=== PATIENT | male | born 1955 | race African-American/Black ===

== ENCOUNTER 2017-02-21 07:28 | Emergency (ER) | payer BC ==
[~2017-02-21] VITALS: Ht 175.3 cm; Wt 100.0 kg
[~2017-02-21 07:28] MED LIST: ASPI325T PO; TAB-TAB PO
[2017-02-21 07:30] VITALS: BP 175/83; PULSE 91; RESP 18; TEMP 98.4; O2SAT 97
[2017-02-21] MEDS ORDERED: ASPI-183 PO (07:49)
--- NOTE | 2017-02-21 07:52 | PD ---
HPI Chief Complaint: Nosebleed Time Seen by Provider: 07:40 Travel History International Travel<30 days: No Contact w/Intl Traveler<30days: No Traveled to known affect area: No History of Present Illness HPI 51-year-old Afro-[place] male presents the emergency department with recent increase in episodes of epistaxis. Patient denies any acute problems otherwise. Patient has history of long-standing lymphedema in the right lower extremity. Takes no regular medications. Vital signs are stable. He is currently not having epistaxis acutely at this time. He has no known drug allergies. PFSH Past Medical History Hx Anticoagulant Therapy: No Asthma: No Autoimmune Disease: No Blood Disorders: No Anxiety: Yes Depression: Yes Heart Rhythm Problems: No Cancer: No Cardiovascular Problems: No High Cholesterol: No Chemotherapy: No Chest Pain: No COPD: No Cerebrovascular Accident: No Diabetes: Yes Patient Takes Glucophage: No Diminished Hearing: No Endocrine: Yes Gastrointestinal Disorders: Yes GERD: Yes Glaucoma: No Genitourinary: No Hepatitis: No Hiatal Hernia: No Hypertension: Yes Immune Disorder: No Musculoskeletal: No Reproductive: No Respiratory: No Integumentary: Yes (LYMPHEDEMA) Immunizations Current: Yes Migraines: No Myocardial Infarction: No Pneumonia: Yes Radiation Therapy: No Seizures: No Sleep Apnea: No Thyroid Disease: No Past Surgical History Abdominal Surgery: No AICD: No Arteriovenous Shunt: No Cardiac Surgery: No Ear Surgery: No Endocrine Surgery: No Eye Surgery: No Genitourinary Surgery: No Gynecologic Surgery: No Hysterectomy: No Insulin Pump: No Joint Replacement: No Oral Surgery: Yes (WISDOM TEETH EXTRACTED-1973) Pacemaker: No Tonsillectomy: Yes (1960) Social History Alcohol Use: Yes (DAILY "7 PINTS OF BEER PER DAY") Tobacco Use: No Substance Use: No Allergies-Medications (Allergen,Severity, Reaction): Coded Allergies: No Known Allergies (Verified Adverse Reaction, Unknown, 02/21/17) Reported Meds & Prescriptions Reported Meds & Active Scripts Active Review of Systems Except as stated in HPI: all other systems reviewed are Neg General / Constitutional: No: Fever Eyes: No: Visual changes HENT: Positive: Nosebleed (history of recent epistaxis.), No: Headaches Cardiovascular: Positive: Varicosities (in both lower extremities.), Edema ( chronic right lymphedema.), No: Chest Pain or Discomfort, Palpitations, Irregular Rhythm, Tachycardia, Diaphoresis, Syncope, Dyspnea on exertion, Phlebitis, Claudication Respiratory: No: Shortness of Breath Gastrointestinal: No: Abdominal Pain Genitourinary: No: Dysuria Musculoskeletal: No: Pain Skin: No Rash Neurologic: No: Weakness Psychiatric: No: Depression Endocrine: No: Polydipsia Hematologic/Lymphatic: No: Easy Bruising Physical Exam Narrative GENERAL: Patient appears in no acute distress. SKIN: Warm and dry. Normal color. Normal turgor. HEAD: Atraumatic. Normocephalic. EYES: Pupils equal and round. No scleral icterus. No injection or drainage. ENT: No nasal bleeding or discharge. No obvious signs of epistaxis are noted. Mucous membranes pink and moist. TMs are clear bilaterally. Pharynx is clear. Airway is patent. No sinus tenderness to palpation or percussion. NECK: Trachea midline. Supple and nontender. CARDIOVASCULAR: Regular rate and rhythm. 2 over 4 systolic murmur noted. RESPIRATORY: No accessory muscle use. Clear to auscultation. Breath sounds equal bilaterally. GASTROINTESTINAL: Abdomen soft, non-tender, nondistended. Hepatic and splenic margins not palpable. MUSCULOSKELETAL: Extremities without clubbing or cyanosis. Patient has significant right sided lymphedema which is nontender without signs of skin breakdown or cellulitis. No obvious deformities. NEUROLOGICAL: Awake and alert. No obvious cranial nerve deficits. Motor grossly within normal limits. Five out of 5 muscle strength in the arms and legs. Normal speech. PSYCHIATRIC: Appropriate mood and affect; insight and judgment normal. Data Data Last Documented VS Vital Signs Date Time Temp Pulse Resp B/P (MAP) Pulse Ox O2 Delivery O2 Flow Rate FiO2 02/21/17 07:30 98.4 91 18 175/83 (113) 97 MDM Medical Decision Making Medical Screen Exam Complete: Yes Emergency Medical Condition: No Differential Diagnosis Chronic lower extremity lymphedema. History of varicose veins. Recent epistaxis. Narrative Course A medical screening exam was performed: At the time of evaluation the presenting medical condition was determined not to be of an emergent nature. The patient was given the option of receiving additional care, but declined. Patient was given options for additional community resources from which to obtain care. The Patient Has Been advised to seek medical attention for their presenting complaint. The patient has been advised to return to the ER at any time if an emergent condition develops. Patient is referred to the [facility] for further evaluation and treatment for his chronic issues. Condition: Stable Chase Machado Feb 21, 2017 07:52
== END 2017-02-21 08:01 | disposition left against medical advice (07) ==
LOC: NEPD 07:28
DX: R04.0 Epistaxis (principal); F41.9 Anxiety disorder, unspecified; F32.9 Major depressive disorder, single episode, unspecified; E11.9 Type 2 diabetes mellitus without complications; K21.9 Gastro-esophageal reflux disease without esophagitis; I10 Essential (primary) hypertension
CPT/HCPCS: 99281

== ENCOUNTER 2017-04-12 01:16 | Emergency (ER) | payer BC ==
[~2017-04-12] VITALS: Ht 177.8 cm; Wt 85.0 kg
[~2017-04-12 01:16] MED LIST changes: +ASPI-183 PO; -ASPI325T PO; -TAB-TAB PO
[2017-04-12 01:19] VITALS: BP 149/80; PULSE 87; RESP 20; O2SAT 97
[2017-04-12 02:46] VITALS: BP 137/88; PULSE 120; RESP 20; O2SAT 98
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
[2017-04-12] MEDS ORDERED: THIAMINE HCL 100 MG TAB PO ONE (03:00)
[2017-04-12] MEDS ORDERED: ONDANSETRON ODT 4 MG TAB PO ONE (03:00)
--- NOTE | 2017-04-12 03:48 | RADRPT ---
EXAM DATE/TIME: 04/12/2017 03:17 [facility] COMPARISON: No previous studies available for comparison. INDICATIONS : Short of breath. MEDICAL HISTORY : None. SURGICAL HISTORY : None. ENCOUNTER: Initial ACUITY: 1 day PAIN SCORE: 0/10 LOCATION: Bilateral chest FINDINGS: The cardiac silhouette is normal in transverse diameter. The lungs are free of acute parenchymal opac ity. No effusions are identified. There is elevation of the right hemidiaphragm. CONCLUSION: 1. Cardiomegaly. No acute pulmonary disease. Isaiah Reyes MD on April 12, 2017 at 3:46 Board Certified Radiologist. This report was verified electronically.
[2017-04-12 04:11] VITALS: BP 140/72; PULSE 90; RESP 16; O2SAT 97
[2017-04-12 07:16] VITALS: BP 137/78
== END 2017-04-12 07:17 | disposition home or self-care (01) ==
LOC: NEPE 01:16
DX: F10.129 Alcohol abuse with intoxication, unspecified (principal); F32.9 Major depressive disorder, single episode, unspecified; E11.9 Type 2 diabetes mellitus without complications; I10 Essential (primary) hypertension; K21.9 Gastro-esophageal reflux disease without esophagitis; Z79.82 Long term (current) use of aspirin
CPT/HCPCS: 71045; 99283

== ENCOUNTER 2017-04-23 08:27 | Emergency (ER) | payer BC ==
[2017-04-23 08:36] VITALS: BP 179/86; PULSE 110; RESP 18; TEMP 98.2; O2SAT 100
--- NOTE | 2017-04-23 08:57 | PD ---
HPI Chief Complaint: Medical Clearance Time Seen by Provider: 08:45 Travel History International Travel<30 days: No Contact w/Intl Traveler<30days: No Traveled to known affect area: No History of Present Illness HPI 61-year-old Afro-Citizen Of [place] male presents to emergency department requesting a work release note so that he can work. Patient hasn't appointment on May 03. He has no other acute problems. He has no known drug allergies. PFSH Past Medical History Hx Anticoagulant Therapy: No Asthma: No Autoimmune Disease: No Blood Disorders: No Anxiety: Yes Depression: Yes Heart Rhythm Problems: No Cancer: No Cardiovascular Problems: No High Cholesterol: No Chemotherapy: No Chest Pain: No COPD: No Cerebrovascular Accident: No Diabetes: Yes Diminished Hearing: No Endocrine: Yes Gastrointestinal Disorders: Yes GERD: Yes Glaucoma: No Genitourinary: No Hepatitis: No Hiatal Hernia: No Hypertension: Yes Immune Disorder: No Musculoskeletal: No Reproductive: No Respiratory: No Integumentary: Yes (LYMPHEDEMA) Immunizations Current: Yes Migraines: No Myocardial Infarction: No Pneumonia: Yes Radiation Therapy: No Seizures: No Sleep Apnea: No Thyroid Disease: No Past Surgical History Abdominal Surgery: No AICD: No Arteriovenous Shunt: No Cardiac Surgery: No Ear Surgery: No Endocrine Surgery: No Eye Surgery: No Genitourinary Surgery: No Gynecologic Surgery: No Hysterectomy: No Insulin Pump: No Joint Replacement: No Oral Surgery: Yes (WISDOM TEETH EXTRACTED-1973) Pacemaker: No Tonsillectomy: Yes (1960) Social History Alcohol Use: Yes (DAILY "7 PINTS OF BEER PER DAY") Tobacco Use: No Substance Use: No Allergies-Medications (Allergen,Severity, Reaction): Coded Allergies: No Known Allergies (Verified Adverse Reaction, Unknown, 04/12/17) Reported Meds & Prescriptions Reported Meds & Active Scripts Active Reported Aspirin 325 Mg Tab 325 Mg PO DAILY Review of Systems Except as stated in HPI: all other systems reviewed are Neg General / Constitutional: No: Fever Eyes: No: Visual changes HENT: No: Headaches Cardiovascular: No: Chest Pain or Discomfort Respiratory: No: Shortness of Breath Gastrointestinal: No: Abdominal Pain Genitourinary: No: Dysuria Musculoskeletal: No: Pain Skin: No Rash Neurologic: No: Weakness Psychiatric: No: Depression Endocrine: No: Polydipsia Hematologic/Lymphatic: No: Easy Bruising Physical Exam Narrative GENERAL: Patient appears in no acute distress. SKIN: Warm and dry. Normal color. Normal turgor. HEAD: Atraumatic. Normocephalic. EYES: Pupils equal and round. No scleral icterus. No injection or drainage. ENT: No nasal bleeding or discharge. Mucous membranes pink and moist. NECK: Trachea midline. No JVD. CARDIOVASCULAR: Regular rate and rhythm. RESPIRATORY: No accessory muscle use. Clear to auscultation. Breath sounds equal bilaterally. GASTROINTESTINAL: Abdomen soft, non-tender, nondistended. Hepatic and splenic margins not palpable. MUSCULOSKELETAL: Extremities without clubbing, cyanosis, or and 2+ chronic bilateral lower extremity edema. No obvious deformities. NEUROLOGICAL: Awake and alert. No obvious cranial nerve deficits. Motor grossly within normal limits. Five out of 5 muscle strength in the arms and legs. Normal speech. PSYCHIATRIC: Appropriate mood and affect; insight and judgment normal. Data Data Last Documented VS Vital Signs Date Time Temp Pulse Resp B/P (MAP) Pulse Ox O2 Delivery O2 Flow Rate FiO2 04/23/17 08:36 98.2 110 18 179/86 (117) 100 MDM Medical Decision Making Medical Screen Exam Complete: Yes Emergency Medical Condition: No Differential Diagnosis Chronic edema. Request for work clearance. No emergency issue. Narrative Course A medical screening exam was performed: At the time of evaluation the presenting medical condition was determined not to be of an emergent nature. The patient was given the option of receiving additional care, but declined. Patient was given options for additional community resources from which to obtain care. The Patient Has Been advised to seek medical attention for their presenting complaint. The patient has been advised to return to the ER at any time if an emergent condition develops. Condition: Stable Chase Machado Apr 23, 2017 08:57
== END 2017-04-23 09:05 | disposition left against medical advice (07) ==
LOC: NEPD 08:27
DX: Z02.89 Encounter for other administrative examinations (principal)
CPT/HCPCS: 99281

== ENCOUNTER 2017-06-09 14:19 | Emergency (ER) | payer BC ==
[2017-06-09 14:31] VITALS: BP 163/81; PULSE 105; RESP 20; TEMP 99; O2SAT 97
--- NOTE | 2017-06-09 15:54 | PD ---
HPI Chief Complaint: Medical Clearance Time Seen by Provider: 15:53 Travel History International Travel<30 days: No Contact w/Intl Traveler<30days: No Traveled to known affect area: No History of Present Illness HPI 61-year-old -[place] male well known to me in the emergency department presents emergency department with withdrawal from alcohol symptoms. Patient states he normally drinks 7-9 beers a day but has been able to drink for the past 2 days due to the lack of funds. Patient now presents with "the shakes". Patient has history of chronic lymphedema in both lower extremities which is well known. Patient denies fever, chills, or significant pain. Patient has no history of seizures in the past. Patient is concerned as he has become more shaky in the last 12 hours. He has no known drug allergies. PFSH Past Medical History Hx Anticoagulant Therapy: No Asthma: No Autoimmune Disease: No Blood Disorders: No Anxiety: Yes Depression: Yes Heart Rhythm Problems: No Cancer: No Cardiovascular Problems: No High Cholesterol: No Chemotherapy: No Chest Pain: No COPD: No Cerebrovascular Accident: No Diabetes: Yes Diminished Hearing: No Endocrine: Yes Gastrointestinal Disorders: Yes GERD: Yes Glaucoma: No Genitourinary: No Hepatitis: No Hiatal Hernia: No Hypertension: Yes Immune Disorder: No Musculoskeletal: No Reproductive: No Respiratory: No Integumentary: Yes (LYMPHEDEMA) Immunizations Current: Yes Migraines: No Myocardial Infarction: No Pneumonia: Yes Radiation Therapy: No Seizures: No Sleep Apnea: No Thyroid Disease: No Past Surgical History Abdominal Surgery: No AICD: No Arteriovenous Shunt: No Cardiac Surgery: No Ear Surgery: No Endocrine Surgery: No Eye Surgery: No Genitourinary Surgery: No Gynecologic Surgery: No Hysterectomy: No Insulin Pump: No Joint Replacement: No Oral Surgery: Yes (WISDOM TEETH EXTRACTED-1973) Pacemaker: No Tonsillectomy: Yes (1960) Social History Alcohol Use: Yes (DAILY "7 PINTS OF BEER PER DAY") Tobacco Use: No Substance Use: No Allergies-Medications (Allergen,Severity, Reaction): Coded Allergies: No Known Allergies (Verified Adverse Reaction, Unknown, 04/12/17) Reported Meds & Prescriptions Reported Meds & Active Scripts Active Chlordiazepoxide HCl 25 Mg Capsule 1 Cap PO TID Reported Isosorbide Mononitrate ER (Isosorbide Mononitrate) 30 Mg Soto 30 Mg PO DAILY Furosemide 20 Mg Tab 20 Mg PO DAILY Review of Systems Except as stated in HPI: all other systems reviewed are Neg General / Constitutional: No: Fever, Chills Eyes: No: Visual changes HENT: No: Headaches Cardiovascular: No: Chest Pain or Discomfort Respiratory: No: Shortness of Breath Gastrointestinal: No: Abdominal Pain Genitourinary: No: Dysuria Musculoskeletal: Positive: Edema (Chronic right greater than left and lower extremities), No: Pain Skin: No Rash Neurologic: Positive: Tremor, No: Weakness, Dizziness, Syncope, Focal Abnormalities, Coordination Problem, Ataxia, Headache, Change in Mentation, Slurred Speech, Paresthesia, Incontinence, Seizures, Sensory Disturbance Psychiatric: Positive: Substance Abuse, No: Anxiety, Depression, Suicidal Ideations, Homicidal Ideation Endocrine: No: Polydipsia Hematologic/Lymphatic: No: Easy Bruising Physical Exam Narrative GENERAL: Patient appears tremulous, and somewhat anxious. SKIN: Warm and dry. Normal color. Decreased turgor. Patient has pronounced bilateral lower extremity lymphedema with skin changes present without signs of acute cellulitis. There is some mild serous drainage from both lower extremities. HEAD: Atraumatic. Normocephalic. EYES: Pupils equal and round. No scleral icterus. No injection or drainage. ENT: No nasal bleeding or discharge. Mucous membranes pink and moist. Pharynx is clear. Airways patent NECK: Trachea midline. Supple and nontender. CARDIOVASCULAR: Tachycardia rate and normal rhythm. No murmurs gallops or rubs appreciated. RESPIRATORY: No accessory muscle use. Clear to auscultation. Breath sounds equal bilaterally. GASTROINTESTINAL: Abdomen soft, non-tender, nondistended. Hepatic and splenic margins not palpable. MUSCULOSKELETAL: Extremities without clubbing, cyanosis, or 3+ bilateral lower extremity nonpitting edema. No obvious deformities. NEUROLOGICAL: Awake and alert. No obvious cranial nerve deficits. Motor grossly within normal limits. Five out of 5 muscle strength in the arms and legs. Normal speech. PSYCHIATRIC: Appropriate mood and affect; insight and judgment normal. Data Data Last Documented VS Vital Signs Date Time Temp Pulse Resp B/P (MAP) Pulse Ox O2 Delivery O2 Flow Rate FiO2 06/09/17 14:31 99.0 105 20 163/81 (108) 97 Orders Orders Electrocardiogram (06/09/17 15:57) Complete Blood Count With Diff (06/09/17 15:57) Comprehensive Metabolic Panel (06/09/17 15:57) Prothrombin Time / Inr (Pt) (06/09/17 15:57) Act Partial Throm Time (Ptt) (06/09/17 15:57) Urinalysis - C+S If Indicated (06/09/17 15:57) Chest, Single Ap (06/09/17 15:57) Iv Access Insert/Monitor (06/09/17 15:57) Ecg Monitoring (06/09/17 15:57) Oximetry (06/09/17 15:57) Lorazepam Inj (Ativan Inj) (06/09/17 16:00) Ondansetron Inj (Zofran Inj) (06/09/17 16:00) Sodium Chloride 0.9% Flush (Ns Flush) (06/09/17 16:00) Sodium Chlor 0.9% 1000 Ml Inj (Ns 1000 M (06/09/17 15:57) Drug Screen, Random Urine (06/09/17 15:57) Alcohol (Ethanol) (06/09/17 15:57) Thiamine Inj (Thiamine Inj) (06/09/17 16:00) Chlordiazepoxide (Librium) (06/09/17 19:00) Labs Laboratory Tests Test 06/09/17 16:21 06/09/17 18:22 White Blood Count 4.2 TH/MM3 Red Blood Count 2.96 MIL/MM3 Hemoglobin 10.8 GM/DL Hematocrit 31.0 % Mean Corpuscular Volume 104.8 FL Mean Corpuscular Hemoglobin 36.4 PG Mean Corpuscular Hemoglobin Concent 34.7 % Red Cell Distribution Width 14.6 % Platelet Count 52 TH/MM3 Mean Platelet Volume 8.7 FL Neutrophils (%) (Auto) 72.6 % Lymphocytes (%) (Auto) 17.6 % Monocytes (%) (Auto) 8.6 % Eosinophils (%) (Auto) 0.2 % Basophils (%) (Auto) 1.0 % Neutrophils # (Auto) 3.1 TH/MM3 Lymphocytes # (Auto) 0.7 TH/MM3 Monocytes # (Auto) 0.4 TH/MM3 Eosinophils # (Auto) 0.0 TH/MM3 Basophils # (Auto) 0.0 TH/MM3 CBC Comment AUTO DIFF Differential Comment AUTO DIFF CONFIRMED Platelet Estimate LOW Platelet Morphology Comment NORMAL Prothrombin Time 14.5 SEC Prothromb Time International Ratio 1.4 RATIO Activated Partial Thromboplast Time 32.8 SEC Blood Urea Nitrogen 2 MG/DL Creatinine 0.50 MG/DL Random Glucose 114 MG/DL Total Protein 8.9 GM/DL Albumin 2.5 GM/DL Calcium Level 8.4 MG/DL Alkaline Phosphatase 152 U/L Aspartate Amino Transf (AST/SGOT) 172 U/L Alanine Aminotransferase (ALT/SGPT) 33 U/L Total Bilirubin 2.7 MG/DL Sodium Level 134 MEQ/L Potassium Level 3.8 MEQ/L Chloride Level 97 MEQ/L Carbon Dioxide Level 27.4 MEQ/L Anion Gap 10 MEQ/L Estimat Glomerular Filtration Rate 205 ML/MIN Ethyl Alcohol Level 96 MG/DL MDM Medical Decision Making Medical Screen Exam Complete: Yes Emergency Medical Condition: Yes Medical Record Reviewed: Yes Differential Diagnosis Chronic alcohol abuse. Chronic lower extremity edema. Alcohol withdrawal. Electrolyte imbalance. Dehydration. Risk for seizure. Narrative Course Patient is tremulous but appears medically stable and alert at time of exam. Labs ordered including CBC, CMP, coagulation studies, serum alcohol level, and urinalysis with urine drug screen. Chest x-ray is ordered as well as EKG. IV access is obtained the patient is given 1 mg lorazepam IV, 4 mg Zofran IV, and 1000 mL normal saline bolus with 100 mg thiamine IV. EKG shows sinus rhythm with occasional ventricular premature complexes. This is unchanged from previous of 2012. Chest x-ray showed: Mild diffuse interstitial prominence without new focal pleural or parenchymal opacities. Cardiac silhouette is mildly enlarged. Remainder of exam is unchanged. Labs show CBC without significant leukocytosis, but hemoglobin is 10.8 which is lower than previous. Platelet count is low at 52. Coagulation studies shows a PT of 14.5, INR is 1.4, APTT is 32.8 Chemistry shows sodium of 134, chloride of 97. BUN is 2 with creatinine of 0.50. Glucose 114, calcium is 8.4, total bilirubin is 2.7, AST is 172, ALT normal at 33, alk phos is elevated 152. Total protein is 8.9, albumin is 2.5 Serum EtOH is 96. Urinalysis shows Urine drug screen showed Patient symptoms of tremors are much improved after the lorazepam IV. Patient is given Librium 25 mg p.o. now. Patient is discussed with Dr. Gordon, and he is felt to be stable for discharge with prescription for Librium 25 mg up to 3 times daily. #6 Patient will be discharged with referral to [facility] for his alcohol issues. Patient can return with worsening symptoms as needed. Diagnosis Primary Impression: Alcohol withdrawal Qualified Codes: F10.230 - Alcohol dependence with withdrawal, uncomplicated [facility] Patient Instructions: Abuse of Alcohol (ED), General Instructions Additional Instructions: Patient is discussed with Dr. Gordon, and he is felt to be stable for discharge with prescription for Librium 25 mg up to 3 times daily. #6 Patient will be discharged with referral to [facility] for his alcohol issues. Patient can return with worsening symptoms as needed. Scripts Chlordiazepoxide HCl (Chlordiazepoxide HCl) 25 Mg Capsule 1 CAP PO TID, #6 CAP Prov: Farhad Mims MD 06/09/17 Disposition: 01 DISCHARGE HOME Condition: Stable Chase Machado Jun 09, 2017 15:54
[2017-06-09] MEDS ORDERED: SODIUM CHLOR 0.9% 1000 ML INJ 1,000 ML IV ONE (15:57)
[2017-06-09] MEDS ORDERED: ONDANSETRON HCL 4 MG/2 ML VIAL IV PUSH ONE (16:00)
[2017-06-09] MEDS ORDERED: THIAMINE INJ 100 MG in SODIUM CHLORIDE 0.9% INJ 100 ML IV ONE (16:00)
[2017-06-09] MEDS ORDERED: LORazepam 2 MG/ML VIAL IV PUSH ONE (16:00)
[2017-06-09] MEDS ORDERED: SODIUM CHLORIDE 0.9% FLUSH 10 ML FLUSH IVF PRN (16:00)
--- NOTE | 2017-06-09 16:25 | RADRPT ---
EXAM DATE/TIME: 06/09/2017 16:13 [place] COMPARISON: CHEST SINGLE AP, April 12, 2017, 3:17. INDICATIONS : Cough and swelling. MEDICAL HISTORY : Diabetes mellitus type II. Hypertension SURGICAL HISTORY : ENCOUNTER: Initial ACUITY: 1 day PAIN SCORE: 0/10 LOCATION: Bilateral chest FINDINGS: Mild diffuse interstitial prominence without new focal pleural or parenchymal opacities. Cardiac silh ouette is mildly enlarged. Remainder of exam is unchanged. CONCLUSION: 1. Cardiomegaly with minimal positive fluid balance. Spenser Liao MD on June 09, 2017 at 16:22 Board Certified Radiologist. This report was verified electronically.
[2017-06-09] MEDS ORDERED: FURO20TA PO (16:59)
[2017-06-09] MEDS ORDERED: ISOS30TA3 PO (16:59)
[2017-06-09 17:19] LABS: AUTOMATED NEUTROPHIL # 3.1 TH/MM3 (1.8-7.7); EOSINOPHIL % 0.2 % (0.0-4.0); HEMOGLOBIN 10.8 GM/DL (13.0-17.0); LYMPH % 17.6 % (9.0-44.0); LYMPHOCYTE # 0.7 TH/MM3 (1.0-4.8); MEAN CELL VOLUME 104.8 FL (80.0-100.0); MEAN CORPUSCULAR HEMOGLOBIN 36.4 PG (27.0-34.0); MEAN CORPUSCULAR HGB CONC 34.7 % (32.0-36.0); MEAN PLATELET VOLUME 8.7 FL (7.0-11.0); MONO % 8.6 % (0.0-8.0); MONOCYTE # 0.4 TH/MM3 (0-0.9); NEUT % 72.6 % (16.0-70.0); PLATELET COUNT 52 TH/MM3 (150-450); RED BLOOD COUNT 2.96 MIL/MM3 (4.50-5.90); RED CELL DISTRIBUTION WIDTH 14.6 % (11.6-17.2); WHITE BLOOD COUNT 4.2 TH/MM3 (4.0-11.0)
[2017-06-09 17:31] LABS: INTERNATIONAL NORMALIZED RATIO 1.4 RATIO; PROTHROMBIN TIME - PATIENT 14.5 SEC (9.8-11.6)
[2017-06-09 17:38] LABS: ALBUMIN 2.5 GM/DL (3.4-5.0); AST (GOT) 172 U/L (15-37); BICARBONATE 27.4 MEQ/L (21.0-32.0); CALCIUM 8.4 MG/DL (8.5-10.1); CHLORIDE 97 MEQ/L (98-107); GLOMERULAR FILTRATION RATE 205 ML/MIN (>89); GLUCOSE,RANDOM 114 MG/DL (74-106); SODIUM (NA) 134 MEQ/L (136-145)
[2017-06-09 17:44] LABS: ALKALINE PHOSPHATASE 152 U/L (45-117); ALT (GPT) 33 U/L (12-78); BLOOD UREA NITROGEN 2 MG/DL (7-18); TOTAL BILIRUBIN ADULT 2.7 MG/DL (0.2-1.0); TOTAL PROTEIN 8.9 GM/DL (6.4-8.2)
[2017-06-09] MEDS ORDERED: CHLO25CA9 PO (18:59)
[2017-06-09] MEDS ORDERED: chlordiazePOXIDE 25 MG CAP PO ONE (19:00)
[2017-06-09 19:18] LABS: BILIRUBIN, URINE NEG (NEG); BLOOD, URINE NEG (NEG); GLUCOSE,URINE NEG (NEG); KETONE, URINE NEG (NEG); MUCUS URINE FEW /lpf (OCC); NITRITE,URINE NEG (NEG); PH, URINE 5.5 (5.0-8.5); URINE COLOR YELLOW (YELLW/STRAW); URINE LEUKOCYTE ESTERASE NEG (NEG)
--- NOTE | 2017-06-09 23:52 | EKG ---
Date Performed: 06/09/2017 Time Performed: 16:13:39 PTAGE: 61 years EKG: Sinus rhythm WITH OCCASIONAL VENTRICULAR PREMATURE COMPLEXES BORDERLINE LEFT AXIS DEVIATION POSSIBLE LEFT VENTRIC ULAR HYPERTROPHY ABNORMAL ECG PREVIOUS TRACING : 11/18/2011 01.05 Compared to prior tracing, PVCs now noted DOCTOR: Tae Mckinney Interpretating Date/Time 06/09/2017 23:51:18
== END 2017-06-09 20:10 | disposition home or self-care (01) ==
LOC: NEPD 14:19
DX: F10.239 Alcohol dependence with withdrawal, unspecified (principal); Y90.4 Blood alcohol level of 80-99 mg/100 ml; R94.31 Abnormal electrocardiogram [ECG] [EKG]; I10 Essential (primary) hypertension; E11.9 Type 2 diabetes mellitus without complications; I89.0 Lymphedema, not elsewhere classified; K21.9 Gastro-esophageal reflux disease without esophagitis; F41.9 Anxiety disorder, unspecified; F32.9 Major depressive disorder, single episode, unspecified
CPT/HCPCS: 71045; 80053; 80307; 81001; 85025; 85610; 85730; 93005; 96365; 96375; 99285; J2060; J2405; J3411; J7030

== ENCOUNTER 2017-06-19 09:41 | Emergency (ER) | payer BC ==
[~2017-06-19] VITALS: Ht 175.3 cm; Wt 105.0 kg
[~2017-06-19 09:41] MED LIST changes: -ASPI-183 PO; +CHLO25CA9 PO; +FURO20TA PO; +ISOS30TA3 PO
[2017-06-19 09:45] VITALS: BP 146/80; PULSE 105; RESP 19; TEMP 98.7; O2SAT 98
[2017-06-19] MEDS ORDERED: MULT1TAB46 PO (10:03)
[2017-06-19] MEDS ORDERED: ASPI-183 PO (10:03)
[2017-06-19] MEDS ORDERED: CHLO25CA9 PO (10:23)
--- NOTE | 2017-06-19 10:24 | PD ---
HPI Chief Complaint: Alcohol/Drug Intoxication Time Seen by Provider: 10:18 Travel History International Travel<30 days: No Contact w/Intl Traveler<30days: No Traveled to known affect area: No History of Present Illness HPI Patient states that he is an alcoholic and drinks about 9 pints of beer a day. He is here seeking guidance about detox. Patient denies any suicidal or homicidal ideation. Does not have a plan either. PFSH Past Medical History Hx Anticoagulant Therapy: No Asthma: No Autoimmune Disease: No Blood Disorders: No Anxiety: Yes Depression: Yes Heart Rhythm Problems: No Cancer: No Cardiovascular Problems: No High Cholesterol: No Chemotherapy: No Chest Pain: No COPD: No Cerebrovascular Accident: No Diabetes: Yes Patient Takes Glucophage: No Diminished Hearing: No Endocrine: Yes Gastrointestinal Disorders: Yes GERD: Yes Glaucoma: No Genitourinary: No Hepatitis: No Hiatal Hernia: No Hypertension: Yes Immune Disorder: No Musculoskeletal: No Reproductive: No Respiratory: No Integumentary: Yes (LYMPHEDEMA) Immunizations Current: Yes Migraines: No Myocardial Infarction: No Pneumonia: Yes Radiation Therapy: No Seizures: No Sleep Apnea: No Thyroid Disease: No Tetanus Vaccination: Unknown Influenza Vaccination: No Past Surgical History Abdominal Surgery: No AICD: No Arteriovenous Shunt: No Cardiac Surgery: No Ear Surgery: No Endocrine Surgery: No Eye Surgery: No Genitourinary Surgery: No Gynecologic Surgery: No Hysterectomy: No Insulin Pump: No Joint Replacement: No Oral Surgery: Yes (WISDOM TEETH EXTRACTED-1973) Pacemaker: No Tonsillectomy: Yes (1960) Social History Alcohol Use: Yes (DAILY "9 PINTS OF BEER PER DAY") Tobacco Use: No Substance Use: No Allergies-Medications (Allergen,Severity, Reaction): Coded Allergies: No Known Allergies (Verified Adverse Reaction, Unknown, 06/19/17) Reported Meds & Prescriptions Reported Meds & Active Scripts Active Reported Multi Vitamin Daily (Multiple Vitamin) 1 Tab Tab 1 Tab PO DAILY Aspirin 325 Mg Tab 325 Mg PO DAILY Isosorbide Mononitrate ER (Isosorbide Mononitrate) 30 Mg Soto 30 Mg PO DAILY Furosemide 20 Mg Tab 20 Mg PO DAILY Review of Systems Except as stated in HPI: all other systems reviewed are Neg Physical Exam Narrative GENERAL: SKIN: Warm and dry. HEAD: Atraumatic. Normocephalic. EYES: Pupils equal and round. No scleral icterus. No injection or drainage. ENT: No nasal bleeding or discharge. Mucous membranes pink and moist. NECK: Trachea midline. No JVD. CARDIOVASCULAR: Regular rate and rhythm. RESPIRATORY: No accessory muscle use. Clear to auscultation. Breath sounds equal bilaterally. GASTROINTESTINAL: Abdomen soft, non-tender, nondistended. MUSCULOSKELETAL: Extremities without clubbing, cyanosis, or edema. No obvious deformities. NEUROLOGICAL: Awake and alert. No obvious cranial nerve deficits. Motor grossly within normal limits. Five out of 5 muscle strength in the arms and legs. Normal speech. PSYCHIATRIC: Appropriate mood and affect; insight and judgment normal. Data Data Last Documented VS Vital Signs Date Time Temp Pulse Resp B/P (MAP) Pulse Ox O2 Delivery O2 Flow Rate FiO2 06/19/17 09:45 98.7 105 19 146/80 (102) 98 MDM Medical Decision Making Medical Screen Exam Complete: Yes Emergency Medical Condition: Yes Medical Record Reviewed: Yes Differential Diagnosis Not applicable Narrative Course Patient is a chronic alcoholic, who will be given librium to aid with detox and referred to [facility] Diagnosis Primary Impression: Alcohol abuse Referrals: [facility] (Out patient) for further help with detox process Scripts Chlordiazepoxide HCl (Chlordiazepoxide HCl) 25 Mg Capsule 25 MG PO TID for Withdrawals for 5 Days, #15 Prov: Coleman Garrison MD 06/19/17 Disposition: 01 DISCHARGE HOME Condition: Stable Coleman Garrison MD Jun 19, 2017 10:24
[2017-06-19] MEDS ORDERED: chlordiazePOXIDE 25 MG CAP PO ONE (11:00)
== END 2017-06-19 11:20 | disposition home or self-care (01) ==
LOC: NEPD 09:41
DX: F10.20 Alcohol dependence, uncomplicated (principal)
CPT/HCPCS: 99283

== ENCOUNTER 2017-06-20 07:33 | Emergency (ER) | payer BC ==
[~2017-06-20] VITALS: Ht 175.3 cm; Wt 107.0 kg
[~2017-06-20 07:33] MED LIST changes: +ASPI-183 PO; +MULT1TAB46 PO
[2017-06-20 07:36] VITALS: BP 149/74; PULSE 97; RESP 16; TEMP 98.2; O2SAT 98
--- NOTE | 2017-06-20 08:11 | PD ---
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 Patient states he does light work, and is requesting clarification on previous visits work release. Patient was seen yesterday by Dr. Garrison, and referred to [facility] and given a prescription for Librium for his EtOH and detox. He has no acute complaints otherwise today. PFSH Past Medical History Hx Anticoagulant Therapy: No Asthma: No Autoimmune Disease: No Blood Disorders: No Anxiety: Yes Depression: Yes Heart Rhythm Problems: No Cancer: No Cardiovascular Problems: No High Cholesterol: No Chemotherapy: No Chest Pain: No COPD: No Cerebrovascular Accident: No Diabetes: Yes Diminished Hearing: No Endocrine: Yes Gastrointestinal Disorders: Yes GERD: Yes Glaucoma: No Genitourinary: No Hepatitis: No Hiatal Hernia: No Hypertension: Yes Immune Disorder: No Musculoskeletal: No Reproductive: No Respiratory: No Integumentary: Yes (LYMPHEDEMA) Immunizations Current: Yes Migraines: No Myocardial Infarction: No Pneumonia: Yes Radiation Therapy: No Seizures: No Sleep Apnea: No Thyroid Disease: No Past Surgical History Abdominal Surgery: No AICD: No Arteriovenous Shunt: No Cardiac Surgery: No Ear Surgery: No Endocrine Surgery: No Eye Surgery: No Genitourinary Surgery: No Gynecologic Surgery: No Hysterectomy: No Insulin Pump: No Joint Replacement: No Oral Surgery: Yes (WISDOM TEETH EXTRACTED-1973) Pacemaker: No Tonsillectomy: Yes (1960) Social History Alcohol Use: Yes (DAILY "9 PINTS OF BEER PER DAY") Tobacco Use: No Substance Use: No Allergies-Medications (Allergen,Severity, Reaction): Coded Allergies: No Known Allergies (Verified Adverse Reaction, Unknown, 06/19/17) Reported Meds & Prescriptions Reported Meds & Active Scripts Active Chlordiazepoxide HCl 25 Mg Capsule 25 Mg PO TID 5 Days Reported Multi Vitamin Daily (Multiple Vitamin) 1 Tab Tab 1 Tab PO DAILY Aspirin 325 Mg Tab 325 Mg PO DAILY Isosorbide Mononitrate ER (Isosorbide Mononitrate) 30 Mg Soto 30 Mg PO DAILY Furosemide 20 Mg Tab 20 Mg PO DAILY Review of Systems Except as stated in HPI: all other systems reviewed are Neg General / Constitutional: No: Fever Eyes: No: Visual changes HENT: No: Headaches Cardiovascular: No: Chest Pain or Discomfort Respiratory: No: Shortness of Breath Gastrointestinal: No: Abdominal Pain Genitourinary: No: Dysuria Musculoskeletal: No: Pain Skin: No Rash Neurologic: No: Weakness Psychiatric: No: Depression Endocrine: No: Polydipsia Hematologic/Lymphatic: No: Easy Bruising Physical Exam Narrative GENERAL: Patient is in no acute distress. He does not appear intoxicated. SKIN: Warm and dry. HEAD: Atraumatic. Normocephalic. EYES: Pupils equal and round. No scleral icterus. No injection or drainage. ENT: No nasal bleeding or discharge. Mucous membranes pink and moist. NECK: Trachea midline. No JVD. CARDIOVASCULAR: Regular rate and rhythm. RESPIRATORY: No accessory muscle use. Clear to auscultation. Breath sounds equal bilaterally. MUSCULOSKELETAL: Extremities without clubbing, cyanosis with chronic lower extremity lymphangitis. No obvious deformities. NEUROLOGICAL: Awake and alert. No obvious cranial nerve deficits. Motor grossly within normal limits. Five out of 5 muscle strength in the arms and legs. Normal speech. PSYCHIATRIC: Appropriate mood and affect; insight and judgment normal. Data Data Last Documented VS Vital Signs Date Time Temp Pulse Resp B/P (MAP) Pulse Ox O2 Delivery O2 Flow Rate FiO2 06/20/17 07:36 98.2 97 16 149/74 (99) 98 MDM Medical Decision Making Medical Screen Exam Complete: Yes Emergency Medical Condition: Yes Medical Record Reviewed: Yes Differential Diagnosis History of EtOH abuse. Need for detox. Work release. Narrative Course Visit from yesterday is reviewed. Work note is given. Diagnosis Primary Impression: Return to work evaluation Patient Instructions: General Instructions Departure Forms: Work Release Enter return to work date: Jun 20, 2017 Special Instructions: Patient is felt to be able to return to work without restriction. Med/Other Pt SpecificInfo: No Meds Exist/No RX given Disposition: 01 DISCHARGE HOME Condition: Stable Chase Machado Jun 20, 2017 08:11
== END 2017-06-20 08:35 | disposition home or self-care (01) ==
LOC: NEPD 07:33
DX: F10.10 Alcohol abuse, uncomplicated (principal); F41.9 Anxiety disorder, unspecified; F32.9 Major depressive disorder, single episode, unspecified; E11.9 Type 2 diabetes mellitus without complications; K21.9 Gastro-esophageal reflux disease without esophagitis; I10 Essential (primary) hypertension; Z79.82 Long term (current) use of aspirin; Z79.899 Other long term (current) drug therapy
CPT/HCPCS: 99281

== ENCOUNTER 2017-07-03 19:00 | Emergency (ER) | payer BC ==
[~2017-07-03] VITALS: Ht 175.3 cm; Wt 102.0 kg
[2017-07-03 19:10] VITALS: BP 134/64; PULSE 104; RESP 18; TEMP 98.5; O2SAT 98
[2017-07-03] MEDS ORDERED: DIAZEPAM 10 MG TAB PO ONE (19:30)
--- NOTE | 2017-07-03 20:19 | PD ---
HPI Chief Complaint: Alcohol/Drug Intoxication Time Seen by Provider: 19:19 Travel History International Travel<30 days: No Contact w/Intl Traveler<30days: No Traveled to known affect area: No History of Present Illness HPI 61 yo M c/o tremors which he states are c/w alcohol withdrawal. Pt drinks nine bottles of beer daily. Last etoh was today. No LOC. Duration of tremors has been a few hours. Timing constant. PFSH Past Medical History Hx Anticoagulant Therapy: No Asthma: No Autoimmune Disease: No Blood Disorders: No Anxiety: Yes Depression: Yes Heart Rhythm Problems: No Cancer: No Cardiovascular Problems: No High Cholesterol: No Chemotherapy: No Chest Pain: No COPD: No Cerebrovascular Accident: No Diabetes: Yes Patient Takes Glucophage: No Diminished Hearing: No Endocrine: Yes Gastrointestinal Disorders: Yes GERD: Yes Glaucoma: No Genitourinary: No Hepatitis: No Hiatal Hernia: No Hypertension: Yes Immune Disorder: No Musculoskeletal: No Reproductive: No Respiratory: No Integumentary: Yes (LYMPHEDEMA) Immunizations Current: Yes Migraines: No Myocardial Infarction: No Pneumonia: Yes Radiation Therapy: No Seizures: No Sleep Apnea: No Thyroid Disease: No Tetanus Vaccination: Unknown Influenza Vaccination: No Past Surgical History Abdominal Surgery: No AICD: No Arteriovenous Shunt: No Cardiac Surgery: No Ear Surgery: No Endocrine Surgery: No Eye Surgery: No Genitourinary Surgery: No Gynecologic Surgery: No Hysterectomy: No Insulin Pump: No Joint Replacement: No Oral Surgery: Yes (WISDOM TEETH EXTRACTED-1973) Pacemaker: No Tonsillectomy: Yes (1960) Social History Alcohol Use: Yes (DAILY "9 PINTS OF BEER PER DAY") Tobacco Use: No Substance Use: No Allergies-Medications (Allergen,Severity, Reaction): Coded Allergies: No Known Allergies (Verified Adverse Reaction, Unknown, 07/03/17) Reported Meds & Prescriptions Reported Meds & Active Scripts Active Chlordiazepoxide HCl 25 Mg Capsule 25 Mg PO TID 5 Days Reported Multi Vitamin Daily (Multiple Vitamin) 1 Tab Tab 1 Tab PO DAILY Aspirin 325 Mg Tab 325 Mg PO DAILY Isosorbide Mononitrate ER (Isosorbide Mononitrate) 30 Mg Soto 30 Mg PO DAILY Furosemide 20 Mg Tab 20 Mg PO DAILY Review of Systems Except as stated in HPI: all other systems reviewed are Neg General / Constitutional: No: Chills Eyes: No: Blurred Vision Physical Exam Narrative GENERAL: 61 yo M, WNWD, NAD Vital Signs Date Time Temp Pulse Resp B/P (MAP) Pulse Ox O2 Delivery O2 Flow Rate FiO2 07/03/17 19:10 98.5 104 18 134/64 (87) 98 SKIN: Warm and dry. HEAD: Atraumatic. Normocephalic. EYES: Pupils equal and round. No scleral icterus. No injection or drainage. ENT: No nasal bleeding or discharge. Mucous membranes pink and moist. NECK: Trachea midline. No JVD. CARDIOVASCULAR: Regular rate and rhythm. RESPIRATORY: No accessory muscle use. Clear to auscultation. Breath sounds equal bilaterally. GASTROINTESTINAL: Abdomen soft, non-tender, nondistended. Hepatic and splenic margins not palpable. MUSCULOSKELETAL: Extremities without clubbing, cyanosis, or edema. No obvious deformities. NEUROLOGICAL: No focal CN deficit. Pt ambulatory. Speech memory mentation normal. No cerebellar dysfunction. PSYCHIATRIC: Appropriate mood and affect; insight and judgment normal. Data Data Last Documented VS Vital Signs Date Time Temp Pulse Resp B/P (MAP) Pulse Ox O2 Delivery O2 Flow Rate FiO2 07/03/17 19:10 98.5 104 18 134/64 (87) 98 Orders Orders Diazepam (Valium) (07/03/17 19:30) Ed Discharge Order (07/03/17 20:19) [facility] Medical Decision Making Medical Screen Exam Complete: Yes Emergency Medical Condition: Yes Medical Record Reviewed: Yes Differential Diagnosis etoh withdrawal, alcoholism, tremor Narrative Course pt has tremor, potentially c/w early etoh withdrawal valium po dc home [facility] follow up instructions provided Diagnosis Primary Impression: Alcoholism Referrals: [facility] days Med/Other Pt SpecificInfo: No Change to Meds Disposition: 01 DISCHARGE HOME Condition: Stable Morteza Mckinney MD Jul 03, 2017 20:19
== END 2017-07-03 20:25 | disposition home or self-care (01) ==
LOC: NEPD 19:00
DX: F10.20 Alcohol dependence, uncomplicated (principal); R25.1 Tremor, unspecified; F41.9 Anxiety disorder, unspecified; F32.9 Major depressive disorder, single episode, unspecified; E11.9 Type 2 diabetes mellitus without complications; K21.9 Gastro-esophageal reflux disease without esophagitis; I10 Essential (primary) hypertension; Z79.82 Long term (current) use of aspirin; Z79.899 Other long term (current) drug therapy
CPT/HCPCS: 99283

== ENCOUNTER 2017-07-21 11:47 | Inpatient (IN) | payer BC ==
[~2017-07-21] VITALS: Ht 175.3 cm; Wt 103.3 kg
[2017-07-21 12:00] VITALS: BP 162/59; PULSE 97; RESP 18; TEMP 98.2; O2SAT 100
[2017-07-21 14:38] LABS: AUTOMATED NEUTROPHIL # 2.3 TH/MM3 (1.8-7.7); BASOPHIL # 0.1 TH/MM3 (0-0.2); BASOPHIL % 1.2 % (0.0-2.0); EOSINOPHIL # 0.1 TH/MM3 (0-0.4); EOSINOPHIL % 2.1 % (0.0-4.0); HEMATOCRIT 29.4 % (39.0-51.0); HEMOGLOBIN 10.3 GM/DL (13.0-17.0); LYMPH % 37.1 % (9.0-44.0); LYMPHOCYTE # 1.7 TH/MM3 (1.0-4.8); MEAN CELL VOLUME 103.7 FL (80.0-100.0); MEAN CORPUSCULAR HEMOGLOBIN 36.3 PG (27.0-34.0); MEAN PLATELET VOLUME 8.4 FL (7.0-11.0); MONO % 9.4 % (0.0-8.0); MONOCYTE # 0.4 TH/MM3 (0-0.9); NEUT % 50.2 % (16.0-70.0); PLATELET COUNT 70 TH/MM3 (150-450); RED BLOOD COUNT 2.83 MIL/MM3 (4.50-5.90); RED CELL DISTRIBUTION WIDTH 16.2 % (11.6-17.2); WHITE BLOOD COUNT 4.6 TH/MM3 (4.0-11.0)
[2017-07-21 14:39] LABS: BILIRUBIN, URINE NEG (NEG); BLOOD, URINE TRACE (NEG); GLUCOSE,URINE NEG (NEG); KETONE, URINE NEG (NEG); MUCUS URINE FEW /lpf (OCC); NITRITE,URINE NEG (NEG); PH, URINE 5.5 (5.0-8.5); URINE COLOR YELLOW (YELLW/STRAW); URINE LEUKOCYTE ESTERASE NEG (NEG)
[2017-07-21 15:10] LABS: ACETAMINOPHEN LESS THAN 2.0 MCG/ML (10.0-30.0); ALBUMIN 2.3 GM/DL (3.4-5.0); ALKALINE PHOSPHATASE 126 U/L (45-117); ALT (GPT) 19 U/L (12-78); AST (GOT) 98 U/L (15-37); BICARBONATE 28.3 MEQ/L (21.0-32.0); BLOOD UREA NITROGEN 1 MG/DL (7-18); CALCIUM 8.1 MG/DL (8.5-10.1); CHLORIDE 102 MEQ/L (98-107); CREATININE 0.48 MG/DL (0.60-1.30); GLOMERULAR FILTRATION RATE 215 ML/MIN (>89); GLUCOSE,RANDOM 97 MG/DL (74-106); SODIUM (NA) 137 MEQ/L (136-145); TOTAL BILIRUBIN ADULT 2.3 MG/DL (0.2-1.0)
--- NOTE | 2017-07-21 15:41 | PD ---
HPI Chief Complaint: Psychiatric Symptoms Time Seen by Provider: 13:32 Travel History International Travel<30 days: No Contact w/Intl Traveler<30days: No Traveled to known affect area: No History of Present Illness HPI 61-year-old male presents to the emergency department voluntarily for psychological evaluation. He reports having thoughts of suicide and his plan is to "walk in the [place] and not come back out." He reports losing his job recently and has no source of income, and his landlord is threatening to evict him. This is causing him to have thoughts of suicide. Although, he states it is against his yarsani to kill himself and it is just a thought and not an action. Denies homicidal ideations. Denies illicit drug use. Reports being an alcoholic and had his last drink at 3 AM this morning. Denies auditory or visual hallucinations. Denies psychiatric history. He saw his primary care provider, Dr. Lowe, today and expressed his feelings of wanting to kill himself and his PCP sent him here for evaluation. Recent onset. Unknown duration. Symptoms are moderate to severe in severity. Aggravated by recently losing his job, decreased income, and possibility of eviction. No known relieving factors. Patient has chronic bilateral lower extremity edema and gets his leg dressing changed once a week by Dr. Lowe. He was there to get his dressings changed today, but was sent here for evaluation prior to his dressings being changed. The patient states the dressings are for compression and he takes "water pills" for his edema. He has no emergent medical complaints at this time. Denies chest pain, shortness of breath, abdominal pain, nausea, vomiting, fevers, change in urine or stool. History of bilateral lower extremity edema, abdominal hernia, heart murmur. PCP is Dr. Lowe. No known allergies. No other modifying factors or associated signs and symptoms. PFSH Past Medical History Hx Anticoagulant Therapy: No Asthma: No Autoimmune Disease: No Blood Disorders: No Anxiety: Yes Depression: Yes Heart Rhythm Problems: No Cancer: No Cardiovascular Problems: Yes High Cholesterol: No Chemotherapy: No Chest Pain: No COPD: No Cerebrovascular Accident: No Diabetes: Yes Patient Takes Glucophage: No Diminished Hearing: No Endocrine: Yes Gastrointestinal Disorders: Yes GERD: Yes Glaucoma: No Genitourinary: No Hepatitis: No Hiatal Hernia: No Hypertension: Yes Immune Disorder: No Musculoskeletal: No Reproductive: No Respiratory: No Integumentary: Yes (LYMPHEDEMA) Immunizations Current: Yes Migraines: No Myocardial Infarction: No Pneumonia: Yes Radiation Therapy: No Seizures: No Sleep Apnea: No Thyroid Disease: No Past Surgical History Abdominal Surgery: No AICD: No Arteriovenous Shunt: No Cardiac Surgery: No Ear Surgery: No Endocrine Surgery: No Eye Surgery: No Genitourinary Surgery: No Gynecologic Surgery: No Hysterectomy: No Insulin Pump: No Joint Replacement: No Oral Surgery: Yes (WISDOM TEETH EXTRACTED-1973) Pacemaker: No Tonsillectomy: Yes (1960) Social History Alcohol Use: Yes (DAILY "9 PINTS OF BEER PER DAY") Tobacco Use: No (DENIES) Substance Use: No Allergies-Medications (Allergen,Severity, Reaction): Coded Allergies: No Known Allergies (Verified Adverse Reaction, Unknown, 07/03/17) Reported Meds & Prescriptions Reported Meds & Active Scripts Active Synthroid (Levothyroxine Sodium) 50 Mcg Tab 50 Mcg PO DAILY Chlordiazepoxide HCl 25 Mg Capsule 25 Mg PO TID 5 Days Reported Multi Vitamin Daily (Multiple Vitamin) 1 Tab Tab 1 Tab PO DAILY Aspirin 325 Mg Tab 325 Mg PO DAILY Isosorbide Mononitrate ER (Isosorbide Mononitrate) 30 Mg Soto 30 Mg PO DAILY Furosemide 20 Mg Tab 20 Mg PO DAILY Review of Systems Except as stated in HPI: all other systems reviewed are Neg Physical Exam Narrative GENERAL: Well-nourished, well-developed elderly, black male patient, in no acute distress SKIN: Warm and dry. HEAD: Atraumatic. Normocephalic. EYES: Pupils equal and round. ENT: Mucosa pink and moist. NECK: Supple. Trachea midline. CARDIOVASCULAR: Regular rate and rhythm. Heart murmur appreciated. RESPIRATORY: No accessory muscle use. Clear to auscultation. Breath sounds equal bilaterally. GASTROINTESTINAL: Abdomen soft, non-tender, nondistended. Hepatic and splenic margins not palpable. Bowel sounds are active 4 quadrants. MUSCULOSKELETAL: Extensive bilateral lower extremity edema and bilateral lower legs and feet are wrapped. No obvious deformities. No clubbing. No cyanosis. No edema. NEUROLOGICAL: Awake and alert. Oriented 3. No obvious cranial nerve deficits. Motor grossly within normal limits. Normal speech. Moves all extremities. 5/5 strength to all extremities. PSYCHIATRIC: No delusional thought processes. No hallucinations. Data Data Last Documented VS Vital Signs Date Time Temp Pulse Resp B/P (MAP) Pulse Ox O2 Delivery O2 Flow Rate FiO2 07/21/17 13:34 18 07/21/17 12:00 98.2 97 162/59 (93) 100 Orders Orders Complete Blood Count With Diff (07/21/17 13:51) Comprehensive Metabolic Panel (07/21/17 13:51) Thyroid Stimulating Hormone (07/21/17 13:51) Psych Screen (07/21/17 13:51) Drug Screen, Random Urine (07/21/17 13:51) Alcohol (Ethanol) (07/21/17 13:51) Salicylates (Aspirin) (07/21/17 13:51) Tylenol (Acetaminophen) (07/21/17 13:51) Urinalysis - C+S If Indicated (07/21/17 13:52) Labs Laboratory Tests Test 07/21/17 14:08 White Blood Count 4.6 TH/MM3 Red Blood Count 2.83 MIL/MM3 Hemoglobin 10.3 GM/DL Hematocrit 29.4 % Mean Corpuscular Volume 103.7 FL Mean Corpuscular Hemoglobin 36.3 PG Mean Corpuscular Hemoglobin Concent 35.0 % Red Cell Distribution Width 16.2 % Platelet Count 70 TH/MM3 Mean Platelet Volume 8.4 FL Neutrophils (%) (Auto) 50.2 % Lymphocytes (%) (Auto) 37.1 % Monocytes (%) (Auto) 9.4 % Eosinophils (%) (Auto) 2.1 % Basophils (%) (Auto) 1.2 % Neutrophils # (Auto) 2.3 TH/MM3 Lymphocytes # (Auto) 1.7 TH/MM3 Monocytes # (Auto) 0.4 TH/MM3 Eosinophils # (Auto) 0.1 TH/MM3 Basophils # (Auto) 0.1 TH/MM3 CBC Comment AUTO DIFF Differential Comment AUTO DIFF CONFIRMED Platelet Estimate LOW Platelet Morphology Comment NORMAL Urine Color YELLOW Urine Turbidity CLEAR Urine pH 5.5 Urine Specific [place] 1.009 Urine Protein NEG mg/dL Urine Glucose (UA) NEG mg/dL Urine Ketones NEG mg/dL Urine Occult Blood TRACE Urine Nitrite NEG Urine Bilirubin NEG Urine Urobilinogen 2.0 MG/DL Urine Leukocyte Esterase NEG Urine RBC 2 /hpf Urine WBC LESS THAN 1 /hpf Urine Mucus FEW /lpf Microscopic Urinalysis Comment CULT NOT INDICATED Blood Urea Nitrogen 1 MG/DL Creatinine 0.48 MG/DL Random Glucose 97 MG/DL Total Protein 9.0 GM/DL Albumin 2.3 GM/DL Calcium Level 8.1 MG/DL Alkaline Phosphatase 126 U/L Aspartate Amino Transf (AST/SGOT) 98 U/L Alanine Aminotransferase (ALT/SGPT) 19 U/L Total Bilirubin 2.3 MG/DL Sodium Level 137 MEQ/L Potassium Level 3.5 MEQ/L Chloride Level 102 MEQ/L Carbon Dioxide Level 28.3 MEQ/L Anion Gap 7 MEQ/L Estimat Glomerular Filtration Rate 215 ML/MIN Thyroid Stimulating Hormone 3rd Gen 12.600 uIU/ML Salicylates Level LESS THAN 1.7 MG/DL Urine Opiates Screen NEG Acetaminophen Level LESS THAN 2.0 MCG/ML Urine Barbiturates Screen NEG Urine Amphetamines Screen NEG Urine Benzodiazepines Screen NEG Urine Cocaine Screen NEG Urine Cannabinoids Screen NEG Ethyl Alcohol Level 157 MG/DL MDM Medical Decision Making Medical Screen Exam Complete: Yes Emergency Medical Condition: Yes Medical Record Reviewed: Yes Differential Diagnosis Depression, suicidal ideation, medical clearance for psychological evaluation Narrative Course Patient presents voluntarily. Physical examination and vital signs are essentially unremarkable. Patient has no medical complaints to report. Psych screen has been ordered. If the laboratory results are unremarkable, the patient will be medically cleared for psychiatric evaluation and disposition. 1536: CBC with anemia; hemoglobin 10.3. TSH 12.6. EtOH 157. Drug screen negative. Discussed lab findings with Dr. Garrison and he recommended medical admission. Call placed for patient admission to medical for new onset hypothyroid with TSH 12.6. 1607: I spoke with Dr. Christianson and patient does not meet admission criteria. Synthroid 50 micrograms ordered. Patient prescribed Synthroid for home. Instructed patient to follow-up with primary care provider in regards to hypothyroid and thyroid management. Patient medically cleared for psych evaluation. Diagnosis Primary Impression: Encounter for psychological evaluation Additional Impression: Hypothyroid Qualified Codes: E03.9 - Hypothyroidism, unspecified Patient Instructions: General Instructions, Hypothyroidism (ED) Departure Forms: Tests/Procedures Med/Other Pt SpecificInfo: Prescription(s) given Scripts Levothyroxine (Synthroid) 50 Mcg Tab 50 MCG PO DAILY for Thyroid, #30 TAB 0 Refills Prov: Arlene Singh 07/21/17 Condition: Arlene Hernandez [facility] Jul 21, 2017 15:41
[2017-07-21] MEDS ORDERED: LEVO.05 PO (16:10)
[2017-07-21] MEDS ORDERED: LEVOTHYROXINE SODIUM 50 MCG TAB PO ONE (16:15)
[2017-07-21] MEDS ORDERED: LORazepam 2 MG/ML VIAL IM PRN ×4 (17:15)
[2017-07-21] MEDS ORDERED: LORazepam 1 MG TAB PO PRN (17:15)
[2017-07-21] MEDS ORDERED: FLUMAZENIL 0.5 MG/5 ML VIAL IV PUSH PRN (17:15)
[2017-07-21] MEDS ORDERED: LORazepam 2 MG TAB PO PRN (17:15)
[2017-07-21 17:34] VITALS: BP 132/73; PULSE 98; RESP 18; O2SAT 97
--- NOTE | 2017-07-21 17:50 | PD ---
History of Present Illness Chief Complaint: Psychiatric Symptoms Time Seen by Provider: 17:05 Travel History International Travel<30 Days: No Contact w/Intl Traveler<30days: No Known affected area: No Legal Status Legal Status: Voluntary History of Present Illness: History of Present Illness HPI 61-year-old, single, never , recently unemployed, who lives by himself but is facing eviction, -[place] male with history of alcohol abuse, who presents to the emergency department voluntarily for psychological evaluation. The patient was sent to the emergency department by Dr. Lowe, his PCP for evaluation after the patient reported to Dr. Lowe that he was having suicidal thoughts with a plan to walk into the [place] and not come back out. The patient is seen by Dr. Lowe on a weekly basis for dressing change to his lower extremities to treat his lymphedema. The patient did not make any attempt at harming himself. Electronic medical record is reviewed. No previous contact with [facility] psychiatry. The patient has had multiple visits to the emergency department for treatment of alcohol intoxication as well as alcohol withdrawal. His last ED visit was July 03, 2017. His current blood alcohol level was 157 on arrival to the ED. negative toxicology. Lab work is reviewed. Patient with hemoglobin of 10.3, low platelets, TSH of 12. Patient has no previous thyroid issues. Dr. Christianson was consulted for possible medical admission but declined and recommended patient to begin Synthroid 50 mcg and to be followed up by outpatient PCP. The patient is seen in Main ED. He is awake, alert, oriented, engaging and cooperative male with disheveled, appearance , unshaven . Fair amount of eye contact. His speech is clear, logical, of normal rate and tone, utilizes euphemisms. His affect is blunted. There is no evidence of any hallucinations, no delusions, no lupe paranoid thoughts, although he is suspicious of his bosses . " You know they are very well connected in this town and some have worked for the [employer], so they can do what they want to people , including firing them". Mood is depressed with marked helplessness,hopelessness , worry over his financial situation as well as possible eviction as well as feeling frustrated ' with people dragging their feet " and not processing his unemployment as well as his food stamp application. States " I don't know what I am going to do. I need fuel". Describes his thinking as " not in a good mental state". 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 Reports impaired sleep pattern, low appetite, low level of energy. Patient also reporting lack of any established social support system. PFSH Past Medical History Hx Anticoagulant Therapy: No Asthma: No Autoimmune Disease: No Blood Disorders: No Anxiety: Yes Depression: Yes Heart Rhythm Problems: No Cancer: No Cardiovascular Problems: Yes High Cholesterol: No Chemotherapy: No Chest Pain: No COPD: No Cerebrovascular Accident: No Diabetes: Yes Patient Takes Glucophage: No Diminished Hearing: No Endocrine: Yes Gastrointestinal Disorders: Yes GERD: Yes Glaucoma: No Genitourinary: No Hepatitis: No Hiatal Hernia: No Hypertension: Yes Immune Disorder: No Musculoskeletal: No Reproductive: No Respiratory: No Integumentary: Yes (LYMPHEDEMA) Immunizations Current: Yes Migraines: No Myocardial Infarction: No Pneumonia: Yes Radiation Therapy: No Seizures: No Sleep Apnea: No Thyroid Disease: No Past Surgical History Abdominal Surgery: No AICD: No Arteriovenous Shunt: No Cardiac Surgery: No Ear Surgery: No Endocrine Surgery: No Eye Surgery: No Genitourinary Surgery: No Gynecologic Surgery: No Hysterectomy: No Insulin Pump: No Joint Replacement: No Oral Surgery: Yes (WISDOM TEETH EXTRACTED-1973) Pacemaker: No Tonsillectomy: Yes (1960) Psychiatric History Psychiatric History Hx Psychiatric Treatment: Denies any previous psychiatric tx. No hx of previous suicide attempts. History of Inpatient Treatment: No Guns or firearms in home: No Social History Single , never . No children. No family in area. Mother is alive and lives in [place]. 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 Hx Alcohol Use: Yes (DAILY "9 PINTS OF BEER PER DAY") Hx Tobacco Use: No (DENIES) Hx Substance Use: No Substance Use Type: Alcohol (Drinks 7 to 9 pints of beer q day for the past 19 yeras. ) Family Psychiatric History Mother with reported " mental breakdown" years ago. Allergies-Medications (Allergen,Severity, Reaction): Coded Allergies: No Known Allergies (Verified Adverse Reaction, Unknown, 07/03/17) Reported Meds & Prescriptions Reported Meds & Active Scripts Active Synthroid (Levothyroxine Sodium) 50 Mcg Tab 50 Mcg PO DAILY Chlordiazepoxide HCl 25 Mg Capsule 25 Mg PO TID 5 Days Reported Multi Vitamin Daily (Multiple Vitamin) 1 Tab Tab 1 Tab PO DAILY Aspirin 325 Mg Tab 325 Mg PO DAILY Isosorbide Mononitrate ER (Isosorbide Mononitrate) 30 Mg Soto 30 Mg PO DAILY Furosemide 20 Mg Tab 20 Mg PO DAILY Review of Systems Constitutional: COMPLAINS OF: Fatigue, Change in appetite Hematologic/lymphatic: COMPLAINS OF: Lymphadenopathy Psychiatric: COMPLAINS OF: Depression Mental Status Examination Appearance: Disheveled Consciousness: Alert Orientation: x4 Motor Activity: Normal gait Speech: Unremarkable Language: Adequate Fund of Knowledge: Adequate Attention and Concentration: Adequate Memory: Unremarkable Mood: Sad, Anxious Affect: Blunt Thought Process & Associations: Intact, Logical, Goal directed Thought Content: Appropriate Hallucination Type: None Delusion Type: None Suicidal Ideation: Yes Suicidal Plan: Yes (Walk [place] the ocean) Suicidal Intention: No Homicidal Ideation: No Homicidal Plan: No Homicidal Intention: No Insight: Poor Judgment: Adequate MDM Medical Decision Making Medical Record Reviewed: Yes Assessment/Plan 61-year-old, single, never , recently fired from his job, who lives by himself but is facing eviction, -[place] male with history of alcohol abuse, who presents to the emergency department voluntarily for psychological evaluation. The patient was sent to the emergency department by Dr. Lowe, his PCP for evaluation after the patient reported to Dr. Lowe that he was having suicidal thoughts with a plan to walk into the [place] and not come back out. The patient is seen by Dr. Lowe on a weekly basis for dressing change to his lower extremities to treat his lymphedema. The patient did not make any attempt at harming himself. Case is consulted with on-call psychiatrist Dr. Thomas Amor. Patient presents to the ED with suicidal ideation with plan of [place] the [place] in context of increased stressors including possible eviction, having lost his job and his source of income, multiple medical conditions including lymphedema, newly diagnosed hypothyroidism, alcohol dependence as well as depressed mood, lack of social support system. The patient will be admitted to med psych unit for further evaluation, stabilization, safety. A medical consult will be obtained to address his medical issues including his hypothyroidism. He will be placed on CIWA protocol. The patient contracts for safety while here in the hospital and agrees to voluntary psychiatric admission Orders Orders Complete Blood Count With Diff (07/21/17 13:51) Comprehensive Metabolic Panel (07/21/17 13:51) Thyroid Stimulating Hormone (07/21/17 13:51) Psych Screen (07/21/17 13:51) Drug Screen, Random Urine (07/21/17 13:51) Alcohol (Ethanol) (07/21/17 13:51) Salicylates (Aspirin) (07/21/17 13:51) Tylenol (Acetaminophen) (07/21/17 13:51) Urinalysis - C+S If Indicated (07/21/17 13:52) Levothyroxine (Synthroid) (07/21/17 16:15) Alcohol Withdrawal Asmt-Ciwa ONCE (07/21/17 17:04) Flumazenil Inj (Romazicon Inj) (07/21/17 17:15) Lorazepam (Ativan) (07/21/17 17:15) Lorazepam Inj (Ativan Inj) (07/21/17 17:15) Lorazepam (Ativan) (07/21/17 17:15) Lorazepam Inj (Ativan Inj) (07/21/17 17:15) Lorazepam Inj (Ativan Inj) (07/21/17 17:15) Lorazepam Inj (Ativan Inj) (07/21/17 17:15) Results Vital Signs Date Time Temp Pulse Resp B/P (MAP) Pulse Ox O2 Delivery O2 Flow Rate FiO2 07/21/17 17:34 98 18 132/73 (92) 97 Room Air 07/21/17 13:34 18 07/21/17 12:00 98.2 97 18 162/59 (93) 100 Laboratory Tests Test 07/21/17 14:08 White Blood Count 4.6 Red Blood Count 2.83 Hemoglobin 10.3 Hematocrit 29.4 Mean Corpuscular Volume 103.7 Mean Corpuscular Hemoglobin 36.3 Mean Corpuscular Hemoglobin Concent 35.0 Red Cell Distribution Width 16.2 Platelet Count 70 Mean Platelet Volume 8.4 Neutrophils (%) (Auto) 50.2 Lymphocytes (%) (Auto) 37.1 Monocytes (%) (Auto) 9.4 Eosinophils (%) (Auto) 2.1 Basophils (%) (Auto) 1.2 Neutrophils # (Auto) 2.3 Lymphocytes # (Auto) 1.7 Monocytes # (Auto) 0.4 Eosinophils # (Auto) 0.1 Basophils # (Auto) 0.1 CBC Comment AUTO DIFF Differential Comment AUTO DIFF CONFIRMED Platelet Estimate LOW Platelet Morphology Comment NORMAL Urine Color YELLOW Urine Turbidity CLEAR Urine pH 5.5 Urine Specific [place] 1.009 Urine Protein NEG Urine Glucose (UA) NEG Urine Ketones NEG Urine Occult Blood TRACE Urine Nitrite NEG Urine Bilirubin NEG Urine Urobilinogen 2.0 Urine Leukocyte Esterase NEG Urine RBC 2 Urine WBC LESS THAN 1 Urine Mucus FEW Microscopic Urinalysis Comment CULT NOT INDICATED Blood Urea Nitrogen 1 Creatinine 0.48 Random Glucose 97 Total Protein 9.0 Albumin 2.3 Calcium Level 8.1 Alkaline Phosphatase 126 Aspartate Amino Transf (AST/SGOT) 98 Alanine Aminotransferase (ALT/SGPT) 19 Total Bilirubin 2.3 Sodium Level 137 Potassium Level 3.5 Chloride Level 102 Carbon Dioxide Level 28.3 Anion Gap 7 Estimat Glomerular Filtration Rate 215 Thyroid Stimulating Hormone 3rd Gen 12.600 Salicylates Level LESS THAN 1.7 Urine Opiates Screen NEG Acetaminophen Level LESS THAN 2.0 Urine Barbiturates Screen NEG Urine Amphetamines Screen NEG Urine Benzodiazepines Screen NEG Urine Cocaine Screen NEG Urine Cannabinoids Screen NEG Ethyl Alcohol Level 157 Diagnosis Primary Impression: Alcohol-induced mood disorder Additional Impressions: Alcohol use disorder Hypothyroid Admitting Information Admitting Physician Requests: Admit Departure Forms: Tests/Procedures Patient Instructions: General Instructions, Hypothyroidism (ED) Prescriptions Levothyroxine (Synthroid) 50 Mcg Tab 50 MCG PO DAILY for Thyroid, #30 TAB 0 Refills Prov: SamanthaArlene PANP 07/21/17 Condition: Stable Problem Qualifiers Additional Impressions: Hypothyroid Qualified Codes: E03.9 - Hypothyroidism, unspecified Aye Claros [facility] Jul 21, 2017 17:50
[2017-07-21] MEDS ORDERED: ACETAMINOPHEN 325 MG TAB PO PRN (18:45)
[2017-07-21] MEDS ORDERED: ALUMINUM/MAGNESIUM/SIMETH 30 ML CUP PO PRN (18:45)
[2017-07-21] MEDS ORDERED: MAGNESIUM HYDROXIDE SUSP 30 ML CUP PO PRN (18:45)
[2017-07-21 20:00] VITALS: BP 128/70; PULSE 88; RESP 20; TEMP 98.2; O2SAT 98
[2017-07-21 21:30] VITALS: BP 140/78; PULSE 99; RESP 18; TEMP 98.7; O2SAT 94
[2017-07-22 07:00] VITALS: BP 144/78; PULSE 97; RESP 18; TEMP 98.7; O2SAT 93
[2017-07-22] MEDS: LEVOTHYROXINE SODIUM 50 MCG TAB PO SCH (07:45)
--- NOTE | 2017-07-22 10:10 | PD.CONS ---
[facility] By Dr. Claros Reason for Consult Newly diagnosed hypothyroidism, chronic lymphedema Primary Care Physician Larry Lowe III, MD Diagnoses: History of Present Illness Patient is a 61-year-old -[place] male with past medical history of chronic lymphedema in lower extremities, history of pneumonias, heart murmur, hypertension, diabetes diet-controlled and now newly diagnosed hypothyroidism is admitted under the psychiatric service because he told his primary care doctor yesterday that he was going to walk into the [place] and not come back. Apparently patient tells me that he does have some financial difficulties and he is being close to being evicted from his apartment. Currently he denies any suicidal thoughts are thoughts of hurting himself. He states he has no family here. He would like to talk to correctional counselor/case manager regarding assistance with his financial problems. He states that he has chronic lower extremity swelling that Dr. Lowe treats every Tuesday. The last dressing change was last Tuesday. Otherwise, patient states he feels okay. Denies any chest pain, shortness of breath, nausea or vomiting. Review of Systems Except as stated in HPI: all other systems reviewed are Neg Past Family Social History Allergies: Coded Allergies: No Known Allergies (Verified Adverse Reaction, Unknown, 07/03/17) Past Medical History chronic lymphedema in lower extremities, history of pneumonias, heart murmur, hypertension, diabetes diet-controlled and now newly diagnosed hypothyroidis. Umbilical hernia Past Surgical History Tonsillectomy Reported Medications Reported Meds & Active Scripts Active Synthroid (Levothyroxine Sodium) 50 Mcg Tab 50 Mcg PO DAILY Chlordiazepoxide HCl 25 Mg Capsule 25 Mg PO TID 5 Days Reported Multi Vitamin Daily (Multiple Vitamin) 1 Tab Tab 1 Tab PO DAILY Aspirin 325 Mg Tab 325 Mg PO DAILY Isosorbide Mononitrate ER (Isosorbide Mononitrate) 30 Mg Soto 30 Mg PO DAILY Furosemide 20 Mg Tab 20 Mg PO DAILY Family History Mother had arthritis, father had lung cancer Social History Does not smoke, drinks of beer daily about 9 ounces, denies illegal drug Physical Exam Vital Signs Vital Signs Date Time Temp Pulse Resp B/P (MAP) Pulse Ox O2 Delivery O2 Flow Rate FiO2 07/22/17 07:00 98.7 97 18 144/78 (100) 93 07/21/17 21:30 98.7 99 18 140/78 (98) 94 07/21/17 20:00 98.2 88 20 128/70 (89) 98 Room Air 07/21/17 17:34 98 18 132/73 (92) 97 Room Air 07/21/17 13:34 18 07/21/17 12:00 98.2 97 18 162/59 (93) 100 Physical Exam GENERAL: AA male, laying in bed, appears comfortable. SKIN: Lower extremities with very dry skin and chronic skin changes. HEAD: Atraumatic. Normocephalic. No temporal or scalp tenderness. EYES: Pupils equal round and reactive. Extraocular motions intact. No scleral icterus. No injection or drainage. ENT: Nose without drainage. Airway patent. Poor dentition NECK: Trachea midline. CARDIOVASCULAR: Regular rate and rhythm with 2/6 ALMA DELIA RESPIRATORY: Clear to auscultation. Breath sounds equal bilaterally. No wheezes GASTROINTESTINAL: Abdomen soft, non-tender, nondistended. No guarding. MUSCULOSKELETAL: Chronic lymphedema noted in lower extremities right greater than left. Able to move his extremities. NEUROLOGICAL: Awake and alert. Normal speech. Laboratory Laboratory Tests Test 07/21/17 14:08 White Blood Count 4.6 Red Blood Count 2.83 Hemoglobin 10.3 Hematocrit 29.4 Mean Corpuscular Volume 103.7 Mean Corpuscular Hemoglobin 36.3 Mean Corpuscular Hemoglobin Concent 35.0 Red Cell Distribution Width 16.2 Platelet Count 70 Mean Platelet Volume 8.4 Neutrophils (%) (Auto) 50.2 Lymphocytes (%) (Auto) 37.1 Monocytes (%) (Auto) 9.4 Eosinophils (%) (Auto) 2.1 Basophils (%) (Auto) 1.2 Neutrophils # (Auto) 2.3 Lymphocytes # (Auto) 1.7 Monocytes # (Auto) 0.4 Eosinophils # (Auto) 0.1 Basophils # (Auto) 0.1 CBC Comment AUTO DIFF Differential Comment AUTO DIFF CONFIRMED Platelet Estimate LOW Platelet Morphology Comment NORMAL Urine Color YELLOW Urine Turbidity CLEAR Urine pH 5.5 Urine Specific [place] 1.009 Urine Protein NEG Urine Glucose (UA) NEG Urine Ketones NEG Urine Occult Blood TRACE Urine Nitrite NEG Urine Bilirubin NEG Urine Urobilinogen 2.0 Urine Leukocyte Esterase NEG Urine RBC 2 Urine WBC LESS THAN 1 Urine Mucus FEW Microscopic Urinalysis Comment CULT NOT INDICATED Blood Urea Nitrogen 1 Creatinine 0.48 Random Glucose 97 Total Protein 9.0 Albumin 2.3 Calcium Level 8.1 Alkaline Phosphatase 126 Aspartate Amino Transf (AST/SGOT) 98 Alanine Aminotransferase (ALT/SGPT) 19 Total Bilirubin 2.3 Sodium Level 137 Potassium Level 3.5 Chloride Level 102 Carbon Dioxide Level 28.3 Anion Gap 7 Estimat Glomerular Filtration Rate 215 Thyroid Stimulating Hormone 3rd Gen 12.600 Salicylates Level LESS THAN 1.7 Urine Opiates Screen NEG Acetaminophen Level LESS THAN 2.0 Urine Barbiturates Screen NEG Urine Amphetamines Screen NEG Urine Benzodiazepines Screen NEG Urine Cocaine Screen NEG Urine Cannabinoids Screen NEG Ethyl Alcohol Level 157 Result Diagram: 07/21/17 1408 07/21/17 1408 Assessment and Plan Assessment and Plan Suicidal thoughts: Currently denies any. Management per psychiatry. Hypertension: Patient currently on isosorbide and Lasix, these have been resumed. Monitor blood pressure closely. Added hydralazine and clonidine as needed for blood pressures greater than 160/90. Diabetes: Per patient he is diet controlled. Cover with low-dose insulin sliding scale. Monitor blood sugar Chronic lymphedema in lower extremities: patient does have extreme dry skin, will order eucerin cream to be applied as needed, Wound care has been consulted for further recs Newly diagnosed hypothyroidism: pt has been started on synthroid 50mcg daily. Pt will need repeat labs in 6 weeks as an oupatient CM consult for d/c planning. Pt would like to speak w them regarding financial assistance. Pt admits to drinking 9oz of beer daily. CIWA protocol in place DVT proph: lovenox Code Status full Discussed Condition With pt and RN Annamaria Cook MD Jul 22, 2017 10:10
[2017-07-22] MEDS ORDERED: GLUCAGON 1 MG/ML VIAL OTHER PRN ×2 (10:15)
[2017-07-22] MEDS ORDERED: hydrALAZINE HCL 10 MG TAB PO PRN (10:15)
[2017-07-22] MEDS ORDERED: cloNIDine HCL 0.1 MG TAB PO PRN (10:15)
[2017-07-22] MEDS ORDERED: DEXTROSE 50% IN WATER 50 ML VIAL(D50) IV PUSH PRN (10:15)
[2017-07-22] MEDS ORDERED: ENOXAPARIN SODIUM 40 MG/0.4 ML SYRINGE SQ SCH (10:15)
[2017-07-22 11:09] LABS: BICARBONATE 28.6 MEQ/L (21.0-32.0); BLOOD UREA NITROGEN 3 MG/DL (7-18); CALCIUM 7.6 MG/DL (8.5-10.1); CHLORIDE 103 MEQ/L (98-107); CREATININE 0.59 MG/DL (0.60-1.30); GLOMERULAR FILTRATION RATE 169 ML/MIN (>89); GLUCOSE,RANDOM 128 MG/DL (74-106); SODIUM (NA) 138 MEQ/L (136-145)
[2017-07-22 11:11] LABS: CHOLESTEROL 129 MG/DL (120-200)
[2017-07-22 11:36] LABS: CHOLESTEROL/ HDL RATIO 3.88 RATIO; FREE T4 1.36 NG/DL (0.76-1.46); HDL CHOLESTEROL 33.2 MG/DL (40.0-60.0); LDL CHOLESTEROL 63 MG/DL (0-99); TRIGLYCERIDES 163 MG/DL (42-150)
[2017-07-22] MEDS: INSULIN ASPART SUPPLEMENTAL SCALE SQ SCH ×3 (11:52→20:04)
[2017-07-22] MEDS: ISOSORBIDE MONONITRATE 30 MG CR TAB (IMDUR) PO SCH (11:52)
[2017-07-22] MEDS ORDERED: INSULIN ASPART SUPPLEMENTAL SCALE SQ SCH (12:00)
[2017-07-22] MEDS ORDERED: SERTRALINE HCL 50 MG TAB PO ONE (12:00)
[2017-07-22] MEDS: EUCERIN CREAM 120 GM JAR TOPICAL PRN (12:40)
[2017-07-22 14:22] LABS: HEMOGLOBIN A1C 4.9 % (4.3-6.0)
[2017-07-22 15:39] LABS: HEMATOCRIT 27.3 % (39.0-51.0); HEMOGLOBIN 9.4 GM/DL (13.0-17.0); MEAN CELL VOLUME 103.8 FL (80.0-100.0); MEAN CORPUSCULAR HEMOGLOBIN 35.9 PG (27.0-34.0); MEAN CORPUSCULAR HGB CONC 34.6 % (32.0-36.0); MEAN PLATELET VOLUME 8.7 FL (7.0-11.0); PLATELET COUNT 55 TH/MM3 (150-450); RED BLOOD COUNT 2.63 MIL/MM3 (4.50-5.90); RED CELL DISTRIBUTION WIDTH 15.8 % (11.6-17.2); WHITE BLOOD COUNT 4.2 TH/MM3 (4.0-11.0)
--- NOTE | 2017-07-22 16:07 | HHI.HP ---
Provisional Diagnosis Admission Date Jul 21, 2017 at 18:37 [place]. Adjustment disorder with depressed mood Certification of Person's Competence To Provide Express and Informed Consent I have personally examined Kristopher RamirezJr , a person being served at [facility] on, Jul 22, 2017 15:57. Express and informed consent means consent voluntarily given in writing, by a competent person, after sufficient explanation and disclosure of the subject matter involved to enable the person to make a knowing and willful decision without any element of force, fraud, deceit, duress, or other form of constraint or coercion. This person is 18 years of age or older, is not now known to be incompetent to consent to treatment with a guardian advocate, and does not have a health care surrogate or proxy currently making medical treatment decisions. I have found this person to be one of the following: [xxx] Competent to provide express and informed consent, as defined above, for voluntary admission to this facility and is competent to provide express and informed consent for treatment. He/she has the consistent capacity to make well reasoned, willful, and knowing decisions concerning his or her medical or mental health treatment. The person fully and consistently understands the purpose of the admission for examination/placement and is fully capable of personally exercising all rights assured under [place] Incompetent to provide express and informed consent to voluntary admission, and this is incompetent to provide express and informed consent to treatment. The person must be transferred to involuntary status and a petition for a guardian advocate filed with the Circuit Court. [] Refusing to provide express and informed consent to voluntary admission but is competent to provide express and informed consent for treatment. The person must be discharged or transferred to involuntary status. Form shall be completed within 24 hours of a person's arrival at the receiving facility and filed in the clinical record of each person: 1. Admitted on a voluntary basis 2. Permitted to provide express and informed consent to his/her own treatment 3. Allowed to transfer from involuntary to voluntary status 4. Prior to permitting a person to consent to his or her own treatment after having been previously found incompetent to consent to treatment. History of Present Illness Capacity: Has Capacity HPI Patient is a 61-year-old -[place] man, single, no children, recently unemployed, domiciled an apartment with a roommate but soon to be evicted, with no formal past psychiatric history, no previous psychiatric admissions, no prior suicide attempt or self interest behavior, with the substance use history significant for alcohol use disorder, with a past medical history significant for recently diagnosed hypothyroidism, GERD, lymphedema, hypertension diabetes who was referred to the ED by his primary care doctor after having expressed suicidal ideations in the context of alcohol intoxication and psychosocial stressors. Patient this time was found lying hospital bed noted B, cooperative. Patient states that he recently was let go of his job last month and feels that he is dealing with his health was a reason he was fired. 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 Patient states that his jainism has kept him from acting on these thoughts. He states he had already filed for unemployment as well as perfused times but continues to be in the process. At this time patient continues report feeling depressed, continue with suicide ideations, but denies any manic or psychotic symptoms or delusions. Family psychiatric history: Mother with "mental breakdown" denies history of suicide in the family Past psychiatric history: No previous psychiatric diagnoses, no psychiatric hospitalizations, no previous suicide attempt or self-injurious behavior, no history of abuse. Substance use history: Alcohol use disorder, daily about 9 pints of beer daily, for the past 19 years. Denies use of any other substances, denies any previous detox or rehabilitation programs. 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 He reports history of brief service, no access to firearms. Patient was born and raised in [place], highest education is a college degree. Collateral contact: Sister Sabrina Farrell. Review of Systems Except as stated in HPI: all other systems reviewed are Neg Past Psych History Psychological trauma history Denies Violence risk - others (6 mos) Low Violence risk - self (6 mos) Elevated due to recent suicide ideations Substance Abuse History Drugs/Alcohol past 12 months Alcohol use disorder, daily about 9 pints of beer daily, for the past 19 years. Denies use of any other substances, denies any previous detox or rehabilitation programs. Past Family Social History Coded Allergies: No Known Allergies (Verified Adverse Reaction, Unknown, 07/03/17) Active Scripts Levothyroxine (Synthroid) 50 Mcg Tab, 50 MCG PO DAILY for Thyroid, #30 TAB 0 Refills Prov:Arlene Singh 07/21/17 Chlordiazepoxide HCl (Chlordiazepoxide HCl) 25 Mg Capsule, 25 MG PO TID for Withdrawals for 5 Days, #15 Prov:Coleman Garrison MD 06/19/17 Reported Medications Multiple Vitamin (Multi Vitamin Daily) 1 Tab Tab, 1 TAB PO DAILY 06/19/17 Aspirin (Aspirin) 325 Mg Tab, 325 MG PO DAILY, #30 TAB 0 Refills 06/19/17 Isosorbide Mononitrate ER (Isosorbide Mononitrate ER) 30 Mg Soto, 30 MG PO DAILY for Prevent Chest Pain, #30 TAB 0 Refills 06/09/17 Furosemide (Furosemide) 20 Mg Tab, 20 MG PO DAILY, #30 TAB 0 Refills 06/09/17 Current Medications Medications (Trade) Dose Ordered Sig/Dinh Route Start Time Stop Time Status Last Admin (Romazicon Inj) 0.2 mg Q1M PRN IV PUSH 07/21/17 17:15 (Ativan) 1 mg Q4H PRN PO 07/21/17 17:15 07/21/17 17:38 (Ativan Inj) 1 mg Q4H PRN IM 07/21/17 17:15 (Ativan) 2 mg Q2H PRN PO 07/21/17 17:15 (Ativan Inj) 2 mg Q2H PRN IM 07/21/17 17:15 (Ativan Inj) 2 mg Q1H PRN IM 07/21/17 17:15 (Ativan Inj) 2 mg Q15M PRN IM 07/21/17 17:15 (Tylenol) 650 mg Q4H PRN PO 07/21/17 18:45 (Milk Of Magnesia Liq) 30 ml DAILY PRN PO 07/21/17 18:45 (Mag-Al Plus Susp Liq) 30 ml Q6H PRN PO 07/21/17 18:45 (Pneumovax-23 Inj) 25 mcg ONCE ONCE IM 07/23/17 10:00 07/23/17 10:01 (Flu (Quadrivalent) Vaccine Inj) 0.5 ml ONCE ONCE IM 07/23/17 10:00 07/23/17 10:01 (Synthroid) 50 mcg DAILY@0600 PO 07/22/17 07:30 07/22/17 07:45 (Zoloft) 50 mg DAILY PO 07/23/17 09:00 (Aspirin) 325 mg DAILY PO 07/23/17 09:00 (Lasix) 20 mg DAILY PO 07/23/17 09:00 (Imdur) 30 mg DAILY PO 07/22/17 11:00 07/22/17 11:52 (Theragran) 1 tab DAILY PO 07/23/17 09:00 (Apresoline) 10 mg Q6HR PRN PO 07/22/17 10:15 (Catapres) 0.1 mg Q6H PRN PO 07/22/17 10:15 (D50w (Vial) Inj) 50 ml UNSCH PRN IV PUSH 07/22/17 10:15 (Glucagon Inj) 1 mg UNSCH PRN OTHER 07/22/17 10:15 (NovoLOG SUPPLEMENTAL SCALE) 1 ACHS SLIDING SCALE SQ 07/22/17 12:00 (Eucerin Cream) 1 applic Q6H PRN TOPICAL 07/22/17 10:15 07/22/17 12:40 Family Psych History Mother with "mental breakdown" no suicides in the family. 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 He reports history of brief service, no access to firearms. Patient was born and raised in [place], highest education is a college degree. Collateral contact: Sister Sabrina Farrell. Patient's Strengths (min. 2) Verbal and communicative Physical Exam Patient not noted to be in acute distress, no gross motor abnormalities, noted with bilateral lymphedema of lower extremities, no tremors or EPS, no noted psychomotor retardation or agitation. Vital Signs Vital Signs Date Time Temp Pulse Resp B/P (MAP) Pulse Ox O2 Delivery O2 Flow Rate FiO2 07/22/17 07:00 98.7 97 18 144/78 (100) 93 07/21/17 20:00 Room Air I/O 07/22/17 07/22/17 07/23/17 08:00 16:00 00:00 Intake Total 1380 ml Balance 1380 ml Lab Results Labs reviewed Test 07/22/17 10:18 07/22/17 14:56 Blood Urea Nitrogen 3 MG/DL Creatinine 0.59 MG/DL Random Glucose 128 MG/DL Calcium Level 7.6 MG/DL Sodium Level 138 MEQ/L Potassium Level 3.2 MEQ/L Chloride Level 103 MEQ/L Carbon Dioxide Level 28.6 MEQ/L Anion Gap 6 MEQ/L Estimat Glomerular Filtration Rate 169 ML/MIN Hemoglobin A1c 4.9 % Triglycerides Level 163 MG/DL Cholesterol Level 129 MG/DL LDL Cholesterol 63 MG/DL HDL Cholesterol 33.2 MG/DL Cholesterol/HDL Ratio 3.88 RATIO Vitamin B12 Level 677 PG/ML 25-Hydroxy Vitamin D Total 5.9 ng/ML Free Thyroxine 1.36 NG/DL White Blood Count 4.2 TH/MM3 Red Blood Count 2.63 MIL/MM3 Hemoglobin 9.4 GM/DL Hematocrit 27.3 % Mean Corpuscular Volume 103.8 FL Mean Corpuscular Hemoglobin 35.9 PG Mean Corpuscular Hemoglobin Concent 34.6 % Red Cell Distribution Width 15.8 % Platelet Count 55 TH/MM3 Mean Platelet Volume 8.7 FL Mental Status Examination Appearance: Disheveled Consciousness: Alert Orientation: x4 Motor Activity: Normal gait Speech: Unremarkable Language: Adequate Fund of Knowledge: Adequate Attention and Concentration: Adequate Memory: Unremarkable Mood: Sad, Anxious Affect: Blunt Thought Process & Associations: Intact, Logical, Goal directed Thought Content: Appropriate Hallucination Type: None Delusion Type: None Suicidal Ideation: Yes Suicidal Plan: Yes (Walk into the ocean) Suicidal Intention: No Homicidal Ideation: No Homicidal Plan: No Homicidal Intention: No Insight: Poor Judgment: Adequate Assessment & Plan Problem List: (1) Adjustment disorder with depressed mood ICD Codes: F43.21 - Adjustment disorder with depressed mood (2) Alcohol use disorder ICD Codes: F10.99 - Alcohol use, unspecified with unspecified alcohol-induced disorder Status: Acute Assessment & Plan Estimated LOS: 3-5 days. Patient is a 61-year-old -[place] man who carries a diagnosis of alcohol use disorder, no formal past psychiatric history currently endorsing depressive symptoms along with suicide ideation with plan to walk into the ocean in the context of psychosocial stressors and daily alcohol use. We will start patient on sertraline 25 mg p.o. 1, 50 mg p.o. daily thereafter for depression. Hospitalist consult for management of chronic medical issues. Social work intervention for psychosocial assessment. Continue monitor mood and behavior. We will continue rest of medications. Collateral information pending. Discharge planning in progress. Discharge Planning To be determined Thomas Amor MD Jul 22, 2017 16:06
--- NOTE | 2017-07-22 16:56 | PD.WCN.NOT ---
Wound Consult Description: wound consult ordered by for wound management Communicated with: James WILKERSON, Recommendation: 1. Encourage patient to elevate lower extremities and to avoid sodium rich foods. 2. Apply shaving cream to bilateral lower extremity wrap in warm moist towel let sit for 10 min wipe clean 3. Follow up with out patient wound center. Additional Information: Patient was seen today on 4 est by procedure writer for wound management .Patient alert and oriented x3. no complaints of distress at this time.Bilateral lower extremities visualized +2 non pitting edema noted with areas of mixed crusting, lichenification and scaling noted.No open areas visualized and patient denies and weeping.Patient is currently being seen out patient by for compression therapy.Patient verbalized shaving cream therapy.States he has performed it himself in past. Madelyn Duron [facility] Jul 22, 2017 16:56
[2017-07-22 18:59] VITALS: BP 131/73; PULSE 97; RESP 16; TEMP 98.2; O2SAT 95
[2017-07-23 05:44] VITALS: BP 154/92; PULSE 104; RESP 18; TEMP 98.2; O2SAT 96
[2017-07-23] MEDS: LEVOTHYROXINE SODIUM 50 MCG TAB PO SCH (06:22)
[2017-07-23] MEDS: INSULIN ASPART SUPPLEMENTAL SCALE SQ SCH ×4 (08:00→23:04)
[2017-07-23] MEDS ORDERED: POTASSIUM CHLORIDE 10 MEQ CONTROLLED RELEASE TAB PO ONE (08:00)
[2017-07-23] MEDS: FUROSEMIDE 20 MG TAB PO SCH (08:55)
[2017-07-23] MEDS: MULTIVITAMIN TAB PO SCH (08:56)
[2017-07-23] MEDS: ASPIRIN 325 MG TAB PO SCH (08:56)
[2017-07-23] MEDS: SERTRALINE HCL 50 MG TAB PO SCH (08:56)
[2017-07-23] MEDS: ISOSORBIDE MONONITRATE 30 MG CR TAB (IMDUR) PO SCH (08:57)
[2017-07-23] MEDS: EUCERIN CREAM 120 GM JAR TOPICAL PRN (09:01)
--- NOTE | 2017-07-23 09:12 | EKG ---
Date Performed: 07/21/2017 Time Performed: 18:53:40 PTAGE: 61 years EKG: Sinus rhythm BORDERLINE RIGHT AXIS DEVIATION ABNORMAL QRS-T ANGLE ABNORMAL ECG PREVIOUS TRACING : 06/09/2017 16.13 DOCTOR: Donita Morrell Interpretating Date/Time 07/23/2017 09:09:36
--- NOTE | 2017-07-23 09:16 | HHI.PR ---
Subjective Remarks Follow-up visit for hypertension, diabetes, chronic lymphedema of lower extremities, hypothyroidism, and alcohol abuse. Patient seen and examined in bed this morning in no acute distress. He denies any fevers, chills, nausea, vomiting, diarrhea, abdominal pain, cough, shortness of breath or chest pain. He reports that at home he drinks "9 pints of beer a day" he is aware that he must stop and has plans to follow-up with alcohol cessation program. Patient has complaints today of acid reflux, requesting something to help with this. Objective Vitals Vital Signs Date Time Temp Pulse Resp B/P (MAP) Pulse Ox O2 Delivery O2 Flow Rate FiO2 07/23/17 05:44 98.2 104 18 154/92 (112) 96 07/22/17 18:59 98.2 97 16 131/73 (92) 95 I/O 07/22/17 07/22/17 07/22/17 07/23/17 07/23/17 07/23/17 07:00 15:00 23:00 07:00 15:00 23:00 Intake Total 1380 ml 120 ml 240 ml Balance 1380 ml 120 ml 240 ml Intake Oral 1380 ml 120 ml 240 ml # Voids 1 Result Diagram: 07/22/17 1456 07/22/17 1018 Objective Remarks GENERAL: AA male, laying in bed, appears comfortable. SKIN: Lower extremities with very dry skin and chronic skin changes. HEAD: Atraumatic. Normocephalic. EYES: Pupils equal round and reactive. No scleral icterus. No injection or drainage. ENT: Nose without drainage. Airway patent. Poor dentition NECK: Trachea midline. CARDIOVASCULAR: Regular rate and rhythm with 2/6 murmur appreciated RESPIRATORY: Clear to auscultation. Breath sounds equal bilaterally. No wheezes GASTROINTESTINAL: Abdomen soft, non-tender, nondistended, obese. No guarding. MUSCULOSKELETAL: Chronic lymphedema noted in lower extremities right greater than left. Able to move his extremities. NEUROLOGICAL: Awake and alert. Normal speech. A/P Assessment and Plan Suicidal thoughts - Management per psychiatry. Hypertension, uncontrolled -Currently on isosorbide and Lasix. BP this morning 154/92 - Add Norvasc 5 mg daily, hydralazine and clonidine as needed for blood pressures greater than 160/90. -Continue monitoring and adjusting accordingly. Diabetes -Hemoglobin A1c 4.9 -Continue Accu-Cheks with insulin sliding scale, if these continue to be stable most likely will decrease to twice daily Chronic lymphedema in lower extremities -Wound care consulted, recommendations to elevate extremities, shaving cream to bilateral lower extremities, wrap 10 minutes - Eucerin cream to be applied as needed Newly diagnosed hypothyroidism - Started on Synthroid 50mcg daily. Pt will need repeat labs in 6 weeks as an outpatient Macrocytic anemia Thrombocytopenia -Both likely secondary to EtOH abuse, discussed with patient. -B12 within normal range, check folate -Continue multivitamin - PLT's 70-->55, continue to monitor counting Hypokalemia, acute -Potassium level on 07/22 was 3.2, provided with 30 meq's of potassium PO -Recheck BMP tomorrow Vitamin D deficiency - Replace with Ergocalciferol 50,000 Q7days CM consult for d/c planning - Pt would like to speak w them regarding financial assistance. Alcohol abuse - CIWA protocol in place -Monitor for seizure activities or DTs DVT prophylaxis-chemical prophylaxis contraindicated secondary to thrombocytopenia. Discussed with patient and nurse. Karla Cortes Jul 23, 2017 09:16
[2017-07-23] MEDS ORDERED: PNEUMOCOCCAL POLYVALENT INJ 25 MCG/0.5 ML SYR IM ONE (10:00)
[2017-07-23] MEDS ORDERED: INFLUENZA VIRUS VACCINE (QUADRIVALENT) 0.5 ML SYR IM ONE (10:00)
[2017-07-23] MEDS ORDERED: ERGOCALCIFEROL (VIT D2) 50,000 UNIT CAP PO SCH (10:00)
[2017-07-23] MEDS: FAMOTIDINE 20 MG TAB PO SCH ×2 (10:21→22:03)
--- NOTE | 2017-07-23 16:47 | HHI.PYPN ---
Subjective Remarks Patient was seen and case discussed with nursing. Patient is pleasant and cooperative with exam. CIWA 0. Patient got some good news today. He had a visit from his landlord who says he will be able to continue living at his residence. He is also looking forward to getting Social Security. So he is "feeling better." He denies suicidal ideation intent or plan. Mental Status Examination Appearance: Disheveled Consciousness: Alert Orientation: x4 Motor Activity: Normal gait Speech: Unremarkable Language: Adequate Fund of Knowledge: Adequate Attention and Concentration: Adequate Memory: Unremarkable Mood: Sad, Anxious Affect: Blunt Thought Process & Associations: Intact, Logical, Goal directed Thought Content: Appropriate Hallucination Type: None Delusion Type: None Suicidal Ideation: No Suicidal Plan: No Suicidal Intention: No Homicidal Ideation: No Homicidal Plan: No Homicidal Intention: No Insight: Poor Judgment: Adequate Results Vitals/IOs Vital Signs Date Time Temp Pulse Resp B/P (MAP) Pulse Ox O2 Delivery O2 Flow Rate FiO2 07/23/17 05:44 98.2 104 18 154/92 (112) 96 07/21/17 20:00 Room Air Intake and Output 07/23/17 07/23/17 07/24/17 08:00 16:00 00:00 Intake Total 120 ml 720 ml Balance 120 ml 720 ml Assessment & Plan Problem List: (1) Adjustment disorder with depressed mood ICD Codes: F43.21 - Adjustment disorder with depressed mood (2) Alcohol use disorder ICD Codes: F10.99 - Alcohol use, unspecified with unspecified alcohol-induced disorder Status: Acute Assessment & Plan Continue current treatment plan Justification for Cont. Inpt. Patient would decompensate in a less restrictive setting Jt Thompson DO Jul 23, 2017 16:47
[2017-07-23 18:00] VITALS: BP 133/74; PULSE 92; RESP 18; TEMP 97.8; O2SAT 96
[2017-07-24 06:00] VITALS: BP 143/85; PULSE 78; RESP 16; TEMP 98.1; O2SAT 93
[2017-07-24] MEDS: LEVOTHYROXINE SODIUM 50 MCG TAB PO SCH (06:21)
[2017-07-24] MEDS: INSULIN ASPART SUPPLEMENTAL SCALE SQ SCH ×4 (07:02→21:22)
--- NOTE | 2017-07-24 08:18 | HHI.PR ---
Subjective Remarks Follow-up visit for HTN, DM, chronic lymphedema, hypothyroidism and alcohol abuse. Patient seen and examined this morning in bed in no acute distress. He denies any fevers, chills, nausea, vomiting, diarrhea, shortness of breath or cough. He does report some lower back discomfort from being in bed. No other acute concerns. Objective Vitals Vital Signs Date Time Temp Pulse Resp B/P (MAP) Pulse Ox O2 Delivery O2 Flow Rate FiO2 07/24/17 06:00 98.1 78 16 143/85 (104) 93 07/23/17 18:00 97.8 92 18 133/74 (93) 96 07/23/17 18:00 97.8 92 18 133/74 (93) 96 I/O 07/23/17 07/23/17 07/23/17 07/24/17 07/24/17 07/24/17 07:00 15:00 23:00 07:00 15:00 23:00 Intake Total 120 ml 720 ml 480 ml 240 ml Balance 120 ml 720 ml 480 ml 240 ml Intake Oral 120 ml 720 ml 480 ml 240 ml # Voids 1 3 0 3 Result Diagram: 07/22/17 1456 07/22/17 1018 Objective Remarks GENERAL: AA male, laying in bed, appears comfortable. SKIN: Lower extremities with very dry skin and chronic skin changes. HEAD: Atraumatic. Normocephalic. EYES: Pupils equal round and reactive. No scleral icterus. No injection or drainage. ENT: Nose without drainage. Airway patent. Poor dentition NECK: Trachea midline. CARDIOVASCULAR: Regular rate and rhythm with 2/6 murmur appreciated RESPIRATORY: Clear to auscultation. Breath sounds equal bilaterally. No wheezes GASTROINTESTINAL: Abdomen soft, non-tender, nondistended, obese. No guarding. MUSCULOSKELETAL: Chronic lymphedema noted in lower extremities right greater than left. Able to move his extremities. NEUROLOGICAL: Awake and alert. Normal speech. A/P Assessment and Plan Suicidal thoughts - Management per psychiatry. Hypertension, uncontrolled -Currently on isosorbide and Lasix. BP this morning -First source of Norvasc 5 mg daily today, continue hydralazine and clonidine as needed -Continue monitoring and adjusting accordingly. Diabetes -Hemoglobin A1c 4.9 -Continue Accu-Cheks with insulin sliding scale Chronic lymphedema in lower extremities -Wound care consulted, recommendations to elevate extremities, shaving cream to bilateral lower extremities, wrap 10 minutes - Eucerin cream to be applied as needed Newly diagnosed hypothyroidism - Started on Synthroid 50mcg daily. Pt will need repeat labs in 6 weeks as an outpatient Macrocytic anemia Thrombocytopenia -Both likely secondary to EtOH abuse, discussed with patient. -B12 within normal range, folate level pending -Continue multivitamin -H&H 9.4/27.3--> 10.1/29.2, stable - PLT's 70-->55-->59, stable with no reports of bleeding Hypokalemia, acute -Potassium level 3.5, will schedule 20 meq's of KCl p.o. daily since he is also on scheduled Lasix Vitamin D deficiency - Replace with Ergocalciferol 50,000 Q7days CM consult for d/c planning - Pt would like to speak w them regarding financial assistance. Alcohol abuse - CIWA protocol in place -Monitor for seizure activities or DTs DVT prophylaxis-chemical prophylaxis contraindicated secondary to thrombocytopenia. Discussed with patient and nurse. Karla Cortes Jul 24, 2017 08:18
[2017-07-24] MEDS: ASPIRIN 325 MG TAB PO SCH (09:14)
[2017-07-24] MEDS: FAMOTIDINE 20 MG TAB PO SCH ×2 (09:14→21:22)
[2017-07-24] MEDS: ISOSORBIDE MONONITRATE 30 MG CR TAB (IMDUR) PO SCH (09:14)
[2017-07-24] MEDS: SERTRALINE HCL 50 MG TAB PO SCH (09:14)
[2017-07-24] MEDS: FUROSEMIDE 20 MG TAB PO SCH (09:14)
[2017-07-24] MEDS: amLODIPine BESYLATE 5 MG TAB PO SCH (09:14)
[2017-07-24] MEDS: MULTIVITAMIN TAB PO SCH (09:15)
[2017-07-24 09:56] LABS: HEMATOCRIT 29.2 % (39.0-51.0); HEMOGLOBIN 10.1 GM/DL (13.0-17.0); MEAN CELL VOLUME 103.6 FL (80.0-100.0); MEAN CORPUSCULAR HGB CONC 34.7 % (32.0-36.0); MEAN PLATELET VOLUME 9.6 FL (7.0-11.0); PLATELET COUNT 59 TH/MM3 (150-450); RED BLOOD COUNT 2.82 MIL/MM3 (4.50-5.90); RED CELL DISTRIBUTION WIDTH 16.1 % (11.6-17.2); WHITE BLOOD COUNT 5.1 TH/MM3 (4.0-11.0)
[2017-07-24 10:26] LABS: BICARBONATE 25.7 MEQ/L (21.0-32.0); CALCIUM 7.6 MG/DL (8.5-10.1); CREATININE 0.5 MG/DL (0.60-1.30)
[2017-07-24 10:40] LABS: FOLATE 5.9 NG/ML (3.1-17.5)
[2017-07-24] MEDS: POTASSIUM CHLORIDE 20 MEQ CONTROLLED RELEASE TAB PO SCH (12:08)
--- NOTE | 2017-07-24 14:21 | HHI.PYPN ---
Subjective Remarks Patient was seen and case discussed with nursing. CIWA is 0. Patient continues to improve. He is pleasant during the interview. He feels a great sense of hope given that he is not being evicted. Describes his mood today as a 7 out of 10. He denies suicidal or homicidal ideation intent or plan. Eating and sleeping well. Tolerating medications well Mental Status Examination Appearance: Disheveled Consciousness: Alert Orientation: x4 Motor Activity: Normal gait Speech: Unremarkable Language: Adequate Fund of Knowledge: Adequate Attention and Concentration: Adequate Memory: Unremarkable Mood: Sad, Anxious Affect: Blunt Thought Process & Associations: Intact, Logical, Goal directed Thought Content: Appropriate Hallucination Type: None Delusion Type: None Suicidal Ideation: No Suicidal Plan: No Suicidal Intention: No Homicidal Ideation: No Homicidal Plan: No Homicidal Intention: No Insight: Poor Judgment: Adequate Results Labs Test 07/24/17 08:59 White Blood Count 5.1 TH/MM3 Red Blood Count 2.82 MIL/MM3 Hemoglobin 10.1 GM/DL Hematocrit 29.2 % Mean Corpuscular Volume 103.6 FL Mean Corpuscular Hemoglobin 36.0 PG Mean Corpuscular Hemoglobin Concent 34.7 % Red Cell Distribution Width 16.1 % Platelet Count 59 TH/MM3 Mean Platelet Volume 9.6 FL Blood Urea Nitrogen 5 MG/DL Creatinine 0.50 MG/DL Random Glucose 126 MG/DL Calcium Level 7.6 MG/DL Sodium Level 134 MEQ/L Potassium Level 3.4 MEQ/L Chloride Level 99 MEQ/L Carbon Dioxide Level 25.7 MEQ/L Anion Gap 9 MEQ/L Estimat Glomerular Filtration Rate 205 ML/MIN Folate 5.9 NG/ML Vitals/IOs Vital Signs Date Time Temp Pulse Resp B/P (MAP) Pulse Ox O2 Delivery O2 Flow Rate FiO2 07/24/17 06:00 98.1 78 16 143/85 (104) 93 07/21/17 20:00 Room Air Intake and Output 07/24/17 07/24/17 07/25/17 08:00 16:00 00:00 Intake Total 480 ml 240 ml Balance 480 ml 240 ml Assessment & Plan Problem List: (1) Adjustment disorder with depressed mood ICD Codes: F43.21 - Adjustment disorder with depressed mood (2) Alcohol use disorder ICD Codes: F10.99 - Alcohol use, unspecified with unspecified alcohol-induced disorder Status: Acute Assessment & Plan Continue current treatment plan Justification for Cont. Inpt. Patient would decompensate in a less restrictive setting Jt Thompson DO Jul 24, 2017 14:21
[2017-07-24 17:27] VITALS: BP 113/64; PULSE 92; RESP 16; TEMP 98.1; O2SAT 96
[2017-07-24 17:30] VITALS: BP 129/74; PULSE 93; RESP 16; TEMP 98.1; O2SAT 93
[2017-07-25] MEDS: LEVOTHYROXINE SODIUM 50 MCG TAB PO SCH (05:39)
[2017-07-25 06:28] VITALS: BP 144/87; PULSE 95; RESP 17; TEMP 97; O2SAT 93
[2017-07-25] MEDS: INSULIN ASPART SUPPLEMENTAL SCALE SQ SCH (07:51)
--- NOTE | 2017-07-25 08:26 | HHI.PR ---
Subjective Remarks Follow-up visit for HTN, DM, chronic lymphedema, hypothyroidism and alcohol abuse. Patient seen and examined in bed in no acute distress. He denies any fevers, chills, nausea, vomiting, diarrhea, headaches, dizziness, cough or shortness of breath. He feels as if he is doing much better, denies any shakiness or jittering. Has questions this morning over food stamps as well as Social Security, discussed with nursing at bedside will need to discuss with binder caser. Objective Vitals Vital Signs Date Time Temp Pulse Resp B/P (MAP) Pulse Ox O2 Delivery O2 Flow Rate FiO2 07/25/17 06:28 97.0 95 17 144/87 (106) 93 07/24/17 17:30 98.1 93 16 129/74 (92) 93 I/O 07/24/17 07/24/17 07/24/17 07/25/17 07/25/17 07/25/17 07:00 15:00 23:00 07:00 15:00 23:00 Intake Total 240 ml 480 ml 480 ml Balance 240 ml 480 ml 480 ml Intake Oral 240 ml 480 ml 480 ml # Voids 3 1 1 Result Diagram: 07/24/17 0859 07/24/17 0859 Objective Remarks GENERAL: AA male, laying in bed, appears comfortable. SKIN: Lower extremities with very dry skin and chronic skin changes. HEAD: Atraumatic. Normocephalic. EYES: Pupils equal round and reactive. No scleral icterus. No injection or drainage. ENT: Nose without drainage. Airway patent. Poor dentition NECK: Trachea midline. CARDIOVASCULAR: Regular rate and rhythm with 2/6 murmur appreciated RESPIRATORY: Clear to auscultation. Breath sounds equal bilaterally. No wheezes GASTROINTESTINAL: Abdomen soft, non-tender, nondistended, obese. No guarding. MUSCULOSKELETAL: Chronic lymphedema noted in lower extremities right greater than left. Able to move his extremities. NEUROLOGICAL: Awake and alert. Normal speech. A/P Assessment and Plan Suicidal thoughts - Management per psychiatry. Hypertension, uncontrolled -Currently on isosorbide and Lasix and amlodipine 5 mg daily -BP this morning 144/87, will increase amlodipine to 10 mg daily, continue hydralazine and clonidine as needed -Continue monitoring and adjusting accordingly. Diabetes -Hemoglobin A1c 4.9 -Continue Accu-Cheks with insulin sliding scale -Blood sugar stable, however noon and bedtime blood sugars requiring coverage -Decrease Accu-Cheks to twice daily with lunch and dinner. Chronic lymphedema in lower extremities -Wound care consulted, recommendations to elevate extremities, shaving cream to bilateral lower extremities, wrap 10 minutes - Eucerin cream to be applied as needed Newly diagnosed hypothyroidism - Started on Synthroid 50mcg daily. Pt will need repeat labs in 6 weeks as an outpatient Macrocytic anemia Thrombocytopenia -Both likely secondary to EtOH abuse, discussed with patient. -B12 within normal range, folate level pending -Continue multivitamin -H&H 9.4/27.3--> 10.1/29.2, stable - PLT's 70-->55-->59, stable with no reports of bleeding Hypokalemia, acute -Potassium level 3.5, will schedule 20 meq's of KCl p.o. daily since he is also on scheduled Lasix -Check BMP tomorrow Vitamin D deficiency - Replace with Ergocalciferol 50,000 Q7days CM consult for d/c planning - Pt would like to speak w them regarding financial assistance. Alcohol abuse - CIWA protocol in place -Monitor for seizure activities or DTs DVT prophylaxis-chemical prophylaxis contraindicated secondary to thrombocytopenia. Discussed with patient, and nurse. manager medical to assist patient with questions about assistance programs. Karla Cortes Jul 25, 2017 08:26
[2017-07-25] MEDS: ISOSORBIDE MONONITRATE 30 MG CR TAB (IMDUR) PO SCH (09:05)
[2017-07-25] MEDS: MULTIVITAMIN TAB PO SCH (09:05)
[2017-07-25] MEDS: POTASSIUM CHLORIDE 20 MEQ CONTROLLED RELEASE TAB PO SCH (09:05)
[2017-07-25] MEDS: amLODIPine BESYLATE 5 MG TAB PO SCH (09:05)
[2017-07-25] MEDS: FAMOTIDINE 20 MG TAB PO SCH (09:05)
[2017-07-25] MEDS: ASPIRIN 325 MG TAB PO SCH (09:06)
[2017-07-25] MEDS: SERTRALINE HCL 50 MG TAB PO SCH (09:06)
[2017-07-25] MEDS: FUROSEMIDE 20 MG TAB PO SCH (09:06)
[2017-07-25] MEDS ORDERED: VITA500012 PO (10:48)
[2017-07-25] MEDS ORDERED: FURO20TA PO (10:48)
[2017-07-25] MEDS ORDERED: MULT1TAB46 PO (10:48)
[2017-07-25] MEDS ORDERED: ISOS30TA3 PO (10:48)
[2017-07-25] MEDS ORDERED: ASPI-183 PO (10:48)
[2017-07-25] MEDS ORDERED: LEVO.05 PO (10:48)
[2017-07-25] MEDS ORDERED: ZOLO50TA PO (10:48)
[2017-07-25] MEDS ORDERED: AMLO10TA2 PO (10:48)
[2017-07-25] MEDS ORDERED: FAMO20TA2 PO (10:48)
[2017-07-25] MEDS ORDERED: POTA20TA5 PO (12:13)
[2017-07-25] MEDS ORDERED: INSULIN ASPART SUPPLEMENTAL SCALE SQ SCH (21:00)
[2017-07-26] MEDS ORDERED: amLODIPine BESYLATE 5 MG TAB PO SCH (09:00)
--- NOTE | 2017-07-26 22:29 | HHI.DS ---
Psychiatry Discharge Summary Inpatient Psychiatric care?: Yes Advance Directive: No Reason Not Provided: Due to Patient Condition Mental Health AdvanceDirective: No Health Care Proxy: No Admission Admission Date Jul 21, 2017 at 18:37 Admission Diagnosis: (1) Adjustment disorder with depressed mood ICD Code: F43.21 - Adjustment disorder with depressed mood Brief History Patient is a 61-year-old -Qatari man, single, no children, recently unemployed, domiciled an apartment with a roommate but soon to be evicted, with no formal past psychiatric history, no previous psychiatric admissions, no prior suicide attempt or self interest behavior, with the substance use history significant for alcohol use disorder, with a past medical history significant for recently diagnosed hypothyroidism, GERD, lymphedema, hypertension diabetes who was referred to the ED by his primary care doctor after having expressed suicidal ideations in the context of alcohol intoxication and psychosocial stressors. Patient this time was found lying hospital bed noted B, cooperative. Patient states that he recently was let go of his job last month and feels that he is dealing with his health was a reason he was fired. 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 Patient states that his amish has kept him from acting on these thoughts. He states he had already filed for unemployment as well as perfused times but continues to be in the process. At this time patient continues report feeling depressed, continue with suicide ideations, but denies any manic or psychotic symptoms or delusions. Family psychiatric history: Mother with "mental breakdown" denies history of suicide in the family Past psychiatric history: No previous psychiatric diagnoses, no psychiatric hospitalizations, no previous suicide attempt or self-injurious behavior, no history of abuse. Substance use history: Alcohol use disorder, daily about 9 pints of beer daily, for the past 19 years. Denies use of any other substances, denies any previous detox or rehabilitation programs. 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 He reports history of brief service, no access to firearms. Patient was born and raised in [place], highest education is a college degree. Collateral contact: Sister Sabrina Farrell. Tobacco Use In Past 30 Days: No Tobacco Past 30 Days Alcohol Use: 4 or More Times Per Week Hospital Course Patient is a 61-year-old -Qatari man, single, no children, recently unemployed, domiciled an apartment with a roommate but soon to be evicted, with no formal past psychiatric history, no previous psychiatric admissions, no prior suicide attempt or self interest behavior, with the substance use history significant for alcohol use disorder, with a past medical history significant for recently diagnosed hypothyroidism, GERD, lymphedema, hypertension diabetes who was referred to the ED by his primary care doctor after having expressed suicidal ideations in the context of alcohol intoxication and psychosocial stressors which he was admitted to inpatient psychiatry unit for further evaluation and management. Patient started on sertraline 50mg daily along with medication regimen for chronic medical issues as per primary medical team. Patient was noted with improvement in mood, noted to have denied having any suicidal ideations and endorsing feeling more hopeful and wanting to remain sobriety from alcohol use. He was observed by staff to not have had any behavioral disturbances, not having made any suicidal or homicidal statements and maintained stable mood through admission and was noted to participate with staff adequately. Patient was noted to participate in self care, engaging with staff and maintaining adequate hygiene. Patient reported feeling more hopeful, future oriented and motivated to engage in his outpatient follow up. Treatment team was able to set up outpatient follow up appointments which the patient can continue his current medication regimen. Upon discharge patient stated that she was feeling good, reported well with the treatment, as well as motivation to continue recommendations and denied any SI, HI, perceptual disturbances or delusions. Patient was counseled on abstinence from alcohol use and was encouraged on engaging in rehabilitation program and/or sober living facilities which patient was reluctant towards but stated that he would continue considering these options in the future. Weighing the acute, chronic, and protective factors and based on the available evidence, I bobbin presser to a reasonable degree of medical certainty that the patient is at low imminent risk of harm to self or others from a mental illness as defined under the Rehman act and his level of function is adequate as observed on the unit for planned level of outpatient care. He was counseled regarding warning signs for need to return to the psychiatric emergency room as part of a general safety plan. Patient advised to call 911 or go nearest ED in case of emergency. Patient agreed with plan. Results Blood Pressure 144 / 87 Vital Signs Date Time Temp Pulse Resp B/P (MAP) Pulse Ox O2 Delivery O2 Flow Rate FiO2 07/25/17 06:28 97.0 95 17 144/87 (106) 93 Laboratory Tests Test 07/24/17 08:59 Red Blood Count 2.82 MIL/MM3 (4.50-5.90) Hemoglobin 10.1 GM/DL (13.0-17.0) Hematocrit 29.2 % (39.0-51.0) Mean Corpuscular Volume 103.6 FL (80.0-100.0) Mean Corpuscular Hemoglobin 36.0 PG (27.0-34.0) Platelet Count 59 TH/MM3 (150-450) Blood Urea Nitrogen 5 MG/DL (7-18) Creatinine 0.50 MG/DL (0.60-1.30) Random Glucose 126 MG/DL (74-106) Calcium Level 7.6 MG/DL (8.5-10.1) Sodium Level 134 MEQ/L (136-145) Potassium Level 3.4 MEQ/L (3.5-5.1) Laboratory Results Test 07/22/17 10:18 Cholesterol Level 129 MG/DL (120-200) HDL Cholesterol 33.2 MG/DL (40.0-60.0) Hemoglobin A1c 4.9 % (4.3-6.0) LDL Cholesterol 63 MG/DL (0-99) Triglycerides Level 163 MG/DL (42-150) Summary of Procedures none Pending results at discharge: No Medications # of Antipsychotic meds at D/C: 0 Approp Antipsych med options 1 - Minimum of three failed multiple trials of monotherapy. 2 - Documented plan to taper to monotherapy due to previous use of multiple meds OR cross-taper in progress at D/C. 3 - Documentation of augmentation of Clozapine. 4 - Justification other than those listed in allowable values 1-3, document here : Discharge Discharge Date: Jul 25, 2017 Discharge Diagnosis: (1) Adjustment disorder with depressed mood ICD Code: F43.21 - Adjustment disorder with depressed mood Pt Condition on Discharge: Stable Discharge Disposition: Discharge Home Discharge Instructions Diet Instructions: Heart Healthy Diet Activities you can perform: Weight Bearing as Emily Scheduled Appointment: Allan Hickey Appointment Date: Jul 25, 2017 Appointment Time: 01:30pm Discharge Time > 30 minutes Mental Status Examination Appearance: Appropriate Consciousness: Alert Orientation: x4 Motor Activity: Normal gait Speech: Unremarkable Language: Adequate Fund of Knowledge: Adequate Attention and Concentration: Adequate Memory: Unremarkable Mood: Appropriate Affect: Appropriate Thought Process & Associations: Intact, Logical, Goal directed Thought Content: Appropriate Hallucination Type: None Delusion Type: None Suicidal Ideation: No Suicidal Plan: No Suicidal Intention: No Homicidal Ideation: No Homicidal Plan: No Homicidal Intention: No Insight: Fair Judgment: Adequate Discharge/Advance Care Plan Health Problems: (1) Adjustment disorder with depressed mood (2) Alcohol use disorder Goals to promote your health * To prevent worsening of your condition and complications * To maintain your health at the optimal level Directions to meet your goals Take your medications as prescribed Follow your dietary instruction Follow activity as directed Keep your appointments as scheduled Take your immunizations and boosters as scheduled If your symptoms worsen call your PCP, if no PCP go to Urgent Care Center or Emergency Room For 25/10 questions related to your inpatient stay or results of tests pending at discharge, please contact Dr. Thomas Amor at Smoking is Dangerous to Your Health. Avoid second hand smoking Thomas Amor MD Jul 26, 2017 22:29
== END 2017-07-25 15:00 | disposition home or self-care (01) | DRG 881 ==
LOC: NEPD 11:47 → NEDA 18:37 → H4EA 21:10
PROVIDERS: ADMIT Student in an Organized Health Care Education/Training Program; ATTEND Student in an Organized Health Care Education/Training Program
DX: F43.21 Adjustment disorder with depressed mood (principal); D69.6 Thrombocytopenia, unspecified; R45.851 Suicidal ideations; E11.9 Type 2 diabetes mellitus without complications; I10 Essential (primary) hypertension; D53.9 Nutritional anemia, unspecified; E55.9 Vitamin D deficiency, unspecified; F10.14 Alcohol abuse with alcohol-induced mood disorder; E03.9 Hypothyroidism, unspecified; Z23 Encounter for immunization; K21.9 Gastro-esophageal reflux disease without esophagitis; I89.0 Lymphedema, not elsewhere classified; E87.6 Hypokalemia; L28.0 Lichen simplex chronicus; Y90.6 Blood alcohol level of 120-199 mg/100 ml; Z59.9 Problem related to housing and economic circumstances, unspecified; F41.9 Anxiety disorder, unspecified; K42.9 Umbilical hernia without obstruction or gangrene; R01.1 Cardiac murmur, unspecified; R60.0 Localized edema; M79.89 Other specified soft tissue disorders; Z79.82 Long term (current) use of aspirin; Z79.899 Other long term (current) drug therapy
CPT/HCPCS: 80048; 80053; 80061; 80307; 81001; 82306; 82607; 82746; 82948; 83036; 84439; 84443; 85025; 85027; 90686; 90732; 93005; J1815; Q2038

== ENCOUNTER 2017-09-25 12:23 | Inpatient (IN) ==
[2017-10-01] MEDS ORDERED: Magnesium Sulfate Inj 2 GM in Sodium Chlor 0.9% Inj 96 ML IV.SIG ONE (05:32)
[2017-10-01] MEDS ORDERED: Magnesium Oxide 400 MG Tablet PO ONE (05:32)
[2017-10-01] MEDS ORDERED: Magnesium Sulfate Inj 4 GM in Sodium Chlor 0.9% Inj 92 ML IV.SIG ONE (05:32)
[2017-10-01] MEDS ORDERED: Potassium Phosphate 500 MG Soluble Tablet PO PRN (05:32)
[2017-10-01] MEDS ORDERED: Potassium Chlor 20 mEq Premix 20 MEQ/100 ML PIGGYBACK IV.SIG SCH (05:45)
[2017-10-02] MEDS ORDERED: Potassium Bicarbonate 25 MEQ Effervescent Tablet PO PRN
[2017-10-02] MEDS ORDERED: Potassium Phosphate 500 MG Soluble Tablet PO PRN (00:01)
[2017-10-02] MEDS ORDERED: Magnesium Sulfate Inj 2 GM in Sodium Chlor 0.9% Inj 100 ML IV.SIG PRN (00:01)
[2017-10-02] MEDS ORDERED: ICU - CALL ORDERING PHYSICIAN OTHER PRN (00:01)
[2017-10-02] MEDS ORDERED: Sodium Phosphate Inj 30 MMOL in Sodium Chlor 0.9% Inj 250 ML IV.SIG PRN (00:01)
[2017-10-02] MEDS ORDERED: Potassium Chlor 40 mEq Premix 40 MEQ/100 ML PIGGYBACK IV.SIG PRN (00:01)
[2017-10-02] MEDS ORDERED: Magnesium Sulfate Inj 4 GM in Sodium Chlor 0.9% Inj 100 ML IV.SIG PRN (00:01)
[2017-10-02] MEDS ORDERED: Magnesium Oxide 400 MG Tablet PO PRN (00:01)
[2017-10-02] MEDS ORDERED: Potassium Phosphate Inj 30 MMOL in Sodium Chlor 0.9% Inj 250 ML IV.SIG PRN (00:01)
[2017-10-02] MEDS ORDERED: Vancomycin Consult Pharmacy 1 EACH OTHER SCH (01:00)
[2017-10-02] MEDS ORDERED: Dextrose 50% in Water 50 ML Vial IV.PUSH PRN (01:00)
[2017-10-02] MEDS ORDERED: Naloxone Inj 0.4 MG/ML Vial IV.PUSH PRN (01:00)
[2017-10-02] MEDS ORDERED: LORazepam 1 MG Tablet PO PRN (01:00)
[2017-10-02] MEDS ORDERED: Bisacodyl 10 MG Supp RECTAL PRN (01:00)
[2017-10-02] MEDS: Oral Hygiene Kit OROPHARYNG SCH ×3 (04:04→22:03)
[2017-10-02] MEDS: Piperacil/Tazo 3.375 GM Premix 50 ML IV.SIG SCH ×4 (04:04→22:08)
[2017-10-02] MEDS: Pantoprazole Inj 80 MG in Sodium Chlor 0.9% Inj 100 ML IV.SIG SCH ×3 (04:05→22:07)
[2017-10-02] MEDS: Octreotide Inj 500 MCG in Sodium Chlor 0.9% Inj 500 ML IV.SIG SCH ×2 (04:06→22:09)
[2017-10-02] MEDS: Insulin NovoLOG Aspart Correctional Sugar Inj SQ SCH ×6 (04:46→22:03)
[2017-10-02 04:54] LABS: Hematocrit 27.5 % (39.0-51.0); Hemoglobin 9.4 gm/dL (13.0-17.0); Mean Corpuscular HGB Conc 34.2 % (32.0-36.0); Mean Corpuscular Hemoglobin 33.3 pg (27.0-34.0); Mean Corpuscular Volume 97.3 fL (80.0-100.0); Mean Platelet Volume 8.9 fL (7.0-11.0); Platelet Count 47 th/mm3 (150-450); Red Blood Count 2.83 mil/mm3 (4.50-5.90); White Blood Count 3.2 th/mm3 (4.0-11.0)
--- NOTE | 2017-10-02 05:14 | XR ---
EXAM DATE: 10/02/2017 4:47 AM EDT AGE/SEX: 62 years / Male INDICATIONS: Respiratory failure. CLINICAL DATA: This is the patient's subsequent encounter. Patient reports that signs and symptoms h ave been present for 3 days and indicates a pain score of 5/10. MEDICAL/SURGICAL HISTORY: None. None. COMPARISON: [facility] [place], CHEST SINGLE AP, 09/29/2017. . FINDINGS: Endotracheal tube in good position. NG enters stomach. Left central line in superior vena cava. Bilat eral mostly basilar airspace disease and pleural effusions similar to September 2017. CONCLUSION: Support apparatus in good position. Stable basilar airspace disease and pleural effusion. Electronically signed by: Kapil Francois MD 10/02/2017 5:13 AM EDT
[2017-10-02 05:15] LABS: ABG Base Excess 2.5 mmol/L (-2-2); ABG PCO2 31 mmHg (38-42); ABG PO2 130 mmHG (61-120)
[2017-10-02] MEDS: Albumin Human 25% Inj 100 ML IV.SIG SCH ×2 (05:22→19:12)
[2017-10-02] MEDS: SODIUM CHLOR 0.9% IV.SIG PRN ×4 (05:23→22:09)
[2017-10-02] MEDS: DEXMEDETOMIDINE IV.SIG PRN ×4 (05:23→22:09)
[2017-10-02 05:26] LABS: Albumin 2.5 g/dL (3.4-5.0); Anion Gap 9 meq/L (5-15); Blood Urea Nitrogen 23 mg/dL (7-18); Calcium 7.5 mg/dL (8.5-10.1); Chloride 114 meq/L (98-107); Glomerular Filtration Rate 87 mL/min (>89); Glucose,Random 133 mg/dL (74-106); Magnesium 1.8 mg/dL (1.5-2.5); Potassium 3.5 meq/L (3.5-5.1); Sodium 150 meq/L (136-145)
[2017-10-02 05:28] LABS: Alanine Aminotransferase 24 U/L (12-78); Aspartate Aminotransferase 75 U/L (15-37); Phosphorus 2.7 mg/dL (2.5-4.9)
[2017-10-02 05:30] LABS: Alkaline Phosphatase 42 U/L (45-117); Total Protein 6.6 g/dL (6.4-8.2)
[2017-10-02 06:01] LABS: Eosinophils 4 % (0-4); Lymphocytes 22 % (9-44); Monocytes 13 % (0-8); Plasma Cells 1 % (0-0); Platelet Morphology Normal (Normal); Tallied Nucleated RBC 1 (0-0)
[2017-10-02 06:02] LABS: Target Cells 1+
[2017-10-02] MEDS: Folic Acid 1 MG Tablet PO SCH (08:21)
[2017-10-02] MEDS: Senna/Docusate Sodium 8.6/50 MG Tablet PO SCH ×2 (08:21→22:16)
[2017-10-02] MEDS: Potassium Chloride 25 MEQ Effervescent Tablet PO PRN (08:21)
[2017-10-02] MEDS: rifAXIMin 550 MG Tablet PO SCH ×2 (08:21→22:08)
[2017-10-02] MEDS: Multivitamin/Minerals Therapeutic Tablet PO SCH (08:22)
[2017-10-02] MEDS: Calcium Carbonate 500 MG Tablet PO SCH ×2 (08:22→22:06)
[2017-10-02] MEDS: Vancomycin Inj 2,000 MG in Sodium Chlor 0.9% Inj 500 ML IV.SIG SCH (11:04)
[2017-10-02] MEDS: Potassium Chloride 25 MEQ Effervescent Tablet PO SCH ×2 (14:46→22:06)
--- NOTE | 2017-10-02 15:30 | P.PNCC ---
Subjective Subjective Remarks/Hospital Course: Remarks/Hospital Course This is a 63-year-old male who was brought in by EMS to the emergency room because of hematemesis about an hour prior to arrival. Reported at least 4 episodes of vomiting bright red blood amounting to about a gallon. Reportedly he was nauseous but denied dizziness, syncope, chest pain, shortness of breath and abdominal pain. He takes aspirin on a daily basis but no NSAIDs. No history of GI bleed. He has noted increasing abdominal girth. Has chronic bilateral lower extremity lymphedema denies history of heart failure or chronic kidney disease. In the emergency department, patient was noted to be tachycardic and received half a liter of IV fluid bolus. He was also started on Sandostatin and Protonix drip. Patient was evaluated by GI Dr. Crocker who performed EGD in the OR. Patient was intubated for endoscopy. He was found to have variceal bleeding underwent banding of esophageal varices. Following procedure patient was transferred to PACU. Critical care consult was requested by Dr. Crocker as patient was left intubated on mechanical ventilation. He was getting his second unit of PRBCs when I evaluated patient in PACU. 09/26: Patient remained intubated and sedated over the night. Still with bloody NG tube output however per nighttime RN has slowed down. Hemoglobin remains stable. T-max of 98.1, urine output of 1540ml since admission. 09/27: NG tube clamped, small amount of heme emanating on suction. The patient remains sedated and intubated ammonia level 186. Planned initiation of lactulose twice daily. Calcium being repleted. Patient noted to have hemoglobin level of 7.21 unit packed red blood cells and 1 unit of platelets being transfused this a.m.. Urinary output significantly decreased, overnight. Albumin 5% IV twice daily initiated. 09/28: Albumin/ Lasix medication administration, improve urine output, 1200 cc in the last 6 hrs. Paracentesis by via invasive radiology is pending. The patient received 1 unit of platelets this a.m. INR 1.7, with platelet count 46. The patient continues on octreotide and Protonix infusion no active signs of bleeding. Plan for EGD in a.m. per GI. 09/29: Late entry note. Patient seen at 3:15p.m.. No acute changes during the night. Hemoglobin stable. The patient remains on Sandostatin and Protonix infusions. Patient currently undergoing repeat EGD. Patient had elevated temperature earlier this afternoon 101.0, cooling packs/cooling blanket applied. Lactic acid decreasing. 09/30: The patient underwent EGD last evening, revealed esophagitis. The patient continues on Sandostatin Protonix infusions per GI recommendations. CPAP trials were initiated this morning the patient tolerated approximately 1 hour. The patient was transitioned to Precedex infusion for ventilator weaning process. Patient underwent ultrasound testing for quantification of pleural effusions minimal volume, no thoracentesis performed. 10/01: Patient remains on low-dose Precedex for ventilator weaning process. Patient lethargic today, fentanyl infusion has been discontinued. Patient noted to have a map in the 60s, hemoglobin is less than 8 patient will be transfused 2 units of packed red blood cells this afternoon. Objective Vital Signs / I&O: Vital Signs 10/02/17 01:30 10/02/17 02:00 10/02/17 02:30 Temperature Pulse Rate 89 67 65 Respiratory Rate Blood Pressure 120/73 122/76 Pulse Oximetry 100 100 10/02/17 03:00 10/02/17 03:07 10/02/17 03:30 Temperature Pulse Rate 64 64 78 Respiratory Rate 16 Blood Pressure 124/79 124/71 Pulse Oximetry 100 96 10/02/17 04:00 10/02/17 04:05 10/02/17 04:30 Temperature Pulse Rate 66 66 Respiratory Rate 16 Blood Pressure 116/71 116/73 Pulse Oximetry 100 100 100 10/02/17 05:00 10/02/17 05:30 10/02/17 06:00 Temperature Pulse Rate 64 63 62 Respiratory Rate Blood Pressure 119/76 122/75 121/75 Pulse Oximetry 100 100 100 10/02/17 06:30 10/02/17 07:00 10/02/17 07:01 Temperature Pulse Rate 62 71 74 Respiratory Rate Blood Pressure 123/76 129/91 H Pulse Oximetry 100 63 L 54 L 10/02/17 07:30 10/02/17 07:53 10/02/17 08:00 Temperature 99.1 F Pulse Rate 66 65 Respiratory Rate 16 Blood Pressure 126/77 118/66 Pulse Oximetry 100 100 10/02/17 08:30 10/02/17 09:00 10/02/17 09:30 Temperature Pulse Rate 67 66 64 Respiratory Rate Blood Pressure 111/63 105/61 109/64 Pulse Oximetry 100 100 100 10/02/17 10:00 10/02/17 10:30 10/02/17 11:00 Temperature Pulse Rate 67 63 64 Respiratory Rate Blood Pressure 117/66 117/69 114/67 Pulse Oximetry 100 100 100 10/02/17 11:30 10/02/17 11:32 10/02/17 12:00 Temperature 99.3 F Pulse Rate 65 66 Respiratory Rate 16 Blood Pressure 117/69 117/72 Pulse Oximetry 100 100 100 10/02/17 12:30 10/02/17 13:00 10/02/17 13:30 Temperature Pulse Rate 70 66 66 Respiratory Rate Blood Pressure 110/66 117/68 109/65 Pulse Oximetry 100 100 100 Intake & Output 10/01/17 10/02/17 10/02/17 18:59 06:59 18:59 Intake Total 150 / 150 620 / 620 Output Total 700 / 700 Balance -550 / -550 620 / 620 Intake: IV 150 / 150 620 / 620 Flexbumin 25% Inj 100 ML @ 60 100 / 100 mls/hr IV.SIG Q12H JANE Rx#: [id number] Precedex Inj 1,000 MCG In NS 520 / 520 Inj 250 ML @ 0.2 MCG/KG/HR 5.93 mls/hr IV.SIG TITRATE PRN Rx#: [id number] Protonix Inj 80 MG In NS Inj 100 / 100 100 ML @ 10 mls/hr IV.SIG .Q10H JANE Rx#:[id number] Zosyn 3.375 GM Premix 50 ML @ 50 / 50 100 mls/hr IV.SIG Q6H JANE Rx#: [id number] Oral 0 / 0 Tube Feeding 0 / 0 Output: Urine 700 / 700 Stool 0 / 0 Result Diagrams: 10/02/17 04:19 10/02/17 04:19 Objective Remarks: General: This is a -Russian male currently intubated and sedated, chronically ill-appearing, ambivalent every but responsive HEENT: Pupils are equal and reactive, muddy sclera, orally intubated, NG tube with some bloody aspirate Neck: Supple, no rigidity, no JVD Chest: Coarse breath sounds bilateral, good air entry, no wheezes CVS: Regular S1 and S2, tachycardic, no murmurs appreciated Abd: Soft, appears nontender, protuberant bowel sounds are decreased Extremities: warm bilaterally, chronic lymphedema noted bilaterally lower extremity Neuro: RASS -2 Patient is intubated and sedated, refusing to follow commands but spontaneously moves extremities x 4 Assessment and Plan - Assessment and Plan Plan: A/P Assessment and Plan Plan by systems: Neurologic: EtOH use disorder Continue Daily sedation vacation Precedex infusion to maintain ventilator synchrony, currently at 1 trey/ Monitor ammonia level Continue thiamine and folate Seizure precautions Respiratory: Acute respiratory failure Ventilator bundle Obtain O2 saturation greater than 92% Bronchodilators every 6 hours scheduled every 2 hours as needed Continue CPAP trials as tolerated 09/29 CXR- Cardiomegaly with improved pulmonary edema pattern. Improved small right pleural effusion. Thoracentesis canceled secondary to insufficient volume on ultrasound quantification Persistent bilateral lower lung zone airspace consolidation. Continue CPAP trials Cardiovascular: History of essential hypertension Maintain MAP greater than 65 Monitor CVP 09/27 echo- EF 40% small left pleural effusion Renal: Oliguria-resolved Maintain [place] for adequate I &O Nephrology following-possible hepatorenal syndrome Optimal diuresis with Lasix and albumin infusions-greater than 2 L every 12 hours -- Strict I/Os FEN/GI: Upper GI bleed secondary to esophageal varices status post banding Decompensated liver cirrhosis Ascites Hyperammonemia GERD Anion gap metabolic acidosis-resolved Electrolyte derangement IV fluids normal saline with 20 KCl at 42 cc/hour Continue Protonix and octreotide infusions per GI recommendation Lactulose BID, continue rifaximin 09/28- paracentesis scheduled with invasive radiology 09/29-repeat EGD-revealed significant gastropathy, no active sites of bleeding Defer to GI when to initiate tube feeds Heme/ID: Acute blood loss anemia Thrombocytopenia Coagulopathy Monitor CBC 10/01 Transfuse 2 u PRBC's Noted decreased liver synthetic function secondary to cirrhosis Hematology oncology ID following Follow-up urine and blood cultures 09/28 sputum cultures- Staph Aureus Endocrine: Glucose monitoring per ICU protocol. Low-dose regimen MsK; Chronic lymphedema -- SSI Prophylaxis: GI Prophylaxis Protonix infusion DVT Prophylaxis -- SCDs Hold pharmacological DVT prophylaxis in the setting of thrombocytopenia, and active GI bleed Lines: Central line RIJ (09/26) peripheral IVs x 2 Dispo: my billing statement This patient remains critically ill with one or more organ systems which are or may become a threat to life. I have spent in excess of 30 minutes discontinuously in the care and management of this patient. This time is exclusive of procedures, and includes, but is not limited to, evaluation of the patient, review of the medical record, discussions with family, consultants, nursing staff, or respiratory therapy, and documentation in the medical record. Code Status: Full Discussed Condition With: LOT BOSS Leonila. Discussed extensively with family yesterday at bedside niece and on at bedside all questions answered
--- NOTE | 2017-10-02 17:56 | P.PNONC ---
Subjective Interval history: HEMATOLOGY/ONCOLOGY CONSULT NOTE HPI Patient is a 62-year-old gentleman with a history of active ethyl alcohol use liver cirrhosis complicated by ascites and esophageal varices chronic lymphedema of the bilateral lower extremities aortic regurgitation. He was admitted to the hospital on September 25, 2017 with hematemesis. He underwent endoscopy and found to be esophageal varices. He underwent banding of the varices. The majority of medical information is obtained from chart review as patient is intubated and sedated. He has been transfused blood cells as well as platelets during his hospital stay. Oncology service consulted for evaluation and management of pancytopenia. White blood cell count in the past has been within normal limits. Current white blood cell count 2.7. Hemoglobin in the past has been variable. He was admitted with GI bleed. Hemoglobin currently 7.5. Platelet count in the past has been variable. Platelet count from June 2017 was 52,000 platelet count from July 2017 was approximately 60,000. Platelet count on admission was 98, 000 most recent platelet count is 30,000. Imaging studies with no evidence of splenomegaly Past medical history Liver cirrhosis, chronic lymphedema, aortic regurgitation, hypothyroidism, hypertension, acid reflux, medication noncompliance, Family history unable to obtain as patient is intubated and sedated Social history. History of alcohol use. Review of systems. Unable to obtain as patient is intubated and sedated. Objective Vital Signs/Intake & Output: Vital Signs 10/02/17 01:30 10/02/17 02:00 10/02/17 02:30 Temperature Pulse Rate 89 67 65 Respiratory Rate Blood Pressure 120/73 122/76 Pulse Oximetry 100 100 10/02/17 03:00 10/02/17 03:07 10/02/17 03:30 Temperature Pulse Rate 64 64 78 Respiratory Rate 16 Blood Pressure 124/79 124/71 Pulse Oximetry 100 96 10/02/17 04:00 10/02/17 04:05 10/02/17 04:30 Temperature Pulse Rate 66 66 Respiratory Rate 16 Blood Pressure 116/71 116/73 Pulse Oximetry 100 100 100 10/02/17 05:00 10/02/17 05:30 10/02/17 06:00 Temperature Pulse Rate 64 63 62 Respiratory Rate Blood Pressure 119/76 122/75 121/75 Pulse Oximetry 100 100 100 10/02/17 06:30 10/02/17 07:00 10/02/17 07:01 Temperature Pulse Rate 62 71 74 Respiratory Rate Blood Pressure 123/76 129/91 H Pulse Oximetry 100 63 L 54 L 10/02/17 07:30 10/02/17 07:53 10/02/17 08:00 Temperature 99.1 F Pulse Rate 66 65 Respiratory Rate 16 Blood Pressure 126/77 118/66 Pulse Oximetry 100 100 10/02/17 08:30 10/02/17 09:00 10/02/17 09:30 Temperature Pulse Rate 67 66 64 Respiratory Rate Blood Pressure 111/63 105/61 109/64 Pulse Oximetry 100 100 100 10/02/17 10:00 10/02/17 10:30 10/02/17 11:00 Temperature Pulse Rate 67 63 64 Respiratory Rate Blood Pressure 117/66 117/69 114/67 Pulse Oximetry 100 100 100 10/02/17 11:30 10/02/17 11:32 10/02/17 12:00 Temperature 99.3 F Pulse Rate 65 66 Respiratory Rate 16 Blood Pressure 117/69 117/72 Pulse Oximetry 100 100 100 10/02/17 12:30 10/02/17 13:00 10/02/17 13:30 Temperature Pulse Rate 70 66 66 Respiratory Rate Blood Pressure 110/66 117/68 109/65 Pulse Oximetry 100 100 100 10/02/17 15:47 Temperature Pulse Rate 70 Respiratory Rate 16 Blood Pressure Pulse Oximetry 100 Intake & Output 10/01/17 10/02/17 10/02/17 18:59 06:59 18:59 Intake Total 150 / 150 670 / 670 Output Total 700 / 700 Balance -550 / -550 670 / 670 Intake: IV 150 / 150 670 / 670 Flexbumin 25% Inj 100 ML @ 60 100 / 100 mls/hr IV.SIG Q12H DINH Rx#: [id number] Precedex Inj 1,000 MCG In NS 520 / 520 Inj 250 ML @ 0.2 MCG/KG/HR 5.93 mls/hr IV.SIG TITRATE PRN Rx#: [id number] Protonix Inj 80 MG In NS Inj 100 / 100 100 ML @ 10 mls/hr IV.SIG .Q10H DINH Rx#:[id number] Zosyn 3.375 GM Premix 50 ML @ 50 / 50 50 / 50 100 mls/hr IV.SIG Q6H DINH Rx#: [id number] Oral 0 / 0 Tube Feeding 0 / 0 Output: Urine 700 / 700 Stool 0 / 0 Result Diagrams: 10/02/17 04:19 10/02/17 04:19 Laboratory Results: Laboratory Results - last 24 hr 09/27/17 09/27/17 09/28/17 17:15 17:15 15:46 WBC RBC Hgb Hct MCV MCH MCHC RDW Plt Count MPV Prelim Diff (Auto) Neut % (Auto) Lymph % (Auto) Bent % (Auto) Eos % (Auto) Baso % (Auto) Neut # (Auto) Lymph # (Auto) Bent # (Auto) Eos # (Auto) Baso # (Auto) CBC Comment WBC Differential Total Counted Neutrophils % (Manual) Seg Neuts % (Manual) Band Neutrophils % Band Neuts % (Manual) Lymphocytes % Lymphocytes % (Manual) Monocytes % Monocytes % (Manual) Eosinophils % Eosinophils % (Manual) Basophils % Basophils % (Manual) Plasma Cell % (Manual) Neutrophils # (Manual) Abs Neuts (Manual) Metamyelocytes Nucleated RBCs Nucleated RBCs/100 WBC Differential Comment Platelet Estimate Platelet Morphology Plt Morphology Comment Target Cells Stomatocytes RBC Morph Comment PT INR APTT Puncture Site Patient Temperature O2 Saturation ABG pH ABG pCO2 ABG pO2 ABG HCO3 ABG O2 Content ABG Base Excess ABG Methemoglobin Olaf Test Cap Carboxyhemoglobin Hemoglobin O2 Delivery Device Vent Setting Inspired O2 Critical Value Sodium Potassium Chloride Carbon Dioxide Anion Gap BUN Creatinine Estimated GFR POC Glucose Random Glucose Lactic Acid Calcium Prot Corrected Calcium Phosphorus Magnesium Total Bilirubin AST ALT Alkaline Phosphatase Ammonia Total Protein Albumin Ptbsh-[id number] 123 Ceruloplasmin 24 Body Fluid Amylase Source Fluid Amylase Peritoneal WBC 155 H Peritoneal RBC 5294 H Periton Neutrophils 64 Periton Lymphocytes 23 Periton Mesothelial 5 Periton Histiocytes 8 Peritoneal Tot Protein Peritoneal Albumin Peritoneal LDH Peritoneal Glucose Vancomycin Trough Anti-Smooth Muscle Ab Negative Tiss Transglutamin IgG Tiss Transglutamin IgA 09/28/17 09/28/17 09/29/17 15:46 15:46 04:10 WBC RBC Hgb Hct MCV MCH MCHC RDW Plt Count MPV Prelim Diff (Auto) Neut % (Auto) Lymph % (Auto) Bent % (Auto) Eos % (Auto) Baso % (Auto) Neut # (Auto) Lymph # (Auto) Bent # (Auto) Eos # (Auto) Baso # (Auto) CBC Comment WBC Differential Total Counted Neutrophils % (Manual) Seg Neuts % (Manual) Band Neutrophils % Band Neuts % (Manual) Lymphocytes % Lymphocytes % (Manual) Monocytes % Monocytes % (Manual) Eosinophils % Eosinophils % (Manual) Basophils % Basophils % (Manual) Plasma Cell % (Manual) Neutrophils # (Manual) Abs Neuts (Manual) Metamyelocytes Nucleated RBCs Nucleated RBCs/100 WBC Differential Comment Platelet Estimate Platelet Morphology Plt Morphology Comment Target Cells Stomatocytes RBC Morph Comment PT INR APTT Puncture Site Patient Temperature O2 Saturation ABG pH ABG pCO2 ABG pO2 ABG HCO3 ABG O2 Content ABG Base Excess ABG Methemoglobin Olaf Test Cap Carboxyhemoglobin Hemoglobin O2 Delivery Device Vent Setting Inspired O2 Critical Value Sodium Potassium Chloride Carbon Dioxide Anion Gap BUN Creatinine Estimated GFR POC Glucose Random Glucose Lactic Acid Calcium Prot Corrected Calcium Phosphorus Magnesium Total Bilirubin AST ALT Alkaline Phosphatase Ammonia Total Protein Albumin Jzsni-3-Smzqdkwzmlb Ceruloplasmin Body Fluid Amylase Source PERITONEAL Fluid Amylase 9 Peritoneal WBC Peritoneal RBC Periton Neutrophils Periton Lymphocytes Periton Mesothelial Periton Histiocytes Peritoneal Tot Protein 2.1 Peritoneal Albumin 0.5 Peritoneal LDH 90 Peritoneal Glucose 142 Vancomycin Trough Anti-Smooth Muscle Ab Tiss Transglutamin IgG 2.6 Tiss Transglutamin IgA 1.9 09/29/17 09/29/17 09/29/17 04:10 04:10 04:10 WBC RBC Hgb Hct MCV MCH MCHC RDW Plt Count MPV Prelim Diff (Auto) Neut % (Auto) Lymph % (Auto) Bent % (Auto) Eos % (Auto) Baso % (Auto) Neut # (Auto) Lymph # (Auto) Bent # (Auto) Eos # (Auto) Baso # (Auto) CBC Comment WBC Differential Total Counted Neutrophils % (Manual) Seg Neuts % (Manual) Band Neutrophils % Band Neuts % (Manual) Lymphocytes % Lymphocytes % (Manual) Monocytes % Monocytes % (Manual) Eosinophils % Eosinophils % (Manual) Basophils % Basophils % (Manual) Plasma Cell % (Manual) Neutrophils # (Manual) Abs Neuts (Manual) Metamyelocytes Nucleated RBCs Nucleated RBCs/100 WBC Differential Comment Platelet Estimate Platelet Morphology Plt Morphology Comment Target Cells Stomatocytes RBC Morph Comment PT 18.0 H INR 1.8 APTT Puncture Site Patient Temperature O2 Saturation ABG pH ABG pCO2 ABG pO2 ABG HCO3 ABG O2 Content ABG Base Excess ABG Methemoglobin Olaf Test Cap Carboxyhemoglobin Hemoglobin O2 Delivery Device Vent Setting Inspired O2 Critical Value Sodium 147 H Potassium 3.2 L Chloride 107 Carbon Dioxide 31.9 Anion Gap 8 BUN 25 H Creatinine 1.03 Estimated GFR 89 POC Glucose Random Glucose 142 H Lactic Acid Calcium 7.4 L* Prot Corrected Calcium 7.6 L D Phosphorus 2.0 L Magnesium 1.7 Total Bilirubin 4.8 H AST 178 H ALT 32 Alkaline Phosphatase 45 Ammonia 26 Total Protein 6.7 D Albumin 2.0 L Wfexk-4-Ksgnphktjnu Ceruloplasmin Body Fluid Amylase Source Fluid Amylase Peritoneal WBC Peritoneal RBC Periton Neutrophils Periton Lymphocytes Periton Mesothelial Periton Histiocytes Peritoneal Tot Protein Peritoneal Albumin Peritoneal LDH Peritoneal Glucose Vancomycin Trough Anti-Smooth Muscle Ab Tiss Transglutamin IgG Tiss Transglutamin IgA 09/29/17 09/29/17 09/30/17 04:10 10:18 04:15 WBC 3.0 L RBC 2.32 L Hgb 7.8 L Hct 22.9 L MCV 98.7 MCH 33.5 MCHC 34.0 RDW 23.7 H Plt Count 37 L MPV 8.3 Prelim Diff (Auto) Neut % (Auto) Lymph % (Auto) Bent % (Auto) Eos % (Auto) Baso % (Auto) Neut # (Auto) Lymph # (Auto) Bent # (Auto) Eos # (Auto) Baso # (Auto) CBC Comment AUTO DIFF WBC Differential Total Counted 100 Neutrophils % (Manual) 86 H Seg Neuts % (Manual) Band Neutrophils % 6 Band Neuts % (Manual) Lymphocytes % 3 L Lymphocytes % (Manual) Monocytes % 5 Monocytes % (Manual) Eosinophils % Eosinophils % (Manual) Basophils % Basophils % (Manual) Plasma Cell % (Manual) Neutrophils # (Manual) 2.8 Abs Neuts (Manual) Metamyelocytes Nucleated RBCs 1 H Nucleated RBCs/100 WBC Differential Comment FINAL DIFF MANUAL Platelet Estimate LOW L Platelet Morphology Plt Morphology Comment NORMAL Target Cells 1+ H Stomatocytes 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 Puncture Site Patient Temperature O2 Saturation ABG pH ABG pCO2 ABG pO2 ABG HCO3 ABG O2 Content ABG Base Excess ABG Methemoglobin Olaf Test Cap Carboxyhemoglobin Hemoglobin O2 Delivery Device Vent Setting Inspired O2 Critical Value Sodium 148 H Potassium 3.0 L Chloride 109 H Carbon Dioxide 32.1 H Anion Gap 7 BUN 20 H Creatinine 0.85 Estimated GFR 111 POC Glucose Random Glucose 141 H Lactic Acid 1.4 Calcium 7.6 L Prot Corrected Calcium Phosphorus Magnesium Total Bilirubin AST ALT Alkaline Phosphatase Ammonia Total Protein Albumin Iqsqj-5-Qquwlsgzhty Ceruloplasmin Body Fluid Amylase Source Fluid Amylase Peritoneal WBC Peritoneal RBC Periton Neutrophils Periton Lymphocytes Periton Mesothelial Periton Histiocytes Peritoneal Tot Protein Peritoneal Albumin Peritoneal LDH Peritoneal Glucose Vancomycin Trough Anti-Smooth Muscle Ab Tiss Transglutamin IgG Tiss Transglutamin IgA 09/30/17 09/30/17 09/30/17 04:15 15:13 21:40 WBC 2.6 L RBC 2.14 L Hgb 7.2 L Hct 21.5 L MCV 100.3 H MCH 33.5 MCHC 33.5 RDW 22.9 H Plt Count 40 L MPV 8.8 Prelim Diff (Auto) Neut % (Auto) 58.7 Lymph % (Auto) 19.7 Bent % (Auto) 16.9 H Eos % (Auto) 3.8 Baso % (Auto) 0.9 Neut # (Auto) 1.5 L Lymph # (Auto) 0.5 L Bent # (Auto) 0.4 Eos # (Auto) 0.1 Baso # (Auto) 0.0 CBC Comment AUTO DIFF WBC Differential Total Counted 100 Neutrophils % (Manual) 67 Seg Neuts % (Manual) Band Neutrophils % 2 Band Neuts % (Manual) Lymphocytes % 13 Lymphocytes % (Manual) Monocytes % 14 H Monocytes % (Manual) Eosinophils % 2 Eosinophils % (Manual) Basophils % 1 Basophils % (Manual) Plasma Cell % (Manual) Neutrophils # (Manual) 1.8 Abs Neuts (Manual) Metamyelocytes 1 Nucleated RBCs Nucleated RBCs/100 WBC Differential Comment FINAL DIFF MANUAL Platelet Estimate RARE L Platelet Morphology Plt Morphology Comment NORMAL Target Cells Stomatocytes 1+ H RBC Morph Comment PT INR APTT 35.6 H Puncture Site Patient Temperature O2 Saturation ABG pH ABG pCO2 ABG pO2 ABG HCO3 ABG O2 Content ABG Base Excess ABG Methemoglobin Oalf Test Cap Carboxyhemoglobin Hemoglobin O2 Delivery Device Vent Setting Inspired O2 Critical Value Sodium Potassium Chloride Carbon Dioxide Anion Gap BUN Creatinine Estimated GFR POC Glucose Random Glucose Lactic Acid Calcium Prot Corrected Calcium Phosphorus Magnesium Total Bilirubin AST ALT Alkaline Phosphatase Ammonia Total Protein Albumin Gsvkm-0-Rcqqrtwedco Ceruloplasmin Body Fluid Amylase Source Fluid Amylase Peritoneal WBC Peritoneal RBC Periton Neutrophils Periton Lymphocytes Periton Mesothelial Periton Histiocytes Peritoneal Tot Protein Peritoneal Albumin Peritoneal LDH Peritoneal Glucose Vancomycin Trough 21.8 H Anti-Smooth Muscle Ab Tiss Transglutamin IgG Tiss Transglutamin IgA 09/30/17 10/01/17 10/01/17 21:40 03:15 03:15 WBC 2.7 L RBC 2.21 L Hgb 7.5 L Hct 22.3 L MCV 100.8 H MCH 34.0 MCHC 33.7 RDW 23.0 H Plt Count 40 L MPV 8.4 Prelim Diff (Auto) Neut % (Auto) 54.0 Lymph % (Auto) 27.3 Bent % (Auto) 13.3 H Eos % (Auto) 4.4 H Baso % (Auto) 1.0 Neut # (Auto) 1.5 L Lymph # (Auto) 0.7 L Bent # (Auto) 0.4 Eos # (Auto) 0.1 Baso # (Auto) 0.0 CBC Comment AUTO DIFF WBC Differential Total Counted Neutrophils % (Manual) Seg Neuts % (Manual) Band Neutrophils % Band Neuts % (Manual) Lymphocytes % Lymphocytes % (Manual) Monocytes % Monocytes % (Manual) Eosinophils % Eosinophils % (Manual) Basophils % Basophils % (Manual) Plasma Cell % (Manual) Neutrophils # (Manual) Abs Neuts (Manual) Metamyelocytes Nucleated RBCs Nucleated RBCs/100 WBC Differential Comment AUTO DIFF CONFIRMED Platelet Estimate LOW L Platelet Morphology Plt Morphology Comment NORMAL Target Cells Stomatocytes 1+ H RBC Morph Comment PT INR APTT Puncture Site Patient Temperature O2 Saturation ABG pH ABG pCO2 ABG pO2 ABG HCO3 ABG O2 Content ABG Base Excess ABG Methemoglobin Olaf Test Cap Carboxyhemoglobin Hemoglobin O2 Delivery Device Vent Setting Inspired O2 Critical Value Sodium 149 H Potassium 3.2 L 3.4 L Chloride 112 H Carbon Dioxide 29.0 Anion Gap 8 BUN 19 H Creatinine 0.78 Estimated GFR 122 POC Glucose Random Glucose 143 H Lactic Acid Calcium 7.5 L Prot Corrected Calcium Phosphorus 2.2 L 2.8 Magnesium 1.8 Total Bilirubin 4.4 H AST 82 H ALT 24 Alkaline Phosphatase 42 L Ammonia Total Protein 6.5 Albumin 2.1 L Rvbnz-4-Gowpljjazva Ceruloplasmin Body Fluid Amylase Source Fluid Amylase Peritoneal WBC Peritoneal RBC Periton Neutrophils Periton Lymphocytes Periton Mesothelial Periton Histiocytes Peritoneal Tot Protein Peritoneal Albumin Peritoneal LDH Peritoneal Glucose Vancomycin Trough Anti-Smooth Muscle Ab Tiss Transglutamin IgG Tiss Transglutamin IgA 10/01/17 10/01/17 10/01/17 03:15 03:15 12:20 WBC RBC Hgb Hct MCV MCH MCHC RDW Plt Count MPV Prelim Diff (Auto) Neut % (Auto) Lymph % (Auto) Bent % (Auto) Eos % (Auto) Baso % (Auto) Neut # (Auto) Lymph # (Auto) Bent # (Auto) Eos # (Auto) Baso # (Auto) CBC Comment WBC Differential Total Counted Neutrophils % (Manual) Seg Neuts % (Manual) Band Neutrophils % Band Neuts % (Manual) Lymphocytes % Lymphocytes % (Manual) Monocytes % Monocytes % (Manual) Eosinophils % Eosinophils % (Manual) Basophils % Basophils % (Manual) Plasma Cell % (Manual) Neutrophils # (Manual) Abs Neuts (Manual) Metamyelocytes Nucleated RBCs Nucleated RBCs/100 WBC Differential Comment Platelet Estimate Platelet Morphology Plt Morphology Comment Target Cells Stomatocytes RBC Morph Comment PT 17.7 H INR 1.7 APTT Puncture Site Patient Temperature O2 Saturation ABG pH ABG pCO2 ABG pO2 ABG HCO3 ABG O2 Content ABG Base Excess ABG Methemoglobin Olaf Test Cap Carboxyhemoglobin Hemoglobin O2 Delivery Device Vent Setting Inspired O2 Critical Value Sodium Potassium 3.2 L Chloride Carbon Dioxide Anion Gap BUN Creatinine Estimated GFR POC Glucose Random Glucose Lactic Acid Calcium Prot Corrected Calcium Phosphorus 2.7 Magnesium Total Bilirubin AST ALT Alkaline Phosphatase Ammonia 26 Total Protein Albumin Oxozs-4-Njpkfhuldzf Ceruloplasmin Body Fluid Amylase Source Fluid Amylase Peritoneal WBC Peritoneal RBC Periton Neutrophils Periton Lymphocytes Periton Mesothelial Periton Histiocytes Peritoneal Tot Protein Peritoneal Albumin Peritoneal LDH Peritoneal Glucose Vancomycin Trough Anti-Smooth Muscle Ab Tiss Transglutamin IgG Tiss Transglutamin IgA 10/02/17 10/02/17 10/02/17 04:03 04:19 04:19 WBC 3.2 L RBC 2.83 L Hgb 9.4 L Hct 27.5 L MCV 97.3 MCH 33.3 MCHC 34.2 RDW 22.0 H Plt Count 47 L MPV 8.9 Prelim Diff (Auto) Manual diff required Neut % (Auto) Lymph % (Auto) Bent % (Auto) Eos % (Auto) Baso % (Auto) Neut # (Auto) Lymph # (Auto) Bent # (Auto) Eos # (Auto) Baso # (Auto) CBC Comment WBC Differential Manual diff final Total Counted Neutrophils % (Manual) Seg Neuts % (Manual) 51 Band Neutrophils % Band Neuts % (Manual) 8 H Lymphocytes % Lymphocytes % (Manual) 22 Monocytes % Monocytes % (Manual) 13 H Eosinophils % Eosinophils % (Manual) 4 Basophils % Basophils % (Manual) 1 Plasma Cell % (Manual) 1 H Neutrophils # (Manual) Abs Neuts (Manual) 1.9 Metamyelocytes Nucleated RBCs Nucleated RBCs/100 WBC 1 H Differential Comment . Platelet Estimate Low L Platelet Morphology Normal Plt Morphology Comment Target Cells 1+ H Stomatocytes RBC Morph Comment PT INR APTT Puncture Site Patient Temperature O2 Saturation ABG pH ABG pCO2 ABG pO2 ABG HCO3 ABG O2 Content ABG Base Excess ABG Methemoglobin Olaf Test Cap Carboxyhemoglobin Hemoglobin O2 Delivery Device Vent Setting Inspired O2 Critical Value Sodium 150 H Potassium 3.5 Chloride 114 H Carbon Dioxide 27.0 Anion Gap 9 BUN 23 H Creatinine 1.05 Estimated GFR 87 L POC Glucose 155 H Random Glucose 133 H Lactic Acid Calcium 7.5 L Prot Corrected Calcium Phosphorus 2.7 Magnesium 1.8 Total Bilirubin 6.0 H AST 75 H ALT 24 Alkaline Phosphatase 42 L Ammonia Total Protein 6.6 Albumin 2.5 L Kqsdh-6-Xvqvunuiqsw Ceruloplasmin Body Fluid Amylase Source Fluid Amylase Peritoneal WBC Peritoneal RBC Periton Neutrophils Periton Lymphocytes Periton Mesothelial Periton Histiocytes Peritoneal Tot Protein Peritoneal Albumin Peritoneal LDH Peritoneal Glucose Vancomycin Trough Anti-Smooth Muscle Ab Tiss Transglutamin IgG Tiss Transglutamin IgA 10/02/17 10/02/17 10/02/17 05:02 08:13 09:50 WBC RBC Hgb Hct MCV MCH MCHC RDW Plt Count MPV Prelim Diff (Auto) Neut % (Auto) Lymph % (Auto) Bent % (Auto) Eos % (Auto) Baso % (Auto) Neut # (Auto) Lymph # (Auto) Bent # (Auto) Eos # (Auto) Baso # (Auto) CBC Comment WBC Differential Total Counted Neutrophils % (Manual) Seg Neuts % (Manual) Band Neutrophils % Band Neuts % (Manual) Lymphocytes % Lymphocytes % (Manual) Monocytes % Monocytes % (Manual) Eosinophils % Eosinophils % (Manual) Basophils % Basophils % (Manual) Plasma Cell % (Manual) Neutrophils # (Manual) Abs Neuts (Manual) Metamyelocytes Nucleated RBCs Nucleated RBCs/100 WBC Differential Comment Platelet Estimate Platelet Morphology Plt Morphology Comment Target Cells Stomatocytes RBC Morph Comment PT INR APTT Puncture Site Left radial Patient Temperature 98.6 O2 Saturation 96 ABG pH 7.52 H* ABG pCO2 31 L ABG pO2 130 H ABG HCO3 25 ABG O2 Content 12.9 ABG Base Excess 2.5 H ABG Methemoglobin 1.3 Olaf Test Present Cap Carboxyhemoglobin 1.6 Hemoglobin 9.4 L O2 Delivery Device Vent Vent Setting Prvc/ac Inspired O2 35 Critical Value Yes Sodium Potassium Chloride Carbon Dioxide Anion Gap BUN Creatinine Estimated GFR POC Glucose 143 H Random Glucose Lactic Acid Calcium Prot Corrected Calcium Phosphorus Magnesium Total Bilirubin AST ALT Alkaline Phosphatase Ammonia 33 H Total Protein Albumin Aqtav-2-Ooxramucnre Ceruloplasmin Body Fluid Amylase Source Fluid Amylase Peritoneal WBC Peritoneal RBC Periton Neutrophils Periton Lymphocytes Periton Mesothelial Periton Histiocytes Peritoneal Tot Protein Peritoneal Albumin Peritoneal LDH Peritoneal Glucose Vancomycin Trough Anti-Smooth Muscle Ab Tiss Transglutamin IgG Tiss Transglutamin IgA 10/02/17 10/02/17 12:26 16:22 WBC RBC Hgb Hct MCV MCH MCHC RDW Plt Count MPV Prelim Diff (Auto) Neut % (Auto) Lymph % (Auto) Bent % (Auto) Eos % (Auto) Baso % (Auto) Neut # (Auto) Lymph # (Auto) Bent # (Auto) Eos # (Auto) Baso # (Auto) CBC Comment WBC Differential Total Counted Neutrophils % (Manual) Seg Neuts % (Manual) Band Neutrophils % Band Neuts % (Manual) Lymphocytes % Lymphocytes % (Manual) Monocytes % Monocytes % (Manual) Eosinophils % Eosinophils % (Manual) Basophils % Basophils % (Manual) Plasma Cell % (Manual) Neutrophils # (Manual) Abs Neuts (Manual) Metamyelocytes Nucleated RBCs Nucleated RBCs/100 WBC Differential Comment Platelet Estimate Platelet Morphology Plt Morphology Comment Target Cells Stomatocytes RBC Morph Comment PT INR APTT Puncture Site Patient Temperature O2 Saturation ABG pH ABG pCO2 ABG pO2 ABG HCO3 ABG O2 Content ABG Base Excess ABG Methemoglobin Olaf Test Cap Carboxyhemoglobin Hemoglobin O2 Delivery Device Vent Setting Inspired O2 Critical Value Sodium Potassium Chloride Carbon Dioxide Anion Gap BUN Creatinine Estimated GFR POC Glucose 160 H 146 H Random Glucose Lactic Acid Calcium Prot Corrected Calcium Phosphorus Magnesium Total Bilirubin AST ALT Alkaline Phosphatase Ammonia Total Protein Albumin Rzmpm-2-Yirhgxnpdwe Ceruloplasmin Body Fluid Amylase Source Fluid Amylase Peritoneal WBC Peritoneal RBC Periton Neutrophils Periton Lymphocytes Periton Mesothelial Periton Histiocytes Peritoneal Tot Protein Peritoneal Albumin Peritoneal LDH Peritoneal Glucose Vancomycin Trough Anti-Smooth Muscle Ab Tiss Transglutamin IgG Tiss Transglutamin IgA Imaging Studies: Impressions Chest X-Ray 10/02/17 06:00 CONCLUSION: Support apparatus in good position. Stable basilar airspace disease and pleural effusion. Medications: Active Medications Generic Name Dose Route Start Last Admin Trade Name Freq PRN Reason Stop Dose Admin Albuterol 1 ampul 10/02/17 04:00 10/02/17 15:46 Duoneb Neb (Dinh) NEB 1 ampul Q4HR NEB DINH Administration Folic Acid 1 mg 10/02/17 09:00 10/02/17 08:21 Folic Acid PO 1 mg DAILY DINH Administration Furosemide 40 mg 10/02/17 09:00 10/02/17 08:20 Lasix Inj IV.PUSH 40 mg BID@0900,1800 DINH Administration Octreotide Acetate 500 mcg/ 500.5 mls @ 25 mls/hr 10/02/17 01:00 10/02/17 04: 06 Sodium Chloride IV.SIG 25 mls/hr .Q20H2M DINH Administration Pantoprazole Sodium 80 mg/ 100 mls @ 10 mls/hr 10/02/17 01:00 10/02/17 15:09 Sodium Chloride IV.SIG 10 mls/hr .Q10H DINH Administration Albumin Human 100 mls @ 60 mls/hr 10/02/17 06:00 10/02/17 06:45 Flexbumin 25% Inj IV.SIG Infused Q12H DINH Infusion Piperacillin/Tazobactam/Dextrose 50 mls @ 100 mls/hr 10/02/17 03:00 10/02/17 16:31 Zosyn 3.375 Gm Premix IV.SIG 0 mls/hr Q6H DINH Infusion Vancomycin HCl 2,000 mg/ 520 mls @ 260 mls/hr 10/02/17 00:00 10/02/17 11:04 Sodium Chloride IV.SIG Not Given Q24H DINH Dexmedetomidine HCl 1,000 mcg/ 260 mls @ 5.93 mls/hr 10/02/17 01:00 10/02/17 15:26 Sodium Chloride IV.SIG 1 mcg/kg/hr TITRATE PRN 29.66 mls/hr SEDATION Administration Protocol 0.2 MCG/KG/HR Insulin Aspart 1 unit 10/02/17 00:00 10/02/17 13:11 Novolog Insulin Suppl Scale Inj SQ 1 unit Q4HR DINH Administration Protocol Lactulose 30 ml 10/02/17 09:00 10/02/17 08:19 Lactulose Liq PO 30 ml BID DINH Administration Multivitamins/Minerals 1 tab 10/02/17 09:00 10/02/17 08:22 Theragran-M PO 1 tab DAILY DINH Administration Potassium Bicarb/Potassium Chloride 50 meq 10/02/17 00:01 10/02/17 08:21 K-Lyte PO 50 meq UNSCH PRN Administration ELECTROLYTE REPLACEMENT Potassium Bicarb/Potassium Chloride 25 meq 10/02/17 09:00 10/02/17 14:46 K-Lyte PO 25 meq Q12HR DINH Administration Rifaximin 550 mg 10/02/17 09:00 10/02/17 08:21 Xifaxan PO 550 mg BID DINH Administration Senna/Docusate Sodium 1 tab 10/02/17 09:00 10/02/17 08:21 Bri-Colace PO 1 tab BID DINH Administration Thiamine HCl 100 mg 10/02/17 09:00 10/02/17 08:22 Vitamin B1 PO 100 mg DAILY DINH Administration Objective Remarks: GENERAL: overweight man intubated and sedated SKIN: Warm and dry. HEAD: Normocephalic. EYES: No scleral icterus. No injection or drainage. NECK: Supple, trachea midline. No JVD or lymphadenopathy. LYMPHATIC: No adenopathy. CARDIOVASCULAR: Regular rate and rhythm without murmurs. RESPIRATORY: Breath sounds equal bilaterally. No accessory muscle use. GASTROINTESTINAL: protuberant abdomen EXTREMITIES: bilateral lower extremity edema, skin thickening MUSCULOSKELETAL: Adequate muscle tone. NEUROLOGICAL: No obvious focal deficit. PSYCHIATRIC: intubated and sedated on vent Assessment/Plan - Plan Pancytopenia. INR 1.7 PT 17.7 fibrinogen on admission 145 PTT is 35.6. Iron studies with evidence of inflammation with iron level of 68% sat of 55.2 ferritin level of 776 total iron-binding capacity of 123. Folate level from July was 5.9 vitamin B12 level from July is 677. He is recently been transfused 4 units of packed red blood cells. Hemochromatosis panel is pending. Viral hepatitis panel is nonreactive. Will check peripheral blood smear for pathology review. Patient with no evidence at this time of an underlying bone marrow disorder. No evidence of underlying bone marrow the marrow failure. No evidence of an autoimmune disorder. He does not have any vitamin B12 or folate deficiency. He does drink and was an active drinker of up to the day of hospitalization. Alcohol can certainly be causing direct suppression of the bone marrow. No evidence of splenomegaly on exam. He does have prolonged coags however this can also be seen in patients with cirrhosis as clotting factors are made in the liver and he has decreased that infection his liver. Critical illness requiring intubation and massive blood loss requiring blood transfusion certainly contributing to counts. No evidence of ITP low for T score for hit no evidence of a TMA. We will continue to follow counts. Will check flow cytometry. Once patient recovers from acute illness may consider counts do not improve.
[2017-10-03] MEDS: Insulin NovoLOG Aspart Correctional Sugar Inj SQ SCH ×6 (00:31→21:54)
[2017-10-03] MEDS: Vancomycin Inj 2,000 MG in Sodium Chlor 0.9% Inj 500 ML IV.SIG SCH (00:34)
[2017-10-03] MEDS: Oral Hygiene Kit OROPHARYNG SCH ×4 (00:35→16:49)
[2017-10-03] MEDS: fentaNYL 10 mcg/mL Premix Drip 2,500 MCG/250 ML BAG IV.SIG PRN ×2 (01:32→17:39)
[2017-10-03] MEDS: Piperacil/Tazo 3.375 GM Premix 50 ML IV.SIG SCH ×4 (03:56→21:56)
[2017-10-03] MEDS: SODIUM CHLOR 0.9% IV.SIG PRN ×2 (04:16→21:57)
[2017-10-03] MEDS: DEXMEDETOMIDINE IV.SIG PRN ×2 (04:16→21:57)
[2017-10-03 04:18] LABS: Hematocrit 27.5 % (39.0-51.0); Hemoglobin 9.2 gm/dL (13.0-17.0); Mean Corpuscular HGB Conc 33.5 % (32.0-36.0); Mean Corpuscular Volume 98.3 fL (80.0-100.0); Mean Platelet Volume 8.9 fL (7.0-11.0); Platelet Count 57 th/mm3 (150-450); Red Cell Distribution Width 23.1 % (11.6-17.2); White Blood Count 3.9 th/mm3 (4.0-11.0)
[2017-10-03 04:43] LABS: Magnesium 1.9 mg/dL (1.5-2.5)
[2017-10-03] MEDS: Albumin Human 25% Inj 100 ML IV.SIG SCH ×2 (05:43→17:37)
[2017-10-03 05:44] LABS: Eosinophils 5 % (0-4); Lymphocytes 30 % (9-44); Monocytes 6 % (0-8); Plasma Cells 1 % (0-0)
[2017-10-03 06:06] LABS: Platelet Morphology Normal (Normal)
[2017-10-03 06:07] LABS: Stomatocytes 1+
[2017-10-03] MEDS: Pantoprazole Inj 80 MG in Sodium Chlor 0.9% Inj 100 ML IV.SIG SCH (06:10)
[2017-10-03] MEDS: Calcium Carbonate 500 MG Tablet PO SCH ×2 (08:36→21:55)
[2017-10-03] MEDS: Folic Acid 1 MG Tablet PO SCH (08:36)
[2017-10-03] MEDS: Potassium Chloride 25 MEQ Effervescent Tablet PO SCH ×2 (08:36→21:55)
[2017-10-03] MEDS: Multivitamin/Minerals Therapeutic Tablet PO SCH (08:36)
[2017-10-03] MEDS: rifAXIMin 550 MG Tablet PO SCH ×2 (08:36→21:56)
[2017-10-03] MEDS: Senna/Docusate Sodium 8.6/50 MG Tablet PO SCH ×2 (11:39→21:55)
--- NOTE | 2017-10-03 14:23 | P.PNID ---
Subjective Remarks: Mr. Ramirez is a 62-year-old -[place] male who was brought into the ED by EMS because of hematemesis approximately an hour prior to arrival. Reportedly had at least 4 episodes of vomiting bright red blood amounting to about a gallon. Reportedly he was nauseous but denied patient has noted increased abdominal girth. He also appears that the patient has chronic bilateral lower extremity lymphedema. No reported history of heart failure kidney disease. In the emergency department patient was noted to be tachycardic received half a liter fluid bolus. He was started on Sandostatin and Protonix drip. Patient was evaluated by GI and has undergone on 2 endoscopies at this point by Dr. Dallas as well as Dr. Medina. It appears that the patient's esophageal varices were banded. He also was noted to have a hiatal hernia. Due to large volume hematemesis patient was electively intubated. Patient has received several units of blood products at this time. At the time of my evaluation patient is in the ICU currently not on any vasopressors. Remains intubated. Does not respond to any verbal commands. Urine output okay. Infectious disease is consulted for evaluation and management of new fevers of 101.5. Upon discussion with the nurse it appears that he has some mendoza colored secretions. He does have a Mendieta catheter in place. Overnight events reviewed No fevers No rash Intubated. No response. Antibiotics: Zosyn IV Vanco IV Lines: Lines ok Past Medical History: Past Medical History Bilateral lower extremity lymphedema Anxiety History of pneumonia According to the record hypothyroidism Hypertension GERD according to the record Noncompliant with medical therapy Past Surgical History [place] teeth extracted in 1973 tonsillectomy 1960 Allergies/Adverse Reactions: Allergies No Known Allergies Adverse Reaction (Unknown, Uncoded 07/03/17 19:09) Objective Vital Signs 10/02/17 14:30 10/02/17 15:00 10/02/17 15:30 Pulse Rate 71 66 66 Respiratory Rate Blood Pressure 124/74 119/71 117/69 Pulse Oximetry 94 L 100 100 10/02/17 15:47 10/02/17 16:00 10/02/17 16:30 Pulse Rate 70 74 71 Respiratory Rate 16 Blood Pressure 100/58 L 104/59 L Pulse Oximetry 100 100 100 10/02/17 17:00 10/02/17 17:30 10/02/17 18:00 Pulse Rate 71 72 69 Respiratory Rate Blood Pressure 106/58 L 111/60 117/62 Pulse Oximetry 100 100 100 10/02/17 18:30 10/02/17 19:00 10/02/17 19:30 Pulse Rate 68 68 67 Respiratory Rate Blood Pressure 108/60 111/62 115/66 Pulse Oximetry 100 100 100 10/02/17 20:00 10/02/17 20:30 10/02/17 21:00 Pulse Rate 66 69 66 Respiratory Rate Blood Pressure 117/66 115/62 120/66 Pulse Oximetry 100 100 100 10/02/17 21:30 10/02/17 22:00 10/02/17 22:30 Pulse Rate 67 67 68 Respiratory Rate Blood Pressure 122/67 126/69 133/75 Pulse Oximetry 100 97 10/02/17 22:35 10/02/17 23:00 10/02/17 23:11 Pulse Rate 67 68 Respiratory Rate 16 17 Blood Pressure 112/60 Pulse Oximetry 100 100 10/02/17 23:12 10/02/17 23:30 10/03/17 00:00 Pulse Rate 68 67 63 Respiratory Rate 17 Blood Pressure 125/69 121/69 Pulse Oximetry 100 100 10/03/17 00:30 10/03/17 01:00 10/03/17 01:30 Pulse Rate 64 63 66 Respiratory Rate Blood Pressure 125/71 132/72 130/88 Pulse Oximetry 100 100 80 L 10/03/17 02:00 10/03/17 02:30 10/03/17 03:00 Pulse Rate 64 63 66 Respiratory Rate Blood Pressure 137/79 139/81 137/79 Pulse Oximetry 95 100 100 10/03/17 03:28 10/03/17 03:30 10/03/17 04:00 Pulse Rate 63 63 64 Respiratory Rate 16 Blood Pressure 143/80 H 114/71 Pulse Oximetry 100 100 10/03/17 04:30 10/03/17 04:32 10/03/17 05:00 Pulse Rate 63 62 Respiratory Rate 17 Blood Pressure 124/72 130/75 Pulse Oximetry 100 100 100 10/03/17 05:30 10/03/17 06:00 10/03/17 06:30 Pulse Rate 61 59 L 61 Respiratory Rate Blood Pressure 134/78 128/65 141/83 H Pulse Oximetry 100 98 100 10/03/17 07:00 10/03/17 07:48 10/03/17 11:57 Pulse Rate 60 60 Respiratory Rate 17 16 Blood Pressure 134/80 Pulse Oximetry 100 99 Intake & Output 10/02/17 10/03/17 10/03/17 18:59 06:59 18:59 Intake Total 670 / 670 1470 / 1470 50 / 50 Output Total 1150 / 1150 1650 / 1650 Balance -480 / -480 -180 / -180 50 / 50 Weight 120 kg Intake: IV 670 / 670 1470 / 1470 50 / 50 Flexbumin 25% Inj 100 ML @ 60 100 / 100 mls/hr IV.SIG Q12H JANE Rx#: [id number] Precedex Inj 1,000 MCG In NS 520 / 520 520 / 520 Inj 250 ML @ 0.2 MCG/KG/HR 5.93 mls/hr IV.SIG TITRATE PRN Rx#: [id number] SandoSTATIN Inj 500 MCG In NS 500 / 500 Inj 500 ML @ 25 mls/hr IV.SIG . Q20H2M JANE Rx#:[id number] Protonix Inj 80 MG In NS Inj 100 / 100 100 / 100 100 ML @ 10 mls/hr IV.SIG .Q10H JANE Rx#:[id number] Zosyn 3.375 GM Premix 50 ML @ 50 / 50 250 / 250 50 / 50 100 mls/hr IV.SIG Q6H JANE Rx#: [id number] Oral 0 / 0 Tube Feeding 0 / 0 Output: Urine 1150 / 1150 0 / 0 Stool 0 / 0 Urine Amount (Catheter) 1650 / 1650 Indwelling Urethral Catheter 1650 / 1650 Other: Date of Last Bowel Movement 10/03/17 10/03/17 # Bowel Movements 3 Lab - Hematology Results 09/29/17 09/30/17 10/01/17 04:10 15:13 03:15 WBC 3.0 L 2.6 L 2.7 L RBC 2.32 L 2.14 L 2.21 L Hgb 7.8 L 7.2 L 7.5 L Hct 22.9 L 21.5 L 22.3 L MCV 98.7 100.3 H 100.8 H MCH 33.5 33.5 34.0 MCHC 34.0 33.5 33.7 RDW 23.7 H 22.9 H 23.0 H Plt Count 37 L 40 L 40 L MPV 8.3 8.8 8.4 Prelim Diff (Auto) Neut % (Auto) 58.7 54.0 Lymph % (Auto) 19.7 27.3 [place] % (Auto) 16.9 H 13.3 H Eos % (Auto) 3.8 4.4 H Baso % (Auto) 0.9 1.0 Neut # (Auto) 1.5 L 1.5 L Lymph # (Auto) 0.5 L 0.7 L [place] # (Auto) 0.4 0.4 Eos # (Auto) 0.1 0.1 Baso # (Auto) 0.0 0.0 CBC Comment AUTO DIFF AUTO DIFF AUTO DIFF WBC Differential Total Counted 100 100 Neutrophils % (Manual) 86 H 67 Seg Neuts % (Manual) Band Neutrophils % 6 2 Band Neuts % (Manual) Lymphocytes % 3 L 13 Lymphocytes % (Manual) Monocytes % 5 14 H Monocytes % (Manual) Eosinophils % 2 Eosinophils % (Manual) Basophils % 1 Basophils % (Manual) Plasma Cell % (Manual) Neutrophils # (Manual) 2.8 1.8 Abs Neuts (Manual) Metamyelocytes 1 Nucleated RBCs 1 H Nucleated RBCs/100 WBC Differential Comment FINAL DIFF MANUAL FINAL DIFF MANUAL AUTO DIFF CONFIRMED Platelet Estimate LOW L RARE L LOW L Platelet Morphology Plt Morphology Comment NORMAL NORMAL NORMAL Target Cells 1+ H Stomatocytes 1+ H 1+ H RBC Morph Comment DE ICER 10/02/17 10/03/17 04:19 04:05 WBC 3.2 L 3.9 L RBC 2.83 L 2.80 L Hgb 9.4 L 9.2 L Hct 27.5 L 27.5 L MCV 97.3 98.3 MCH 33.3 33.0 MCHC 34.2 33.5 RDW 22.0 H 23.1 H Plt Count 47 L 57 L MPV 8.9 8.9 Prelim Diff (Auto) Manual diff required Manual diff required Neut % (Auto) Lymph % (Auto) [place] % (Auto) Eos % (Auto) Baso % (Auto) Neut # (Auto) Lymph # (Auto) [place] # (Auto) Eos # (Auto) Baso # (Auto) CBC Comment WBC Differential Manual diff final Manual diff final Total Counted Neutrophils % (Manual) Seg Neuts % (Manual) 51 56 Band Neutrophils % Band Neuts % (Manual) 8 H 2 Lymphocytes % Lymphocytes % (Manual) 22 30 Monocytes % Monocytes % (Manual) 13 H 6 Eosinophils % Eosinophils % (Manual) 4 5 H Basophils % Basophils % (Manual) 1 Plasma Cell % (Manual) 1 H 1 H Neutrophils # (Manual) Abs Neuts (Manual) 1.9 2.3 Metamyelocytes Nucleated RBCs Nucleated RBCs/100 WBC 1 H Differential Comment . . Platelet Estimate Low L Low L Platelet Morphology Normal Normal Plt Morphology Comment Target Cells 1+ H Stomatocytes 1+ H RBC Morph Comment Lab - Chemistry Results 09/27/17 09/29/17 09/29/17 17:15 04:10 04:10 Sodium 147 H Potassium 3.2 L Chloride 107 Carbon Dioxide 31.9 Anion Gap 8 BUN 25 H Creatinine 1.03 Estimated GFR 89 POC Glucose Random Glucose 142 H Lactic Acid Calcium 7.4 L* Prot Corrected Calcium 7.6 L D Phosphorus 2.0 L Magnesium 1.7 Total Bilirubin 4.8 H AST 178 H ALT 32 Alkaline Phosphatase 45 Ammonia 26 Total Protein 6.7 D Albumin 2.0 L Apkrt-4-Fmftxabgten 123 Ceruloplasmin 09/29/17 09/30/17 09/30/17 10:18 04:15 21:40 Sodium 148 H Potassium 3.0 L 3.2 L Chloride 109 H Carbon Dioxide 32.1 H Anion Gap 7 BUN 20 H Creatinine 0.85 Estimated GFR 111 POC Glucose Random Glucose 141 H Lactic Acid 1.4 Calcium 7.6 L Prot Corrected Calcium Phosphorus 2.2 L Magnesium Total Bilirubin AST ALT Alkaline Phosphatase Ammonia Total Protein Albumin Osocs-4-Fxwjosawyku Ceruloplasmin 10/01/17 10/01/17 10/01/17 03:15 03:15 12:20 Sodium 149 H Potassium 3.4 L 3.2 L Chloride 112 H Carbon Dioxide 29.0 Anion Gap 8 BUN 19 H Creatinine 0.78 Estimated GFR 122 POC Glucose Random Glucose 143 H Lactic Acid Calcium 7.5 L Prot Corrected Calcium Phosphorus 2.8 2.7 Magnesium 1.8 Total Bilirubin 4.4 H AST 82 H ALT 24 Alkaline Phosphatase 42 L Ammonia 26 Total Protein 6.5 Albumin 2.1 L Tipjc-5-Wqboyyemalg Ceruloplasmin 10/02/17 10/02/17 10/02/17 04:03 04:19 08:13 Sodium 150 H Potassium 3.5 Chloride 114 H Carbon Dioxide 27.0 Anion Gap 9 BUN 23 H Creatinine 1.05 Estimated GFR 87 L POC Glucose 155 H 143 H Random Glucose 133 H Lactic Acid Calcium 7.5 L Prot Corrected Calcium Phosphorus 2.7 Magnesium 1.8 Total Bilirubin 6.0 H AST 75 H ALT 24 Alkaline Phosphatase 42 L Ammonia Total Protein 6.6 Albumin 2.5 L Siqyc-4-Ymejudzrgoz Ceruloplasmin 10/02/17 10/02/17 10/02/17 09:50 12:26 16:22 Sodium Potassium Chloride Carbon Dioxide Anion Gap BUN Creatinine Estimated GFR POC Glucose 160 H 146 H Random Glucose Lactic Acid Calcium Prot Corrected Calcium Phosphorus Magnesium Total Bilirubin AST ALT Alkaline Phosphatase Ammonia 33 H Total Protein Albumin Ehxhg-7-Bwbijznbegc Ceruloplasmin 10/02/17 10/03/17 10/03/17 21:57 00:29 03:29 Sodium Potassium Chloride Carbon Dioxide Anion Gap BUN Creatinine Estimated GFR POC Glucose 151 H 152 H 145 H Random Glucose Lactic Acid Calcium Prot Corrected Calcium Phosphorus Magnesium Total Bilirubin AST ALT Alkaline Phosphatase Ammonia Total Protein Albumin Fnrcb-6-Cyzfrvegipr Ceruloplasmin 10/03/17 10/03/17 10/03/17 04:05 04:05 09:32 Sodium Potassium Chloride Carbon Dioxide Anion Gap BUN Creatinine Estimated GFR POC Glucose 151 H Random Glucose Lactic Acid Calcium Prot Corrected Calcium Phosphorus 3.0 Magnesium 1.9 Total Bilirubin AST ALT Alkaline Phosphatase Ammonia 20 Total Protein Albumin Xclfs-0-Rkwctobxqiq Ceruloplasmin 10/03/17 11:48 Sodium Potassium Chloride Carbon Dioxide Anion Gap BUN Creatinine Estimated GFR POC Glucose 133 H Random Glucose Lactic Acid Calcium Prot Corrected Calcium Phosphorus Magnesium Total Bilirubin AST ALT Alkaline Phosphatase Ammonia Total Protein Albumin Jclqh-8-Ubtrcaxiteg Ceruloplasmin Imaging: ITS Impressions Chest X-Ray 10/02/17 06:00 CONCLUSION: Support apparatus in good position. Stable basilar airspace disease and pleural effusion. Physical Exam: GENERAL: Chronically ill appearing AAM patient, in no apparent distress. SKIN: No rashes. HEAD: Atraumatic. Normocephalic. No temporal or scalp tenderness. EYES: Pupils equal round and reactive. No injection or drainage. ENT: Intubated. NECK: Trachea midline. Supple, nontender, no meningeal signs. CARDIOVASCULAR: Murmur audible. RESPIRATORY: AE decreased in bases. GASTROINTESTINAL: Abdomen soft, distended. Diffuse tenderness. No guarding or rigidity. MUSCULOSKELETAL: Bilateral LE lymphedema with tree bark appearance. No warmth. No tenderness. NEUROLOGICAL: No spontaneous eye opening. Psych could not be assessed IV line sites ok. Assessment and Plan - Plan Assessment & Plan Remarks Sepsis Pneumonia (aspiration on admission given GI bleed now ? HCAP) Right side effusion rule out empyema. Acute resp failure: on vent Staph in sputum (MSSA pneumonia earlier) Bilateral LE lymphedema Pancytopenia: sepsis. Anemia: GI bleed on admission s.p transfusions. Recs Continue Zosyn IV Continue Vanco IV (target 15-20) Check Sputum cultures. Thoracentesis could not be performed as insufficient volume. prachi Thapa IR. Follow cultures follow clinically.
--- NOTE | 2017-10-03 17:55 | P.PNCC ---
Subjective Subjective Remarks/Hospital Course: Remarks/Hospital Course This is a 63-year-old male who was brought in by EMS to the emergency room because of hematemesis about an hour prior to arrival. Reported at least 4 episodes of vomiting bright red blood amounting to about a gallon. Reportedly he was nauseous but denied dizziness, syncope, chest pain, shortness of breath and abdominal pain. He takes aspirin on a daily basis but no NSAIDs. No history of GI bleed. He has noted increasing abdominal girth. Has chronic bilateral lower extremity lymphedema denies history of heart failure or chronic kidney disease. In the emergency department, patient was noted to be tachycardic and received half a liter of IV fluid bolus. He was also started on Sandostatin and Protonix drip. Patient was evaluated by GI Dr. Crocker who performed EGD in the OR. Patient was intubated for endoscopy. He was found to have variceal bleeding underwent banding of esophageal varices. Following procedure patient was transferred to PACU. Critical care consult was requested by Dr. Crocker as patient was left intubated on mechanical ventilation. He was getting his second unit of PRBCs when I evaluated patient in PACU. 09/26: Patient remained intubated and sedated over the night. Still with bloody NG tube output however per nighttime RN has slowed down. Hemoglobin remains stable. T-max of 98.1, urine output of 1540ml since admission. 09/27: NG tube clamped, small amount of heme emanating on suction. The patient remains sedated and intubated ammonia level 186. Planned initiation of lactulose twice daily. Calcium being repleted. Patient noted to have hemoglobin level of 7.21 unit packed red blood cells and 1 unit of platelets being transfused this a.m.. Urinary output significantly decreased, overnight. Albumin 5% IV twice daily initiated. 09/28: Albumin/ Lasix medication administration, improve urine output, 1200 cc in the last 6 hrs. Paracentesis by via invasive radiology is pending. The patient received 1 unit of platelets this a.m. INR 1.7, with platelet count 46. The patient continues on octreotide and Protonix infusion no active signs of bleeding. Plan for EGD in a.m. per GI. 09/29: Late entry note. Patient seen at 3:15p.m.. No acute changes during the night. Hemoglobin stable. The patient remains on Sandostatin and Protonix infusions. Patient currently undergoing repeat EGD. Patient had elevated temperature earlier this afternoon 101.0, cooling packs/cooling blanket applied. Lactic acid decreasing. 09/30: The patient underwent EGD last evening, revealed esophagitis. The patient continues on Sandostatin Protonix infusions per GI recommendations. CPAP trials were initiated this morning the patient tolerated approximately 1 hour. The patient was transitioned to Precedex infusion for ventilator weaning process. Patient underwent ultrasound testing for quantification of pleural effusions minimal volume, no thoracentesis performed. 10/01: Patient remains on low-dose Precedex for ventilator weaning process. Patient lethargic today, fentanyl infusion has been discontinued. Patient noted to have a map in the 60s, hemoglobin is less than 8 patient will be transfused 2 units of packed red blood cells this afternoon. SUBJECTIVE: 10/03: Arousable and follows commands on dexmedetomidine and fentanyl drips. Continues to be on pantoprazole and octreotide drips. These will be discontinued today. We will start trickle feeds. Possible need paracentesis in a.m. Objective Vital Signs / I&O: Vital Signs 10/02/17 18:00 10/02/17 18:30 10/02/17 19:00 Pulse Rate 69 68 68 Respiratory Rate Blood Pressure 117/62 108/60 111/62 Pulse Oximetry 100 100 100 10/02/17 19:30 10/02/17 20:00 10/02/17 20:30 Pulse Rate 67 66 69 Respiratory Rate Blood Pressure 115/66 117/66 115/62 Pulse Oximetry 100 100 100 10/02/17 21:00 10/02/17 21:30 10/02/17 22:00 Pulse Rate 66 67 67 Respiratory Rate Blood Pressure 120/66 122/67 126/69 Pulse Oximetry 100 100 10/02/17 22:30 10/02/17 22:35 10/02/17 23:00 Pulse Rate 68 67 Respiratory Rate 16 Blood Pressure 133/75 112/60 Pulse Oximetry 97 100 100 10/02/17 23:11 10/02/17 23:12 10/02/17 23:30 Pulse Rate 68 68 67 Respiratory Rate 17 17 Blood Pressure 125/69 Pulse Oximetry 100 10/03/17 00:00 10/03/17 00:30 10/03/17 01:00 Pulse Rate 63 64 63 Respiratory Rate Blood Pressure 121/69 125/71 132/72 Pulse Oximetry 100 100 100 10/03/17 01:30 10/03/17 02:00 10/03/17 02:30 Pulse Rate 66 64 63 Respiratory Rate Blood Pressure 130/88 137/79 139/81 Pulse Oximetry 80 L 95 100 10/03/17 03:00 10/03/17 03:28 10/03/17 03:30 Pulse Rate 66 63 63 Respiratory Rate 16 Blood Pressure 137/79 143/80 H Pulse Oximetry 100 100 10/03/17 04:00 10/03/17 04:30 10/03/17 04:32 Pulse Rate 64 63 Respiratory Rate 17 Blood Pressure 114/71 124/72 Pulse Oximetry 100 100 100 10/03/17 05:00 10/03/17 05:30 10/03/17 06:00 Pulse Rate 62 61 59 L Respiratory Rate Blood Pressure 130/75 134/78 128/65 Pulse Oximetry 100 100 98 10/03/17 06:30 10/03/17 07:00 10/03/17 07:48 Pulse Rate 61 60 60 Respiratory Rate 17 Blood Pressure 141/83 H 134/80 Pulse Oximetry 100 100 10/03/17 11:57 10/03/17 16:02 Pulse Rate Respiratory Rate 16 17 Blood Pressure Pulse Oximetry 99 100 Intake & Output 10/02/17 10/03/17 10/03/17 18:59 06:59 18:59 Intake Total 670 / 670 1470 / 1470 400 / 400 Output Total 1150 / 1150 1650 / 1650 Balance -480 / -480 -180 / -180 400 / 400 Weight 120 kg Intake: IV 670 / 670 1470 / 1470 400 / 400 Flexbumin 25% Inj 100 ML @ 60 100 / 100 100 / 100 mls/hr IV.SIG Q12H JANE Rx#: [id number] Precedex Inj 1,000 MCG In NS 520 / 520 520 / 520 Inj 250 ML @ 0.2 MCG/KG/HR 5.93 mls/hr IV.SIG TITRATE PRN Rx#: [id number] SandoSTATIN Inj 500 MCG In NS 500 / 500 Inj 500 ML @ 25 mls/hr IV.SIG . Q20H2M JANE Rx#:[id number] Protonix Inj 80 MG In NS Inj 100 / 100 100 / 100 100 ML @ 10 mls/hr IV.SIG .Q10H JANE Rx#:[id number] Zosyn 3.375 GM Premix 50 ML @ 50 / 50 250 / 250 50 / 50 100 mls/hr IV.SIG Q6H [facility] Rx#: [id number] fentaNYL 10 mcg/mL Premix Drip 250 / 250 2,500 mcg In 250 ml @ 50 MCG/HR 5 mls/hr IV.SIG TITRATE PRN Rx #:[id number] Oral 0 / 0 Tube Feeding 0 / 0 Output: Urine 1150 / 1150 0 / 0 Stool 0 / 0 Urine Amount (Catheter) 1650 / 1650 Indwelling Urethral Catheter 1650 / 1650 Other: Date of Last Bowel Movement 10/03/17 10/03/17 # Bowel Movements 3 Result Diagrams: 10/03/17 04:05 10/02/17 04:19 Objective Remarks: General: This is a 62-year-old -[place] male currently intubated HEENT: Pupils are equal and reactive, muddy sclera, orally intubated, NG tube with some clear brown aspirate Neck: Supple, no rigidity, no JVD Chest: Coarse breath sounds bilateral, good air entry, no wheezes CVS: Regular S1 and S2, tachycardic, no murmurs appreciated Abd: Soft, appears nontender, protuberant bowel sounds are decreased Extremities: warm bilaterally, chronic lymphedema noted bilaterally lower extremity Neuro: Cranial nerves II through XII grossly intact. Positive gag and cough. Positive corneal reflex. Nods head appropriately. Spontaneously moves extremities x 4 Assessment and Plan - Assessment and Plan Plan: Neurologic: EtOH use disorder Currently on dexmedetomidine drip at 0.4 mcg/min and fentanyl drip at 75 mcg an hour for sedation/analgesia while intubated Goal of RASS -2 Daily sedation vacation Monitor ammonia level Continue thiamine and folate Seizure precautions Respiratory: Acute respiratory failure PRVC ventilation Ventilator bundle Obtain O2 saturation greater than 92% Albuterol/ipratropium aerosols every 4 hours with albuterol aerosols every 2 hours as needed for dyspnea Continue CPAP trials as tolerated Cardiovascular: History of essential hypertension Maintain MAP greater than 65 Monitor CVP 09/27 echo- EF 40% small left pleural effusion Renal: Oliguria-resolved Maintain Mendieta for adequate I &O Nephrology following-possible hepatorenal syndrome Optimal diuresis with furosemide 40 mg twice daily and albumin 25 g every 12 hours infusions-greater than 2 L every 12 hours -- Strict I/Os FEN/GI: Upper GI bleed secondary to esophageal varices status post banding Decompensated liver cirrhosis Ascites Hyperammonemia GERD Anion gap metabolic acidosis-resolved Electrolyte derangement IV fluids normal saline with 20 KCl at 42 cc/hour Continue pantoprazole 40 mg IV twice daily. Octreotide infusion discontinued today Lactulose BID, continue rifaximin 550 twice daily 09/28- paracentesis scheduled with invasive radiology 09/29-repeat EGD-revealed significant gastropathy, no active sites of bleeding Start trickle feeds today with Neutra hep Heme/ID: Acute blood loss anemia Thrombocytopenia Coagulopathy Monitor CBC 10/01 Transfuse 2 u PRBC's Noted decreased liver synthetic function secondary to cirrhosis Hematology oncology ID following. Continue vancomycin and piperacillin/tazobactam per the recommendations Follow-up urine and blood cultures 09/28 sputum cultures- Staph Aureus Endocrine: Glucose monitoring per ICU protocol. Low-dose regimen MsK; Chronic lymphedema -- SSI Prophylaxis: GI Prophylaxis Pantoprazole DVT Prophylaxis -- SCDs Hold pharmacological DVT prophylaxis in the setting of thrombocytopenia, and active GI bleed Lines: Central line RIJ (09/26) peripheral IVs x 2 Level 2 follow-up
[2017-10-03] MEDS: Pantoprazole Inj 40 MG Vial IV.PUSH SCH (21:56)
[2017-10-04] MEDS: Vancomycin Inj 2,000 MG in Sodium Chlor 0.9% Inj 500 ML IV.SIG SCH (01:20)
[2017-10-04] MEDS: Insulin NovoLOG Aspart Correctional Sugar Inj SQ SCH ×5 (01:21→18:38)
[2017-10-04] MEDS: Oral Hygiene Kit OROPHARYNG SCH ×4 (01:21→17:52)
[2017-10-04] MEDS: Piperacil/Tazo 3.375 GM Premix 50 ML IV.SIG SCH ×4 (04:47→20:39)
[2017-10-04] MEDS: DEXMEDETOMIDINE IV.SIG PRN ×4 (04:48→20:34)
[2017-10-04] MEDS: SODIUM CHLOR 0.9% IV.SIG PRN ×4 (04:48→20:34)
[2017-10-04] MEDS: fentaNYL 10 mcg/mL Premix Drip 2,500 MCG/250 ML BAG IV.SIG PRN ×3 (04:49→23:00)
[2017-10-04] MEDS: Albumin Human 25% Inj 100 ML IV.SIG SCH ×2 (05:04→18:39)
[2017-10-04 05:39] LABS: Eos # (Auto) 0.2 th/mm3 (0.0-0.4); Eos % (Auto) 5.1 % (0.0-4.0); Hematocrit 27.3 % (39.0-51.0); Hemoglobin 9.2 gm/dL (13.0-17.0); Lymph # (Auto) 0.8 th/mm3 (1.0-4.8); Lymph % (Auto) 27.2 % (9.0-44.0); Mean Corpuscular HGB Conc 33.7 % (32.0-36.0); Mean Corpuscular Hemoglobin 33.6 pg (27.0-34.0); Mean Corpuscular Volume 99.6 fL (80.0-100.0); Mean Platelet Volume 8.8 fL (7.0-11.0); Mono # (Auto) 0.3 th/mm3 (0.0-0.9); Mono % (Auto) 9.9 % (0.0-8.0); Neut # (Auto) 1.7 th/mm3 (1.8-7.7); Neut % (Auto) 56.8 % (16.0-70.0); Platelet Count 57 th/mm3 (150-450); Red Blood Count 2.74 mil/mm3 (4.50-5.90); Red Cell Distribution Width 23.2 % (11.6-17.2)
[2017-10-04 05:46] LABS: Activated Partial Thrombo Time 36.9 sec (24.3-30.1); INR 1.9 Ratio
[2017-10-04 06:03] LABS: Alanine Aminotransferase 19 U/L (12-78); Albumin 2.6 g/dL (3.4-5.0); Alkaline Phosphatase 39 U/L (45-117); Anion Gap 12 meq/L (5-15); Aspartate Aminotransferase 49 U/L (15-37); Blood Urea Nitrogen 16 mg/dL (7-18); Calcium 8.4 mg/dL (8.5-10.1); Carbon Dioxide 26.6 meq/L (21.0-32.0); Chloride 116 meq/L (98-107); Glomerular Filtration Rate 81 mL/min (>89); Glucose,Random 177 mg/dL (74-106); Phosphorus 2.7 mg/dL (2.5-4.9); Sodium 155 meq/L (136-145); Total Protein 6.7 g/dL (6.4-8.2)
[2017-10-04 06:13] LABS: Potassium 2.6 meq/L (3.5-5.1)
[2017-10-04] MEDS: Calcium Carbonate 500 MG Tablet PO SCH ×2 (08:34→20:40)
[2017-10-04] MEDS: Potassium Chloride 25 MEQ Effervescent Tablet PO SCH (08:34)
[2017-10-04] MEDS: Multivitamin/Minerals Therapeutic Tablet PO SCH (08:34)
[2017-10-04] MEDS: rifAXIMin 550 MG Tablet PO SCH ×2 (08:34→20:40)
[2017-10-04] MEDS: Folic Acid 1 MG Tablet PO SCH (08:36)
[2017-10-04] MEDS: Senna/Docusate Sodium 8.6/50 MG Tablet PO SCH ×2 (08:36→20:40)
[2017-10-04 09:35] LABS: Eosinophils 4 % (0-4); Lymphocytes 21 % (9-44); Monocytes 4 % (0-8)
[2017-10-04 09:36] LABS: Platelet Morphology Normal (Normal); Stomatocytes 1+
--- NOTE | 2017-10-04 11:34 | P.DIET ---
Nutritional Evaluation Screening comments: [facility] [place] TF Objective - Diagnosis GI Bleed - Indications of Malnutrition Classification: Chronic disease or injury-related Malnutrition Characteristics: Fluid accumulation, Diminshed functional status - Objective Body Weight Used for Calculations: IBW Energy Needs - Lower Range (kCal/kg): 28 Energy Needs - Upper Range (kCal/kg): 33 Lower Limit kCal/kg (kCals): 2,114 Upper Limit kCal/kg (kCals): 2,491 Lower Limit Protein Factor (Grams per Kg): 0.8 Upper Limit Protein Factor (Grams per Kg): 1 Lower Protein Needs (Protein): 60 Upper Protein Needs (Protein): 76 Dietitian Reviewed in Medical Record: Curent medications, Intake & Output, Labs , Medical history, Tube feeding Objective Comments: Pt's nutritional needs based on 75.5kg PMH: GERC, PNA, Hypothyroidism, Bilateral LE lymphedema, Anxiety, noncompliance to medical therapy Meds inculde: Fentanyl, Folic Acid, Thiamine, Theragran, Lasix, Lactulose, Xifaxan Labs include: WBC 3.0, Hgb 9.2, Hct 27.3, Na 155, K+ 2.6, Cr 1.11, Glu 177, POC Glu 164, 187, 195, T Bili 5.9, Ammonia 17 +6 BM's in 48 hrs Assessment Assessment: Pt at nutritional risk r/t current clinical status. Pt admitted with upper GI bleed secondary to esophageal varices and is now s/p banding. Pt with decompensated liver cirrhosis, Ascites, probably will need paracentesis. Pt is currently intubated, off fentanyl and arousable and follow commands per MD. TF Nutrihep to start at trickle feeds with goal of 20 ml/hr. To meet pt's nutritional needs, a goal rate of 65 ml/hr is necessary providing 2340 kcals, 62 gms protein and 1186 mls free water. Will monitor TF tolerance, clinical course. Recommendations: TF Nutrihep with goal rate 65 ml/hr Dietitian following Dietitian to Monitor: Lab values, Liver enzymes, Glucose level, Intake & Output , Tube feeding tolerance, Weight change, Medical course
--- NOTE | 2017-10-04 11:47 | P.PNCC ---
Subjective Subjective Remarks/Hospital Course: Remarks/Hospital Course This is a 63-year-old male who was brought in by EMS to the emergency room because of hematemesis about an hour prior to arrival. Reported at least 4 episodes of vomiting bright red blood amounting to about a gallon. Reportedly he was nauseous but denied dizziness, syncope, chest pain, shortness of breath and abdominal pain. He takes aspirin on a daily basis but no NSAIDs. No history of GI bleed. He has noted increasing abdominal girth. Has chronic bilateral lower extremity lymphedema denies history of heart failure or chronic kidney disease. In the emergency department, patient was noted to be tachycardic and received half a liter of IV fluid bolus. He was also started on Sandostatin and Protonix drip. Patient was evaluated by GI Dr. Crocker who performed EGD in the OR. Patient was intubated for endoscopy. He was found to have variceal bleeding underwent banding of esophageal varices. Following procedure patient was transferred to PACU. Critical care consult was requested by Dr. Crocker as patient was left intubated on mechanical ventilation. He was getting his second unit of PRBCs when I evaluated patient in PACU. 09/26: Patient remained intubated and sedated over the night. Still with bloody NG tube output however per nighttime RN has slowed down. Hemoglobin remains stable. T-max of 98.1, urine output of 1540ml since admission. 09/27: NG tube clamped, small amount of heme emanating on suction. The patient remains sedated and intubated ammonia level 186. Planned initiation of lactulose twice daily. Calcium being repleted. Patient noted to have hemoglobin level of 7.21 unit packed red blood cells and 1 unit of platelets being transfused this a.m.. Urinary output significantly decreased, overnight. Albumin 5% IV twice daily initiated. 09/28: Albumin/ Lasix medication administration, improve urine output, 1200 cc in the last 6 hrs. Paracentesis by via invasive radiology is pending. The patient received 1 unit of platelets this a.m. INR 1.7, with platelet count 46. The patient continues on octreotide and Protonix infusion no active signs of bleeding. Plan for EGD in a.m. per GI. 09/29: Late entry note. Patient seen at 3:15p.m.. No acute changes during the night. Hemoglobin stable. The patient remains on Sandostatin and Protonix infusions. Patient currently undergoing repeat EGD. Patient had elevated temperature earlier this afternoon 101.0, cooling packs/cooling blanket applied. Lactic acid decreasing. 09/30: The patient underwent EGD last evening, revealed esophagitis. The patient continues on Sandostatin Protonix infusions per GI recommendations. CPAP trials were initiated this morning the patient tolerated approximately 1 hour. The patient was transitioned to Precedex infusion for ventilator weaning process. Patient underwent ultrasound testing for quantification of pleural effusions minimal volume, no thoracentesis performed. 10/01: Patient remains on low-dose Precedex for ventilator weaning process. Patient lethargic today, fentanyl infusion has been discontinued. Patient noted to have a map in the 60s, hemoglobin is less than 8 patient will be transfused 2 units of packed red blood cells this afternoon. SUBJECTIVE: 10/03: Arousable and follows commands on dexmedetomidine and fentanyl drips. Continues to be on pantoprazole and octreotide drips. These will be discontinued today. We will start trickle feeds. Possible need paracentesis in a.m. 10/04: Remains sedated, orally intubated on mechanical ventilation. Objective Vital Signs / I&O: Vital Signs 10/03/17 11:57 10/03/17 16:02 10/03/17 19:27 Temperature Pulse Rate Respiratory Rate 16 17 16 Blood Pressure Pulse Oximetry 99 100 100 10/03/17 19:33 10/03/17 20:00 10/04/17 00:01 Temperature Pulse Rate 62 61 Respiratory Rate 18 16 Blood Pressure Pulse Oximetry 100 98 10/04/17 04:01 10/04/17 04:03 10/04/17 08:00 Temperature 97.3 F L Pulse Rate 62 61 Respiratory Rate 16 16 16 Blood Pressure 129/76 Pulse Oximetry 98 99 10/04/17 08:01 10/04/17 11:35 Temperature Pulse Rate 60 79 Respiratory Rate 16 16 Blood Pressure Pulse Oximetry 99 96 Intake & Output 10/03/17 10/04/17 10/04/17 18:59 06:59 18:59 Intake Total 710 / 710 660 / 660 50 / 50 Output Total 1800 / 1800 3450 / 3450 Balance -1090 / -1090 -2790 / -2790 50 / 50 Weight 120 kg Intake: IV 710 / 710 660 / 660 50 / 50 Flexbumin 25% Inj 100 ML @ 60 100 / 100 100 / 100 mls/hr IV.SIG Q12H JANE Rx#: [id number] Precedex Inj 1,000 MCG In NS 260 / 260 260 / 260 Inj 250 ML @ 0.2 MCG/KG/HR 5.93 mls/hr IV.SIG TITRATE PRN Rx#: [id number] Zosyn 3.375 GM Premix 50 ML @ 100 / 100 50 / 50 50 / 50 100 mls/hr IV.SIG Q6H JANE Rx#: [id number] fentaNYL 10 mcg/mL Premix Drip 250 / 250 250 / 250 2,500 mcg In 250 ml @ 50 MCG/HR 5 mls/hr IV.SIG TITRATE PRN Rx #:[id number] Oral 0 / 0 Tube Feeding 0 / 0 Output: Urine 1800 / 1800 1800 / 1800 Stool 0 / 0 Urine Amount (Catheter) 1650 / 1650 Indwelling Urethral Catheter 1650 / 1650 Other: Date of Last Bowel Movement 10/03/17 10/03/17 # Bowel Movements 3 Result Diagrams: 10/04/17 04:55 10/04/17 04:55 Imaging: ITS Impressions Chest X-Ray 10/02/17 06:00 CONCLUSION: Support apparatus in good position. Stable basilar airspace disease and pleural effusion. Objective Remarks: General: This is a 62-year-old -[place] male currently intubated HEENT: Pupils are equal and reactive, muddy sclera, orally intubated, NG tube with some clear brown aspirate Neck: Supple, no rigidity, no JVD Chest: Orally intubated on mechanical ventilation, coarse breath sounds bilateral, good air entry, no wheezes CVS: Regular S1 and S2, tachycardic, no murmurs appreciated Abd: Soft, appears nontender, protuberant bowel sounds are decreased Extremities: warm bilaterally, chronic lymphedema noted bilaterally lower extremity Neuro: Sedated, orally intubated on mechanical ventilation positive gag and cough. Positive corneal reflex. Nods head appropriately. Spontaneously moves extremities x 4 Assessment and Plan - Assessment and Plan Plan: Neurologic: EtOH use disorder Currently on dexmedetomidine drip at 0.4 mcg/min and fentanyl drip at 75 mcg an hour for sedation/analgesia while intubated Goal of RASS -2 Daily sedation vacation Monitor ammonia level Continue thiamine and folate Seizure precautions Respiratory: Acute respiratory failure PRVC ventilation Ventilator bundle Obtain O2 saturation greater than 92% Albuterol/ipratropium aerosols every 4 hours with albuterol aerosols every 2 hours as needed for dyspnea Continue CPAP trials as tolerated Cardiovascular: History of essential hypertension Maintain MAP greater than 65 Monitor CVP 09/27 echo- EF 40% small left pleural effusion Renal: Oliguria-resolved Maintain [place] for adequate I &O Nephrology following-possible hepatorenal syndrome Optimal diuresis with furosemide 40 mg twice daily and albumin 25 g every 12 hours infusions-greater than 2 L every 12 hours -- Strict I/Os FEN/GI: Upper GI bleed secondary to esophageal varices status post banding Decompensated liver cirrhosis Ascites Hyperammonemia GERD Anion gap metabolic acidosis-resolved Electrolyte derangement IV fluids normal saline with 20 KCl at 42 cc/hour Continue pantoprazole 40 mg IV twice daily. Octreotide infusion discontinued today Lactulose BID, continue rifaximin 550 twice daily 09/28- paracentesis by invasive radiology - 5L removed. 09/29-repeat EGD-revealed significant gastropathy, no active sites of bleeding Start trickle feeds today with Neutra hep Heme/ID: Acute blood loss anemia Thrombocytopenia Coagulopathy Monitor CBC 10/01 Transfuse 2 u PRBC's Noted decreased liver synthetic function secondary to cirrhosis Hematology oncology ID following. Continue vancomycin and piperacillin/tazobactam per the recommendations Follow-up urine and blood cultures 09/28 sputum cultures- Staph Aureus Endocrine: Glucose monitoring per ICU protocol. Low-dose regimen MsK; Chronic lymphedema -- SSI Prophylaxis: GI Prophylaxis Pantoprazole DVT Prophylaxis -- SCDs Hold pharmacological DVT prophylaxis in the setting of thrombocytopenia, and active GI bleed Lines: Central line RIJ (09/26) peripheral IVs x 2
--- NOTE | 2017-10-04 17:09 | P.PCN ---
Date of procedure: 10/04/17 Pre-op diagnosis: Ascites, liver cirrhosis Post-op diagnosis: same Procedure: Procedure: Ultrasound-guided abdominal paracentesis Informed consent obtained from [] and documented on chart. Anesthesia used: 1% lidocaine for local infiltration anesthesia Procedure: Ultrasound was used to locate ascites in right lower quadrant After sterile prepping and draping using 1% lidocaine for local infiltration anesthesia, peritoneal cavity was entered using thoracentesis needle and thoracentesis catheter was advanced into the peritoneal cavity as evidenced by return of blood tinged ascites fluid and needle was removed. After connecting tubing, peritoneal fluid was drained using Vacutainer bottles. 1.6 Liters of ascitic fluid was drained. Specimen was collected for lab studies and cultures. Subsequently drainage catheter was removed and dressing was applied to the site. Patient tolerated procedure well with no immediate complications noted.
[2017-10-04] MEDS: Pantoprazole Inj 40 MG Vial IV.PUSH SCH ×2 (17:50→20:41)
[2017-10-04] MEDS: Potassium Chlor 20 mEq Premix 20 MEQ/100 ML PIGGYBACK IV.SIG PRN ×2 (17:54→20:38)
[2017-10-04] MEDS ORDERED: Pharmacy Ordered Lab Info OTHER ONE (23:45)
--- NOTE | 2017-10-04 23:57 | P.PNONC ---
Subjective Interval history: Intubated and sedated. Objective Vital Signs/Intake & Output: Vital Signs 10/04/17 00:01 10/04/17 04:01 10/04/17 04:03 Temperature Pulse Rate 61 62 Respiratory Rate 16 16 16 Blood Pressure Pulse Oximetry 98 98 10/04/17 08:00 10/04/17 08:01 10/04/17 09:00 Temperature 97.3 F L Pulse Rate 61 60 61 Respiratory Rate 16 16 Blood Pressure 129/76 Pulse Oximetry 99 99 10/04/17 11:35 10/04/17 15:57 10/04/17 20:24 Temperature Pulse Rate 79 73 Respiratory Rate 16 16 16 Blood Pressure Pulse Oximetry 96 97 100 Intake & Output 10/04/17 10/04/17 10/05/17 06:59 18:59 06:59 Intake Total 760 / 760 1909 / 1909 610 / 610 Output Total 3450 / 3450 Balance -2690 / -2690 1909 / 1909 610 / 610 Weight 120 kg Intake: IV 760 / 760 1909 610 / 610 NS + KCl 20 mEq Inj 1,000 ML @ 1000 / 1000 42 mls/hr IV.CONT .[id number] DINH Rx#:[id number] Flexbumin 25% Inj 100 ML @ 60 200 / 200 mls/hr IV.SIG Q12H DINH Rx#: [id number] Precedex Inj 1,000 MCG In NS 260 / 260 510 / 510 260 / 260 Inj 250 ML @ 0.2 MCG/KG/HR 5.93 mls/hr IV.SIG TITRATE PRN Rx#: [id number] Zosyn 3.375 GM Premix 50 ML @ 50 / 50 150 / 150 100 mls/hr IV.SIG Q6H DINH Rx#: [id number] KCl 20 mEq Premix Inj 20 meq In 100 / 100 100 ml @ 50 mls/hr IV.SIG UNSCH PRN Rx#:[id number] fentaNYL 10 mcg/mL Premix Drip 250 / 250 250 / 250 250 / 250 2,500 mcg In 250 ml @ 50 MCG/HR 5 mls/hr IV.SIG TITRATE PRN Rx #:[id number] Oral 0 / 0 Tube Feeding 0 / 0 Output: Urine 1800 / 1800 Stool 0 / 0 Urine Amount (Catheter) 1650 / 1650 Indwelling Urethral Catheter 1649 / 1650 Other: Date of Last Bowel Movement 10/03/17 10/04/17 10/04/17 # Bowel Movements 3 Result Diagrams: 10/05/17 04:50 10/05/17 04:50 Laboratory Results: Laboratory Results - last 24 hr 10/04/17 10/04/17 10/04/17 00:30 04:27 04:55 WBC RBC Hgb Hct MCV MCH MCHC RDW Plt Count MPV Prelim Diff (Auto) Neut % (Auto) Lymph % (Auto) Caroline % (Auto) Eos % (Auto) Baso % (Auto) Neut # (Auto) Lymph # (Auto) Caroline # (Auto) Eos # (Auto) Baso # (Auto) WBC Differential Seg Neuts % (Manual) Band Neuts % (Manual) Lymphocytes % (Manual) Monocytes % (Manual) Eosinophils % (Manual) Abs Neuts (Manual) Differential Comment Platelet Estimate Platelet Morphology Stomatocytes PT INR APTT Fibrinogen Sodium 155 H Potassium 2.6 L* Chloride 116 H Carbon Dioxide 26.6 Anion Gap 12 BUN 16 Creatinine 1.11 Estimated GFR 81 L POC Glucose 187 H 195 H Random Glucose 177 H Lactic Acid Calcium 8.4 L Phosphorus 2.7 Magnesium 2.0 Total Bilirubin 5.9 H AST 49 H ALT 19 Alkaline Phosphatase 39 L Ammonia Total Protein 6.7 Albumin 2.6 L 10/04/17 10/04/17 10/04/17 04:55 04:55 04:55 WBC RBC Hgb Hct MCV MCH MCHC RDW Plt Count MPV Prelim Diff (Auto) Neut % (Auto) Lymph % (Auto) Caroline % (Auto) Eos % (Auto) Baso % (Auto) Neut # (Auto) Lymph # (Auto) Caroline # (Auto) Eos # (Auto) Baso # (Auto) WBC Differential Seg Neuts % (Manual) Band Neuts % (Manual) Lymphocytes % (Manual) Monocytes % (Manual) Eosinophils % (Manual) Abs Neuts (Manual) Differential Comment Platelet Estimate Platelet Morphology Stomatocytes PT 19.0 H INR 1.9 APTT 36.9 H Fibrinogen 114 L Sodium Potassium Chloride Carbon Dioxide Anion Gap BUN Creatinine Estimated GFR POC Glucose Random Glucose Lactic Acid 2.0 Calcium Phosphorus Magnesium Total Bilirubin AST ALT Alkaline Phosphatase Ammonia 17 Total Protein Albumin 10/04/17 10/04/17 10/04/17 04:55 12:36 17:59 WBC 3.0 L RBC 2.74 L Hgb 9.2 L Hct 27.3 L MCV 99.6 MCH 33.6 MCHC 33.7 RDW 23.2 H Plt Count 57 L MPV 8.8 Prelim Diff (Auto) Slide review pending Neut % (Auto) 56.8 Lymph % (Auto) 27.2 Caroline % (Auto) 9.9 H Eos % (Auto) 5.1 H Baso % (Auto) 1.0 Neut # (Auto) 1.7 L Lymph # (Auto) 0.8 L Caroline # (Auto) 0.3 Eos # (Auto) 0.2 Baso # (Auto) 0.0 WBC Differential Manual diff final Seg Neuts % (Manual) 61 Band Neuts % (Manual) 10 H Lymphocytes % (Manual) 21 Monocytes % (Manual) 4 Eosinophils % (Manual) 4 Abs Neuts (Manual) 2.1 Differential Comment . Platelet Estimate Low L Platelet Morphology Normal Stomatocytes 1+ H PT INR APTT Fibrinogen Sodium Potassium Chloride Carbon Dioxide Anion Gap BUN Creatinine Estimated GFR POC Glucose 199 H 194 H Random Glucose Lactic Acid Calcium Phosphorus Magnesium Total Bilirubin AST ALT Alkaline Phosphatase Ammonia Total Protein Albumin 10/04/17 21:55 WBC RBC Hgb Hct MCV MCH MCHC RDW Plt Count MPV Prelim Diff (Auto) Neut % (Auto) Lymph % (Auto) Caroline % (Auto) Eos % (Auto) Baso % (Auto) Neut # (Auto) Lymph # (Auto) Caroline # (Auto) Eos # (Auto) Baso # (Auto) WBC Differential Seg Neuts % (Manual) Band Neuts % (Manual) Lymphocytes % (Manual) Monocytes % (Manual) Eosinophils % (Manual) Abs Neuts (Manual) Differential Comment Platelet Estimate Platelet Morphology Stomatocytes PT INR APTT Fibrinogen Sodium Potassium Chloride Carbon Dioxide Anion Gap BUN Creatinine Estimated GFR POC Glucose 206 H Random Glucose Lactic Acid Calcium Phosphorus Magnesium Total Bilirubin AST ALT Alkaline Phosphatase Ammonia Total Protein Albumin Culture Results: Microbiology 10/04/17 04:10 Gram Stain - Final Sputum - Endotracheal Medications: Active Medications Generic Name Dose Route Start Last Admin Trade Name Freq PRN Reason Stop Dose Admin Albuterol 1 ampul 10/02/17 04:00 10/04/17 20:22 Duoneb Neb (Dinh) NEB 1 ampul Q4HR NEB DINH Administration Folic Acid 1 mg 10/02/17 09:00 10/04/17 08:36 Folic Acid PO 1 mg DAILY DINH Administration Furosemide 40 mg 10/02/17 09:00 10/04/17 17:53 Lasix Inj IV.PUSH 40 mg BID@0900,1800 DINH Administration Potassium Chloride 20 meq in 100 mls @ 50 mls/hr 10/02/17 00:01 10/04/17 20: 38 Kcl 20 Meq Premix Inj IV.SIG 50 mls/hr UNSCH PRN Administration ELECTROLYTE PROTOCOL Potassium Chloride/Sodium Chloride 1,000 mls @ 42 mls/hr 10/02/17 01:00 10/04 20:43 Ns + Kcl 20 Meq Inj IV.CONT 42 mls/hr .[id number] DINH Administration Albumin Human 100 mls @ 60 mls/hr 10/02/17 06:00 10/04/17 18:39 Flexbumin 25% Inj IV.SIG 60 mls/hr Q12H IDNH Administration Piperacillin/Tazobactam/Dextrose 50 mls @ 100 mls/hr 10/02/17 03:00 10/04/17 20:39 Zosyn 3.375 Gm Premix IV.SIG 100 mls/hr Q6H DINH Administration Vancomycin HCl 2,000 mg/ 520 mls @ 260 mls/hr 10/02/17 00:00 10/04/17 01:20 Sodium Chloride IV.SIG 250 mls/hr Q24H DINH Administration Dexmedetomidine HCl 1,000 mcg/ 260 mls @ 5.93 mls/hr 10/02/17 01:00 10/04/17 20:34 Sodium Chloride IV.SIG 1.5 mcg/kg/hr TITRATE PRN 44.49 mls/hr SEDATION Administration Protocol 0.2 MCG/KG/HR Fentanyl 2,500 mcg in 250 mls @ 5 mls/hr 10/02/17 01:00 10/04/17 23:00 Fentanyl 10 Mcg/Ml Premix Drip IV.SIG 50 mcg/hr TITRATE PRN 5 mls/hr Per Protocol Administration Protocol 50 MCG/HR Insulin Aspart 1 unit 10/02/17 00:00 10/04/17 18:38 Novolog Insulin Suppl Scale Inj SQ Not Given Q4HR DINH Protocol Lactulose 30 ml 10/02/17 01:00 10/04/17 20:39 Lactulose Liq PO 30 ml DAILY PRN Administration SEVERE CONSITIPATION Lactulose 30 ml 10/02/17 09:00 10/04/17 17:49 Lactulose Liq PO Not Given BID DINH Lorazepam 2 mg 10/02/17 01:00 10/03/17 21:58 Ativan Inj IV.PUSH 2 mg Q1H PRN Administration for CIWA 15-20 Multivitamins/Minerals 1 tab 10/02/17 09:00 10/04/17 08:34 Theragran-M PO 1 tab DAILY DINH Administration Pantoprazole Sodium 40 mg 10/03/17 21:00 10/04/17 20:41 Protonix Inj IV.PUSH 40 mg Q12H DINH Administration Potassium Bicarb/Potassium Chloride 50 meq 10/02/17 00:01 10/02/17 08:21 K-Lyte PO 50 meq UNSCH PRN Administration ELECTROLYTE REPLACEMENT Potassium Bicarb/Potassium Chloride 25 meq 10/02/17 09:00 10/04/17 08:34 K-Lyte PO 25 meq Q12HR DINH Administration Rifaximin 550 mg 10/02/17 09:00 10/04/17 20:40 Xifaxan PO 550 mg BID DINH Administration Senna/Docusate Sodium 1 tab 10/02/17 09:00 10/04/17 20:40 Bri-Colace PO 1 tab BID DINH Administration Thiamine HCl 100 mg 10/02/17 09:00 10/04/17 08:36 Vitamin B1 PO 100 mg DAILY DINH Administration Objective Remarks: GENERAL: overweight man, intubated and sedated SKIN: Warm and dry. HEAD: Normocephalic. EYES: No scleral icterus. No injection or drainage. CV: RRR with no murmurs RESPIRATORY: No accessory muscle use. GASTROINTESTINAL: protuberent abdomen EXTREMITIES: No cyanosis, or edema. NEUROLOGICAL: No obvious focal deficit. Awake, alert, and oriented x3. PSYCHIATRIC: Appropriate mood and affect; insight and judgment normal. Assessment/Plan - Plan Pancytopenia. Normal labs include folate, B12, viral hepatitis. Contributing factors include ETOH abuse causing direct bone marrow suppressions, medications , critical illness. Continue to follow counts. If does not improve will consider bone marrow biopsy. Coagulopathy: due to known liver cirrhosis. Elevated ferritin: hemochromatosis panel pending. Also contributing is liver disease and acute illness.
[2017-10-05] MEDS: Vancomycin Inj 2,000 MG in Sodium Chlor 0.9% Inj 500 ML IV.SIG SCH ×2 (00:51→23:30)
[2017-10-05] MEDS: Insulin NovoLOG Aspart Correctional Sugar Inj SQ SCH ×5 (00:52→23:30)
[2017-10-05] MEDS: SODIUM CHLOR 0.9% IV.SIG PRN ×4 (03:12→23:31)
[2017-10-05] MEDS: DEXMEDETOMIDINE IV.SIG PRN ×4 (03:12→23:31)
[2017-10-05] MEDS: Piperacil/Tazo 3.375 GM Premix 50 ML IV.SIG SCH ×4 (04:23→21:06)
[2017-10-05] MEDS: Albumin Human 25% Inj 100 ML IV.SIG SCH ×2 (05:11→17:17)
[2017-10-05 05:40] LABS: Baso % (Auto) 1.4 % (0.0-2.0); Eos # (Auto) 0.1 th/mm3 (0.0-0.4); Eos % (Auto) 3.8 % (0.0-4.0); Hematocrit 27.1 % (39.0-51.0); Hemoglobin 9.1 gm/dL (13.0-17.0); Lymph # (Auto) 0.9 th/mm3 (1.0-4.8); Lymph % (Auto) 25.1 % (9.0-44.0); Mean Corpuscular HGB Conc 33.6 % (32.0-36.0); Mean Corpuscular Hemoglobin 33.2 pg (27.0-34.0); Mean Corpuscular Volume 98.7 fL (80.0-100.0); Mean Platelet Volume 9.4 fL (7.0-11.0); Mono # (Auto) 0.3 th/mm3 (0.0-0.9); Mono % (Auto) 10.2 % (0.0-8.0); Neut % (Auto) 59.5 % (16.0-70.0); Platelet Count 63 th/mm3 (150-450); Red Blood Count 2.74 mil/mm3 (4.50-5.90); Red Cell Distribution Width 23.4 % (11.6-17.2); White Blood Count 3.4 th/mm3 (4.0-11.0)
[2017-10-05 05:51] LABS: Albumin 2.5 g/dL (3.4-5.0); Anion Gap 14 meq/L (5-15); Aspartate Aminotransferase 53 U/L (15-37); Blood Urea Nitrogen 14 mg/dL (7-18); Calcium 8.1 mg/dL (8.5-10.1); Carbon Dioxide 24.5 meq/L (21.0-32.0); Chloride 117 meq/L (98-107); Glomerular Filtration Rate 82 mL/min (>89); Glucose,Random 183 mg/dL (74-106); Sodium 155 meq/L (136-145)
[2017-10-05 05:57] LABS: Alanine Aminotransferase 19 U/L (12-78); Alkaline Phosphatase 53 U/L (45-117); Potassium 2.6 meq/L (3.5-5.1); Total Protein 6.5 g/dL (6.4-8.2)
[2017-10-05 09:40] LABS: Eosinophils 2 % (0-4); Lymphocytes 24 % (9-44); Monocytes 2 % (0-8)
[2017-10-05 09:41] LABS: Stomatocytes 1+
[2017-10-05 09:42] LABS: Acanthocytes Occ; Platelet Morphology Normal (Normal)
[2017-10-05] MEDS: rifAXIMin 550 MG Tablet PO SCH ×2 (10:35→21:05)
[2017-10-05] MEDS: Potassium Chloride 25 MEQ Effervescent Tablet PO SCH ×3 (10:36→23:17)
[2017-10-05] MEDS: Senna/Docusate Sodium 8.6/50 MG Tablet PO SCH ×2 (10:37→23:17)
[2017-10-05] MEDS: Calcium Carbonate 500 MG Tablet PO SCH ×2 (10:37→21:05)
--- NOTE | 2017-10-05 10:40 | P.CONPAL ---
Consult Service: Palliative Care Requesting Physician: Morgan Strange Reason for Consult: a. To assist with evaluation and management of symptoms including:shortness of breath, nausea/vomiting b. To assist medical decision maker(s) with: better understanding of current medical conditions; weighing benefits/burdens of medical treatment options; making medical treatment decisions. Primary Care Provider: Larry Martini III, MD History of Present Illness History of Present Illness: Mr. Ramirez is a 62 years old male with a past medical history significant for chronic lymphedema to bilateral lower extremities, EtOH abuse, pneumonia, heart murmur, diet controlled diabetes mellitus type 2, hypothyroidism, umbilical hernia, GERD and anxiety. Patient was brought to the ER on 09/25/17 by EMS with complaints of hematemesis, and increase in abdominal girth. Per report, patient reported that he vomited approximately a gallon of blood prior to presenting to the ER, though EMS states that they only noted approximately 200- 300 mL's of blood. In the emergency room patient denied chest pain, shortness of breath, abdominal pain. He only endorsed feeling nauseous. ER course: * Vital signs: Temperature 97.8, pulse 107, respirations 18, blood pressure 109/ 58, O2 saturation 97% on 2 L nasal cannula * Laboratory workup revealed WBC 8.1, hemoglobin 8.0, hematocrit 23.7, platelet count 98, potassium 3.7, BUN/creatinine 4/0.38, random glucose 83, calcium 7.4, total bilirubin 1.9, AST 59, ALT 11, BNP 105, total protein 8.2, albumin 1.7, PT 15.2, INR 1.5 * EKG sinus tachycardia borderline left axis deviation and left ventricular hypertrophy and is TT wave change. * 2 units PRBC transfused, Protonix administered. * UA positive for moderate leukocyte esterase. Culture showing no growth. * Gallbladder ultrasound revealed moderate ascites and echogenic liver and left 20 cm characteristic of hepatocellular disease. No flow in main portal vein. * Chest x-ray revealed cardiomegaly with probable minimal bibasilar atelectasis. Mild vascular congestion pattern and trace right pleural effusion. * Repeat chest x-ray revealed elevated right hemidiaphragm. Cardiomegaly. Basilar airspace disease. * Abdomen/pelvis CT revealed hepatitic steatosis with moderate ascites and anasarca. Small right pleural effusion with right basilar atelectasis. * Patient was started on Sandostatin and Protonix infusion * Nasogastric tube placed in ER GI Dr. Crocker consulted on 09/25/17 for evaluation and management of patient with uncontrolled hematemesis, recommended EGD, continuing IV PPI and octreotide infusion. On 09/25/17 patient underwent EGD with band ligation of varices. He was intubated for procedure. Patient was noted to have large amount of blood in stomach which was suctioned, grade 2 esophageal varices banded. GI doctor recommended to keep patient intubated overnight. Critical care management Dr. sinclair consulted on 09/25/17 for evaluation and management of patient with upper GI bleed and respiratory failure. Wound care consulted on 09/26/17 for wound management of right ankle. Nephrology Dr. Traore consulted on 09/27/17 for evaluation and management of patient in acute renal failure and cirrhosis with GI bleed. Hepatic panel 09/27/17 nonreactive. On 09/28/17 patient underwent ultrasound-guided abdominal paracentesis and 5200 mL's fluid was removed. Infectious disease Dr. Velazquez was consulted on for evaluation and hyperthermia temperature 101.5F, recommended continuing Zosyn and vancomycin, CT-guided thoracentesis of right-sided pleural effusion and ruling out empyema. Sputum culture collected on 09/26/17 was positive for gram-positive cocci in pairs. Patient underwent ultrasound guided abdominal paracentesis at bedside on 10/04/17 and 1600 mL's ascitic fluid was drained. Bedside RN reporting that patient now has a wound VAC to abdominal site where paracentesis was done draining copious amount of serosanguineous fluid. Laboratory workup today revealing WBC 3.4, hemoglobin 9.1, hematocrit 27.1, platelet count 63 patient seen and examined in his room in MICU. Patient is intubated, sedated on mechanical ventilation. Patient intermittently following commands, was able at one time to lift up 2 fingers when instructed to do so. Patient nodding head when asked if he was in pain. Unsure if patient is comprehending everything being said to him. No CPAP trial done today. FIO2 35%. Telephone call to patient`s sister Bud Royal [phone]. Obtained psychosocial history from patient`s sister who states that she has not seen her brother in the past 20 years, though lately they have kept in touch via telephone. Patient's sister stated that, patient never and does not have children. Patient's father is and according to his sister Sabrina their mother lives in [place] with her brother and she has dementia. Patient only has 1 sibling his sister Bud. According to patient's sister, she is not aware if patient ever completed advanced directives. Explained to the sister that in the state of [place], since patient's mother has dementia and not able to participate in medical decision making healthcare proxy would fall to her since she is the only sibling. Updated patient's sister Sabrina Farrell on patient's current medical status as well as ongoing comorbidities. Addressed CODE STATUS, discussed CPR limitations and complications and patient' s sister stated that she would not want him to suffer and in the event of cardiac arrest she does not want want him to be resuscitated, she stated, "let him go peacefully". Patient`s sister Sabrina Farrell elected DNR. Patient's sister tearful since she is not financially able to come and visit with her brother during his hospitalization. Anticipatory guidance provided. Explained that patient will undergo spontaneous breathing trials and if he passes he will being medically extubated but if he is not able to be medically extubated, family will be faced with making a decision to either proceed with aggressive treatment including tracheostomy and PEG placement or they have an option to compassionately withdraw patient from life support if he continues to deteriorate. She requested that he uncle Kenneth Boone (mother`s brother) who currently is living with patient`s mother be called and updated on patient`s current medical status. Telephone call placed to patient`s uncle Rosi Boone [phone], no response left a voice message with palliative care contact information. Received telephone call from patient`s uncle Rosi Boone [phone]. Updated him on patient`s current medical condition. He also confirmed that he lives with patient`s mother Reuben Schroeder who has dementia and is not able to participate in medical decision making for her son/patient. Function/Cognitive Trajectory: Patient lived alone at a rental property. Patient was able to make his needs known upon arrival in the ER. Patient has had 4 ER if he states since April 2017 for alcohol abuse problems. His last hospitalization was from July 21- July 29- in 2018. Review of Systems Constitutional: Reports weight gain (increase in abdominal girth) Eyes: Denies irritation Ears, Nose, Mouth, and Throat: Denies dry mouth, Denies nasal congestion, Denies nasal obstruction, Denies nasal trauma Cardiovascular: Reports leg swelling, Reports shortness of breath, Denies chest pain Respiratory: Reports shortness of breath Gastrointestinal: Reports abdominal pain, Reports nausea, Reports vomiting blood (vomiting blood), Denies change in stools, Denies difficulty swallowing Genitourinary: Denies blood in urine, Denies urinary incontinence Skin/Breast: Reports change in skin color (dry skin to BLE, Scaly skin and discoloration to BLE moreson to RLE.), Reports dry skin Neurologic: Denies confusion, Denies fainting Psychiatric: Reports anxiety, Denies confusion Comments: ROS obtained from EMR, and clinical observation [facility] - Medical History Medical History: Medical History (Last Updated 10/05/17 @ 10:23 by Erasmo Santamaria) Lymphedema of both lower extremities (Chronic) Diabetes mellitus type 2, diet-controlled GERD (gastroesophageal reflux disease) Heart murmur Hypertension Hypothyroidism Pneumonia Umbilical hernia - Surgical History Surgical History: Surgical History (Last Updated 10/05/17 @ 10:24 by Erasmo Santamaria) Hx of tonsillectomy - Family History Family History: Family History (Last Updated 10/05/17 @ 13:13 by Erasmo Santamaria) Mother Dementia Hypertension Father Metastatic primary lung cancer - Tobacco History Smoking Status: Unknown if ever smoked - Alcohol History How Often Do You Have a Drink Containing Alcohol: 4 or more times a week - Substance Use History Substance History: No History of Abuse Medications and Allergies Active Medications: Active Medications Al Hydroxide/Mg Hydroxide (Milk Of Kannan Liq) 30 ml PO Q12H PRN PRN Reason: Mild Constipation Albuterol (Albuterol Neb (Prn)) 2.5 mg NEB Q2HR NEB PRN PRN Reason: WHEEZING Albuterol (Duoneb Neb (Dinh)) 1 ampul NEB Q4HR NEB DINH Last Admin: 10/05/17 08:24 Dose: 1 ampul Bisacodyl (Dulcolax Supp) 10 mg RECTAL DAILY PRN PRN Reason: SEVERE CONSITIPATION Dextrose (D50w Vial) 50 ml IV.PUSH UNSCH PRN PRN Reason: HYPOGLYCEMIA-SEE COMMENTS Flumazenil (Romazecon Inj) 0.2 mg IV.PUSH Q1M PRN PRN Reason: OVERSEDATION Folic Acid (Folic Acid) 1 mg PO DAILY [facility] Last Admin: 10/04/17 08:36 Dose: 1 mg Furosemide (Lasix Inj) 40 mg IV.PUSH BID@0900,1800 [facility] Last Admin: 10/04/17 17:53 Dose: 40 mg Glucagon (Glucagon Inj) 1 mg OTHER UNSCH PRN PRN Reason: HYPOGLYCEMIA-SEE COMMENTS Haloperidol Lactate (Haldol Inj) 1 mg IV.PUSH Q15M PRN PRN Reason: for severe agitation Potassium Chloride (Kcl 20 Meq Premix Inj) 20 meq in 100 mls @ 50 mls/hr IV.SIG UNSCH PRN PRN Reason: ELECTROLYTE PROTOCOL Last Admin: 10/04/17 20:38 Dose: 50 mls/hr Potassium Chloride (Kcl 40 Meq Premix Inj) 40 meq in 100 mls @ 25 mls/hr IV.SIG UNSCH PRN PRN Reason: ELECTROLYTE PROTOCOL Last Admin: 10/05/17 06:38 Dose: 25 mls/hr Magnesium Sulfate Inj 4 gm/ (Sodium Chloride) 108 mls @ 54 mls/hr IV.SIG UNSCH PRN PRN Reason: ELECTROLYTE PROTOCOL Magnesium Sulfate Inj 2 gm/ (Sodium Chloride) 104 mls @ 52 mls/hr IV.SIG UNSCH PRN PRN Reason: ELECTROLYTE REPLACEMENT Sodium Phosphate 30 mmol/ (Sodium Chloride) 260 mls @ 43.333 mls/hr IV.SIG UNSCH PRN PRN Reason: ELECTROLYTE REPLACEMENT Potassium Phosphate 30 mmol/ (Sodium Chloride) 260 mls @ 43.333 mls/hr IV.SIG UNSCH PRN PRN Reason: ELECTROLYTE REPLACEMENT Potassium Chloride/Sodium Chloride (Ns + Kcl 20 Meq Inj) 1,000 mls @ 42 mls/hr IV.CONT .[id number] [facility] Last Admin: 10/04/17 20:43 Dose: 42 mls/hr Albumin Human (Flexbumin 25% Inj) 100 mls @ 60 mls/hr IV.SIG Q12H [facility] Last Admin: 10/05/17 05:11 Dose: 60 mls/hr Piperacillin/Tazobactam/Dextrose (Zosyn 3.375 Gm Premix) 50 mls @ 100 mls/hr IV.SIG Q6H [facility] Last Admin: 10/05/17 10:34 Dose: 100 mls/hr Pharmacy Profile Note (Vancomycin Consult Pharmacy) mls @ 0 mls/hr OTHER UNSCH [facility] Vancomycin HCl 2,000 mg/ (Sodium Chloride) 520 mls @ 260 mls/hr IV.SIG Q24H [facility] Last Admin: 10/05/17 00:51 Dose: 250 mls/hr Dexmedetomidine HCl 1,000 mcg/ (Sodium Chloride) 260 mls @ 5.93 mls/hr IV.SIG TITRATE PRN; Protocol PRN Reason: SEDATION Last Admin: 10/05/17 03:12 Dose: 1.5 mcg/kg/hr, 44.49 mls/hr Fentanyl (Fentanyl 10 Mcg/Ml Premix Drip) 2,500 mcg in 250 mls @ 5 mls/hr IV.SIG TITRATE PRN; Protocol PRN Reason: Per Protocol Last Admin: 10/04/17 23:00 Dose: 50 mcg/hr, 5 mls/hr Insulin Aspart (Novolog Insulin Suppl Scale Inj) 1 unit SQ Q4HR [facility]; Protocol Last Admin: 10/05/17 00:52 Dose: 1 unit Lactulose (Lactulose Liq) 30 ml PO DAILY PRN PRN Reason: SEVERE CONSITIPATION Last Admin: 10/04/17 20:39 Dose: 30 ml Lactulose (Lactulose Liq) 30 ml PO BID [facility] Last Admin: 10/04/17 17:49 Dose: Not Given Lorazepam (Ativan) 1 mg PO Q4H PRN PRN Reason: for CIWA 8-10 Lorazepam (Ativan) 2 mg PO Q2H PRN PRN Reason: for CIWA 11-14 Lorazepam (Ativan Inj) 2 mg IV.PUSH Q2H PRN PRN Reason: for CIWA 11-14 Lorazepam (Ativan Inj) 2 mg IV.PUSH Q1H PRN PRN Reason: for CIWA 15-20 Last Admin: 10/03/17 21:58 Dose: 2 mg Lorazepam (Ativan Inj) 2 mg IV.PUSH Q15M PRN PRN Reason: for CIWA > 20 Lorazepam (Ativan Inj) 1 mg IV.PUSH Q4H PRN PRN Reason: for CIWA 8-10 Magnesium Oxide (Mag-Ox) 800 mg PO UNSCH PRN PRN Reason: ELECTROLYTE REPLACEMENT [place]iscellaneous Information [place] 0 each OTHER UNSCH PRN PRN Reason: SEE DOSE INSTRUCTIONS Miscellaneous Information [place] 0 each OTHER UNSCH PRN PRN Reason: SEE DOSE INSTRUCTIONS Multivitamins/Minerals (Theragran-M) 1 tab PO DAILY [facility] Last Admin: 10/04/17 08:34 Dose: 1 tab Naloxone HCl (Narcan Inj) 0.4 mg IV.PUSH UNSCH PRN PRN Reason: SEE LABEL COMMENTS Ondansetron HCl (Zofran Odt) 4 mg PO Q6H PRN PRN Reason: NAUSEA OR VOMITING Pantoprazole Sodium (Protonix Inj) 40 mg IV.PUSH Q12H [facility] Last Admin: 10/04/17 20:41 Dose: 40 mg Potassium Bicarb/Potassium Chloride (K-Lyte) 50 meq PO UNSCH PRN PRN Reason: ELECTROLYTE REPLACEMENT Last Admin: 10/02/17 08:21 Dose: 50 meq Potassium Bicarb/Potassium Chloride (K-Lyte) 25 meq PO Q12HR [facility] Last Admin: 10/05/17 10:36 Dose: 25 meq Potassium Phosphate (K-Phos Original) 2,000 mg PO UNSCH PRN PRN Reason: SEE LABEL COMMENTS Rifaximin (Xifaxan) 550 mg PO BID [facility] Last Admin: 10/05/17 10:35 Dose: 550 mg Senna/Docusate Sodium (Bri-Colace) 1 tab PO BID [facility] Last Admin: 10/05/17 10:37 Dose: 1 tab Sennosides (Senokot) 17.2 mg PO Q12H PRN PRN Reason: Moderate Constipation Thiamine HCl (Vitamin B1) 100 mg PO DAILY [facility] Last Admin: 10/05/17 10:37 Dose: 100 mg Allergies Allergy/AdvReac Type Severity Reaction Status Date / Time No Known Allergies AdvReac Unknown Uncoded 07/03/17 19:09 Home Medications Medication Instructions Recorded Confirmed Type amlodipine 10 mg PO DAILY 10/01/17 10/01/17 History aspirin [Al Aspirin] 325 mg PO DAILY 10/01/17 10/01/17 History ergocalciferol (vitamin D2) 50,000 unit PO QWEEK 10/01/17 10/01/17 History famotidine 20 mg PO BID 10/01/17 10/01/17 History furosemide 20 mg PO DAILY 10/01/17 10/01/17 History isosorbide mononitrate 30 mg PO DAILY 10/01/17 10/01/17 History levothyroxine 50 mcg PO DAILY 10/01/17 10/01/17 History multivitamin [Multiple Vitamins] 1 tab PO DAILY 10/01/17 10/01/17 History potassium chloride 20 meq PO DAILY 10/01/17 10/01/17 History sertraline 50 mg PO DAILY 10/01/17 10/01/17 History Advance Directives Living Will: No Healthcare Surrogate: No Health Care Surrogate Name and Number: HCP: sister Sabrina Farrell- [phone] Power of Director Of Agronomy: No Family/friends goals: Patient`s sister Sabrina Farrell made patient a DNR. Ethical and Legal Issues: None Identified at this time Physical Exam Vital Signs: Vital Signs - 24 hr 10/04/17 11:35 10/04/17 12:30 10/04/17 13:00 Temperature Pulse Rate 79 79 87 Respiratory Rate 16 Blood Pressure 92/54 L 93/59 L Pulse Oximetry 96 95 99 10/04/17 13:30 10/04/17 14:00 10/04/17 14:30 Temperature Pulse Rate 80 79 76 Respiratory Rate Blood Pressure 91/58 L 103/61 111/68 Pulse Oximetry 97 97 100 10/04/17 15:00 10/04/17 15:30 10/04/17 15:57 Temperature Pulse Rate 77 75 73 Respiratory Rate 16 Blood Pressure 103/61 106/67 Pulse Oximetry 98 98 97 10/04/17 16:00 10/04/17 16:30 10/04/17 17:00 Temperature Pulse Rate 73 74 78 Respiratory Rate Blood Pressure 117/67 111/66 120/72 Pulse Oximetry 98 98 96 10/04/17 17:30 10/04/17 18:00 10/04/17 18:30 Temperature Pulse Rate 74 70 67 Respiratory Rate Blood Pressure 96/55 L 105/64 113/67 Pulse Oximetry 99 99 99 10/04/17 19:00 10/04/17 19:30 10/04/17 20:00 Temperature 98.1 F Pulse Rate 71 74 74 Respiratory Rate Blood Pressure 112/67 108/64 111/60 Pulse Oximetry 99 98 99 10/04/17 20:24 10/04/17 20:30 10/04/17 21:00 Temperature Pulse Rate 75 80 Respiratory Rate 16 Blood Pressure 112/63 103/59 L Pulse Oximetry 100 98 98 10/04/17 21:30 10/04/17 22:00 10/04/17 22:30 Temperature Pulse Rate 78 75 76 Respiratory Rate Blood Pressure 105/61 111/63 112/62 Pulse Oximetry 98 98 99 10/04/17 23:00 10/04/17 23:30 10/05/17 00:00 Temperature 97.9 F Pulse Rate 74 74 72 Respiratory Rate Blood Pressure 120/70 115/65 106/65 Pulse Oximetry 99 99 97 10/05/17 00:02 10/05/17 00:30 10/05/17 04:21 Temperature Pulse Rate 71 Respiratory Rate 16 16 Blood Pressure 117/69 Pulse Oximetry 98 99 100 10/05/17 07:00 Temperature Pulse Rate Respiratory Rate 0 L Blood Pressure Pulse Oximetry 100 I&O: Intake & Output 10/03/17 10/04/17 10/05/17 10/06/17 06:59 06:59 06:59 06:59 Intake Total 2660 / 2660 1989 3230 / 3230 Output Total 2800 / 2800 5250 / 5250 2850 / 2850 Balance -140 / -140 -3260 / -3260 380 / 380 Weight 120 kg 120 kg 119.3 kg Physical Exam: CONSTITUTIONAL/GENERAL: This is a chronically ill looking patient, intubated, in no apparent distress. TUBES/LINES/DRAINS: ETT, NG tube, left IJ TLC, SKIN: No jaundice, rashes, or lesions. hx of lymphedema to BLE. Skin scaly and discolored to bilateral lower extremities HEAD: Atraumatic. Normocephalic. EYES: Pupils sluggishly reacting to light. No scleral icterus. No injection or drainage. Fundi not examined. ENT: Hearing grossly normal. Nose without bleeding or purulent drainage. Moist oral mucosa. NECK: Trachea midline. Supple, nontender. CARDIOVASCULAR: Regular rate and rhythm without murmurs, gallops, or rubs. No JVD. Peripheral pulses symmetric. RESPIRATORY/CHEST: Symmetric, unlabored respirations. Diminished breath sounds. GASTROINTESTINAL: Abdomen soft, non-tender, distended. Hypoactive bowel sounds present. NG tube with tube feeds infusing at 20 mL's per hour GENITOURINARY: Without palpable bladder distension. Mendieta catheter in place. MUSCULOSKELETAL: Extremities without clubbing, cyanosis, or edema. No joint tenderness or effusion noted. No calf tenderness. No mottling or clubbing. NEUROLOGICAL: Intubated, sedated and intermittently following commands with all extremities. PSYCHIATRIC: Unable to assess Diagnostic Tests Laboratory: Laboratory Results - last 72 hr 10/02/17 10/02/17 10/02/17 09:50 12:26 16:22 WBC RBC Hgb Hct MCV MCH MCHC RDW Plt Count MPV Prelim Diff (Auto) Neut % (Auto) Lymph % (Auto) Leon % (Auto) Eos % (Auto) Baso % (Auto) Neut # (Auto) Lymph # (Auto) Leon # (Auto) Eos # (Auto) Baso # (Auto) WBC Differential Seg Neuts % (Manual) Band Neuts % (Manual) Lymphocytes % (Manual) Monocytes % (Manual) Eosinophils % (Manual) Plasma Cell % (Manual) Abs Neuts (Manual) Differential Comment Platelet Estimate Platelet Morphology Stomatocytes Acanthocytes (Spur) PT INR APTT Fibrinogen Sodium Potassium Chloride Carbon Dioxide Anion Gap BUN Creatinine Estimated GFR POC Glucose 160 H 146 H Random Glucose Lactic Acid Calcium Phosphorus Magnesium Total Bilirubin AST ALT Alkaline Phosphatase Ammonia 33 H Total Protein Albumin 10/02/17 10/03/17 10/03/17 21:57 00:29 03:29 WBC RBC Hgb Hct MCV MCH MCHC RDW Plt Count MPV Prelim Diff (Auto) Neut % (Auto) Lymph % (Auto) Leon % (Auto) Eos % (Auto) Baso % (Auto) Neut # (Auto) Lymph # (Auto) Leon # (Auto) Eos # (Auto) Baso # (Auto) WBC Differential Seg Neuts % (Manual) Band Neuts % (Manual) Lymphocytes % (Manual) Monocytes % (Manual) Eosinophils % (Manual) Plasma Cell % (Manual) Abs Neuts (Manual) Differential Comment Platelet Estimate Platelet Morphology Stomatocytes Acanthocytes (Spur) PT INR APTT Fibrinogen Sodium Potassium Chloride Carbon Dioxide Anion Gap BUN Creatinine Estimated GFR POC Glucose 151 H 152 H 145 H Random Glucose Lactic Acid Calcium Phosphorus Magnesium Total Bilirubin AST ALT Alkaline Phosphatase Ammonia Total Protein Albumin 10/03/17 10/03/17 10/03/17 04:05 04:05 04:05 WBC 3.9 L RBC 2.80 L Hgb 9.2 L Hct 27.5 L MCV 98.3 MCH 33.0 MCHC 33.5 RDW 23.1 H Plt Count 57 L MPV 8.9 Prelim Diff (Auto) Manual diff required Neut % (Auto) Lymph % (Auto) Leon % (Auto) Eos % (Auto) Baso % (Auto) Neut # (Auto) Lymph # (Auto) Leon # (Auto) Eos # (Auto) Baso # (Auto) WBC Differential Manual diff final Seg Neuts % (Manual) 56 Band Neuts % (Manual) 2 Lymphocytes % (Manual) 30 Monocytes % (Manual) 6 Eosinophils % (Manual) 5 H Plasma Cell % (Manual) 1 H Abs Neuts (Manual) 2.3 Differential Comment . Platelet Estimate Low L Platelet Morphology Normal Stomatocytes 1+ H Acanthocytes (Spur) PT INR APTT Fibrinogen Sodium Potassium Chloride Carbon Dioxide Anion Gap BUN Creatinine Estimated GFR POC Glucose Random Glucose Lactic Acid Calcium Phosphorus 3.0 Magnesium 1.9 Total Bilirubin AST ALT Alkaline Phosphatase Ammonia 20 Total Protein Albumin 10/03/17 10/03/17 10/03/17 09:32 11:48 16:13 WBC RBC Hgb Hct MCV MCH MCHC RDW Plt Count MPV Prelim Diff (Auto) Neut % (Auto) Lymph % (Auto) Leon % (Auto) Eos % (Auto) Baso % (Auto) Neut # (Auto) Lymph # (Auto) Leon # (Auto) Eos # (Auto) Baso # (Auto) WBC Differential Seg Neuts % (Manual) Band Neuts % (Manual) Lymphocytes % (Manual) Monocytes % (Manual) Eosinophils % (Manual) Plasma Cell % (Manual) Abs Neuts (Manual) Differential Comment Platelet Estimate Platelet Morphology Stomatocytes Acanthocytes (Spur) PT INR APTT Fibrinogen Sodium Potassium Chloride Carbon Dioxide Anion Gap BUN Creatinine Estimated GFR POC Glucose 151 H 133 H 137 H Random Glucose Lactic Acid Calcium Phosphorus Magnesium Total Bilirubin AST ALT Alkaline Phosphatase Ammonia Total Protein Albumin 10/03/17 10/04/17 10/04/17 21:53 00:30 04:27 WBC RBC Hgb Hct MCV MCH MCHC RDW Plt Count MPV Prelim Diff (Auto) Neut % (Auto) Lymph % (Auto) Leon % (Auto) Eos % (Auto) Baso % (Auto) Neut # (Auto) Lymph # (Auto) Leon # (Auto) Eos # (Auto) Baso # (Auto) WBC Differential Seg Neuts % (Manual) Band Neuts % (Manual) Lymphocytes % (Manual) Monocytes % (Manual) Eosinophils % (Manual) Plasma Cell % (Manual) Abs Neuts (Manual) Differential Comment Platelet Estimate Platelet Morphology Stomatocytes Acanthocytes (Spur) PT INR APTT Fibrinogen Sodium Potassium Chloride Carbon Dioxide Anion Gap BUN Creatinine Estimated GFR POC Glucose 164 H 187 H 195 H Random Glucose Lactic Acid Calcium Phosphorus Magnesium Total Bilirubin AST ALT Alkaline Phosphatase Ammonia Total Protein Albumin 10/04/17 10/04/17 10/04/17 04:55 04:55 04:55 WBC RBC Hgb Hct MCV MCH MCHC RDW Plt Count MPV Prelim Diff (Auto) Neut % (Auto) Lymph % (Auto) Leon % (Auto) Eos % (Auto) Baso % (Auto) Neut # (Auto) Lymph # (Auto) Leon # (Auto) Eos # (Auto) Baso # (Auto) WBC Differential Seg Neuts % (Manual) Band Neuts % (Manual) Lymphocytes % (Manual) Monocytes % (Manual) Eosinophils % (Manual) Plasma Cell % (Manual) Abs Neuts (Manual) Differential Comment Platelet Estimate Platelet Morphology Stomatocytes Acanthocytes (Spur) PT 19.0 H INR 1.9 APTT 36.9 H Fibrinogen 114 L Sodium 155 H Potassium 2.6 L* Chloride 116 H Carbon Dioxide 26.6 Anion Gap 12 BUN 16 Creatinine 1.11 Estimated GFR 81 L POC Glucose Random Glucose 177 H Lactic Acid 2.0 Calcium 8.4 L Phosphorus 2.7 Magnesium 2.0 Total Bilirubin 5.9 H AST 49 H ALT 19 Alkaline Phosphatase 39 L Ammonia Total Protein 6.7 Albumin 2.6 L 10/04/17 10/04/17 10/04/17 04:55 04:55 12:36 WBC 3.0 L RBC 2.74 L Hgb 9.2 L Hct 27.3 L MCV 99.6 MCH 33.6 MCHC 33.7 RDW 23.2 H Plt Count 57 L MPV 8.8 Prelim Diff (Auto) Slide review pending Neut % (Auto) 56.8 Lymph % (Auto) 27.2 Leon % (Auto) 9.9 H Eos % (Auto) 5.1 H Baso % (Auto) 1.0 Neut # (Auto) 1.7 L Lymph # (Auto) 0.8 L Leon # (Auto) 0.3 Eos # (Auto) 0.2 Baso # (Auto) 0.0 WBC Differential Manual diff final Seg Neuts % (Manual) 61 Band Neuts % (Manual) 10 H Lymphocytes % (Manual) 21 Monocytes % (Manual) 4 Eosinophils % (Manual) 4 Plasma Cell % (Manual) Abs Neuts (Manual) 2.1 Differential Comment . Platelet Estimate Low L Platelet Morphology Normal Stomatocytes 1+ H Acanthocytes (Spur) PT INR APTT Fibrinogen Sodium Potassium Chloride Carbon Dioxide Anion Gap BUN Creatinine Estimated GFR POC Glucose 199 H Random Glucose Lactic Acid Calcium Phosphorus Magnesium Total Bilirubin AST ALT Alkaline Phosphatase Ammonia 17 Total Protein Albumin 10/04/17 10/04/17 10/05/17 17:59 21:55 00:32 WBC RBC Hgb Hct MCV MCH MCHC RDW Plt Count MPV Prelim Diff (Auto) Neut % (Auto) Lymph % (Auto) Leon % (Auto) Eos % (Auto) Baso % (Auto) Neut # (Auto) Lymph # (Auto) Leon # (Auto) Eos # (Auto) Baso # (Auto) WBC Differential Seg Neuts % (Manual) Band Neuts % (Manual) Lymphocytes % (Manual) Monocytes % (Manual) Eosinophils % (Manual) Plasma Cell % (Manual) Abs Neuts (Manual) Differential Comment Platelet Estimate Platelet Morphology Stomatocytes Acanthocytes (Spur) PT INR APTT Fibrinogen Sodium Potassium Chloride Carbon Dioxide Anion Gap BUN Creatinine Estimated GFR POC Glucose 194 H 206 H 205 H Random Glucose Lactic Acid Calcium Phosphorus Magnesium Total Bilirubin AST ALT Alkaline Phosphatase Ammonia Total Protein Albumin 10/05/17 10/05/17 10/05/17 04:50 04:50 04:52 WBC 3.4 L RBC 2.74 L Hgb 9.1 L Hct 27.1 L MCV 98.7 MCH 33.2 MCHC 33.6 RDW 23.4 H Plt Count 63 L MPV 9.4 Prelim Diff (Auto) Slide review pending Neut % (Auto) 59.5 Lymph % (Auto) 25.1 Leon % (Auto) 10.2 H Eos % (Auto) 3.8 Baso % (Auto) 1.4 Neut # (Auto) 2.0 Lymph # (Auto) 0.9 L Leon # (Auto) 0.3 Eos # (Auto) 0.1 Baso # (Auto) 0.0 WBC Differential Manual diff final Seg Neuts % (Manual) 59 Band Neuts % (Manual) 13 H Lymphocytes % (Manual) 24 Monocytes % (Manual) 2 Eosinophils % (Manual) 2 Plasma Cell % (Manual) Abs Neuts (Manual) 2.4 Differential Comment . Platelet Estimate Low L Platelet Morphology Normal Stomatocytes 1+ H Acanthocytes (Spur) Occ H PT INR APTT Fibrinogen Sodium 155 H Potassium 2.6 L* Chloride 117 H Carbon Dioxide 24.5 Anion Gap 14 BUN 14 Creatinine 1.10 Estimated GFR 82 L POC Glucose 158 H Random Glucose 183 H Lactic Acid Calcium 8.1 L Phosphorus Magnesium Total Bilirubin 5.6 H AST 53 H ALT 19 Alkaline Phosphatase 53 Ammonia Total Protein 6.5 Albumin 2.5 L 10/05/17 10:23 WBC RBC Hgb Hct MCV MCH MCHC RDW Plt Count MPV Prelim Diff (Auto) Neut % (Auto) Lymph % (Auto) Leon % (Auto) Eos % (Auto) Baso % (Auto) Neut # (Auto) Lymph # (Auto) Leon # (Auto) Eos # (Auto) Baso # (Auto) WBC Differential Seg Neuts % (Manual) Band Neuts % (Manual) Lymphocytes % (Manual) Monocytes % (Manual) Eosinophils % (Manual) Plasma Cell % (Manual) Abs Neuts (Manual) Differential Comment Platelet Estimate Platelet Morphology Stomatocytes Acanthocytes (Spur) PT INR APTT Fibrinogen Sodium Potassium Chloride Carbon Dioxide Anion Gap BUN Creatinine Estimated GFR POC Glucose 193 H Random Glucose Lactic Acid Calcium Phosphorus Magnesium Total Bilirubin AST ALT Alkaline Phosphatase Ammonia Total Protein Albumin Result Diagrams: 10/05/17 04:50 10/05/17 04:50 Microbiology: Microbiology 10/04/17 04:10 Gram Stain - Final Sputum - Endotracheal Imaging: Chest X-Ray 10/02/17 06:00 CONCLUSION: Support apparatus in good position. Stable basilar airspace disease and pleural effusion. Procedures: 09/25/17-intubation 09/25/17-EGD with esophageal varices banding 09/26/17-left IJ central line placement 09/28/1777-[id number] abdominal paracentesis Patient/Family Conference Family Conference Location: Telephone (Telephone conversation with patient's sister Sabrina Farrell) Issues Discussed: * Palliative care role, purpose, approach * Additional medical, psychosocial, and spiritual history * Patients general health, functional status, and cognitive changes in the months leading up to the current hospitalization * Patient/family understanding of the current medical problems * Patient/family understanding of prognosis * Patients goals of care as best understood from advance directives and/or conversations and/or values * Current medical treatment options and benefits/burdens of those options * Likely scenarios comparing ongoing aggressive care with a transition to comfort measures only * Questions answered to the best of my ability * Palliative care contact information provided Assessment and Plan - Disease Oriented Problem List (1) Sepsis (2) Pneumonia (3) Hypertension (4) Acute renal failure (5) Hypothyroidism (6) Acute respiratory failure (7) Upper GI bleed (8) Lymphedema of both lower extremities - Symptom Scale (1) Shortness of breath 0-10 Scale: Unable to quantify (2) Nausea and vomiting 0-10 Scale: Unable to quantify Pertinent Non-Medical Issues: Psychosocial: Patient was born and raised in [place]. He moved to [place] in 1985. Patient has a college degree. 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 Patient never and never had children. Spiritual: Patient is Jewish-sister requested livestock exhibitor visit Legal: Never completed advanced directives Ethical issues impacting care: None identified at this time Important Contacts: Sister- Bud Bennett-[phone] Mother- Elias Alexispollo Uncle- Rosi BooneOfHllekjr-[phone] (lives with patient`s mother) Prognosis: Mr. Ramirez is a 62 years old male with a past medical history significant for chronic lymphedema to bilateral lower extremities, EtOH abuse, pneumonia, heart murmur, diet controlled diabetes mellitus type 2, hypothyroidism, umbilical hernia, GERD and anxiety. Patient was brought to the ER on 09/25/17 by EMS with complaints of hematemesis, and increase in abdominal girth. Clinical course complicated with acute respiratory failure, sepsis and recurrent ascites. Given ongoing multiple comorbidities patient remains at risk for further complications, deterioration and decline. Code Status: No Code DNR Plan: PLAN: Legal decision maker: Patient is currently intubated, sedated on mechanical ventilation and is not able to participate in medical decision. Patient never . Patient does not have children. Patient's mother is still living but his dementia. According to [place] statute his only sibling, Sabrina Farrell will serve as his healthcare proxy. Goals: Aggressive short of no code CODE STATUS: No code DNR Telephone call to patient`s sister Bud Royal [phone]. Obtained psychosocial history from patient`s sister who states that she has not seen her brother in the past 20 years, though lately they have kept in touch via telephone. Patient's sister stated that, patient never and does not have children. Patient's father is and according to his sister Sabrina their mother lives in [place] with her brother and she has dementia. Patient only has 1 sibling his sister Bud. According to patient's sister, she is not aware if patient ever completed advanced directives. Explained to the sister that in the state of [place], since patient's mother has dementia and not able to participate in medical decision making healthcare proxy would fall to her since she is the only sibling. Updated patient's sister Sabrina Farrell on patient's current medical status as well as ongoing comorbidities. Addressed CODE STATUS, discussed CPR limitations and complications and patient' s sister stated that she would not want him to suffer and in the event of cardiac arrest she does not want want him to be resuscitated, she stated, "let him go peacefully". Patient`s sister Sabrina Farrell elected DNR. Patient's sister tearful since she is not financially able to come and visit with her brother during his hospitalization. Anticipatory guidance provided. Explained that patient will undergo spontaneous breathing trials and if he passes he will being medically extubated but if he is not able to be medically extubated, family will be faced with making a decision to either proceed with aggressive treatment including tracheostomy and PEG placement or they have an option to compassionately withdraw patient from life support if he continues to deteriorate. She requested that he uncle Kenneth Boone (mother`s brother) who currently is living with patient`s mother be called and updated on patient`s current medical status. Received telephone call from patient`s uncle Bertram Boonean [phone]. Updated him on patient`s current medical condition. He also confirmed that he lives with patient`s mother Reuben Schroeder who has dementia and is not able to participate in medical decision making for her son/ patient. SYMPTOMS: * Shortness of breath: Patient presented with complaints of hematemesis. Patient intubated for EGD. Patient his pneumonia. He also had ascites and is status post 2 ultrasound-guided paracentesis. He has been failing CPAP trials. Currently intubated and FiO2 is 30%. Patient is on antibiotics and duo nebs. * Nausea and vomiting: Patient came in complaining of hematemesis. Underwent EGD and was noted to have esophageal varices which were banded. NG tube currently infusing tube feeding at 20 mL's an hour. Bedside RN reported that patient has been having high tube feed residuals. No reports of vomiting. Continue monitoring tube feed residuals. Palliative care will continue to follow the patient during hospital course as condition evolves, to assist patient/decision-maker with understanding of their medical conditions, weighing benefits/burdens of treatment options, for clarification of goals of treatment. Additionally will assist with any symptoms of palliative concern Appreciation Thank you for the opportunity to participate in the care of Kristopher aRmirez JRDenilson Attestation Attestation: To help prompt me to consider important information that might be impacting today's encounter and assessment, information from prior notes written by myself or my colleagues may have been "brought forward" into today's note. My signature on this note, however, is an attestation that I personally performed the exam, history, and/or decision-making noted today, and, unless otherwise indicated, the interactions with patient, family, and staff as well as the review of records all occurred today. I also attest that the listed assessment and stated plan reflect my best clinical judgment today based on the combination of historical information, prior notes, and today's exam/ interactions. When time spent is documented, it refers only to time spent today by the signer, or if indicated, combined time spent today by collaborating physician/nurse practitioner.
[2017-10-05] MEDS: Folic Acid 1 MG Tablet PO SCH (10:41)
[2017-10-05] MEDS: Pantoprazole Inj 40 MG Vial IV.PUSH SCH ×2 (10:42→21:06)
--- NOTE | 2017-10-05 11:00 | P.PNCC ---
Subjective Subjective Remarks/Hospital Course: Remarks/Hospital Course This is a 63-year-old male who was brought in by EMS to the emergency room because of hematemesis about an hour prior to arrival. Reported at least 4 episodes of vomiting bright red blood amounting to about a gallon. Reportedly he was nauseous but denied dizziness, syncope, chest pain, shortness of breath and abdominal pain. He takes aspirin on a daily basis but no NSAIDs. No history of GI bleed. He has noted increasing abdominal girth. Has chronic bilateral lower extremity lymphedema denies history of heart failure or chronic kidney disease. In the emergency department, patient was noted to be tachycardic and received half a liter of IV fluid bolus. He was also started on Sandostatin and Protonix drip. Patient was evaluated by GI Dr. Crocker who performed EGD in the OR. Patient was intubated for endoscopy. He was found to have variceal bleeding underwent banding of esophageal varices. Following procedure patient was transferred to PACU. Critical care consult was requested by Dr. Crocker as patient was left intubated on mechanical ventilation. He was getting his second unit of PRBCs when I evaluated patient in PACU. 09/26: Patient remained intubated and sedated over the night. Still with bloody NG tube output however per nighttime RN has slowed down. Hemoglobin remains stable. T-max of 98.1, urine output of 1540ml since admission. 09/27: NG tube clamped, small amount of heme emanating on suction. The patient remains sedated and intubated ammonia level 186. Planned initiation of lactulose twice daily. Calcium being repleted. Patient noted to have hemoglobin level of 7.21 unit packed red blood cells and 1 unit of platelets being transfused this a.m.. Urinary output significantly decreased, overnight. Albumin 5% IV twice daily initiated. 09/28: Albumin/ Lasix medication administration, improve urine output, 1200 cc in the last 6 hrs. Paracentesis by via invasive radiology is pending. The patient received 1 unit of platelets this a.m. INR 1.7, with platelet count 46. The patient continues on octreotide and Protonix infusion no active signs of bleeding. Plan for EGD in a.m. per GI. 09/29: Late entry note. Patient seen at 3:15p.m.. No acute changes during the night. Hemoglobin stable. The patient remains on Sandostatin and Protonix infusions. Patient currently undergoing repeat EGD. Patient had elevated temperature earlier this afternoon 101.0, cooling packs/cooling blanket applied. Lactic acid decreasing. 09/30: The patient underwent EGD last evening, revealed esophagitis. The patient continues on Sandostatin Protonix infusions per GI recommendations. CPAP trials were initiated this morning the patient tolerated approximately 1 hour. The patient was transitioned to Precedex infusion for ventilator weaning process. Patient underwent ultrasound testing for quantification of pleural effusions minimal volume, no thoracentesis performed. 10/01: Patient remains on low-dose Precedex for ventilator weaning process. Patient lethargic today, fentanyl infusion has been discontinued. Patient noted to have a map in the 60s, hemoglobin is less than 8 patient will be transfused 2 units of packed red blood cells this afternoon. SUBJECTIVE: 10/03: Arousable and follows commands on dexmedetomidine and fentanyl drips. Continues to be on pantoprazole and octreotide drips. These will be discontinued today. We will start trickle feeds. Possible need paracentesis in a.m. 10/04: Remains sedated, orally intubated on mechanical ventilation. 10/05: no improvements. remains critically ill, on life-support. Objective Vital Signs / I&O: Vital Signs 10/04/17 11:35 10/04/17 12:30 10/04/17 13:00 Temperature Pulse Rate 79 79 87 Respiratory Rate 16 Blood Pressure 92/54 L 93/59 L Pulse Oximetry 96 95 99 10/04/17 13:30 10/04/17 14:00 10/04/17 14:30 Temperature Pulse Rate 80 79 76 Respiratory Rate Blood Pressure 91/58 L 103/61 111/68 Pulse Oximetry 97 97 100 10/04/17 15:00 10/04/17 15:30 10/04/17 15:57 Temperature Pulse Rate 77 75 73 Respiratory Rate 16 Blood Pressure 103/61 106/67 Pulse Oximetry 98 98 97 10/04/17 16:00 10/04/17 16:30 10/04/17 17:00 Temperature Pulse Rate 73 74 78 Respiratory Rate Blood Pressure 117/67 111/66 120/72 Pulse Oximetry 98 98 96 10/04/17 17:30 10/04/17 18:00 10/04/17 18:30 Temperature Pulse Rate 74 70 67 Respiratory Rate Blood Pressure 96/55 L 105/64 113/67 Pulse Oximetry 99 99 99 10/04/17 19:00 10/04/17 19:30 10/04/17 20:00 Temperature 98.1 F Pulse Rate 71 74 74 Respiratory Rate Blood Pressure 112/67 108/64 111/60 Pulse Oximetry 99 98 99 10/04/17 20:24 10/04/17 20:30 10/04/17 21:00 Temperature Pulse Rate 75 80 Respiratory Rate 16 Blood Pressure 112/63 103/59 L Pulse Oximetry 100 98 98 10/04/17 21:30 10/04/17 22:00 10/04/17 22:30 Temperature Pulse Rate 78 75 76 Respiratory Rate Blood Pressure 105/61 111/63 112/62 Pulse Oximetry 98 98 99 10/04/17 23:00 10/04/17 23:30 10/05/17 00:00 Temperature 97.9 F Pulse Rate 74 74 72 Respiratory Rate Blood Pressure 120/70 115/65 106/65 Pulse Oximetry 99 99 97 10/05/17 00:02 10/05/17 00:30 10/05/17 04:21 Temperature Pulse Rate 71 Respiratory Rate 16 16 Blood Pressure 117/69 Pulse Oximetry 98 99 100 10/05/17 07:00 Temperature Pulse Rate Respiratory Rate 0 L Blood Pressure Pulse Oximetry 100 Intake & Output 10/04/17 10/05/17 10/05/17 18:59 06:59 18:59 Intake Total 1909 1320 / 1320 260 / 260 Output Total 900 / 900 1950 / 1950 Balance 1010 / 1010 -630 / -630 260 / 260 Weight 119.3 kg Intake: IV 1909 1070 / 1070 260 / 260 NS + KCl 20 mEq Inj 1,000 ML @ 1000 / 1000 42 mls/hr IV.CONT .[id number] JANE Rx#:[id number] Flexbumin 25% Inj 100 ML @ 60 100 / 100 mls/hr IV.SIG Q12H JANE Rx#: [id number] Precedex Inj 1,000 MCG In NS 510 / 510 520 / 520 260 / 260 Inj 250 ML @ 0.2 MCG/KG/HR 5.93 mls/hr IV.SIG TITRATE PRN Rx#: [id number] Zosyn 3.375 GM Premix 50 ML @ 150 / 150 100 / 100 100 mls/hr IV.SIG Q6H JANE Rx#: [id number] KCl 20 mEq Premix Inj 20 meq In 100 / 100 100 ml @ 50 mls/hr IV.SIG UNSCH PRN Rx#:[id number] fentaNYL 10 mcg/mL Premix Drip 250 / 250 250 / 250 2,500 mcg In 250 ml @ 50 MCG/HR 5 mls/hr IV.SIG TITRATE PRN Rx #:[id number] Tube Feeding 150 / 150 Water Bolus Amount 100 / 100 Output: Urine Amount (Catheter) 900 / 900 1949 Indwelling Urethral Catheter 900 / 900 1949 Other: Date of Last Bowel Movement 10/04/17 06/05/17 # Bowel Movements 2 Result Diagrams: 10/05/17 04:50 10/05/17 04:50 Objective Remarks: General: This is a 62-year-old -[place]i male currently intubated HEENT: Pupils are equal and reactive, muddy sclera, orally intubated, NG tube with some clear brown aspirate Neck: Supple, no rigidity, no JVD Chest: Orally intubated on mechanical ventilation, coarse breath sounds bilateral CVS: Regular, no murmurs appreciated Abd: Soft, appears nontender, protuberant Extremities: warm bilaterally, chronic lymphedema noted bilaterally lower extremity Neuro: Sedated, orally intubated on mechanical ventilation positive gag and cough. Positive corneal reflex. Spontaneously moves extremities x 4. withdraws. did not follow commands today. Assessment and Plan - Assessment and Plan Plan: Neurologic: EtOH use disorder fentanyl for sedation. Goal of RASS -2 Daily sedation vacation Monitor ammonia level Continue thiamine and folate Seizure precautions Respiratory: Acute hypoxic and hypercarbic respiratory failure PRVC ventilation Ventilator bundle Obtain O2 saturation greater than 92% Albuterol/ipratropium aerosols every 4 hours with albuterol aerosols every 2 hours as needed for dyspnea Continue CPAP trials as tolerated Cardiovascular: History of essential hypertension Maintain MAP greater than 65 Monitor CVP 09/27 echo- EF 40% small left pleural effusion Renal: Oliguria-resolved Maintain Sweet for adequate I &O Nephrology following-possible hepatorenal syndrome Optimal diuresis with furosemide 40 mg twice daily and albumin 25 g every 12 hours infusions-greater than 2 L every 12 hours -- Strict I/Os FEN/GI: Upper GI bleed secondary to esophageal varices status post banding Decompensated liver cirrhosis Ascites Hyperammonemia GERD Anion gap metabolic acidosis-resolved Electrolyte derangement IV fluids normal saline with 20 KCl at 42 cc/hour Continue pantoprazole 40 mg IV twice daily. Octreotide infusion discontinued today Lactulose BID, continue rifaximin 550 twice daily 09/28- paracentesis by invasive radiology - 5L removed. 09/29-repeat EGD-revealed significant gastropathy, no active sites of bleeding continue trickle feeds today with Neutra hep Heme/ID: Acute blood loss anemia Thrombocytopenia Coagulopathy Monitor CBC 10/01 Transfuse 2 u PRBC's Noted decreased liver synthetic function secondary to cirrhosis Hematology oncology ID following. Continue vancomycin and piperacillin/tazobactam per the recommendations Follow-up urine and blood cultures 09/28 sputum cultures- Staph Aureus Endocrine: Glucose monitoring per ICU protocol. Low-dose regimen MsK; Chronic lymphedema -- SSI Prophylaxis: GI Prophylaxis Pantoprazole DVT Prophylaxis -- SCDs Hold pharmacological DVT prophylaxis in the setting of thrombocytopenia, and active GI bleed Lines: Central line RIJ (09/26): d/c cvl today. must keep sweet today given recent hepato-renal syndrome.
[2017-10-05] MEDS: Potassium Chlor 20 mEq Premix 20 MEQ/100 ML PIGGYBACK IV.SIG PRN ×2 (15:13→17:19)
[2017-10-05] MEDS: fentaNYL 10 mcg/mL Premix Drip 2,500 MCG/250 ML BAG IV.SIG PRN (18:57)
[2017-10-05] MEDS: Oral Hygiene Kit OROPHARYNG SCH ×3 (21:05→23:30)
[2017-10-05] MEDS: Multivitamin/Minerals Therapeutic Tablet PO SCH (21:07)
[2017-10-06] MEDS: Piperacil/Tazo 3.375 GM Premix 50 ML IV.SIG SCH ×4 (02:45→22:08)
[2017-10-06] MEDS: fentaNYL 10 mcg/mL Premix Drip 2,500 MCG/250 ML BAG IV.SIG PRN ×2 (02:46→15:20)
[2017-10-06] MEDS: Insulin NovoLOG Aspart Correctional Sugar Inj SQ SCH ×5 (04:26→22:06)
[2017-10-06] MEDS: SODIUM CHLOR 0.9% IV.SIG PRN ×3 (04:27→19:32)
[2017-10-06] MEDS: DEXMEDETOMIDINE IV.SIG PRN ×3 (04:27→19:32)
[2017-10-06] MEDS: Oral Hygiene Kit OROPHARYNG SCH ×3 (04:27→16:29)
[2017-10-06 06:02] LABS: Baso # (Auto) 0.1 th/mm3 (0.0-0.2); Baso % (Auto) 1.5 % (0.0-2.0); Eos # (Auto) 0.1 th/mm3 (0.0-0.4); Eos % (Auto) 3.8 % (0.0-4.0); Hematocrit 28.7 % (39.0-51.0); Hemoglobin 9.4 gm/dL (13.0-17.0); Mean Corpuscular HGB Conc 32.7 % (32.0-36.0); Mean Corpuscular Volume 100.9 fL (80.0-100.0); Mono # (Auto) 0.2 th/mm3 (0.0-0.9); Mono % (Auto) 7.3 % (0.0-8.0); Neut % (Auto) 57.4 % (16.0-70.0); Platelet Count 56 th/mm3 (150-450); Red Blood Count 2.85 mil/mm3 (4.50-5.90); Red Cell Distribution Width 24.5 % (11.6-17.2); White Blood Count 3.4 th/mm3 (4.0-11.0)
[2017-10-06] MEDS: Albumin Human 25% Inj 100 ML IV.SIG SCH ×2 (06:33→18:12)
[2017-10-06 08:35] LABS: Eosinophils 6 % (0-4); Lymphocytes 24 % (9-44); Monocytes 7 % (0-8); Ovalocytes 1+; Plasma Cells 2 % (0-0)
[2017-10-06 08:36] LABS: Acanthocytes Occ; Platelet Morphology Normal (Normal)
[2017-10-06] MEDS: Multivitamin/Minerals Therapeutic Tablet PO SCH (08:53)
[2017-10-06] MEDS: Folic Acid 1 MG Tablet PO SCH (08:53)
[2017-10-06] MEDS: rifAXIMin 550 MG Tablet PO SCH ×2 (08:53→22:07)
[2017-10-06] MEDS: Potassium Chloride 25 MEQ Effervescent Tablet PO SCH ×2 (08:53→22:07)
[2017-10-06] MEDS: Calcium Carbonate 500 MG Tablet PO SCH ×2 (08:53→22:07)
[2017-10-06] MEDS: Pantoprazole Inj 40 MG Vial IV.PUSH SCH ×2 (08:54→22:08)
[2017-10-06] MEDS: Senna/Docusate Sodium 8.6/50 MG Tablet PO SCH ×2 (08:55→22:08)
--- NOTE | 2017-10-06 11:02 | P.PNCC ---
Subjective Subjective Remarks/Hospital Course: Remarks/Hospital Course This is a 63-year-old male who was brought in by EMS to the emergency room because of hematemesis about an hour prior to arrival. Reported at least 4 episodes of vomiting bright red blood amounting to about a gallon. Reportedly he was nauseous but denied dizziness, syncope, chest pain, shortness of breath and abdominal pain. He takes aspirin on a daily basis but no NSAIDs. No history of GI bleed. He has noted increasing abdominal girth. Has chronic bilateral lower extremity lymphedema denies history of heart failure or chronic kidney disease. In the emergency department, patient was noted to be tachycardic and received half a liter of IV fluid bolus. He was also started on Sandostatin and Protonix drip. Patient was evaluated by GI Dr. Crocker who performed EGD in the OR. Patient was intubated for endoscopy. He was found to have variceal bleeding underwent banding of esophageal varices. Following procedure patient was transferred to PACU. Critical care consult was requested by Dr. Crocker as patient was left intubated on mechanical ventilation. He was getting his second unit of PRBCs when I evaluated patient in PACU. 09/26: Patient remained intubated and sedated over the night. Still with bloody NG tube output however per nighttime RN has slowed down. Hemoglobin remains stable. T-max of 98.1, urine output of 1540ml since admission. 09/27: NG tube clamped, small amount of heme emanating on suction. The patient remains sedated and intubated ammonia level 186. Planned initiation of lactulose twice daily. Calcium being repleted. Patient noted to have hemoglobin level of 7.21 unit packed red blood cells and 1 unit of platelets being transfused this a.m.. Urinary output significantly decreased, overnight. Albumin 5% IV twice daily initiated. 09/28: Albumin/ Lasix medication administration, improve urine output, 1200 cc in the last 6 hrs. Paracentesis by via invasive radiology is pending. The patient received 1 unit of platelets this a.m. INR 1.7, with platelet count 46. The patient continues on octreotide and Protonix infusion no active signs of bleeding. Plan for EGD in a.m. per GI. 09/29: Late entry note. Patient seen at 3:15p.m.. No acute changes during the night. Hemoglobin stable. The patient remains on Sandostatin and Protonix infusions. Patient currently undergoing repeat EGD. Patient had elevated temperature earlier this afternoon 101.0, cooling packs/cooling blanket applied. Lactic acid decreasing. 09/30: The patient underwent EGD last evening, revealed esophagitis. The patient continues on Sandostatin Protonix infusions per GI recommendations. CPAP trials were initiated this morning the patient tolerated approximately 1 hour. The patient was transitioned to Precedex infusion for ventilator weaning process. Patient underwent ultrasound testing for quantification of pleural effusions minimal volume, no thoracentesis performed. 10/01: Patient remains on low-dose Precedex for ventilator weaning process. Patient lethargic today, fentanyl infusion has been discontinued. Patient noted to have a map in the 60s, hemoglobin is less than 8 patient will be transfused 2 units of packed red blood cells this afternoon. SUBJECTIVE: 7: Arousable and follows commands on dexmedetomidine and fentanyl drips. Continues to be on pantoprazole and octreotide drips. These will be discontinued today. We will start trickle feeds. Possible need paracentesis in a.m. 7/3: Remains sedated, orally intubated on mechanical ventilation. 4: no improvements. remains critically ill, on life-support. 5: remains critically ill without any meaningful improvements. net -3L/24h and significant losses from paracentesis fistula (3L of ascites fluid from prior site). remains hypokalemic. Objective Vital Signs / I&O: Vital Signs 10/05/17 11:00 10/05/17 11:56 10/05/17 14:43 Pulse Rate 79 68 Respiratory Rate 16 16 16 Pulse Oximetry 100 10/05/17 14:44 10/05/17 19:35 10/05/17 20:00 Pulse Rate 68 Respiratory Rate 16 16 Pulse Oximetry 100 100 100 10/05/17 22:30 10/05/17 23:24 10/06/17 01:25 Pulse Rate 69 Respiratory Rate 17 16 16 Pulse Oximetry 100 100 10/06/17 03:37 10/06/17 04:29 10/06/17 08:10 Pulse Rate 75 Respiratory Rate 16 16 16 Pulse Oximetry 100 100 Intake & Output 10/05/17 10/06/17 10/06/17 18:59 06:59 18:59 Intake Total 1070 / 1070 2659 / 2659 Output Total 4750 / 4750 2375 / 2375 Balance -3680 / -3680 284 / 284 Weight 118.2 kg Intake: IV 1070 / 1070 2069 / 2069 NS + KCl 20 mEq Inj 1,000 ML @ 1000 / 1000 42 mls/hr IV.CONT .[id number] JANE Rx#:[id number] Flexbumin 25% Inj 100 ML @ 60 100 / 100 mls/hr IV.SIG Q12H JANE Rx#: [id number] Precedex Inj 1,000 MCG In NS 520 / 520 520 / 520 Inj 250 ML @ 0.2 MCG/KG/HR 5.93 mls/hr IV.SIG TITRATE PRN Rx#: [id number] Zosyn 3.375 GM Premix 50 ML @ 100 / 100 100 / 100 100 mls/hr IV.SIG Q6H JANE Rx#: [id number] KCl 20 mEq Premix Inj 20 meq In 100 / 100 100 / 100 100 ml @ 50 mls/hr IV.SIG UNSCH PRN Rx#:[id number] KCl 40 mEq Premix Inj 40 meq In 100 / 100 100 ml @ 25 mls/hr IV.SIG UNSCH PRN Rx#:[id number] fentaNYL 10 mcg/mL Premix Drip 250 / 250 250 / 250 2,500 mcg In 250 ml @ 50 MCG/HR 5 mls/hr IV.SIG TITRATE PRN Rx #:[id number] Oral 0 / 0 Tube Feeding 489 / 489 Water Bolus Amount 100 / 100 Output: Urine 0 / 0 Stool 0 / 0 Pleural Fluid 2750 / 2750 1200 / 1200 Urine Amount (Catheter) 1999 1175 / 1175 Indwelling Urethral Catheter 1999 1175 / 1175 Other: Date of Last Bowel Movement 06/05/17 10/06/17 # Bowel Movements 1 2 Result Diagrams: 10/06/17 04:24 10/06/17 04:24 Objective Remarks: General: This is a 62-year-old -[place] male currently intubated HEENT: Pupils are equal and reactive, muddy sclera, orally intubated, NG tube with some clear brown aspirate Neck: Supple, no rigidity, no JVD Chest: Orally intubated on mechanical ventilation, coarse breath sounds bilateral CVS: Regular, no murmurs appreciated Abd: Soft, appears nontender, protuberant Extremities: warm bilaterally, chronic lymphedema noted bilaterally lower extremity Neuro: Sedated, orally intubated on mechanical ventilation positive gag and cough. Positive corneal reflex. Spontaneously moves extremities x 4. withdraws. did not follow commands today. Assessment and Plan - Assessment and Plan Plan: Neurologic: EtOH use disorder fentanyl for sedation. Goal of RASS -2 Daily sedation vacation Monitor ammonia level Continue thiamine and folate Seizure precautions Respiratory: Acute hypoxic and hypercarbic respiratory failure PRVC ventilation Ventilator bundle Obtain O2 saturation greater than 92% Albuterol/ipratropium aerosols every 4 hours with albuterol aerosols every 2 hours as needed for dyspnea Continue CPAP trials as tolerated Cardiovascular: History of essential hypertension Maintain MAP greater than 65 Monitor CVP 09/27 echo- EF 40% small left pleural effusion Renal: Oliguria-resolved Maintain Sweet for adequate I &O Nephrology following-possible hepatorenal syndrome Optimal diuresis with furosemide 40 mg twice daily and albumin 25 g every 12 hours infusions-greater than 2 L every 12 hours -- Strict I/Os add spironolactone 25mg po daily. FEN/GI: Upper GI bleed secondary to esophageal varices status post banding Decompensated liver cirrhosis Ascites Hyperammonemia GERD Anion gap metabolic acidosis-resolved Electrolyte derangement saline lock ivf. Continue pantoprazole 40 mg IV twice daily. Lactulose BID, continue rifaximin 550 twice daily 09/28- paracentesis by invasive radiology - 5L removed. 09/29-repeat EGD-revealed significant gastropathy, no active sites of bleeding continue trickle feeds today with Neutra hep Heme/ID: Acute blood loss anemia Thrombocytopenia Coagulopathy Monitor CBC 10/01 Transfuse 2 u PRBC's Noted decreased liver synthetic function secondary to cirrhosis Hematology oncology ID following. Continue vancomycin and piperacillin/tazobactam per the recommendations Follow-up urine and blood cultures 09/28 sputum cultures- Staph Aureus 10/04 sputum culture: staph, sensitivities pending. Endocrine: Glucose monitoring per ICU protocol. Low-dose regimen MsK; Chronic lymphedema -- SSI Prophylaxis: GI Prophylaxis Pantoprazole DVT Prophylaxis -- SCDs Hold pharmacological DVT prophylaxis in the setting of thrombocytopenia, and active GI bleed Lines: must keep sweet today given recent hepato-renal syndrome.
[2017-10-06 12:37] LABS: Hematocrit 27.7 % (39.0-51.0); Hemoglobin 9.2 gm/dL (13.0-17.0); Mean Corpuscular HGB Conc 33.1 % (32.0-36.0); Mean Corpuscular Hemoglobin 33.2 pg (27.0-34.0); Mean Corpuscular Volume 100.2 fL (80.0-100.0); Mean Platelet Volume 10.1 fL (7.0-11.0); Platelet Count 59 th/mm3 (150-450); Red Blood Count 2.76 mil/mm3 (4.50-5.90); Red Cell Distribution Width 24.2 % (11.6-17.2); White Blood Count 3.4 th/mm3 (4.0-11.0)
[2017-10-06 13:01] LABS: Magnesium 1.8 mg/dL (1.5-2.5); Phosphorus 2.2 mg/dL (2.5-4.9)
--- NOTE | 2017-10-06 13:31 | P.PNID ---
Subjective Remarks: Mr. Ramirez is a 62-year-old -French male who was brought into the ED by EMS because of hematemesis approximately an hour prior to arrival. Reportedly had at least 4 episodes of vomiting bright red blood amounting to about a gallon. Reportedly he was nauseous but denied patient has noted increased abdominal girth. He also appears that the patient has chronic bilateral lower extremity lymphedema. No reported history of heart failure kidney disease. In the emergency department patient was noted to be tachycardic received half a liter fluid bolus. He was started on Sandostatin and Protonix drip. Patient was evaluated by GI and has undergone on 2 endoscopies at this point by Dr. Dallas as well as Dr. Medina. It appears that the patient's esophageal varices were banded. He also was noted to have a hiatal hernia. Due to large volume hematemesis patient was electively intubated. Patient has received several units of blood products at this time. At the time of my evaluation patient is in the ICU currently not on any vasopressors. Remains intubated. Does not respond to any verbal commands. Urine output okay. Infectious disease is consulted for evaluation and management of new fevers of 101.5. Upon discussion with the nurse it appears that he has some mendoza colored secretions. He does have a Mendieta catheter in place. Overnight events reviewed No fevers No rash Intubated. Responds to simple commands. Moves all 4 extremities on command and spontaneously. Noted code status is now DNR. Ascitic fluid drainage noted. Antibiotics: Zosyn IV Vanco IV Lines: Lines ok Past Medical History: Past Medical History Bilateral lower extremity lymphedema Anxiety History of pneumonia According to the record hypothyroidism Hypertension GERD according to the record Noncompliant with medical therapy Past Surgical History Hay[place] teeth extracted in 1973 tonsillectomy 1960 Allergies/Adverse Reactions: Allergies No Known Allergies Adverse Reaction (Unknown, Uncoded 07/03/17 19:09) Objective Vital Signs 10/05/17 14:43 10/05/17 14:44 10/05/17 19:35 Temperature Pulse Rate 68 68 Respiratory Rate 16 16 16 Blood Pressure Pulse Oximetry 100 100 10/05/17 20:00 10/05/17 22:30 10/05/17 23:24 Temperature Pulse Rate 69 Respiratory Rate 17 16 Blood Pressure Pulse Oximetry 100 100 10/06/17 01:25 10/06/17 03:37 10/06/17 04:29 Temperature Pulse Rate 75 Respiratory Rate 16 16 16 Blood Pressure Pulse Oximetry 100 100 10/06/17 08:00 10/06/17 08:10 10/06/17 11:46 Temperature 97.6 F Pulse Rate 76 Respiratory Rate 21 16 16 Blood Pressure 107/64 Pulse Oximetry 100 100 Intake & Output 10/05/17 10/06/17 10/06/17 18:59 06:59 18:59 Intake Total 1070 / 1070 2659 / 2659 260 / 260 Output Total 4750 / 4750 2375 / 2375 Balance -3680 / -3680 284 / 284 260 / 260 Weight 118.2 kg Intake: IV 1070 / 1070 2070 / 2070 260 / 260 NS + KCl 20 mEq Inj 1,000 ML @ 1000 / 1000 42 mls/hr IV.CONT .[id number] JANE Rx#:[id number] Flexbumin 25% Inj 100 ML @ 60 100 / 100 mls/hr IV.SIG Q12H JANE Rx#: [id number] Precedex Inj 1,000 MCG In NS 520 / 520 520 / 520 260 / 260 Inj 250 ML @ 0.2 MCG/KG/HR 5.93 mls/hr IV.SIG TITRATE PRN Rx#: [id number] Zosyn 3.375 GM Premix 50 ML @ 100 / 100 100 / 100 100 mls/hr IV.SIG Q6H JANE Rx#: [id number] KCl 20 mEq Premix Inj 20 meq In 100 / 100 100 / 100 100 ml @ 50 mls/hr IV.SIG UNSCH PRN Rx#:[id number] KCl 40 mEq Premix Inj 40 meq In 100 / 100 100 ml @ 25 mls/hr IV.SIG UNSCH PRN Rx#:[id number] fentaNYL 10 mcg/mL Premix Drip 250 / 250 250 / 250 2,500 mcg In 250 ml @ 50 MCG/HR 5 mls/hr IV.SIG TITRATE PRN Rx #:[id number] Oral 0 / 0 Tube Feeding 489 / 489 Water Bolus Amount 100 / 100 Output: Urine 0 / 0 Stool 0 / 0 Pleural Fluid 2750 / 2750 1200 / 1200 Urine Amount (Catheter) 1999 1175 / 1175 Indwelling Urethral Catheter 1999 1175 / 1175 Other: Date of Last Bowel Movement 06/05/17 10/06/17 10/06/17 # Bowel Movements 1 2 10/04/17 04:10 Sputum - Endotracheal Gram Stain - Final 10/04/17 04:10 Sputum - Endotracheal Sputum Culture - Preliminary Staphylococcus aureus Lab - Hematology Results 10/05/17 10/06/17 10/06/17 04:50 04:24 10:35 WBC 3.4 L 3.4 L 3.4 L RBC 2.74 L 2.85 L 2.76 L Hgb 9.1 L 9.4 L 9.2 L Hct 27.1 L 28.7 L 27.7 L MCV 98.7 100.9 H 100.2 H MCH 33.2 33.0 33.2 MCHC 33.6 32.7 33.1 RDW 23.4 H 24.5 H 24.2 H Plt Count 63 L 56 L 59 L MPV 9.4 10.0 10.1 Prelim Diff (Auto) Slide review pending Slide review pending Neut % (Auto) 59.5 57.4 Lymph % (Auto) 25.1 30.0 Beadle % (Auto) 10.2 H 7.3 Eos % (Auto) 3.8 3.8 Baso % (Auto) 1.4 1.5 Neut # (Auto) 2.0 2.0 Lymph # (Auto) 0.9 L 1.0 Beadle # (Auto) 0.3 0.2 Eos # (Auto) 0.1 0.1 Baso # (Auto) 0.0 0.1 WBC Differential Manual diff final Manual diff final Seg Neuts % (Manual) 59 40 Band Neuts % (Manual) 13 H 18 H Lymphocytes % (Manual) 24 24 Monocytes % (Manual) 2 7 Eosinophils % (Manual) 2 6 H Basophils % (Manual) 3 H Plasma Cell % (Manual) 2 H Abs Neuts (Manual) 2.4 2.0 Differential Comment . . Platelet Estimate Low L Low L Platelet Morphology Normal Normal Ovalocytes 1+ H Stomatocytes 1+ H Acanthocytes (Spur) Occ H Occ H Lab - Chemistry Results 10/04/17 10/04/17 10/05/17 17:59 21:55 00:32 Sodium Potassium Chloride Carbon Dioxide Anion Gap BUN Creatinine Estimated GFR POC Glucose 194 H 206 H 205 H Random Glucose Calcium Phosphorus Magnesium Total Bilirubin AST ALT Alkaline Phosphatase Total Protein Albumin 10/05/17 10/05/17 10/05/17 04:50 04:52 10:23 Sodium 155 H Potassium 2.6 L* Chloride 117 H Carbon Dioxide 24.5 Anion Gap 14 BUN 14 Creatinine 1.10 Estimated GFR 82 L POC Glucose 158 H 193 H Random Glucose 183 H Calcium 8.1 L Phosphorus Magnesium Total Bilirubin 5.6 H AST 53 H ALT 19 Alkaline Phosphatase 53 Total Protein 6.5 Albumin 2.5 L 10/05/17 10/05/17 10/05/17 11:51 17:37 20:37 Sodium Potassium Chloride Carbon Dioxide Anion Gap BUN Creatinine Estimated GFR POC Glucose 216 H 208 H 235 H Random Glucose Calcium Phosphorus Magnesium Total Bilirubin AST ALT Alkaline Phosphatase Total Protein Albumin 10/05/17 10/06/17 10/06/17 23:20 04:15 04:24 Sodium Potassium 3.0 L Chloride Carbon Dioxide Anion Gap BUN Creatinine Estimated GFR POC Glucose 221 H 165 H Random Glucose Calcium Phosphorus Magnesium Total Bilirubin AST ALT Alkaline Phosphatase Total Protein Albumin 10/06/17 10/06/17 10/06/17 07:56 10:35 13:02 Sodium Potassium Chloride Carbon Dioxide Anion Gap BUN Creatinine Estimated GFR POC Glucose 174 H 150 H Random Glucose Calcium Phosphorus 2.2 L Magnesium 1.8 Total Bilirubin AST ALT Alkaline Phosphatase Total Protein Albumin Imaging: ITS Impressions Chest X-Ray 10/02/17 06:00 CONCLUSION: Support apparatus in good position. Stable basilar airspace disease and pleural effusion. Physical Exam: GENERAL: Chronically ill appearing AAM patient, in no apparent distress. SKIN: No rashes. HEAD: Atraumatic. Normocephalic. No temporal or scalp tenderness. EYES: Pupils equal round and reactive. No injection or drainage. ENT: Intubated. NECK: Trachea midline. Supple, nontender, no meningeal signs. CARDIOVASCULAR: Murmur audible. RESPIRATORY: AE decreased in bases. GASTROINTESTINAL: Abdomen soft, distended. Diffuse tenderness. No guarding or rigidity. MUSCULOSKELETAL: Bilateral LE lymphedema with tree bark appearance. No warmth. No tenderness. NEUROLOGICAL: No spontaneous eye opening. Psych could not be assessed IV line sites ok. Assessment and Plan - Plan Assessment & Plan Remarks Sepsis Pneumonia (aspiration on admission given GI bleed now ? HCAP) Right side effusion rule out empyema. Acute resp failure: on vent Staph in sputum (MSSA pneumonia earlier) Bilateral LE lymphedema Pancytopenia: sepsis. Anemia: GI bleed on admission s.p transfusions. Recs Continue Zosyn IV Continue Vanco IV (target 15-20) Follow Sputum cultures to adjust antibiotics. Repeat CXR today. dw palliative care goals of care remain aggressive at present time. Follow cultures. follow clinically.
--- NOTE | 2017-10-06 14:07 | XR ---
EXAM DATE: 10/06/2017 1:54 PM EDT AGE/SEX: 62 years / Male INDICATIONS: Pneumonia CLINICAL DATA: This is the patient's subsequent encounter. Patient reports that signs and symptoms h ave been present for 4 - 6 days and indicates a pain score of Nonresponsive. MEDICAL/SURGICAL HISTORY: . Diabetes. Cardiovascular disease None. COMPARISON: C, CHEST 1V SINGLE AP, 10/02/2017. . FINDINGS: The support devices remain in place. No evidence of pneumothorax. There is some increasing consolidat ion in the right lower lung compared to the prior study. There is some stable parenchymal infiltrates in the left lung base. The heart size is stable. The bony structures are stable. CONCLUSION: 1. Increasing parenchymal/pleural consolidation in the right lower lung. 2. Stable infiltrate in the left lung base. 3. No evidence of pneumothorax. Electronically signed by: Bob Zapata MD 10/06/2017 2:06 PM EDT
[2017-10-06 15:51] LABS: Calcium 7.9 mg/dL (8.5-10.1); Carbon Dioxide 25.6 meq/L (21.0-32.0); Potassium 3.2 meq/L (3.5-5.1)
--- NOTE | 2017-10-06 16:58 | P.PNPAL ---
Reason for Visit Reason for visit: a. To assist with evaluation and management of symptoms including:shortness of breath, nausea/vomiting b. To assist medical decision maker(s) with: better understanding of current medical conditions; weighing benefits/burdens of medical treatment options; making medical treatment decisions. Subjective Subjective/Interval History: Follow-up medically necessary for symptom management. Patient remains intubated , sedated on mechanical ventilation. Spontaneous breathing trials attempted this morning and patient went apneic within a few minutes. Patient is currently on FiO2 100% with O2 saturation 100%. Notified bedside RN to reassess patient since she is now saturating at 100%. Patient was desaturating in the on. Patient's not spontaneously opening eyes but following simple commands with all 4 extremities weakly. Patient not as responsive as he was yesterday, though per bedside RN, patient occasionally opens eyes and bangs on the bed side rails. Patient is currently on fentanyl infusion at 250 mcg/h and Precedex infusion at 1.5 mcg/kg/hr. Patient nodding head when asked if he is in pain. Tube feeding via nasogastric tube 20 mL's an hour, bedside RN reports that patient has been having minimal residuals. No reports of vomiting. Patient's last BM on 10/06/17. Patient continues to have copious amount of serosanguineous drainage draining into a wound bag from previous abdominal paracentesis site. Laboratory workup today revealing WBC 3.4, hemoglobin 9.2, hematocrit 27.7, platelet count 59. Chest x-ray today revealing increasing parenchymal/pleural consolidation in the right lower lung, stable infiltrate in the left lung base and no pneumothorax. ID and nephrology following. Case discussed with Dr. Harvey who would attempt to talk to patient`s sister and also discussed case with Dr. Aundrea Strange and bedside RN. Family/Friend Interactions: No family at bedside. Advance Directives Living Will: Never completed Health Care Surrogate: Never completed Durable Power of Technical Inspector: Never completed Health Care Surrogate Name and Number: HCP: sister Sabrina Farrell- [phone] Objective Vital Signs: Vital Signs 10/05/17 19:35 10/05/17 20:00 10/05/17 22:30 Temperature Pulse Rate 68 Respiratory Rate 16 17 Blood Pressure Pulse Oximetry 100 100 100 10/05/17 23:24 10/06/17 01:25 10/06/17 03:37 Temperature Pulse Rate 69 75 Respiratory Rate 16 16 16 Blood Pressure Pulse Oximetry 100 10/06/17 04:29 10/06/17 08:00 10/06/17 08:10 Temperature 97.6 F Pulse Rate 76 Respiratory Rate 16 21 16 Blood Pressure 107/64 Pulse Oximetry 100 100 10/06/17 09:00 10/06/17 11:46 10/06/17 15:22 Temperature Pulse Rate 75 Respiratory Rate 16 16 Blood Pressure Pulse Oximetry 100 100 Intake & Output 10/05/17 10/06/17 10/06/17 18:59 06:59 18:59 Intake Total 1070 / 1070 2659 / 2659 510 / 510 Output Total 4750 / 4750 2375 / 2375 Balance -3680 / -3680 284 / 284 510 / 510 Weight 118.2 kg Intake: IV 1070 / 1070 2070 / 2070 510 / 510 NS + KCl 20 mEq Inj 1,000 ML @ 1000 / 1000 42 mls/hr IV.CONT .[id number] JANE Rx#:[id number] Flexbumin 25% Inj 100 ML @ 60 100 / 100 mls/hr IV.SIG Q12H JANE Rx#: [id number] Precedex Inj 1,000 MCG In NS 520 / 520 520 / 520 260 / 260 Inj 250 ML @ 0.2 MCG/KG/HR 5.93 mls/hr IV.SIG TITRATE PRN Rx#: [id number] Zosyn 3.375 GM Premix 50 ML @ 100 / 100 100 / 100 100 mls/hr IV.SIG Q6H JANE Rx#: [id number] KCl 20 mEq Premix Inj 20 meq In 100 / 100 100 / 100 100 ml @ 50 mls/hr IV.SIG UNSCH PRN Rx#:[id number] KCl 40 mEq Premix Inj 40 meq In 100 / 100 100 ml @ 25 mls/hr IV.SIG UNSCH PRN Rx#:[id number] fentaNYL 10 mcg/mL Premix Drip 250 / 250 250 / 250 250 / 250 2,500 mcg In 250 ml @ 50 MCG/HR 5 mls/hr IV.SIG TITRATE PRN Rx #:[id number] Oral 0 / 0 Tube Feeding 489 / 489 Water Bolus Amount 100 / 100 Output: Urine 0 / 0 Stool 0 / 0 Pleural Fluid 2750 / 2750 1200 / 1200 Urine Amount (Catheter) 1999 1175 / 1175 Indwelling Urethral Catheter 1999 1175 / 1175 Other: Date of Last Bowel Movement 06/05/17 10/06/17 10/06/17 # Bowel Movements 1 2 Physical Exam: CONSTITUTIONAL/GENERAL: This is a chronically ill looking patient, intubated, in no apparent distress. TUBES/LINES/DRAINS: ETT, NG tube, left IJ TLC, SKIN: No jaundice, rashes, or lesions. hx of lymphedema to BLE. Skin scaly, with tree bark appearance and discolored to bilateral lower extremities HEAD: Atraumatic. Normocephalic. EYES: Sclera slightly icterus. Fundi not examined. ENT: Hearing grossly normal. No nasal bleeding or purulent drainage. Moist oral mucosa. NECK: Trachea midline. Supple, nontender. CARDIOVASCULAR:S1, S2 normal, no murmurs, gallops, or rubs. No JVD. Peripheral pulses symmetric. RESPIRATORY/CHEST: Symmetric, unlabored respirations. Diminished breath sounds. GASTROINTESTINAL: Abdomen soft, non-tender, distended. active bowel sounds x4.TF infusing at 20 mL's per hour via NGT GENITOURINARY: No bladder distension. Mendieta catheter in place. MUSCULOSKELETAL: Extremities without clubbing, cyanosis, or edema. Lymphedema to BLE worse on R leg. Edema to NEUROLOGICAL: Intubated, sedated and intermittently following commands with all extremities. PSYCHIATRIC: Unable to assess Diagnostic Tests Laboratory: Laboratory Results - last 72 hr 10/03/17 10/03/17 10/04/17 16:13 21:53 00:30 WBC RBC Hgb Hct MCV MCH MCHC RDW Plt Count MPV Prelim Diff (Auto) Neut % (Auto) Lymph % (Auto) Andrew % (Auto) Eos % (Auto) Baso % (Auto) Neut # (Auto) Lymph # (Auto) Andrew # (Auto) Eos # (Auto) Baso # (Auto) WBC Differential Seg Neuts % (Manual) Band Neuts % (Manual) Lymphocytes % (Manual) Monocytes % (Manual) Eosinophils % (Manual) Basophils % (Manual) Plasma Cell % (Manual) Abs Neuts (Manual) Differential Comment Platelet Estimate Platelet Morphology Ovalocytes Stomatocytes Acanthocytes (Spur) PT INR APTT Fibrinogen Sodium Potassium Chloride Carbon Dioxide Anion Gap BUN Creatinine Estimated GFR POC Glucose 137 H 164 H 187 H Random Glucose Lactic Acid Calcium Phosphorus Magnesium Total Bilirubin AST ALT Alkaline Phosphatase Ammonia Total Protein Albumin 10/04/17 10/04/17 10/04/17 04:27 04:55 04:55 WBC RBC Hgb Hct MCV MCH MCHC RDW Plt Count MPV Prelim Diff (Auto) Neut % (Auto) Lymph % (Auto) Andrew % (Auto) Eos % (Auto) Baso % (Auto) Neut # (Auto) Lymph # (Auto) Andrew # (Auto) Eos # (Auto) Baso # (Auto) WBC Differential Seg Neuts % (Manual) Band Neuts % (Manual) Lymphocytes % (Manual) Monocytes % (Manual) Eosinophils % (Manual) Basophils % (Manual) Plasma Cell % (Manual) Abs Neuts (Manual) Differential Comment Platelet Estimate Platelet Morphology Ovalocytes Stomatocytes Acanthocytes (Spur) PT INR APTT Fibrinogen Sodium 155 H Potassium 2.6 L* Chloride 116 H Carbon Dioxide 26.6 Anion Gap 12 BUN 16 Creatinine 1.11 Estimated GFR 81 L POC Glucose 195 H Random Glucose 177 H Lactic Acid 2.0 Calcium 8.4 L Phosphorus 2.7 Magnesium 2.0 Total Bilirubin 5.9 H AST 49 H ALT 19 Alkaline Phosphatase 39 L Ammonia Total Protein 6.7 Albumin 2.6 L 10/04/17 10/04/17 10/04/17 04:55 04:55 04:55 WBC 3.0 L RBC 2.74 L Hgb 9.2 L Hct 27.3 L MCV 99.6 MCH 33.6 MCHC 33.7 RDW 23.2 H Plt Count 57 L MPV 8.8 Prelim Diff (Auto) Slide review pending Neut % (Auto) 56.8 Lymph % (Auto) 27.2 Andrew % (Auto) 9.9 H Eos % (Auto) 5.1 H Baso % (Auto) 1.0 Neut # (Auto) 1.7 L Lymph # (Auto) 0.8 L Andrew # (Auto) 0.3 Eos # (Auto) 0.2 Baso # (Auto) 0.0 WBC Differential Manual diff final Seg Neuts % (Manual) 61 Band Neuts % (Manual) 10 H Lymphocytes % (Manual) 21 Monocytes % (Manual) 4 Eosinophils % (Manual) 4 Basophils % (Manual) Plasma Cell % (Manual) Abs Neuts (Manual) 2.1 Differential Comment . Platelet Estimate Low L Platelet Morphology Normal Ovalocytes Stomatocytes 1+ H Acanthocytes (Spur) PT 19.0 H INR 1.9 APTT 36.9 H Fibrinogen 114 L Sodium Potassium Chloride Carbon Dioxide Anion Gap BUN Creatinine Estimated GFR POC Glucose Random Glucose Lactic Acid Calcium Phosphorus Magnesium Total Bilirubin AST ALT Alkaline Phosphatase Ammonia 17 Total Protein Albumin 10/04/17 10/04/17 10/04/17 12:36 17:59 21:55 WBC RBC Hgb Hct MCV MCH MCHC RDW Plt Count MPV Prelim Diff (Auto) Neut % (Auto) Lymph % (Auto) Andrew % (Auto) Eos % (Auto) Baso % (Auto) Neut # (Auto) Lymph # (Auto) Andrew # (Auto) Eos # (Auto) Baso # (Auto) WBC Differential Seg Neuts % (Manual) Band Neuts % (Manual) Lymphocytes % (Manual) Monocytes % (Manual) Eosinophils % (Manual) Basophils % (Manual) Plasma Cell % (Manual) Abs Neuts (Manual) Differential Comment Platelet Estimate Platelet Morphology Ovalocytes Stomatocytes Acanthocytes (Spur) PT INR APTT Fibrinogen Sodium Potassium Chloride Carbon Dioxide Anion Gap BUN Creatinine Estimated GFR POC Glucose 199 H 194 H 206 H Random Glucose Lactic Acid Calcium Phosphorus Magnesium Total Bilirubin AST ALT Alkaline Phosphatase Ammonia Total Protein Albumin 10/05/17 10/05/17 10/05/17 00:32 04:50 04:50 WBC 3.4 L RBC 2.74 L Hgb 9.1 L Hct 27.1 L MCV 98.7 MCH 33.2 MCHC 33.6 RDW 23.4 H Plt Count 63 L MPV 9.4 Prelim Diff (Auto) Slide review pending Neut % (Auto) 59.5 Lymph % (Auto) 25.1 Andrew % (Auto) 10.2 H Eos % (Auto) 3.8 Baso % (Auto) 1.4 Neut # (Auto) 2.0 Lymph # (Auto) 0.9 L Andrew # (Auto) 0.3 Eos # (Auto) 0.1 Baso # (Auto) 0.0 WBC Differential Manual diff final Seg Neuts % (Manual) 59 Band Neuts % (Manual) 13 H Lymphocytes % (Manual) 24 Monocytes % (Manual) 2 Eosinophils % (Manual) 2 Basophils % (Manual) Plasma Cell % (Manual) Abs Neuts (Manual) 2.4 Differential Comment . Platelet Estimate Low L Platelet Morphology Normal Ovalocytes Stomatocytes 1+ H Acanthocytes (Spur) Occ H PT INR APTT Fibrinogen Sodium 155 H Potassium 2.6 L* Chloride 117 H Carbon Dioxide 24.5 Anion Gap 14 BUN 14 Creatinine 1.10 Estimated GFR 82 L POC Glucose 205 H Random Glucose 183 H Lactic Acid Calcium 8.1 L Phosphorus Magnesium Total Bilirubin 5.6 H AST 53 H ALT 19 Alkaline Phosphatase 53 Ammonia Total Protein 6.5 Albumin 2.5 L 10/05/17 10/05/17 10/05/17 04:52 10:23 11:51 WBC RBC Hgb Hct MCV MCH MCHC RDW Plt Count MPV Prelim Diff (Auto) Neut % (Auto) Lymph % (Auto) Andrew % (Auto) Eos % (Auto) Baso % (Auto) Neut # (Auto) Lymph # (Auto) Andrew # (Auto) Eos # (Auto) Baso # (Auto) WBC Differential Seg Neuts % (Manual) Band Neuts % (Manual) Lymphocytes % (Manual) Monocytes % (Manual) Eosinophils % (Manual) Basophils % (Manual) Plasma Cell % (Manual) Abs Neuts (Manual) Differential Comment Platelet Estimate Platelet Morphology Ovalocytes Stomatocytes Acanthocytes (Spur) PT INR APTT Fibrinogen Sodium Potassium Chloride Carbon Dioxide Anion Gap BUN Creatinine Estimated GFR POC Glucose 158 H 193 H 216 H Random Glucose Lactic Acid Calcium Phosphorus Magnesium Total Bilirubin AST ALT Alkaline Phosphatase Ammonia Total Protein Albumin 10/05/17 10/05/17 10/05/17 17:37 20:37 23:20 WBC RBC Hgb Hct MCV MCH MCHC RDW Plt Count MPV Prelim Diff (Auto) Neut % (Auto) Lymph % (Auto) Andrew % (Auto) Eos % (Auto) Baso % (Auto) Neut # (Auto) Lymph # (Auto) Andrew # (Auto) Eos # (Auto) Baso # (Auto) WBC Differential Seg Neuts % (Manual) Band Neuts % (Manual) Lymphocytes % (Manual) Monocytes % (Manual) Eosinophils % (Manual) Basophils % (Manual) Plasma Cell % (Manual) Abs Neuts (Manual) Differential Comment Platelet Estimate Platelet Morphology Ovalocytes Stomatocytes Acanthocytes (Spur) PT INR APTT Fibrinogen Sodium Potassium Chloride Carbon Dioxide Anion Gap BUN Creatinine Estimated GFR POC Glucose 208 H 235 H 221 H Random Glucose Lactic Acid Calcium Phosphorus Magnesium Total Bilirubin AST ALT Alkaline Phosphatase Ammonia Total Protein Albumin 10/06/17 10/06/17 10/06/17 04:15 04:24 04:24 WBC 3.4 L RBC 2.85 L Hgb 9.4 L Hct 28.7 L MCV 100.9 H MCH 33.0 MCHC 32.7 RDW 24.5 H Plt Count 56 L MPV 10.0 Prelim Diff (Auto) Slide review pending Neut % (Auto) 57.4 Lymph % (Auto) 30.0 Andrew % (Auto) 7.3 Eos % (Auto) 3.8 Baso % (Auto) 1.5 Neut # (Auto) 2.0 Lymph # (Auto) 1.0 Andrew # (Auto) 0.2 Eos # (Auto) 0.1 Baso # (Auto) 0.1 WBC Differential Manual diff final Seg Neuts % (Manual) 40 Band Neuts % (Manual) 18 H Lymphocytes % (Manual) 24 Monocytes % (Manual) 7 Eosinophils % (Manual) 6 H Basophils % (Manual) 3 H Plasma Cell % (Manual) 2 H Abs Neuts (Manual) 2.0 Differential Comment . Platelet Estimate Low L Platelet Morphology Normal Ovalocytes 1+ H Stomatocytes Acanthocytes (Spur) Occ H PT INR APTT Fibrinogen Sodium Potassium 3.0 L Chloride Carbon Dioxide Anion Gap BUN Creatinine Estimated GFR POC Glucose 165 H Random Glucose Lactic Acid Calcium Phosphorus Magnesium Total Bilirubin AST ALT Alkaline Phosphatase Ammonia Total Protein Albumin 10/06/17 10/06/17 10/06/17 07:56 10:35 10:35 WBC 3.4 L RBC 2.76 L Hgb 9.2 L Hct 27.7 L MCV 100.2 H MCH 33.2 MCHC 33.1 RDW 24.2 H Plt Count 59 L MPV 10.1 Prelim Diff (Auto) Neut % (Auto) Lymph % (Auto) Andrew % (Auto) Eos % (Auto) Baso % (Auto) Neut # (Auto) Lymph # (Auto) Andrew # (Auto) Eos # (Auto) Baso # (Auto) WBC Differential Seg Neuts % (Manual) Band Neuts % (Manual) Lymphocytes % (Manual) Monocytes % (Manual) Eosinophils % (Manual) Basophils % (Manual) Plasma Cell % (Manual) Abs Neuts (Manual) Differential Comment Platelet Estimate Platelet Morphology Ovalocytes Stomatocytes Acanthocytes (Spur) PT INR APTT Fibrinogen Sodium Potassium Chloride Carbon Dioxide Anion Gap BUN Creatinine Estimated GFR POC Glucose 174 H Random Glucose Lactic Acid Calcium Phosphorus 2.2 L Magnesium 1.8 Total Bilirubin AST ALT Alkaline Phosphatase Ammonia Total Protein Albumin 10/06/17 10/06/17 13:02 14:24 WBC RBC Hgb Hct MCV MCH MCHC RDW Plt Count MPV Prelim Diff (Auto) Neut % (Auto) Lymph % (Auto) Andrew % (Auto) Eos % (Auto) Baso % (Auto) Neut # (Auto) Lymph # (Auto) Andrew # (Auto) Eos # (Auto) Baso # (Auto) WBC Differential Seg Neuts % (Manual) Band Neuts % (Manual) Lymphocytes % (Manual) Monocytes % (Manual) Eosinophils % (Manual) Basophils % (Manual) Plasma Cell % (Manual) Abs Neuts (Manual) Differential Comment Platelet Estimate Platelet Morphology Ovalocytes Stomatocytes Acanthocytes (Spur) PT INR APTT Fibrinogen Sodium 156 H* Potassium 3.2 L Chloride 120 H Carbon Dioxide 25.6 Anion Gap 10 BUN 10 Creatinine 1.03 Estimated GFR 89 POC Glucose 150 H Random Glucose 160 H Lactic Acid Calcium 7.9 L Phosphorus Magnesium Total Bilirubin AST ALT Alkaline Phosphatase Ammonia Total Protein Albumin Result Diagrams: 10/06/17 10:35 10/06/17 14:24 Microbiology: Microbiology 10/04/17 04:10 Gram Stain - Final Sputum - Endotracheal Sputum Culture - Final Staphylococcus aureus Imaging: Chest X-Ray 10/06/17 13:31 CONCLUSION: 1. Increasing parenchymal/pleural consolidation in the right lower lung. 2. Stable infiltrate in the left lung base. 3. No evidence of pneumothorax. Procedures: 09/25/17-intubation 09/25/17-EGD with esophageal varices banding 09/26/17-left IJ central line placement 09/28/1703-[id number] abdominal paracentesis Assessment and Plan - Disease Oriented Problem List (1) Sepsis (2) Pneumonia (3) Hypertension (4) Acute renal failure (5) Hypothyroidism (6) Acute respiratory failure (7) Upper GI bleed (8) Lymphedema of both lower extremities Pertinent Non-Medical Issues: Psychosocial: Patient was born and raised in [place]. He moved to [place] in 1985. Patient has a college degree. 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 Patient never and never had children. Spiritual: Patient is Confucianism-sister requested foundry worker general visit Legal: Never completed advanced directives Ethical issues impacting care: None identified at this time Important Contacts: Sister- Bud Bennett-[phone] Mother- Alexandre Alexis Uncle- Rosi BooneGpCpnlbjr-[phone] (lives with patient`s mother) Prognosis: Mr. Ramirez is a 62 years old male with a past medical history significant for chronic lymphedema to bilateral lower extremities, EtOH abuse, pneumonia, heart murmur, diet controlled diabetes mellitus type 2, hypothyroidism, umbilical hernia, GERD and anxiety. Patient was brought to the ER on 09/25/17 by EMS with complaints of hematemesis, and increase in abdominal girth. Clinical course complicated with acute respiratory failure, sepsis and recurrent ascites. Given ongoing multiple comorbidities patient remains at risk for further complications, deterioration and decline. Code Status: No Code DNR Plan: PLAN: Legal decision maker: Patient is currently intubated, sedated on mechanical ventilation and is not able to participate in medical decision. Patient never . Patient does not have children. Patient's mother is still living but his dementia. According to [place] statute his only sibling, Sabrina Farrell will serve as his healthcare proxy. Goals: Remain Aggressive short of no code per last conversation with patient` s sister Sabrina Farrell on 10/06/17. CODE STATUS: No code DNR SYMPTOMS: * Shortness of breath: Patient presented with complaints of hematemesis. Patient intubated for EGD. Patient his pneumonia. He also had ascites and is status post 2 ultrasound-guided paracentesis. Remains intubated and FiO2 100%. Patient failed CPAP trial today, went apneic within a few minutes of being on CPAP. Chest X ray showing increasing consolidation in the right lower lung. Patient is on antibiotics and duonebs. * Nausea and vomiting: Patient came in complaining of hematemesis. Underwent EGD and was noted to have esophageal varices which were banded. NG tube currently infusing tube feeding at 20 mL's an hour. Tolerating TF. No reports of vomiting. Continue monitoring tube feed residuals. * Pain: Patient is at risk for pain, from chronic bilateral lower extremity lymphedema, intubation and has undergone paracentesis x2 and being bedbound. Patient is on Fentanyl infusion at 250mcg/hr. Continue to monitor for signs of pain. Palliative care will continue to follow the patient during hospital course as condition evolves, to assist patient/decision-maker with understanding of their medical conditions, weighing benefits/burdens of treatment options, for clarification of goals of treatment. Additionally will assist with any symptoms of palliative concern Attestation Attestation: To help prompt me to consider important information that might be impacting today's encounter and assessment, information from prior notes written by myself or my colleagues may have been "brought forward" into today's note. My signature on this note, however, is an attestation that I personally performed the exam, history, and/or decision-making noted today, and, unless otherwise indicated, the interactions with patient, family, and staff as well as the review of records all occurred today. I also attest that the listed assessment and stated plan reflect my best clinical judgment today based on the combination of historical information, prior notes, and today's exam/ interactions. When time spent is documented, it refers only to time spent today by the signer, or if indicated, combined time spent today by collaborating physician/nurse practitioner.
[2017-10-07] MEDS: Haloperidol Inj 5 MG/ML Ampul IV.PUSH PRN ×4 (00:01→22:08)
[2017-10-07] MEDS: Oral Hygiene Kit OROPHARYNG SCH ×2 (00:14→05:28)
[2017-10-07] MEDS: fentaNYL 10 mcg/mL Premix Drip 2,500 MCG/250 ML BAG IV.SIG PRN ×3 (00:20→21:01)
[2017-10-07] MEDS: Insulin NovoLOG Aspart Correctional Sugar Inj SQ SCH ×5 (01:07→21:03)
[2017-10-07] MEDS: DEXMEDETOMIDINE IV.SIG PRN ×3 (02:50→17:25)
[2017-10-07] MEDS: SODIUM CHLOR 0.9% IV.SIG PRN ×3 (02:50→17:25)
[2017-10-07] MEDS: Piperacil/Tazo 3.375 GM Premix 50 ML IV.SIG SCH ×4 (03:52→21:02)
[2017-10-07] MEDS: Albumin Human 25% Inj 100 ML IV.SIG SCH ×2 (05:31→17:25)
[2017-10-07] MEDS: Multivitamin/Minerals Therapeutic Tablet PO SCH (08:04)
[2017-10-07] MEDS: Senna/Docusate Sodium 8.6/50 MG Tablet PO SCH ×2 (08:04→21:04)
[2017-10-07] MEDS: rifAXIMin 550 MG Tablet PO SCH ×2 (08:04→21:03)
[2017-10-07] MEDS: Potassium Chloride 25 MEQ Effervescent Tablet PO SCH ×2 (08:04→21:02)
[2017-10-07] MEDS: Folic Acid 1 MG Tablet PO SCH (08:04)
[2017-10-07] MEDS: Calcium Carbonate 500 MG Tablet PO SCH ×2 (08:05→21:03)
[2017-10-07] MEDS: Pantoprazole Inj 40 MG Vial IV.PUSH SCH ×2 (08:05→21:02)
--- NOTE | 2017-10-07 12:58 | P.PNCC ---
Subjective Subjective Remarks/Hospital Course: Remarks/Hospital Course This is a 63-year-old male who was brought in by EMS to the emergency room because of hematemesis about an hour prior to arrival. Reported at least 4 episodes of vomiting bright red blood amounting to about a gallon. Reportedly he was nauseous but denied dizziness, syncope, chest pain, shortness of breath and abdominal pain. He takes aspirin on a daily basis but no NSAIDs. No history of GI bleed. He has noted increasing abdominal girth. Has chronic bilateral lower extremity lymphedema denies history of heart failure or chronic kidney disease. In the emergency department, patient was noted to be tachycardic and received half a liter of IV fluid bolus. He was also started on Sandostatin and Protonix drip. Patient was evaluated by GI Dr. Crocker who performed EGD in the OR. Patient was intubated for endoscopy. He was found to have variceal bleeding underwent banding of esophageal varices. Following procedure patient was transferred to PACU. Critical care consult was requested by Dr. Crocker as patient was left intubated on mechanical ventilation. He was getting his second unit of PRBCs when I evaluated patient in PACU. 09/26: Patient remained intubated and sedated over the night. Still with bloody NG tube output however per nighttime RN has slowed down. Hemoglobin remains stable. T-max of 98.1, urine output of 1540ml since admission. 09/27: NG tube clamped, small amount of heme emanating on suction. The patient remains sedated and intubated ammonia level 186. Planned initiation of lactulose twice daily. Calcium being repleted. Patient noted to have hemoglobin level of 7.21 unit packed red blood cells and 1 unit of platelets being transfused this a.m.. Urinary output significantly decreased, overnight. Albumin 5% IV twice daily initiated. 09/28: Albumin/ Lasix medication administration, improve urine output, 1200 cc in the last 6 hrs. Paracentesis by via invasive radiology is pending. The patient received 1 unit of platelets this a.m. INR 1.7, with platelet count 46. The patient continues on octreotide and Protonix infusion no active signs of bleeding. Plan for EGD in a.m. per GI. 09/29: Late entry note. Patient seen at 3:15p.m.. No acute changes during the night. Hemoglobin stable. The patient remains on Sandostatin and Protonix infusions. Patient currently undergoing repeat EGD. Patient had elevated temperature earlier this afternoon 101.0, cooling packs/cooling blanket applied. Lactic acid decreasing. 09/30: The patient underwent EGD last evening, revealed esophagitis. The patient continues on Sandostatin Protonix infusions per GI recommendations. CPAP trials were initiated this morning the patient tolerated approximately 1 hour. The patient was transitioned to Precedex infusion for ventilator weaning process. Patient underwent ultrasound testing for quantification of pleural effusions minimal volume, no thoracentesis performed. 10/01: Patient remains on low-dose Precedex for ventilator weaning process. Patient lethargic today, fentanyl infusion has been discontinued. Patient noted to have a map in the 60s, hemoglobin is less than 8 patient will be transfused 2 units of packed red blood cells this afternoon. SUBJECTIVE: 10/03: Arousable and follows commands on dexmedetomidine and fentanyl drips. Continues to be on pantoprazole and octreotide drips. These will be discontinued today. We will start trickle feeds. Possible need paracentesis in a.m. 10/04: Remains sedated, orally intubated on mechanical ventilation. 10/05: no improvements. remains critically ill, on life-support. 10/06: remains critically ill without any meaningful improvements. net -3L/24h and significant losses from paracentesis fistula (3L of ascites fluid from prior site). remains hypokalemic. 10/07: on lasix drip this AM. still failing weaning attempts from mechanical ventilation. no improvements. Objective Vital Signs / I&O: Vital Signs 10/06/17 15:22 10/06/17 16:00 10/06/17 19:00 Temperature 36.9 C Pulse Rate 65 69 Respiratory Rate 16 12 Blood Pressure 127/69 108/60 Pulse Oximetry 100 100 10/06/17 19:30 10/06/17 20:00 10/06/17 20:16 Temperature 36.9 C Pulse Rate 68 71 Respiratory Rate 16 Blood Pressure 113/72 123/65 Pulse Oximetry 99 100 100 10/06/17 20:30 10/06/17 21:00 10/06/17 21:30 Temperature Pulse Rate 73 69 67 Respiratory Rate Blood Pressure 138/72 112/63 112/62 Pulse Oximetry 90 L 100 100 10/06/17 22:00 10/06/17 22:31 10/06/17 23:00 Temperature Pulse Rate 85 71 69 Respiratory Rate Blood Pressure 160/91 H 104/57 L Pulse Oximetry 100 100 10/06/17 23:01 10/06/17 23:30 10/07/17 00:00 Temperature Pulse Rate 69 75 94 H Respiratory Rate Blood Pressure 124/58 L 97/55 L Pulse Oximetry 100 100 98 10/07/17 00:01 10/07/17 00:05 10/07/17 00:30 Temperature Pulse Rate 89 74 Respiratory Rate 22 Blood Pressure 156/76 H 93/51 L Pulse Oximetry 22 L 100 100 10/07/17 01:00 10/07/17 01:30 10/07/17 02:00 Temperature Pulse Rate 67 73 68 Respiratory Rate Blood Pressure 100/60 118/64 115/61 Pulse Oximetry 100 100 98 10/07/17 02:30 10/07/17 03:00 10/07/17 03:30 Temperature Pulse Rate 67 71 64 Respiratory Rate Blood Pressure 110/61 119/66 115/64 Pulse Oximetry 100 100 100 10/07/17 04:00 10/07/17 04:30 10/07/17 07:26 Temperature Pulse Rate 64 66 Respiratory Rate 18 16 24 Blood Pressure 115/62 120/59 L Pulse Oximetry 98 100 100 10/07/17 08:00 10/07/17 09:00 10/07/17 11:00 Temperature 36.8 C Pulse Rate 70 66 Respiratory Rate Blood Pressure 112/58 L 93/54 L Pulse Oximetry 100 10/07/17 11:15 10/07/17 12:00 Temperature 36.9 C Pulse Rate 67 Respiratory Rate 16 Blood Pressure 96/53 L Pulse Oximetry 99 97 Intake & Output 10/06/17 10/07/17 10/07/17 18:59 06:59 18:59 Intake Total 1417 / 1417 1698 / 1698 510 / 510 Output Total 1850 / 1850 3675 / 3675 Balance -433 / -433 -1976 / 510 / 510 Weight 111.2 kg Intake: IV 970 / 970 710 / 710 510 / 510 Flexbumin 25% Inj 100 ML @ 60 100 / 100 100 / 100 mls/hr IV.SIG Q12H JANE Rx#: [id number] Precedex Inj 1,000 MCG In NS 520 / 520 260 / 260 260 / 260 Inj 250 ML @ 0.2 MCG/KG/HR 5.93 mls/hr IV.SIG TITRATE PRN Rx#: [id number] Zosyn 3.375 GM Premix 50 ML @ 100 / 100 100 / 100 100 mls/hr IV.SIG Q6H JANE Rx#: [id number] fentaNYL 10 mcg/mL Premix Drip 250 / 250 250 / 250 250 / 250 2,500 mcg In 250 ml @ 50 MCG/HR 5 mls/hr IV.SIG TITRATE PRN Rx #:[id number] Tube Feeding 247 / 247 388 / 388 Water Bolus Amount 200 / 200 600 / 600 Output: Urine 900 / 900 Urine Amount (Catheter) 3050 / 3050 Indwelling Urethral Catheter 3050 / 3050 Wound Drainage 950 / 950 625 / 625 Right Abdomen 950 / 950 625 / 625 Other: Date of Last Bowel Movement 10/06/17 10/06/17 # Bowel Movements 1 Result Diagrams: 10/06/17 10:35 10/06/17 14:24 Objective Remarks: General: This is a 62-year-old -[place] male currently intubated HEENT: Pupils are equal and reactive, muddy sclera, orally intubated, NG tube with some clear brown aspirate Neck: Supple, no rigidity, no JVD Chest: Orally intubated on mechanical ventilation, coarse breath sounds bilateral CVS: Regular, no murmurs appreciated Abd: Soft, appears nontender, protuberant Extremities: warm bilaterally, chronic lymphedema noted bilaterally lower extremity Neuro: Sedated, orally intubated on mechanical ventilation positive gag and cough. Positive corneal reflex. Spontaneously moves extremities x 4. withdraws. did not follow commands today. Assessment and Plan - Assessment and Plan Plan: Neurologic: EtOH use disorder fentanyl for sedation. Goal of RASS -2 Daily sedation vacation Monitor ammonia level Continue thiamine and folate Seizure precautions Respiratory: Acute hypoxic and hypercarbic respiratory failure PRVC ventilation Ventilator bundle Obtain O2 saturation greater than 92% Albuterol/ipratropium aerosols every 4 hours with albuterol aerosols every 2 hours as needed for dyspnea Continue CPAP trials as tolerated Cardiovascular: History of essential hypertension Maintain MAP greater than 65 Monitor CVP 09/27 echo- EF 40% small left pleural effusion Renal: Oliguria-resolved Maintain Sweet for adequate I &O Nephrology following-possible hepatorenal syndrome -- Strict I/Os spironolactone 25mg po daily. lasix drip now. FEN/GI: Upper GI bleed secondary to esophageal varices status post banding Decompensated liver cirrhosis Ascites Hyperammonemia GERD Anion gap metabolic acidosis-resolved Electrolyte derangement saline lock ivf. Continue pantoprazole 40 mg IV twice daily. Lactulose BID, continue rifaximin 550 twice daily 09/28- paracentesis by invasive radiology - 5L removed. 09/29-repeat EGD-revealed significant gastropathy, no active sites of bleeding increase tube feeds slowly. Heme/ID: Acute blood loss anemia Thrombocytopenia Coagulopathy Monitor CBC 10/01 Transfuse 2 u PRBC's Noted decreased liver synthetic function secondary to cirrhosis Hematology oncology ID following. Continue vancomycin and piperacillin/tazobactam per the recommendations Follow-up urine and blood cultures 09/28 sputum cultures- Staph Aureus 10/04 sputum culture: staph, sensitivities pending. Endocrine: Glucose monitoring per ICU protocol. Low-dose regimen MsK; Chronic lymphedema -- SSI Prophylaxis: GI Prophylaxis Pantoprazole DVT Prophylaxis -- SCDs Hold pharmacological DVT prophylaxis in the setting of thrombocytopenia, and active GI bleed Lines: must keep sweet today given recent hepato-renal syndrome.
--- NOTE | 2017-10-07 18:23 | P.PNONC ---
Subjective Interval history: Intubated and sedated. Objective Vital Signs/Intake & Output: Vital Signs 10/06/17 19:00 10/06/17 19:30 10/06/17 20:00 Temperature 98.5 F Pulse Rate 69 68 71 Respiratory Rate Blood Pressure 108/60 113/72 123/65 Pulse Oximetry 100 99 100 10/06/17 20:16 10/06/17 20:30 10/06/17 21:00 Temperature Pulse Rate 73 69 Respiratory Rate 16 Blood Pressure 138/72 112/63 Pulse Oximetry 100 90 L 100 10/06/17 21:30 10/06/17 22:00 10/06/17 22:31 Temperature Pulse Rate 67 85 71 Respiratory Rate Blood Pressure 112/62 160/91 H 104/57 L Pulse Oximetry 100 100 10/06/17 23:00 10/06/17 23:01 10/06/17 23:30 Temperature Pulse Rate 69 69 75 Respiratory Rate Blood Pressure 124/58 L 97/55 L Pulse Oximetry 100 100 100 10/07/17 00:00 10/07/17 00:01 10/07/17 00:05 Temperature Pulse Rate 94 H 89 Respiratory Rate 22 Blood Pressure 156/76 H Pulse Oximetry 98 22 L 100 10/07/17 00:30 10/07/17 01:00 10/07/17 01:30 Temperature Pulse Rate 74 67 73 Respiratory Rate Blood Pressure 93/51 L 100/60 118/64 Pulse Oximetry 100 100 100 10/07/17 02:00 10/07/17 02:30 10/07/17 03:00 Temperature Pulse Rate 68 67 71 Respiratory Rate Blood Pressure 115/61 110/61 119/66 Pulse Oximetry 98 100 100 10/07/17 03:30 10/07/17 04:00 10/07/17 04:30 Temperature Pulse Rate 64 64 66 Respiratory Rate 18 16 Blood Pressure 115/64 115/62 120/59 L Pulse Oximetry 100 98 100 10/07/17 07:26 10/07/17 08:00 10/07/17 09:00 Temperature 98.2 F Pulse Rate 70 66 Respiratory Rate 24 Blood Pressure 112/58 L Pulse Oximetry 100 100 10/07/17 11:00 10/07/17 11:15 10/07/17 12:00 Temperature 98.4 F Pulse Rate 67 Respiratory Rate 16 Blood Pressure 93/54 L 96/53 L Pulse Oximetry 99 97 10/07/17 16:00 Temperature 98.5 F Pulse Rate 73 Respiratory Rate 20 Blood Pressure 118/70 Pulse Oximetry 100 Intake & Output 10/06/17 10/07/17 10/07/17 18:59 06:59 18:59 Intake Total 1417 / 1417 1698 / 1698 2099 Output Total 1850 / 1850 3675 / 3675 Balance -433 / -433 -1976 / -1976 Weight 111.2 kg Intake: IV 970 / 970 710 / 710 920 / 920 Flexbumin 25% Inj 100 ML @ 60 100 / 100 100 / 100 100 / 100 mls/hr IV.SIG Q12H JANE Rx#: [id number] Precedex Inj 1,000 MCG In NS 520 / 520 260 / 260 520 / 520 Inj 250 ML @ 0.2 MCG/KG/HR 5.93 mls/hr IV.SIG TITRATE PRN Rx#: [id number] Zosyn 3.375 GM Premix 50 ML @ 100 / 100 100 / 100 50 / 50 100 mls/hr IV.SIG Q6H JANE Rx#: [id number] fentaNYL 10 mcg/mL Premix Drip 250 / 250 250 / 250 250 / 250 2,500 mcg In 250 ml @ 50 MCG/HR 5 mls/hr IV.SIG TITRATE PRN Rx #:[id number] Tube Feeding 247 / 247 388 / 388 780 / 780 Water Bolus Amount 200 / 200 600 / 600 400 / 400 Output: Urine 900 / 900 Urine Amount (Catheter) 3050 / 3050 Indwelling Urethral Catheter 3050 / 3050 Wound Drainage 950 / 950 625 / 625 Right Abdomen 950 / 950 625 / 625 Other: Date of Last Bowel Movement 10/06/17 10/06/17 10/06/17 # Bowel Movements 1 Result Diagrams: 10/06/17 10:35 10/06/17 14:24 Laboratory Results: Laboratory Results - last 24 hr 10/06/17 10/07/17 10/07/17 21:38 01:06 04:00 POC Glucose 181 H 132 H 165 H 10/07/17 10/07/17 07:59 15:27 POC Glucose 155 H 156 H Culture Results: Microbiology 10/04/17 04:10 Gram Stain - Final Sputum - Endotracheal Sputum Culture - Final Staphylococcus aureus Medications: Active Medications Generic Name Dose Route Start Last Admin Trade Name Freq PRN Reason Stop Dose Admin Folic Acid 1 mg 10/02/17 09:00 10/07/17 08:04 Folic Acid PO 1 mg DAILY JANE Administration Furosemide 40 mg 10/02/17 09:00 10/07/17 08:07 Lasix Inj IV.PUSH 40 mg BID@0900,1800 JANE Administration Haloperidol Lactate 1 mg 10/02/17 01:00 10/07/17 16:40 Haldol Inj IV.PUSH 1 mg Q15M PRN Administration for severe agitation Potassium Chloride 20 meq in 100 mls @ 50 mls/hr 10/02/17 00:01 10/05/17 19: 37 Kcl 20 Meq Premix Inj IV.SIG Infused UNSCH PRN Infusion ELECTROLYTE PROTOCOL Potassium Chloride 40 meq in 100 mls @ 25 mls/hr 10/02/17 00:01 10/05/17 10: 40 Kcl 40 Meq Premix Inj IV.SIG Infused UNSCH PRN Infusion ELECTROLYTE PROTOCOL Albumin Human 100 mls @ 60 mls/hr 10/02/17 06:00 10/07/17 17:25 Flexbumin 25% Inj IV.SIG 60 mls/hr Q12H JANE Administration Piperacillin/Tazobactam/Dextrose 50 mls @ 100 mls/hr 10/02/17 03:00 10/07/17 15:29 Zosyn 3.375 Gm Premix IV.SIG 100 mls/hr Q6H JANE Administration Vancomycin HCl 2,000 mg/ 520 mls @ 260 mls/hr 10/02/17 00:00 10/05/17 23:30 Sodium Chloride IV.SIG 250 mls/hr Q24H JANE Administration Dexmedetomidine HCl 1,000 mcg/ 260 mls @ 5.93 mls/hr 10/02/17 01:00 10/07/17 17:25 Sodium Chloride IV.SIG 1.5 mcg/kg/hr TITRATE PRN 44.49 mls/hr SEDATION Administration Protocol 0.2 MCG/KG/HR Fentanyl 2,500 mcg in 250 mls @ 5 mls/hr 10/02/17 01:00 10/07/17 08:22 Fentanyl 10 Mcg/Ml Premix Drip IV.SIG 250 mcg/hr TITRATE PRN 25 mls/hr Per Protocol Administration Protocol 50 MCG/HR Insulin Aspart 1 unit 10/02/17 00:00 10/07/17 15:28 Novolog Insulin Suppl Scale Inj SQ 1 unit Q4HR JANE Administration Protocol Lactulose 30 ml 10/02/17 01:00 10/04/17 20:39 Lactulose Liq PO 30 ml DAILY PRN Administration SEVERE CONSITIPATION Lactulose 30 ml 10/02/17 09:00 10/07/17 08:05 Lactulose Liq PO 30 ml BID JANE Administration Multivitamins/Minerals 1 tab 10/02/17 09:00 10/07/17 08:04 Theragran-M PO 1 tab DAILY JANE Administration Pantoprazole Sodium 40 mg 10/03/17 21:00 10/07/17 08:05 Protonix Inj IV.PUSH 40 mg Q12H JANE Administration Potassium Bicarb/Potassium Chloride 50 meq 10/02/17 00:01 10/02/17 08:21 K-Lyte PO 50 meq UNSCH PRN Administration ELECTROLYTE REPLACEMENT Potassium Bicarb/Potassium Chloride 25 meq 10/02/17 09:00 10/07/17 08:04 K-Lyte PO 25 meq Q12HR JANE Administration Rifaximin 550 mg 10/02/17 09:00 10/07/17 08:04 Xifaxan PO 550 mg BID JANE Administration Senna/Docusate Sodium 1 tab 10/02/17 09:00 10/07/17 08:04 Bri-Colace PO 1 tab BID JANE Administration Sterile Water 0 ml 10/06/17 18:00 10/07/17 15:30 Free Water G-TUBE 200 ml Q6HR JANE Administration Thiamine HCl 100 mg 10/02/17 09:00 10/07/17 08:05 Vitamin B1 PO 100 mg DAILY JANE Administration Objective Remarks: GENERAL: overweight man, intubated and sedated SKIN: Warm and dry. HEAD: Normocephalic. EYES: No injection or drainage. LYMPHATIC: No adenopathy. CARDIOVASCULAR: Regular rate and rhythm without murmurs. RESPIRATORY: Breath sounds equal bilaterally. No accessory muscle use. GASTROINTESTINAL: Abdomen soft, non-tender, nondistended. EXTREMITIES: bark like appearance to lower extremities MUSCULOSKELETAL: Adequate muscle tone. NEUROLOGICAL: No obvious focal deficit. Assessment/Plan - Plan Pancytopenia. Normal labs include folate, B12, viral hepatitis studies. Contributing factors include ETOH abuse causing direct bone marrow suppressions , medications, critical illness. Continue to follow counts. If does not improve once critical illness resolved will consider bone marrow biopsy. Platelet count approximately at baseline. Anemia: component of acute blood loss s/p transfusion of PRBC. Coagulopathy: due to known liver cirrhosis. Elevated ferritin: hemochromatosis panel pending. Also contributing is liver disease and acute illness as ferritin is an acute phase reactants
[2017-10-08] MEDS: Insulin NovoLOG Aspart Correctional Sugar Inj SQ SCH ×6 (00:09→20:50)
[2017-10-08] MEDS: Piperacil/Tazo 3.375 GM Premix 50 ML IV.SIG SCH ×4 (04:07→20:52)
[2017-10-08] MEDS: Oral Hygiene Kit OROPHARYNG SCH ×4 (04:08→15:07)
[2017-10-08] MEDS: Haloperidol Inj 5 MG/ML Ampul IV.PUSH PRN (04:09)
[2017-10-08] MEDS: Albumin Human 25% Inj 100 ML IV.SIG SCH ×2 (05:23→17:27)
[2017-10-08 06:17] LABS: Hematocrit 27.5 % (39.0-51.0); Hemoglobin 9.3 gm/dL (13.0-17.0); Mean Corpuscular HGB Conc 33.7 % (32.0-36.0); Mean Corpuscular Hemoglobin 33.7 pg (27.0-34.0); Mean Corpuscular Volume 100.1 fL (80.0-100.0); Mean Platelet Volume 10.6 fL (7.0-11.0); Platelet Count 62 th/mm3 (150-450); Red Blood Count 2.74 mil/mm3 (4.50-5.90); Red Cell Distribution Width 23.3 % (11.6-17.2); White Blood Count 5.5 th/mm3 (4.0-11.0)
[2017-10-08 06:38] LABS: Calcium 8.6 mg/dL (8.5-10.1); Carbon Dioxide 26.9 meq/L (21.0-32.0)
[2017-10-08] MEDS: fentaNYL 10 mcg/mL Premix Drip 2,500 MCG/250 ML BAG IV.SIG PRN ×2 (06:38→19:17)
[2017-10-08 06:40] LABS: Vancomycin,Random 16.6 Comment
[2017-10-08] MEDS: SODIUM CHLOR 0.9% IV.SIG PRN ×3 (08:17→23:21)
[2017-10-08] MEDS: DEXMEDETOMIDINE IV.SIG PRN ×3 (08:17→23:21)
[2017-10-08] MEDS: Pantoprazole Inj 40 MG Vial IV.PUSH SCH ×2 (08:19→20:51)
[2017-10-08] MEDS: rifAXIMin 550 MG Tablet PO SCH ×2 (08:19→20:51)
[2017-10-08] MEDS: Multivitamin/Minerals Therapeutic Tablet PO SCH (08:19)
[2017-10-08] MEDS: Folic Acid 1 MG Tablet PO SCH (08:19)
[2017-10-08] MEDS: Calcium Carbonate 500 MG Tablet PO SCH ×2 (08:19→20:51)
[2017-10-08] MEDS: Senna/Docusate Sodium 8.6/50 MG Tablet PO SCH ×2 (08:20→20:51)
[2017-10-08] MEDS: Potassium Chloride 25 MEQ Effervescent Tablet PO SCH ×2 (08:21→20:51)
[2017-10-08] MEDS: Potassium Chlor 20 mEq Premix 20 MEQ/100 ML PIGGYBACK IV.SIG PRN ×4 (10:41→17:24)
[2017-10-08] MEDS ORDERED: Vancomycin Inj 2,000 MG in Sodium Chlor 0.9% Inj 500 ML IV.SIG ONE (11:00)
--- NOTE | 2017-10-08 14:35 | P.PNCC ---
Subjective Subjective Remarks/Hospital Course: Remarks/Hospital Course This is a 63-year-old male who was brought in by EMS to the emergency room because of hematemesis about an hour prior to arrival. Reported at least 4 episodes of vomiting bright red blood amounting to about a gallon. Reportedly he was nauseous but denied dizziness, syncope, chest pain, shortness of breath and abdominal pain. He takes aspirin on a daily basis but no NSAIDs. No history of GI bleed. He has noted increasing abdominal girth. Has chronic bilateral lower extremity lymphedema denies history of heart failure or chronic kidney disease. In the emergency department, patient was noted to be tachycardic and received half a liter of IV fluid bolus. He was also started on Sandostatin and Protonix drip. Patient was evaluated by GI Dr. Crocker who performed EGD in the OR. Patient was intubated for endoscopy. He was found to have variceal bleeding underwent banding of esophageal varices. Following procedure patient was transferred to PACU. Critical care consult was requested by Dr. Crocker as patient was left intubated on mechanical ventilation. He was getting his second unit of PRBCs when I evaluated patient in PACU. 09/26: Patient remained intubated and sedated over the night. Still with bloody NG tube output however per nighttime RN has slowed down. Hemoglobin remains stable. T-max of 98.1, urine output of 1540ml since admission. 09/27: NG tube clamped, small amount of heme emanating on suction. The patient remains sedated and intubated ammonia level 186. Planned initiation of lactulose twice daily. Calcium being repleted. Patient noted to have hemoglobin level of 7.21 unit packed red blood cells and 1 unit of platelets being transfused this a.m.. Urinary output significantly decreased, overnight. Albumin 5% IV twice daily initiated. 09/28: Albumin/ Lasix medication administration, improve urine output, 1200 cc in the last 6 hrs. Paracentesis by via invasive radiology is pending. The patient received 1 unit of platelets this a.m. INR 1.7, with platelet count 46. The patient continues on octreotide and Protonix infusion no active signs of bleeding. Plan for EGD in a.m. per GI. 09/29: Late entry note. Patient seen at 3:15p.m.. No acute changes during the night. Hemoglobin stable. The patient remains on Sandostatin and Protonix infusions. Patient currently undergoing repeat EGD. Patient had elevated temperature earlier this afternoon 101.0, cooling packs/cooling blanket applied. Lactic acid decreasing. 09/30: The patient underwent EGD last evening, revealed esophagitis. The patient continues on Sandostatin Protonix infusions per GI recommendations. CPAP trials were initiated this morning the patient tolerated approximately 1 hour. The patient was transitioned to Precedex infusion for ventilator weaning process. Patient underwent ultrasound testing for quantification of pleural effusions minimal volume, no thoracentesis performed. 10/01: Patient remains on low-dose Precedex for ventilator weaning process. Patient lethargic today, fentanyl infusion has been discontinued. Patient noted to have a map in the 60s, hemoglobin is less than 8 patient will be transfused 2 units of packed red blood cells this afternoon. SUBJECTIVE: 10/03: Arousable and follows commands on dexmedetomidine and fentanyl drips. Continues to be on pantoprazole and octreotide drips. These will be discontinued today. We will start trickle feeds. Possible need paracentesis in a.m. 10/04: Remains sedated, orally intubated on mechanical ventilation. 10/05: no improvements. remains critically ill, on life-support. 10/06: remains critically ill without any meaningful improvements. net -3L/24h and significant losses from paracentesis fistula (3L of ascites fluid from prior site). remains hypokalemic. 10/07: on lasix drip this AM. still failing weaning attempts from mechanical ventilation. no improvements. 10/08: Remains on mechanical ventilation. Continues to drain ascitic fluid from previous paracentesis site. Objective Vital Signs / I&O: Vital Signs 10/07/17 15:00 10/07/17 15:30 10/07/17 16:00 Temperature 98.5 F Pulse Rate 78 73 75 Respiratory Rate 20 Blood Pressure 109/59 L 118/70 120/68 Pulse Oximetry 100 100 100 10/07/17 16:31 10/07/17 17:00 10/07/17 17:30 Temperature Pulse Rate 101 H 87 74 Respiratory Rate Blood Pressure 119/80 94/51 L 109/57 L Pulse Oximetry 100 100 10/07/17 18:00 10/07/17 18:30 10/07/17 19:00 Temperature Pulse Rate 71 71 67 Respiratory Rate Blood Pressure 104/55 L 103/62 107/58 L Pulse Oximetry 100 100 100 10/07/17 19:28 10/07/17 19:30 10/07/17 20:00 Temperature Pulse Rate 69 67 Respiratory Rate 16 Blood Pressure 116/66 111/60 Pulse Oximetry 100 100 100 10/07/17 20:30 10/07/17 21:00 10/07/17 21:30 Temperature Pulse Rate 68 69 72 Respiratory Rate Blood Pressure 118/64 116/64 113/61 Pulse Oximetry 100 100 100 10/07/17 22:00 10/07/17 22:10 10/07/17 22:30 Temperature Pulse Rate 77 88 Respiratory Rate 16 Blood Pressure 116/61 96/53 L Pulse Oximetry 100 100 100 10/07/17 23:00 10/07/17 23:01 10/07/17 23:30 Temperature Pulse Rate 72 73 73 Respiratory Rate Blood Pressure 114/57 L 100/69 Pulse Oximetry 100 100 100 10/08/17 00:00 10/08/17 00:01 10/08/17 00:30 Temperature Pulse Rate 78 77 68 Respiratory Rate Blood Pressure 130/68 111/63 Pulse Oximetry 100 100 100 10/08/17 01:00 10/08/17 01:20 10/08/17 01:30 Temperature Pulse Rate 75 72 Respiratory Rate 16 Blood Pressure 109/64 122/60 Pulse Oximetry 100 100 100 10/08/17 02:00 10/08/17 02:30 10/08/17 03:00 Temperature Pulse Rate 84 75 75 Respiratory Rate Blood Pressure 114/64 118/60 125/72 Pulse Oximetry 100 100 100 10/08/17 03:30 10/08/17 04:00 10/08/17 04:01 Temperature Pulse Rate 74 77 85 Respiratory Rate Blood Pressure 133/67 131/87 Pulse Oximetry 100 10/08/17 04:09 10/08/17 04:31 10/08/17 07:57 Temperature Pulse Rate 80 Respiratory Rate 18 19 Blood Pressure 111/59 L Pulse Oximetry 100 100 100 10/08/17 11:57 Temperature Pulse Rate Respiratory Rate 17 Blood Pressure Pulse Oximetry Intake & Output 10/07/17 10/08/17 10/08/17 18:59 06:59 18:59 Intake Total 2400 / 2400 1575 / 1575 410 / 410 Output Total 191 / 191 Balance 2400 / 2400 -335 / -335 410 / 410 Weight 108.8 kg Intake: IV 1220 / 1220 400 / 400 410 / 410 Flexbumin 25% Inj 100 ML @ 60 100 / 100 100 / 100 mls/hr IV.SIG Q12H JANE Rx#: [id number] Precedex Inj 1,000 MCG In NS 520 / 520 260 / 260 Inj 250 ML @ 0.2 MCG/KG/HR 5.93 mls/hr IV.SIG TITRATE PRN Rx#: [id number] Zosyn 3.375 GM Premix 50 ML @ 100 / 100 50 / 50 50 / 50 100 mls/hr IV.SIG Q6H JANE Rx#: [id number] KCl 20 mEq Premix Inj 20 meq In 100 / 100 100 ml @ 50 mls/hr IV.SIG UNSCH PRN Rx#:[id number] fentaNYL 10 mcg/mL Premix Drip 500 / 500 250 / 250 2,500 mcg In 250 ml @ 50 MCG/HR 5 mls/hr IV.SIG TITRATE PRN Rx #:[id number] Tube Feeding 780 / 780 575 / 575 Water Bolus Amount 400 / 400 600 / 600 Output: Urine Amount (Catheter) 760 / 760 Indwelling Urethral Catheter 760 / 760 Wound Drainage 1150 / 1150 Right Abdomen 1150 / 1150 Other: Date of Last Bowel Movement 10/06/17 10/08/17 10/08/17 Result Diagrams: 10/08/17 05:19 10/08/17 05:19 Objective Remarks: General: This is a 62-year-old -[place] male currently intubated HEENT: Pupils are equal and reactive, muddy sclera, orally intubated, NG tube with some clear brown aspirate Neck: Supple, no rigidity, no JVD Chest: Orally intubated on mechanical ventilation, coarse breath sounds bilateral CVS: Regular, no murmurs appreciated Abd: Soft, appears nontender, protuberant Extremities: warm bilaterally, chronic lymphedema noted bilaterally lower extremity Neuro: Sedated, orally intubated on mechanical ventilation positive gag and cough. Positive corneal reflex. Spontaneously moves extremities x 4. withdraws. did not follow commands today. Assessment and Plan - Assessment and Plan Plan: Neurologic: EtOH use disorder fentanyl for sedation. Goal of RASS -2 Daily sedation vacation Monitor ammonia level Continue thiamine and folate Seizure precautions Respiratory: Acute hypoxic and hypercarbic respiratory failure PRVC ventilation Ventilator bundle Obtain O2 saturation greater than 92% Albuterol/ipratropium aerosols every 4 hours with albuterol aerosols every 2 hours as needed for dyspnea Continue CPAP trials as tolerated Cardiovascular: History of essential hypertension Maintain MAP greater than 65 Monitor CVP 09/27 echo- EF 40% small left pleural effusion Renal: Oliguria-resolved Maintain Sweet for adequate I &O Nephrology following-possible hepatorenal syndrome -- Strict I/Os spironolactone 25mg po daily. lasix drip now. FEN/GI: Upper GI bleed secondary to esophageal varices status post banding Decompensated liver cirrhosis Ascites Hyperammonemia GERD Anion gap metabolic acidosis-resolved Electrolyte derangement saline lock ivf. Continue pantoprazole 40 mg IV twice daily. Lactulose BID, continue rifaximin 550 twice daily 09/28- paracentesis by invasive radiology - 5L removed. 09/29-repeat EGD-revealed significant gastropathy, no active sites of bleeding increase tube feeds slowly. Heme/ID: Acute blood loss anemia Thrombocytopenia Coagulopathy Monitor CBC 10/01 Transfuse 2 u PRBC's Noted decreased liver synthetic function secondary to cirrhosis Hematology oncology ID following. Continue vancomycin and piperacillin/tazobactam per the recommendations Follow-up urine and blood cultures 09/28 sputum cultures- Staph Aureus 10/04 sputum culture: staph, sensitivities pending. Endocrine: Glucose monitoring per ICU protocol. Low-dose regimen MsK; Chronic lymphedema -- SSI Prophylaxis: GI Prophylaxis Pantoprazole DVT Prophylaxis -- SCDs Hold pharmacological DVT prophylaxis in the setting of thrombocytopenia, and active GI bleed Lines: must keep sweet given recent hepato-renal syndrome. Condition critical. Time spent on critical care excluding procedures 30 minutes
[2017-10-09] MEDS: Oral Hygiene Kit OROPHARYNG SCH ×4 (00:32→15:42)
[2017-10-09] MEDS: Insulin NovoLOG Aspart Correctional Sugar Inj SQ SCH ×6 (00:33→20:33)
[2017-10-09] MEDS: Haloperidol Inj 5 MG/ML Ampul IV.PUSH PRN (00:45)
[2017-10-09] MEDS: Potassium Chlor 20 mEq Premix 20 MEQ/100 ML PIGGYBACK IV.SIG PRN ×4 (02:00→08:45)
[2017-10-09] MEDS: Piperacil/Tazo 3.375 GM Premix 50 ML IV.SIG SCH ×4 (02:49→20:35)
[2017-10-09 05:46] LABS: Hematocrit 27.2 % (39.0-51.0); Hemoglobin 9.1 gm/dL (13.0-17.0); Mean Corpuscular HGB Conc 33.6 % (32.0-36.0); Mean Corpuscular Hemoglobin 33.7 pg (27.0-34.0); Mean Corpuscular Volume 100.2 fL (80.0-100.0); Mean Platelet Volume 10.2 fL (7.0-11.0); Platelet Count 54 th/mm3 (150-450); Red Blood Count 2.72 mil/mm3 (4.50-5.90); Red Cell Distribution Width 23.2 % (11.6-17.2)
[2017-10-09 06:10] LABS: Calcium 8.6 mg/dL (8.5-10.1); Carbon Dioxide 27.7 meq/L (21.0-32.0); Potassium 3.3 meq/L (3.5-5.1)
[2017-10-09] MEDS: Albumin Human 25% Inj 100 ML IV.SIG SCH (06:33)
--- NOTE | 2017-10-09 08:03 | P.PNCC ---
Subjective Subjective Remarks/Hospital Course: Remarks/Hospital Course This is a 63-year-old male who was brought in by EMS to the emergency room because of hematemesis about an hour prior to arrival. Reported at least 4 episodes of vomiting bright red blood amounting to about a gallon. Reportedly he was nauseous but denied dizziness, syncope, chest pain, shortness of breath and abdominal pain. He takes aspirin on a daily basis but no NSAIDs. No history of GI bleed. He has noted increasing abdominal girth. Has chronic bilateral lower extremity lymphedema denies history of heart failure or chronic kidney disease. In the emergency department, patient was noted to be tachycardic and received half a liter of IV fluid bolus. He was also started on Sandostatin and Protonix drip. Patient was evaluated by GI Dr. Crocker who performed EGD in the OR. Patient was intubated for endoscopy. He was found to have variceal bleeding underwent banding of esophageal varices. Following procedure patient was transferred to PACU. Critical care consult was requested by Dr. Crocker as patient was left intubated on mechanical ventilation. He was getting his second unit of PRBCs when I evaluated patient in PACU. 09/26: Patient remained intubated and sedated over the night. Still with bloody NG tube output however per nighttime RN has slowed down. Hemoglobin remains stable. T-max of 98.1, urine output of 1540ml since admission. 09/27: NG tube clamped, small amount of heme emanating on suction. The patient remains sedated and intubated ammonia level 186. Planned initiation of lactulose twice daily. Calcium being repleted. Patient noted to have hemoglobin level of 7.21 unit packed red blood cells and 1 unit of platelets being transfused this a.m.. Urinary output significantly decreased, overnight. Albumin 5% IV twice daily initiated. 09/28: Albumin/ Lasix medication administration, improve urine output, 1200 cc in the last 6 hrs. Paracentesis by via invasive radiology is pending. The patient received 1 unit of platelets this a.m. INR 1.7, with platelet count 46. The patient continues on octreotide and Protonix infusion no active signs of bleeding. Plan for EGD in a.m. per GI. 09/29: Late entry note. Patient seen at 3:15p.m.. No acute changes during the night. Hemoglobin stable. The patient remains on Sandostatin and Protonix infusions. Patient currently undergoing repeat EGD. Patient had elevated temperature earlier this afternoon 101.0, cooling packs/cooling blanket applied. Lactic acid decreasing. 09/30: The patient underwent EGD last evening, revealed esophagitis. The patient continues on Sandostatin Protonix infusions per GI recommendations. CPAP trials were initiated this morning the patient tolerated approximately 1 hour. The patient was transitioned to Precedex infusion for ventilator weaning process. Patient underwent ultrasound testing for quantification of pleural effusions minimal volume, no thoracentesis performed. 10/01: Patient remains on low-dose Precedex for ventilator weaning process. Patient lethargic today, fentanyl infusion has been discontinued. Patient noted to have a map in the 60s, hemoglobin is less than 8 patient will be transfused 2 units of packed red blood cells this afternoon. SUBJECTIVE: 7: Arousable and follows commands on dexmedetomidine and fentanyl drips. Continues to be on pantoprazole and octreotide drips. These will be discontinued today. We will start trickle feeds. Possible need paracentesis in a.m. 10/04: Remains sedated, orally intubated on mechanical ventilation. 10/05: no improvements. remains critically ill, on life-support. 10/06: remains critically ill without any meaningful improvements. net -3L/24h and significant losses from paracentesis fistula (3L of ascites fluid from prior site). remains hypokalemic. 10/07: on lasix drip this AM. still failing weaning attempts from mechanical ventilation. no improvements. 10/08: Remains on mechanical ventilation. Continues to drain ascitic fluid from previous paracentesis site. 10/09: Self extubated this morning. Drowsy, easily arousable. Following commands. Transition to nasal cannula this morning. Continues to have cyclic fluid leak from previous paracentesis site where an ostomy bag has been placed. Was tolerating tube feeds however held this morning following self extubation Objective Vital Signs / I&O: Vital Signs 10/08/17 08:00 10/08/17 09:00 10/08/17 11:57 Temperature 99.1 F Pulse Rate 75 71 Respiratory Rate 19 17 Blood Pressure 123/82 Pulse Oximetry 100 10/08/17 12:00 10/08/17 16:00 10/08/17 16:05 Temperature 98.8 F 98.7 F Pulse Rate 80 71 Respiratory Rate 20 16 16 Blood Pressure 99/64 L 110/62 Pulse Oximetry 98 98 100 10/08/17 19:25 10/08/17 20:00 10/09/17 00:00 Temperature 98.8 F 98.7 F Pulse Rate 79 79 Respiratory Rate 16 16 16 Blood Pressure 106/52 L 139/63 Pulse Oximetry 98 100 100 10/09/17 00:17 10/09/17 03:25 10/09/17 04:00 Temperature 98.8 F Pulse Rate 89 Respiratory Rate 16 20 Blood Pressure 98/49 L Pulse Oximetry 100 96 100 Intake & Output 10/08/17 10/09/17 10/09/17 18:59 06:59 18:59 Intake Total 2130 / 2130 2650 / 2650 Output Total 3350 / 3350 2700 / 2700 Balance -1220 / -1220 -50 / -50 Weight 107 kg Intake: IV 1270 / 1270 1850 / 1850 Flexbumin 25% Inj 100 ML @ 60 100 / 100 100 / 100 mls/hr IV.SIG Q12H JANE Rx#: [id number] Precedex Inj 1,000 MCG In NS 520 / 520 260 / 260 Inj 250 ML @ 0.2 MCG/KG/HR 5.93 mls/hr IV.SIG TITRATE PRN Rx#: [id number] Zosyn 3.375 GM Premix 50 ML @ 100 / 100 150 / 150 100 mls/hr IV.SIG Q6H JANE Rx#: [id number] KCl 20 mEq Premix Inj 20 meq In 300 / 300 300 / 300 100 ml @ 50 mls/hr IV.SIG UNSCH PRN Rx#:[id number] Vancomycin Inj 2,000 MG In NS 1040 / 1040 Inj 500 ML @ 250 mls/hr IV.SIG ONCE ONE Rx#:[id number] fentaNYL 10 mcg/mL Premix Drip 250 / 250 2,500 mcg In 250 ml @ 50 MCG/HR 5 mls/hr IV.SIG TITRATE PRN Rx #:[id number] Oral 0 / 0 0 / 0 Tube Feeding 460 / 460 400 / 400 Water Bolus Amount 400 / 400 400 / 400 Output: Urine Amount (Catheter) 2700 / 2700 1999 Indwelling Urethral Catheter 2700 / 2699 Wound Drainage 650 / 650 700 / 700 Right Abdomen 650 / 650 700 / 700 Other: Date of Last Bowel Movement 10/08/17 10/08/17 # Bowel Movements 1 Result Diagrams: 10/09/17 05:15 10/09/17 05:15 Objective Remarks: General: This is a 62-year-old -[place] male laying in bed not in any acute distress on nasal cannula HEENT: Pupils are equal and reactive, muddy sclera, orally intubated, NG tube with some clear brown aspirate Neck: Supple, no rigidity, no JVD Chest: Air entry decreased bilaterally at bases, no wheezing., coarse breath sounds bilaterally CVS: Regular, no murmurs appreciated Abd: Soft, appears nontender, protuberant Extremities: warm bilaterally, chronic lymphedema noted bilaterally lower extremity Neuro: Drowsy, easily arousable, following commands. Spontaneously moves extremities x 4. Assessment and Plan - Assessment and Plan Plan: Neurologic: EtOH use disorder fentanyl for sedation. Goal of RASS -2 Daily sedation vacation Monitor ammonia level Continue thiamine and folate Seizure precautions Respiratory: Acute hypoxic and hypercarbic respiratory failure PRVC ventilation Ventilator bundle Obtain O2 saturation greater than 92% Albuterol/ipratropium aerosols every 4 hours with albuterol aerosols every 2 hours as needed for dyspnea Continue CPAP trials as tolerated Cardiovascular: History of essential hypertension Maintain MAP greater than 65 Monitor CVP 09/27 echo- EF 40% small left pleural effusion Renal: Oliguria-resolved Maintain Sweet for adequate I &O Nephrology following-possible hepatorenal syndrome -- Strict I/Os spironolactone 25mg po daily. lasix drip now. FEN/GI: Upper GI bleed secondary to esophageal varices status post banding Decompensated liver cirrhosis Ascites Hyperammonemia GERD Anion gap metabolic acidosis-resolved Electrolyte derangement saline lock ivf. Continue pantoprazole 40 mg IV twice daily. Lactulose BID, continue rifaximin 550 twice daily 09/28- paracentesis by invasive radiology - 5L removed. 09/29-repeat EGD-revealed significant gastropathy, no active sites of bleeding increase tube feeds slowly. Heme/ID: Acute blood loss anemia Thrombocytopenia Coagulopathy Monitor CBC 10/01 Transfuse 2 u PRBC's Noted decreased liver synthetic function secondary to cirrhosis Hematology oncology ID following. Continue vancomycin and piperacillin/tazobactam per the recommendations Follow-up urine and blood cultures 09/28 sputum cultures- Staph Aureus 7/3 sputum culture: staph, sensitivities pending. Endocrine: Glucose monitoring per ICU protocol. Low-dose regimen MsK; Chronic lymphedema -- SSI Prophylaxis: GI Prophylaxis Pantoprazole DVT Prophylaxis -- SCDs Hold pharmacological DVT prophylaxis in the setting of thrombocytopenia, and active GI bleed Lines: must keep sweet given recent hepato-renal syndrome. Condition critical. Time spent on critical care excluding procedures 30 minutes
[2017-10-09] MEDS: rifAXIMin 550 MG Tablet PO SCH ×2 (08:22→20:34)
[2017-10-09] MEDS: Calcium Carbonate 500 MG Tablet PO SCH ×2 (08:22→20:33)
[2017-10-09] MEDS: Pantoprazole Inj 40 MG Vial IV.PUSH SCH ×2 (08:22→20:34)
[2017-10-09] MEDS: Potassium Chloride 25 MEQ Effervescent Tablet PO SCH ×2 (08:24→20:33)
[2017-10-09] MEDS: Folic Acid 1 MG Tablet PO SCH (08:24)
[2017-10-09] MEDS: Senna/Docusate Sodium 8.6/50 MG Tablet PO SCH ×2 (08:24→20:34)
[2017-10-09] MEDS: Multivitamin/Minerals Therapeutic Tablet PO SCH (08:24)
[2017-10-10] MEDS: Insulin NovoLOG Aspart Correctional Sugar Inj SQ SCH ×6 (00:19→21:07)
[2017-10-10] MEDS: Oral Hygiene Kit OROPHARYNG SCH ×4 (00:19→16:34)
[2017-10-10] MEDS: Piperacil/Tazo 3.375 GM Premix 50 ML IV.SIG SCH ×2 (04:18→08:56)
[2017-10-10 07:18] LABS: Calcium 8.5 mg/dL (8.5-10.1); Carbon Dioxide 28.7 meq/L (21.0-32.0); Potassium 3.3 meq/L (3.5-5.1)
[2017-10-10 07:19] LABS: Vancomycin,Random 12.7 Comment
[2017-10-10 07:20] LABS: Hematocrit 27.3 % (39.0-51.0); Hemoglobin 9.2 gm/dL (13.0-17.0); Mean Corpuscular HGB Conc 33.8 % (32.0-36.0); Mean Corpuscular Hemoglobin 34.1 pg (27.0-34.0); Mean Corpuscular Volume 100.9 fL (80.0-100.0); Mean Platelet Volume 10.5 fL (7.0-11.0); Platelet Count 68 th/mm3 (150-450); Red Blood Count 2.71 mil/mm3 (4.50-5.90); Red Cell Distribution Width 23.3 % (11.6-17.2); White Blood Count 6.7 th/mm3 (4.0-11.0)
[2017-10-10] MEDS: rifAXIMin 550 MG Tablet PO SCH ×2 (08:55→22:37)
[2017-10-10] MEDS: Folic Acid 1 MG Tablet PO SCH (08:55)
[2017-10-10] MEDS: Senna/Docusate Sodium 8.6/50 MG Tablet PO SCH ×2 (08:56→22:37)
[2017-10-10] MEDS: Pantoprazole Inj 40 MG Vial IV.PUSH SCH ×2 (08:56→22:40)
[2017-10-10] MEDS: Potassium Chloride 25 MEQ Effervescent Tablet PO SCH ×2 (08:56→22:36)
[2017-10-10] MEDS: Calcium Carbonate 500 MG Tablet PO SCH ×2 (08:56→22:37)
[2017-10-10] MEDS: Multivitamin/Minerals Therapeutic Tablet PO SCH (08:56)
--- NOTE | 2017-10-10 10:10 | P.PNCC ---
Subjective Subjective Remarks/Hospital Course: Remarks/Hospital Course This is a 63-year-old male who was brought in by EMS to the emergency room because of hematemesis about an hour prior to arrival. Reported at least 4 episodes of vomiting bright red blood amounting to about a gallon. Reportedly he was nauseous but denied dizziness, syncope, chest pain, shortness of breath and abdominal pain. He takes aspirin on a daily basis but no NSAIDs. No history of GI bleed. He has noted increasing abdominal girth. Has chronic bilateral lower extremity lymphedema denies history of heart failure or chronic kidney disease. In the emergency department, patient was noted to be tachycardic and received half a liter of IV fluid bolus. He was also started on Sandostatin and Protonix drip. Patient was evaluated by GI Dr. Crocker who performed EGD in the OR. Patient was intubated for endoscopy. He was found to have variceal bleeding underwent banding of esophageal varices. Following procedure patient was transferred to PACU. Critical care consult was requested by Dr. Crocker as patient was left intubated on mechanical ventilation. He was getting his second unit of PRBCs when I evaluated patient in PACU. 09/26: Patient remained intubated and sedated over the night. Still with bloody NG tube output however per nighttime RN has slowed down. Hemoglobin remains stable. T-max of 98.1, urine output of 1540ml since admission. 09/27: NG tube clamped, small amount of heme emanating on suction. The patient remains sedated and intubated ammonia level 186. Planned initiation of lactulose twice daily. Calcium being repleted. Patient noted to have hemoglobin level of 7.21 unit packed red blood cells and 1 unit of platelets being transfused this a.m.. Urinary output significantly decreased, overnight. Albumin 5% IV twice daily initiated. 09/28: Albumin/ Lasix medication administration, improve urine output, 1200 cc in the last 6 hrs. Paracentesis by via invasive radiology is pending. The patient received 1 unit of platelets this a.m. INR 1.7, with platelet count 46. The patient continues on octreotide and Protonix infusion no active signs of bleeding. Plan for EGD in a.m. per GI. 09/29: Late entry note. Patient seen at 3:15p.m.. No acute changes during the night. Hemoglobin stable. The patient remains on Sandostatin and Protonix infusions. Patient currently undergoing repeat EGD. Patient had elevated temperature earlier this afternoon 101.0, cooling packs/cooling blanket applied. Lactic acid decreasing. 09/30: The patient underwent EGD last evening, revealed esophagitis. The patient continues on Sandostatin Protonix infusions per GI recommendations. CPAP trials were initiated this morning the patient tolerated approximately 1 hour. The patient was transitioned to Precedex infusion for ventilator weaning process. Patient underwent ultrasound testing for quantification of pleural effusions minimal volume, no thoracentesis performed. 10/01: Patient remains on low-dose Precedex for ventilator weaning process. Patient lethargic today, fentanyl infusion has been discontinued. Patient noted to have a map in the 60s, hemoglobin is less than 8 patient will be transfused 2 units of packed red blood cells this afternoon. SUBJECTIVE: 10/03: Arousable and follows commands on dexmedetomidine and fentanyl drips. Continues to be on pantoprazole and octreotide drips. These will be discontinued today. We will start trickle feeds. Possible need paracentesis in a.m. 10/04: Remains sedated, orally intubated on mechanical ventilation. 10/05: no improvements. remains critically ill, on life-support. 10/06: remains critically ill without any meaningful improvements. net -3L/24h and significant losses from paracentesis fistula (3L of ascites fluid from prior site). remains hypokalemic. 10/07: on lasix drip this AM. still failing weaning attempts from mechanical ventilation. no improvements. 10/08: Remains on mechanical ventilation. Continues to drain ascitic fluid from previous paracentesis site. 10/09: Self extubated this morning. Drowsy, easily arousable. Following commands. Transition to nasal cannula this morning. Continues to have ascitic fluid leak from previous paracentesis site where an ostomy bag has been placed. Was tolerating tube feeds however held this morning following self extubation 10/10: Drowsy, easily arousable. Following commands. Tolerating tube feeds. Remains on nasal cannula. Objective Vital Signs / I&O: Vital Signs 10/09/17 12:00 10/09/17 16:00 10/09/17 19:44 Temperature 98.4 F 98.4 F Pulse Rate 96 H 96 H Respiratory Rate 16 20 Blood Pressure 127/70 134/66 Pulse Oximetry 100 100 100 10/09/17 20:00 10/10/17 00:00 10/10/17 04:00 Temperature 98.9 F 99.1 F 98.9 F Pulse Rate 106 H 105 H 108 H Respiratory Rate 20 20 20 Blood Pressure 137/67 137/64 151/70 H Pulse Oximetry 100 100 100 10/10/17 07:31 Temperature Pulse Rate Respiratory Rate Blood Pressure Pulse Oximetry 100 Intake & Output 10/09/17 10/10/17 10/10/17 18:59 06:59 18:59 Intake Total 1100 / 1100 1050 / 1050 Output Total 1500 / 1500 3500 / 3500 Balance -400 / -400 -2450 / -2450 Weight 100.2 kg Intake: IV 250 / 250 250 / 250 Zosyn 3.375 GM Premix 50 ML @ 50 / 50 150 / 150 100 mls/hr IV.SIG Q6H JANE Rx#: [id number] KCl 20 mEq Premix Inj 20 meq In 200 / 200 100 ml @ 50 mls/hr IV.SIG UNSCH PRN Rx#:[id number] Oral 0 / 0 0 / 0 Tube Feeding 450 / 450 400 / 400 Water Bolus Amount 400 / 400 400 / 400 Output: Stool 0 / 0 0 / 0 Urine Amount (Catheter) 650 / 650 3000 / 3000 Indwelling Urethral Catheter 650 / 650 3000 / 3000 Wound Drainage 850 / 850 500 / 500 Right Abdomen 850 / 850 500 / 500 Other: Date of Last Bowel Movement 10/08/17 10/08/17 # Bowel Movements 0 0 Result Diagrams: 10/10/17 05:20 10/10/17 05:20 Objective Remarks: General: This is a 62-year-old -[place] male laying in bed not in any acute distress on nasal cannula HEENT: Pupils are equal and reactive, muddy sclera, orally intubated, NG tube with some clear brown aspirate Neck: Supple, no rigidity, no JVD Chest: Air entry decreased bilaterally at bases, no wheezing., coarse breath sounds bilaterally CVS: Regular, no murmurs appreciated Abd: Soft, appears nontender, protuberant Extremities: warm bilaterally, chronic lymphedema noted bilaterally lower extremity Neuro: Drowsy, easily arousable, following commands. Spontaneously moves extremities x 4. Assessment and Plan - Assessment and Plan Plan: Neurologic: EtOH use disorder fentanyl for sedation. Goal of RASS -2 Daily sedation vacation Monitor ammonia level Continue thiamine and folate Seizure precautions Respiratory: Acute hypoxic and hypercarbic respiratory failure PRVC ventilation Ventilator bundle Obtain O2 saturation greater than 92% Albuterol/ipratropium aerosols every 4 hours with albuterol aerosols every 2 hours as needed for dyspnea Continue CPAP trials as tolerated Cardiovascular: History of essential hypertension Maintain MAP greater than 65 Monitor CVP 09/27 echo- EF 40% small left pleural effusion Renal: Oliguria-resolved Maintain Sweet for adequate I &O Nephrology following-possible hepatorenal syndrome -- Strict I/Os spironolactone 25mg po daily. lasix drip now. FEN/GI: Upper GI bleed secondary to esophageal varices status post banding Decompensated liver cirrhosis Ascites Hyperammonemia GERD Anion gap metabolic acidosis-resolved Electrolyte derangement saline lock ivf. Continue pantoprazole 40 mg IV twice daily. Lactulose BID, continue rifaximin 550 twice daily 09/28- paracentesis by invasive radiology - 5L removed. 09/29-repeat EGD-revealed significant gastropathy, no active sites of bleeding increase tube feeds slowly. Heme/ID: Acute blood loss anemia Thrombocytopenia Coagulopathy Monitor CBC 10/01 Transfuse 2 u PRBC's Noted decreased liver synthetic function secondary to cirrhosis Hematology oncology ID following. Continue vancomycin and piperacillin/tazobactam per the recommendations Follow-up urine and blood cultures 09/28 sputum cultures- Staph Aureus 10/04 sputum culture: staph Endocrine: Glucose monitoring per ICU protocol. Low-dose regimen MsK; Chronic lymphedema -- SSI Prophylaxis: GI Prophylaxis Pantoprazole DVT Prophylaxis -- SCDs Hold pharmacological DVT prophylaxis in the setting of thrombocytopenia, and active GI bleed Lines: must keep sweet given recent hepato-renal syndrome. Consult and transfer to hospitalist service for further medical management.
[2017-10-10] MEDS ORDERED: Vancomycin Inj 1,750 MG in Sodium Chlor 0.9% Inj 500 ML IV.SIG SCH (12:00)
--- NOTE | 2017-10-10 12:51 | P.PNID ---
Subjective Remarks: Mr. Ramirez is a 62-year-old -[place] male who was brought into the ED by EMS because of hematemesis approximately an hour prior to arrival. Reportedly had at least 4 episodes of vomiting bright red blood amounting to about a gallon. Reportedly he was nauseous but denied patient has noted increased abdominal girth. He also appears that the patient has chronic bilateral lower extremity lymphedema. No reported history of heart failure kidney disease. In the emergency department patient was noted to be tachycardic received half a liter fluid bolus. He was started on Sandostatin and Protonix drip. Patient was evaluated by GI and has undergone on 2 endoscopies at this point by Dr. Dallas as well as Dr. Medina. It appears that the patient's esophageal varices were banded. He also was noted to have a hiatal hernia. Due to large volume hematemesis patient was electively intubated. Patient has received several units of blood products at this time. At the time of my evaluation patient is in the ICU currently not on any vasopressors. Remains intubated. Does not respond to any verbal commands. Urine output okay. Infectious disease is consulted for evaluation and management of new fevers of 101.5. Upon discussion with the nurse it appears that he has some mendoza colored secretions. He does have a Mendieta catheter in place. Overnight events reviewed No fevers No rash Self extubated. Responds to simple commands. Moves all 4 extremities on command and spontaneously. Noted code status is now DNR. Ascitic fluid drainage noted. Antibiotics: Zosyn IV Vanco IV Lines: Lines ok Past Medical History: Past Medical History Bilateral lower extremity lymphedema Anxiety History of pneumonia According to the record hypothyroidism Hypertension GERD according to the record Noncompliant with medical therapy Past Surgical History [place] teeth extracted in 1973 tonsillectomy 1960 Allergies/Adverse Reactions: Allergies No Known Allergies Adverse Reaction (Unknown, Uncoded 07/03/17 19:09) Objective Vital Signs 10/09/17 16:00 10/09/17 19:44 10/09/17 20:00 Temperature 98.4 F 98.9 F Pulse Rate 96 H 106 H Respiratory Rate 20 20 Blood Pressure 134/66 137/67 Pulse Oximetry 100 100 100 10/10/17 00:00 10/10/17 04:00 10/10/17 07:31 Temperature 99.1 F 98.9 F Pulse Rate 105 H 108 H Respiratory Rate 20 20 Blood Pressure 137/64 151/70 H Pulse Oximetry 100 100 100 Intake & Output 10/09/17 10/10/17 10/10/17 18:59 06:59 18:59 Intake Total 1100 / 1100 1050 / 1050 Output Total 1500 / 1500 3500 / 3500 Balance -400 / -400 -2450 / -2450 Weight 100.2 kg Intake: IV 250 / 250 250 / 250 Zosyn 3.375 GM Premix 50 ML @ 50 / 50 150 / 150 100 mls/hr IV.SIG Q6H JANE Rx#: [id number] KCl 20 mEq Premix Inj 20 meq In 200 / 200 100 ml @ 50 mls/hr IV.SIG UNSCH PRN Rx#:[id number] Oral 0 / 0 0 / 0 Tube Feeding 450 / 450 400 / 400 Water Bolus Amount 400 / 400 400 / 400 Output: Stool 0 / 0 0 / 0 Urine Amount (Catheter) 650 / 650 3000 / 3000 Indwelling Urethral Catheter 650 / 650 3000 / 3000 Wound Drainage 850 / 850 500 / 500 Right Abdomen 850 / 850 500 / 500 Other: Date of Last Bowel Movement 10/08/17 10/08/17 # Bowel Movements 0 0 Lab - Hematology Results 10/09/17 10/10/17 05:15 05:20 WBC 6.0 6.7 RBC 2.72 L 2.71 L Hgb 9.1 L 9.2 L Hct 27.2 L 27.3 L MCV 100.2 H 100.9 H MCH 33.7 34.1 H MCHC 33.6 33.8 RDW 23.2 H 23.3 H Plt Count 54 L 68 L MPV 10.2 10.5 Lab - Chemistry Results 10/08/17 10/08/17 10/08/17 12:52 15:13 20:41 Sodium Potassium Chloride Carbon Dioxide Anion Gap BUN Creatinine Estimated GFR POC Glucose 142 H 143 H 213 H Random Glucose Calcium 10/09/17 10/09/17 10/09/17 00:24 00:55 04:26 Sodium Potassium 3.0 L Chloride Carbon Dioxide Anion Gap BUN Creatinine Estimated GFR POC Glucose 183 H 227 H Random Glucose Calcium 10/09/17 10/09/17 10/09/17 05:15 07:51 11:54 Sodium 149 H Potassium 3.3 L Chloride 113 H Carbon Dioxide 27.7 Anion Gap 8 BUN 16 Creatinine 1.19 Estimated GFR 75 L POC Glucose 180 H 151 H Random Glucose 211 H Calcium 8.6 10/09/17 10/09/17 10/09/17 15:33 16:27 20:06 Sodium Potassium 3.6 Chloride Carbon Dioxide Anion Gap BUN Creatinine Estimated GFR POC Glucose 170 H 186 H Random Glucose Calcium 10/09/17 10/10/17 10/10/17 23:55 04:11 05:20 Sodium 148 H Potassium 3.3 L Chloride 112 H Carbon Dioxide 28.7 Anion Gap 7 BUN 16 Creatinine 1.12 Estimated GFR 81 L POC Glucose 188 H 174 H Random Glucose 167 H Calcium 8.5 10/10/17 10/10/17 09:00 11:34 Sodium Potassium Chloride Carbon Dioxide Anion Gap BUN Creatinine Estimated GFR POC Glucose 177 H 178 H Random Glucose Calcium Imaging: ITS Impressions Chest X-Ray 10/06/17 13:31 CONCLUSION: 1. Increasing parenchymal/pleural consolidation in the right lower lung. 2. Stable infiltrate in the left lung base. 3. No evidence of pneumothorax. Physical Exam: GENERAL: Chronically ill appearing AAM patient, in no apparent distress. SKIN: No rashes. HEAD: Atraumatic. Normocephalic. No temporal or scalp tenderness. EYES: Pupils equal round and reactive. No injection or drainage. ENT: NAD NECK: Trachea midline. Supple, nontender, no meningeal signs. CARDIOVASCULAR: Murmur audible. RESPIRATORY: AE decreased in bases. GASTROINTESTINAL: Abdomen soft, distended. Diffuse tenderness. No guarding or rigidity. MUSCULOSKELETAL: Bilateral LE lymphedema with tree bark appearance. No warmth. No tenderness. NEUROLOGICAL: No spontaneous eye opening. Psych could not be assessed IV line sites ok. Assessment and Plan - Plan Assessment & Plan Remarks Sepsis Pneumonia (aspiration on admission given GI bleed now ? HCAP) Right side effusion rule out empyema. Acute resp failure: on vent Staph in sputum (MSSA pneumonia earlier) Bilateral LE lymphedema Pancytopenia: sepsis. Anemia: GI bleed on admission s.p transfusions. Recs DC Zosyn IV DC Vanco IV (target 15-20) Start Ceftriaxone IV Repeat CXR today. prachi VAZQUEZ MD Follow cultures. follow clinically.
--- NOTE | 2017-10-10 13:48 | XR ---
EXAM DATE: 10/10/2017 1:36 PM EDT AGE/SEX: 62 years / Male INDICATIONS: Shortness of breath. CLINICAL DATA: This is the patient's initial encounter. Patient reports that signs and symptoms have been present for 4 - 6 days and indicates a pain score of 0/10. MEDICAL/SURGICAL HISTORY: Diabetes. Cardiovascular disease. None. COMPARISON: [facility] – [place], CHEST 1V SINGLE AP, 10/06/2017. . FINDINGS: Nasogastric tube across the GE junction. Cardiac silhouette is prominent. Bibasilar parenchymal thomas es are evident worse on the right. Minimal air bronchograms right base that have progressed in the in terval. Probable small right pleural effusion. CONCLUSION: Cardiomegaly with moderate congestive failure Increasing bibasilar parenchymal changes worse on the right. Electronically signed by: Ottoniel Keenan MD 10/10/2017 1:47 PM EDT
--- NOTE | 2017-10-10 15:31 | P.PNPAL ---
Reason for Visit Reason for visit: a. To assist with evaluation and management of symptoms including:shortness of breath, nausea/vomiting b. To assist medical decision maker(s) with: better understanding of current medical conditions; weighing benefits/burdens of medical treatment options; making medical treatment decisions. Subjective Subjective/Interval History: Follow-up medically necessary for symptom management and further clarification of goals. Patient was started on a Furosemide infusion on 10/07 and has since been discontinued. Patient self extubated on 10/09/17. Patient is lethargic, alert and oriented to self, place and partly situation. Patient confirmed all the psychosocial report that was given by his sister Sabrina Farrell. Laboratory workup today revealing WBC 6.7, Hgb 10.7, Hct 32.3, Plt Count 93, sodium 148, Potassium 3.3, BUN/Creat 16/1.12. Chest X ray today revealing cardiomegaly with moderate congestive failure and increasing bibasilar parenchymal changes worse on the right. Infectious disease and Hematology following. Patient confirmed that he has never completed advance directives and he designated his sister Sabrina Farrell as his HCS and his uncle Paolo Aranda as his alternate HCS. Patient is very weak and was not able to sign HCS for but he verbally consented in front of bedside RN Perla Gamble and JEANNETTE. Addressed code status, discussed CPR limitations and complications given ongoing comorbidities and patient elected DNR. Family/Friend Interactions: No family at bedside. Advance Directives Living Will: Never completed Health Care Surrogate: Copy in medical record Durable Power of Business Control Specialist: Never completed Health Care Surrogate Name and Number: [facility]: Bud Campos [phone] Alt. HCS: Carolin Boonellan [phone] Objective Vital Signs: Vital Signs 10/09/17 16:00 10/09/17 19:44 10/09/17 20:00 Temperature 98.4 F 98.9 F Pulse Rate 96 H 106 H Respiratory Rate 20 20 Blood Pressure 134/66 137/67 Pulse Oximetry 100 100 100 10/10/17 00:00 10/10/17 04:00 10/10/17 07:31 Temperature 99.1 F 98.9 F Pulse Rate 105 H 108 H Respiratory Rate 20 20 Blood Pressure 137/64 151/70 H Pulse Oximetry 100 100 100 Intake & Output 10/09/17 10/10/1718 18:59 06:59 18:59 Intake Total 1100 / 1100 1050 / 1050 Output Total 1500 / 1500 3500 / 3500 Balance -400 / -400 -2450 / -2450 Weight 100.2 kg Intake: IV 250 / 250 250 / 250 Zosyn 3.375 GM Premix 50 ML @ 50 / 50 150 / 150 100 mls/hr IV.SIG Q6H JANE Rx#: [id number] KCl 20 mEq Premix Inj 20 meq In 200 / 200 100 ml @ 50 mls/hr IV.SIG UNSCH PRN Rx#:[id number] Oral 0 / 0 0 / 0 Tube Feeding 450 / 450 400 / 400 Water Bolus Amount 400 / 400 400 / 400 Output: Stool 0 / 0 0 / 0 Urine Amount (Catheter) 650 / 650 3000 / 3000 Indwelling Urethral Catheter 650 / 650 3000 / 3000 Wound Drainage 850 / 850 500 / 500 Right Abdomen 850 / 850 500 / 500 Other: Date of Last Bowel Movement 10/08/17 10/08/17 # Bowel Movements 0 0 Physical Exam: CONSTITUTIONAL/GENERAL: This is a chronically ill looking patient, in no apparent distress. TUBES/LINES/DRAINS: NG tube, PIV, FC, wound bag to paracentesis site SKIN: Scleral Icterus, hx of lymphedema to BLE. Skin scaly, with tree bark appearance and discolored to bilateral lower extremities EYES: Sclera slightly icterus. Fundi not examined. ENT: Hearing grossly normal. No nasal bleeding or purulent drainage. Moist oral mucosa. CARDIOVASCULAR:S1, S2 normal, no murmurs, gallops, or rubs. No JVD. Peripheral pulses symmetric. RESPIRATORY/CHEST: Symmetric, unlabored respirations. Diminished breath sounds. GASTROINTESTINAL: Abdomen soft, non-tender, distended. active bowel sounds x4.TF infusing via NGT GENITOURINARY: No bladder distension. Mendieta catheter in place. MUSCULOSKELETAL: Extremities without clubbing, cyanosis, or edema. Lymphedema to BLE worse on R leg. Edema to NEUROLOGICAL: Lethargic, oriented to self, place and partly situation PSYCHIATRIC: Calm. Diagnostic Tests Laboratory: Laboratory Results - last 72 hr 10/07/17 10/07/17 10/08/17 15:27 20:53 00:38 WBC RBC Hgb Hct MCV MCH MCHC RDW Plt Count MPV Sodium Potassium Chloride Carbon Dioxide Anion Gap BUN Creatinine Estimated GFR POC Glucose 156 H 106 155 H Random Glucose Calcium Random Vancomycin 10/08/17 10/08/17 10/08/17 05:18 05:19 05:19 WBC 5.5 RBC 2.74 L Hgb 9.3 L Hct 27.5 L MCV 100.1 H MCH 33.7 MCHC 33.7 RDW 23.3 H Plt Count 62 L MPV 10.6 Sodium 154 H Potassium 3.0 L Chloride 117 H Carbon Dioxide 26.9 Anion Gap 10 BUN 14 Creatinine 1.10 Estimated GFR 82 L POC Glucose 173 H Random Glucose 174 H Calcium 8.6 Random Vancomycin 16.6 10/08/17 10/08/17 10/08/17 09:47 12:52 15:13 WBC RBC Hgb Hct MCV MCH MCHC RDW Plt Count MPV Sodium Potassium Chloride Carbon Dioxide Anion Gap BUN Creatinine Estimated GFR POC Glucose 207 H 142 H 143 H Random Glucose Calcium Random Vancomycin 10/08/17 10/09/17 10/09/17 20:41 00:24 00:55 WBC RBC Hgb Hct MCV MCH MCHC RDW Plt Count MPV Sodium Potassium 3.0 L Chloride Carbon Dioxide Anion Gap BUN Creatinine Estimated GFR POC Glucose 213 H 183 H Random Glucose Calcium Random Vancomycin 10/09/17 10/09/17 10/09/17 04:26 05:15 05:15 WBC 6.0 RBC 2.72 L Hgb 9.1 L Hct 27.2 L MCV 100.2 H MCH 33.7 MCHC 33.6 RDW 23.2 H Plt Count 54 L MPV 10.2 Sodium 149 H Potassium 3.3 L Chloride 113 H Carbon Dioxide 27.7 Anion Gap 8 BUN 16 Creatinine 1.19 Estimated GFR 75 L POC Glucose 227 H Random Glucose 211 H Calcium 8.6 Random Vancomycin 10/09/17 10/09/17 10/09/17 07:51 11:54 15:33 WBC RBC Hgb Hct MCV MCH MCHC RDW Plt Count MPV Sodium Potassium Chloride Carbon Dioxide Anion Gap BUN Creatinine Estimated GFR POC Glucose 180 H 151 H 170 H Random Glucose Calcium Random Vancomycin 10/09/17 10/09/17 10/09/17 16:27 20:06 23:55 WBC RBC Hgb Hct MCV MCH MCHC RDW Plt Count MPV Sodium Potassium 3.6 Chloride Carbon Dioxide Anion Gap BUN Creatinine Estimated GFR POC Glucose 186 H 188 H Random Glucose Calcium Random Vancomycin 10/10/17 10/10/17 10/10/17 04:11 05:20 05:20 WBC 6.7 RBC 2.71 L Hgb 9.2 L Hct 27.3 L MCV 100.9 H MCH 34.1 H MCHC 33.8 RDW 23.3 H Plt Count 68 L MPV 10.5 Sodium 148 H Potassium 3.3 L Chloride 112 H Carbon Dioxide 28.7 Anion Gap 7 BUN 16 Creatinine 1.12 Estimated GFR 81 L POC Glucose 174 H Random Glucose 167 H Calcium 8.5 Random Vancomycin 12.7 10/10/17 10/10/17 09:00 11:34 WBC RBC Hgb Hct MCV MCH MCHC RDW Plt Count MPV Sodium Potassium Chloride Carbon Dioxide Anion Gap BUN Creatinine Estimated GFR POC Glucose 177 H 178 H Random Glucose Calcium Random Vancomycin Result Diagrams: 10/11/17 07:29 10/11/17 07:29 Imaging: Chest X-Ray 10/10/17 00:00 CONCLUSION: Cardiomegaly with moderate congestive failure Increasing bibasilar parenchymal changes worse on the right. Procedures: 09/25/17-intubation 09/25/17-EGD with esophageal varices banding 09/26/17-left IJ central line placement 09/28/1792-[id number] abdominal paracentesis 10/09/17- Self extubated Assessment and Plan - Disease Oriented Problem List (1) Sepsis (2) Pneumonia (3) Hypertension (4) Acute renal failure (5) Hypothyroidism (6) Acute respiratory failure (7) Upper GI bleed (8) Lymphedema of both lower extremities Pertinent Non-Medical Issues: Psychosocial: Patient was born and raised in [place]. He moved to [place] in 1985. Patient has a college degree. 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 Patient never and never had children. Spiritual: Patient is Mandaeism-sister requested rotary rig engine operator visit Legal: Never completed advanced directives Ethical issues impacting care: None identified at this time Important Contacts: Sister- [phone] Mother- Alexandre Alexis Uncle- Carolin BooneKyZylssvo-[phone] (lives with patient`s mother) Prognosis: Mr. Ramirez is a 62 years old male with a past medical history significant for chronic lymphedema to bilateral lower extremities, EtOH abuse, pneumonia, heart murmur, diet controlled diabetes mellitus type 2, hypothyroidism, umbilical hernia, GERD and anxiety. Patient was brought to the ER on 09/25/17 by EMS with complaints of hematemesis, and increase in abdominal girth. Clinical course complicated with acute respiratory failure, sepsis and recurrent ascites. Given ongoing multiple comorbidities patient remains at risk for further complications, deterioration and decline. Code Status: No Code DNR Plan: PLAN: Legal decision maker: Patient is currently intubated, sedated on mechanical ventilation and is not able to participate in medical decision. Patient never . Patient does not have children. Patient's mother is still living but his dementia. According to [place] statute his only sibling, Sabrina Farrell will serve as his healthcare proxy. Goals: Aggressive short of no code Patient confirmed that he has never completed advance directives and he designated his sister Sabrina Farrell as his HCS and his uncle Paolo Aranda as his alternate HCS. Patient is very weak and was not able to sign HCS for but he verbally consented in front of bedside RN Perla Gamble and JEANNETTE. Addressed code status, discussed CPR limitations and complications given ongoing comorbidities and patient elected DNR. CODE STATUS: No code DNR SYMPTOMS: * Shortness of breath: Patient presented with complaints of hematemesis. Patient intubated for EGD. Patient his pneumonia. He also had ascites and is status post 2 ultrasound-guided paracentesis. Patient self extubated. Currently on O2 2L NC. Patient is on antibiotics and duonebs. Chest X ray revealing cardiomegaly with moderate congestive failure and increasing bibasilar parenchymal changes worse on the right. * Nausea and vomiting: Patient came in complaining of hematemesis. Underwent EGD and was noted to have esophageal varices which were banded. NG tube. Tolerating TF. No reports of vomiting. Continue monitoring tube feed residuals. * Pain: Patient is at risk for pain, from chronic bilateral lower extremity lymphedema, intubation and has undergone paracentesis x2 and being bedbound. Patient is on Fentanyl infusion at 250mcg/hr. Continue to monitor for signs of pain. Palliative care will continue to follow the patient during hospital course as condition evolves, to assist patient/decision-maker with understanding of their medical conditions, weighing benefits/burdens of treatment options, for clarification of goals of treatment. Additionally will assist with any symptoms of palliative concern Attestation Attestation: To help prompt me to consider important information that might be impacting today's encounter and assessment, information from prior notes written by myself or my colleagues may have been "brought forward" into today's note. My signature on this note, however, is an attestation that I personally performed the exam, history, and/or decision-making noted today, and, unless otherwise indicated, the interactions with patient, family, and staff as well as the review of records all occurred today. I also attest that the listed assessment and stated plan reflect my best clinical judgment today based on the combination of historical information, prior notes, and today's exam/ interactions. When time spent is documented, it refers only to time spent today by the signer, or if indicated, combined time spent today by collaborating physician/nurse practitioner.
--- NOTE | 2017-10-10 20:23 | P.PNONC ---
Subjective Interval history: Resting in bed. No distress. Objective Vital Signs/Intake & Output: Vital Signs 10/10/17 00:00 10/10/17 04:00 10/10/17 07:31 Temperature 99.1 F 98.9 F Pulse Rate 105 H 108 H Respiratory Rate 20 20 Blood Pressure 137/64 151/70 H Pulse Oximetry 100 100 100 10/10/17 08:00 10/10/17 09:00 10/10/17 12:00 Temperature 99.5 F 100.0 F H Pulse Rate 106 H Respiratory Rate 18 18 Blood Pressure 128/63 144/72 H Pulse Oximetry 10/10/17 16:00 Temperature 99.8 F H Pulse Rate Respiratory Rate 21 Blood Pressure 124/62 Pulse Oximetry Intake & Output 10/10/17 10/10/17 10/11/17 06:59 18:59 06:59 Intake Total 1050 / 1050 1522.5 / 1522.5 Output Total 3500 / 3500 3875 / 3875 Balance -2450 / -2450 -2352.5 / -2352.5 Weight 100.2 kg Intake: IV 250 / 250 667.5 / 667.5 Zosyn 3.375 GM Premix 50 ML @ 150 / 150 50 / 50 100 mls/hr IV.SIG Q6H JANE Rx#: [id number] Vancomycin Inj 1,750 MG In NS 517.5 / 517.5 Inj 500 ML @ 250 mls/hr IV.SIG Q36H JANE Rx#:[id number] Rocephin Inj 1,000 MG In NS Inj 100 / 100 100 ML @ 200 mls/hr IV.SIG Q24H JANE Rx#:[id number] Oral 0 / 0 0 / 0 Tube Feeding 400 / 400 455 / 455 Water Bolus Amount 400 / 400 400 / 400 Output: Stool 0 / 0 Urine Amount (Catheter) 3000 / 3000 3700 / 3700 Indwelling Urethral Catheter 3000 / 3000 3700 / 3700 Wound Drainage 500 / 500 175 / 175 Right Abdomen 500 / 500 175 / 175 Other: Date of Last Bowel Movement 10/08/17 10/10/17 # Bowel Movements 0 1 Result Diagrams: 10/10/17 05:20 10/10/17 05:20 Laboratory Results: Laboratory Results - last 24 hr 10/09/17 10/10/17 10/10/17 23:55 04:11 05:20 WBC RBC Hgb Hct MCV MCH MCHC RDW Plt Count MPV Sodium 148 H Potassium 3.3 L Chloride 112 H Carbon Dioxide 28.7 Anion Gap 7 BUN 16 Creatinine 1.12 Estimated GFR 81 L POC Glucose 188 H 174 H Random Glucose 167 H Calcium 8.5 Random Vancomycin 12.7 10/10/17 10/10/17 10/10/17 05:20 09:00 11:34 WBC 6.7 RBC 2.71 L Hgb 9.2 L Hct 27.3 L MCV 100.9 H MCH 34.1 H MCHC 33.8 RDW 23.3 H Plt Count 68 L MPV 10.5 Sodium Potassium Chloride Carbon Dioxide Anion Gap BUN Creatinine Estimated GFR POC Glucose 177 H 178 H Random Glucose Calcium Random Vancomycin 10/10/17 16:33 WBC RBC Hgb Hct MCV MCH MCHC RDW Plt Count MPV Sodium Potassium Chloride Carbon Dioxide Anion Gap BUN Creatinine Estimated GFR POC Glucose 179 H Random Glucose Calcium Random Vancomycin Imaging Studies: Impressions Chest X-Ray 10/10/17 00:00 CONCLUSION: Cardiomegaly with moderate congestive failure Increasing bibasilar parenchymal changes worse on the right. Medications: Active Medications Generic Name Dose Route Start Last Admin Trade Name Freq PRN Reason Stop Dose Admin Folic Acid 1 mg 10/02/17 09:00 10/10/17 08:55 Folic Acid PO 1 mg DAILY JANE Administration Furosemide 40 mg 10/09/17 18:00 10/10/17 18:56 Lasix Inj IV.PUSH 40 mg BID@0900,1800 JANE Administration Haloperidol Lactate 1 mg 10/02/17 01:00 10/09/17 00:45 Haldol Inj IV.PUSH 1 mg Q15M PRN Administration for severe agitation Potassium Chloride 20 meq in 100 mls @ 50 mls/hr 10/02/17 00:01 10/09/17 10: 45 Kcl 20 Meq Premix Inj IV.SIG Infused UNSCH PRN Infusion ELECTROLYTE PROTOCOL Potassium Chloride 40 meq in 100 mls @ 25 mls/hr 10/02/17 00:01 10/05/17 10: 40 Kcl 40 Meq Premix Inj IV.SIG Infused UNSCH PRN Infusion ELECTROLYTE PROTOCOL Dexmedetomidine HCl 1,000 mcg/ 260 mls @ 5.93 mls/hr 10/02/17 01:00 10/09/17 03:36 Sodium Chloride IV.SIG 0 mcg/kg/hr TITRATE PRN 0 mls/hr SEDATION Infusion Protocol 0.2 MCG/KG/HR Ceftriaxone Sodium 1,000 mg/ 100 mls @ 200 mls/hr 10/10/17 14:00 10/10/17 14: 44 Sodium Chloride IV.SIG Infused Q24H JANE Infusion Insulin Aspart 1 unit 10/02/17 00:00 10/10/17 16:35 Novolog Insulin Suppl Scale Inj SQ 1 unit Q4HR JANE Administration Protocol Lactulose 30 ml 10/02/17 01:00 10/04/17 20:39 Lactulose Liq PO 30 ml DAILY PRN Administration SEVERE CONSITIPATION Lactulose 30 ml 10/02/17 09:00 10/10/17 08:55 Lactulose Liq PO 30 ml BID JANE Administration Multivitamins/Minerals 1 tab 10/02/17 09:00 10/10/17 08:56 Theragran-M PO 1 tab DAILY JANE Administration Pantoprazole Sodium 40 mg 10/03/17 21:00 10/10/17 08:56 Protonix Inj IV.PUSH 40 mg Q12H JANE Administration Potassium Bicarb/Potassium Chloride 50 meq 10/02/17 00:01 10/02/17 08:21 K-Lyte PO 50 meq UNSCH PRN Administration ELECTROLYTE REPLACEMENT Potassium Bicarb/Potassium Chloride 25 meq 10/02/17 09:00 10/10/17 08:56 K-Lyte PO 25 meq Q12HR JANE Administration Rifaximin 550 mg 10/02/17 09:00 10/10/17 08:55 Xifaxan PO 550 mg BID JANE Administration Senna/Docusate Sodium 1 tab 10/02/17 09:00 10/10/17 08:56 Bri-Colace PO 1 tab BID JANE Administration Sterile Water 0 ml 10/06/17 18:00 10/10/17 18:53 Free Water G-TUBE 200 ml Q6HR JANE Administration Thiamine HCl 100 mg 10/02/17 09:00 10/10/17 08:56 Vitamin B1 PO 100 mg DAILY JANE Administration Objective Remarks: GENERAL: overweight, chronically ill appearing man in no distress SKIN: Warm and dry. HEAD: Normocephalic. EYES: No scleral icterus. No injection or drainage. NECK: Supple, trachea midline. No JVD or lymphadenopathy. RESPIRATORY: No accessory muscle use. GASTROINTESTINAL: Abdomen soft, non-tender, nondistended. EXTREMITIES: BLE edema MUSCULOSKELETAL: Adequate muscle tone. NEUROLOGICAL: No obvious focal deficit. Assessment/Plan - Plan Pancytopenia. Normal labs include folate, B12, viral hepatitis studies. Contributing factors include ETOH abuse causing direct bone marrow suppressions , medications, critical illness. Continue to follow counts. If does not improve once critical illness resolved will consider bone marrow biopsy. Platelet count approximately at baseline. Anemia: component of acute blood loss s/p transfusion of PRBC. Coagulopathy: due to known liver cirrhosis. Elevated ferritin: acute phase reactant; liver disease. hemochromatosis negative
[2017-10-10] MEDS: Potassium Chloride 25 MEQ Effervescent Tablet PO PRN (22:36)
[2017-10-11] MEDS: Oral Hygiene Kit OROPHARYNG SCH ×3 (02:09→14:35)
[2017-10-11] MEDS: Insulin NovoLOG Aspart Correctional Sugar Inj SQ SCH ×5 (04:00→16:00)
--- NOTE | 2017-10-11 06:17 | XR ---
EXAM DATE: 10/11/2017 5:45 AM EDT AGE/SEX: 62 years / Male INDICATIONS: Short of breath. CLINICAL DATA: This is the patient's subsequent encounter. Patient reports that signs and symptoms h ave been present for 1 week and indicates a pain score of 0/10. MEDICAL/SURGICAL HISTORY: Hypertension. Diabetes. None. COMPARISON: [facility] [place], CHEST 1V SINGLE AP, 10/10/2017. . FINDINGS: Stable NGT in the stomach. Persistent bilateral lower lung zone airspace consolidation and patchy mix ed interstitial and alveolar opacities bilaterally. Cardiac silhouette is enlarged with indistinct pu lmonary vasculature. Remainder of the exam is unchanged. CONCLUSION: 1. No significant interval change. 2. Cardiomegaly with pulmonary edema pattern. 3. Stable bibasilar airspace disease, right greater than left. Electronically signed by: Spenser Liao MD 10/11/2017 6:16 AM EDT
[2017-10-11] MEDS: Calcium Carbonate 500 MG Tablet PO SCH ×2 (08:02→22:34)
[2017-10-11] MEDS: Pantoprazole Inj 40 MG Vial IV.PUSH SCH ×2 (08:03→22:33)
[2017-10-11] MEDS: Multivitamin/Minerals Therapeutic Tablet PO SCH (08:03)
[2017-10-11] MEDS: Potassium Chloride 25 MEQ Effervescent Tablet PO SCH ×2 (08:03→22:34)
[2017-10-11] MEDS: rifAXIMin 550 MG Tablet PO SCH ×2 (08:03→22:34)
[2017-10-11] MEDS: Folic Acid 1 MG Tablet PO SCH (08:03)
[2017-10-11 08:42] LABS: Hematocrit 32.3 % (39.0-51.0); Hemoglobin 10.7 gm/dL (13.0-17.0); Mean Corpuscular Hemoglobin 33.2 pg (27.0-34.0); Mean Corpuscular Volume 100.6 fL (80.0-100.0); Mean Platelet Volume 10.7 fL (7.0-11.0); Platelet Count 93 th/mm3 (150-450); Red Blood Count 3.21 mil/mm3 (4.50-5.90); Red Cell Distribution Width 23.5 % (11.6-17.2); White Blood Count 8.7 th/mm3 (4.0-11.0)
[2017-10-11 09:14] LABS: Calcium 8.6 mg/dL (8.5-10.1); Carbon Dioxide 30.3 meq/L (21.0-32.0); Potassium 3.5 meq/L (3.5-5.1)
--- NOTE | 2017-10-11 09:22 | P.PNID ---
Subjective Remarks: Mr. Ramirez is a 62-year-old -Wel[place] male who was brought into the ED by EMS because of hematemesis approximately an hour prior to arrival. Reportedly had at least 4 episodes of vomiting bright red blood amounting to about a gallon. Reportedly he was nauseous but denied patient has noted increased abdominal girth. He also appears that the patient has chronic bilateral lower extremity lymphedema. No reported history of heart failure kidney disease. In the emergency department patient was noted to be tachycardic received half a liter fluid bolus. He was started on Sandostatin and Protonix drip. Patient was evaluated by GI and has undergone on 2 endoscopies at this point by Dr. Dallas as well as Dr. Medina. It appears that the patient's esophageal varices were banded. He also was noted to have a hiatal hernia. Due to large volume hematemesis patient was electively intubated. Patient has received several units of blood products at this time. At the time of my evaluation patient is in the ICU currently not on any vasopressors. Remains intubated. Does not respond to any verbal commands. Urine output okay. Infectious disease is consulted for evaluation and management of new fevers of 101.5. Upon discussion with the nurse it appears that he has some mendoza colored secretions. He does have a Mendieta catheter in place. Overnight events reviewed No fevers No rash Responds to simple commands. Moves all 4 extremities on command and spontaneously. Noted code status is now DNR. Ascitic fluid drainage noted. Antibiotics: Rocephin Lines: Lines ok Past Medical History: Past Medical History Bilateral lower extremity lymphedema Anxiety History of pneumonia According to the record hypothyroidism Hypertension GERD according to the record Noncompliant with medical therapy Past Surgical History Hodgen teeth extracted in 1973 tonsillectomy 1960 Allergies/Adverse Reactions: Allergies No Known Allergies Adverse Reaction (Unknown, Uncoded 07/03/17 19:09) Objective Vital Signs 10/10/17 12:00 10/10/17 16:00 10/10/17 19:00 Temperature 100.0 F H 99.8 F H Pulse Rate 110 H Respiratory Rate 18 21 16 Blood Pressure 144/72 H 124/62 133/68 Pulse Oximetry 98 10/10/17 20:00 10/10/17 20:16 10/10/17 21:00 Temperature 99.6 F Pulse Rate 110 H 114 H Respiratory Rate 18 19 Blood Pressure 131/60 137/62 Pulse Oximetry 97 97 96 10/10/17 22:00 10/10/17 23:00 10/11/17 00:00 Temperature 99.2 F Pulse Rate 113 H 118 H 114 H Respiratory Rate 17 20 18 Blood Pressure 129/64 140/63 135/69 Pulse Oximetry 96 96 98 10/11/17 01:00 10/11/17 02:00 10/11/17 03:00 Temperature Pulse Rate 114 H 112 H 116 H Respiratory Rate 20 16 17 Blood Pressure 134/67 132/64 137/70 Pulse Oximetry 97 98 97 10/11/17 04:00 10/11/17 05:00 10/11/17 06:00 Temperature 98.9 F Pulse Rate 109 H 112 H 114 H Respiratory Rate 19 20 18 Blood Pressure 131/68 129/66 143/68 H Pulse Oximetry 97 98 99 10/11/17 07:00 10/11/17 07:37 Temperature Pulse Rate 109 H Respiratory Rate 18 Blood Pressure 118/58 L Pulse Oximetry 100 100 Intake & Output 10/10/17 10/11/17 10/11/17 18:59 06:59 18:59 Intake Total 1522.5 / 1522.5 1325 / 1325 Output Total 3875 / 3875 2700 / 2700 Balance -2352.5 / -2352.5 -1375 / -1375 Weight 98.5 kg Intake: IV 667.5 / 667.5 Zosyn 3.375 GM Premix 50 ML @ 50 / 50 100 mls/hr IV.SIG Q6H JANE Rx#: [id number] Vancomycin Inj 1,750 MG In NS 517.5 / 517.5 Inj 500 ML @ 250 mls/hr IV.SIG Q36H JANE Rx#:[id number] Rocephin Inj 1,000 MG In NS Inj 100 / 100 100 ML @ 200 mls/hr IV.SIG Q24H JANE Rx#:[id number] Oral 0 / 0 Tube Feeding 455 / 455 725 / 725 Water Bolus Amount 400 / 400 600 / 600 Output: Urine 1600 / 1600 Urine Amount (Catheter) 3700 / 3700 Indwelling Urethral Catheter 3700 / 3700 Wound Drainage 175 / 175 1100 / 1100 Right Abdomen 175 / 175 1100 / 1100 Other: Date of Last Bowel Movement 10/10/17 10/10/17 # Bowel Movements 1 Lab - Hematology Results 10/10/17 10/11/17 05:20 07:29 WBC 6.7 8.7 RBC 2.71 L 3.21 L Hgb 9.2 L 10.7 L Hct 27.3 L 32.3 L MCV 100.9 H 100.6 H MCH 34.1 H 33.2 MCHC 33.8 33.0 RDW 23.3 H 23.5 H Plt Count 68 L 93 L D MPV 10.5 10.7 Lab - Chemistry Results 10/09/17 10/09/17 10/09/17 11:54 15:33 16:27 Sodium Potassium 3.6 Chloride Carbon Dioxide Anion Gap BUN Creatinine Estimated GFR POC Glucose 151 H 170 H Random Glucose Calcium 10/09/17 10/09/17 10/10/17 20:06 23:55 04:11 Sodium Potassium Chloride Carbon Dioxide Anion Gap BUN Creatinine Estimated GFR POC Glucose 186 H 188 H 174 H Random Glucose Calcium 10/10/17 10/10/17 10/10/17 05:20 09:00 11:34 Sodium 148 H Potassium 3.3 L Chloride 112 H Carbon Dioxide 28.7 Anion Gap 7 BUN 16 Creatinine 1.12 Estimated GFR 81 L POC Glucose 177 H 178 H Random Glucose 167 H Calcium 8.5 10/10/17 10/10/17 10/11/17 16:33 21:01 02:05 Sodium Potassium Chloride Carbon Dioxide Anion Gap BUN Creatinine Estimated GFR POC Glucose 179 H 188 H 176 H Random Glucose Calcium 10/11/17 10/11/17 07:29 09:02 Sodium 147 H Potassium 3.5 Chloride 108 H Carbon Dioxide 30.3 Anion Gap 9 BUN 15 Creatinine 1.19 Estimated GFR 75 L POC Glucose 202 H Random Glucose 211 H Calcium 8.6 Imaging: ITS Impressions Chest X-Ray 10/11/17 05:00 CONCLUSION: 1. No significant interval change. 2. Cardiomegaly with pulmonary edema pattern. 3. Stable bibasilar airspace disease, right greater than left. Physical Exam: GENERAL: Chronically ill appearing AAM patient, in no apparent distress. SKIN: No rashes. HEAD: Atraumatic. Normocephalic. No temporal or scalp tenderness. EYES: Pupils equal round and reactive. No injection or drainage. ENT: NAD NECK: Trachea midline. Supple, nontender, no meningeal signs. CARDIOVASCULAR: Murmur audible. RESPIRATORY: AE decreased in bases. GASTROINTESTINAL: Abdomen soft, distended. Diffuse tenderness. No guarding or rigidity. MUSCULOSKELETAL: Bilateral LE lymphedema with tree bark appearance. No warmth. No tenderness. NEUROLOGICAL: No spontaneous eye opening. Psych could not be assessed IV line sites ok. Assessment and Plan - Plan Assessment & Plan Remarks Sepsis Pneumonia (aspiration on admission given GI bleed now ? HCAP) Right side effusion rule out empyema. Acute resp failure: on vent Staph in sputum (MSSA pneumonia earlier) Bilateral LE lymphedema Pancytopenia: sepsis. Anemia: GI bleed on admission s.p transfusions. Recs Continue Ceftriaxone IV Check Procalcitonin. prachi CCM MD Follow cultures. follow clinically.
--- NOTE | 2017-10-11 13:01 | P.PNCC ---
Subjective Subjective Remarks/Hospital Course: Remarks/Hospital Course This is a 63-year-old male who was brought in by EMS to the emergency room because of hematemesis about an hour prior to arrival. Reported at least 4 episodes of vomiting bright red blood amounting to about a gallon. Reportedly he was nauseous but denied dizziness, syncope, chest pain, shortness of breath and abdominal pain. He takes aspirin on a daily basis but no NSAIDs. No history of GI bleed. He has noted increasing abdominal girth. Has chronic bilateral lower extremity lymphedema denies history of heart failure or chronic kidney disease. In the emergency department, patient was noted to be tachycardic and received half a liter of IV fluid bolus. He was also started on Sandostatin and Protonix drip. Patient was evaluated by GI Dr. Crocker who performed EGD in the OR. Patient was intubated for endoscopy. He was found to have variceal bleeding underwent banding of esophageal varices. Following procedure patient was transferred to PACU. Critical care consult was requested by Dr. Crocker as patient was left intubated on mechanical ventilation. He was getting his second unit of PRBCs when I evaluated patient in PACU. 09/26: Patient remained intubated and sedated over the night. Still with bloody NG tube output however per nighttime RN has slowed down. Hemoglobin remains stable. T-max of 98.1, urine output of 1540ml since admission. 09/27: NG tube clamped, small amount of heme emanating on suction. The patient remains sedated and intubated ammonia level 186. Planned initiation of lactulose twice daily. Calcium being repleted. Patient noted to have hemoglobin level of 7.21 unit packed red blood cells and 1 unit of platelets being transfused this a.m.. Urinary output significantly decreased, overnight. Albumin 5% IV twice daily initiated. 09/28: Albumin/ Lasix medication administration, improve urine output, 1200 cc in the last 6 hrs. Paracentesis by via invasive radiology is pending. The patient received 1 unit of platelets this a.m. INR 1.7, with platelet count 46. The patient continues on octreotide and Protonix infusion no active signs of bleeding. Plan for EGD in a.m. per GI. 09/29: Late entry note. Patient seen at 3:15p.m.. No acute changes during the night. Hemoglobin stable. The patient remains on Sandostatin and Protonix infusions. Patient currently undergoing repeat EGD. Patient had elevated temperature earlier this afternoon 101.0, cooling packs/cooling blanket applied. Lactic acid decreasing. 09/30: The patient underwent EGD last evening, revealed esophagitis. The patient continues on Sandostatin Protonix infusions per GI recommendations. CPAP trials were initiated this morning the patient tolerated approximately 1 hour. The patient was transitioned to Precedex infusion for ventilator weaning process. Patient underwent ultrasound testing for quantification of pleural effusions minimal volume, no thoracentesis performed. 10/01: Patient remains on low-dose Precedex for ventilator weaning process. Patient lethargic today, fentanyl infusion has been discontinued. Patient noted to have a map in the 60s, hemoglobin is less than 8 patient will be transfused 2 units of packed red blood cells this afternoon. SUBJECTIVE: 10/03: Arousable and follows commands on dexmedetomidine and fentanyl drips. Continues to be on pantoprazole and octreotide drips. These will be discontinued today. We will start trickle feeds. Possible need paracentesis in a.m. 10/04: Remains sedated, orally intubated on mechanical ventilation. 10/05: no improvements. remains critically ill, on life-support. 10/06: remains critically ill without any meaningful improvements. net -3L/24h and significant losses from paracentesis fistula (3L of ascites fluid from prior site). remains hypokalemic. 10/07: on lasix drip this AM. still failing weaning attempts from mechanical ventilation. no improvements. 10/08: Remains on mechanical ventilation. Continues to drain ascitic fluid from previous paracentesis site. 10/09: Self extubated this morning. Drowsy, easily arousable. Following commands. Transition to nasal cannula this morning. Continues to have ascitic fluid leak from previous paracentesis site where an ostomy bag has been placed. Was tolerating tube feeds however held this morning following self extubation 10/10, 10/11: Drowsy, easily arousable. Following commands. Tolerating tube feeds. Remains on nasal cannula. Objective Vital Signs / I&O: Vital Signs 10/10/17 16:00 10/10/17 19:00 10/10/17 20:00 Temperature 99.8 F H 99.6 F Pulse Rate 110 H 110 H Respiratory Rate 21 16 18 Blood Pressure 124/62 133/68 131/60 Pulse Oximetry 98 97 10/10/17 20:16 10/10/17 21:00 10/10/17 22:00 Temperature Pulse Rate 114 H 113 H Respiratory Rate 19 17 Blood Pressure 137/62 129/64 Pulse Oximetry 97 96 96 10/10/17 23:00 10/11/17 00:00 10/11/17 01:00 Temperature 99.2 F Pulse Rate 118 H 114 H 114 H Respiratory Rate 20 18 20 Blood Pressure 140/63 135/69 134/67 Pulse Oximetry 96 98 97 10/11/17 02:00 10/11/17 03:00 10/11/17 04:00 Temperature 98.9 F Pulse Rate 112 H 116 H 109 H Respiratory Rate 16 17 19 Blood Pressure 132/64 137/70 131/68 Pulse Oximetry 98 97 97 10/11/17 05:00 10/11/17 06:00 10/11/17 07:00 Temperature Pulse Rate 112 H 114 H 109 H Respiratory Rate 20 18 18 Blood Pressure 129/66 143/68 H 118/58 L Pulse Oximetry 98 99 100 10/11/17 07:30 10/11/17 07:37 10/11/17 08:00 Temperature 98.9 F Pulse Rate 116 H 113 H Respiratory Rate 28 H Blood Pressure 126/59 L 126/68 Pulse Oximetry 100 100 10/11/17 08:30 10/11/17 09:00 10/11/17 09:01 Temperature Pulse Rate 119 H 125 H 125 H Respiratory Rate Blood Pressure 150/76 H 133/67 Pulse Oximetry 100 100 10/11/17 09:30 10/11/17 10:00 10/11/17 10:30 Temperature Pulse Rate 122 H 127 H 126 H Respiratory Rate Blood Pressure 141/75 H 142/67 H 127/61 Pulse Oximetry 100 100 100 Intake & Output 10/10/17 10/11/17 10/11/17 18:59 06:59 18:59 Intake Total 1522.5 / 1522.5 1325 / 1325 Output Total 3875 / 3875 2700 / 2700 Balance -2352.5 / -2352.5 -1375 / -1375 Weight 98.5 kg Intake: IV 667.5 / 667.5 Zosyn 3.375 GM Premix 50 ML @ 50 / 50 100 mls/hr IV.SIG Q6H JANE Rx#: [id number] Vancomycin Inj 1,750 MG In NS 517.5 / 517.5 Inj 500 ML @ 250 mls/hr IV.SIG Q36H JANE Rx#:[id number] Rocephin Inj 1,000 MG In NS Inj 100 / 100 100 ML @ 200 mls/hr IV.SIG Q24H JANE Rx#:[id number] Oral 0 / 0 Tube Feeding 455 / 455 725 / 725 Water Bolus Amount 400 / 400 600 / 600 Output: Urine 1600 / 1600 Urine Amount (Catheter) 3700 / 3700 Indwelling Urethral Catheter 3700 / 3700 Wound Drainage 175 / 175 1100 / 1100 Right Abdomen 175 / 175 1100 / 1100 Other: Date of Last Bowel Movement 10/10/17 10/10/17 10/11/17 # Bowel Movements 1 Result Diagrams: 10/11/17 07:29 10/11/17 07:29 Objective Remarks: General: This is a 62-year-old -[place]ian male laying in bed not in any acute distress on nasal cannula HEENT: Pupils are equal and reactive, muddy sclera, orally intubated, NG tube with some clear brown aspirate Neck: Supple, no rigidity, no JVD Chest: Air entry decreased bilaterally at bases, no wheezing., coarse breath sounds bilaterally CVS: Regular, no murmurs appreciated Abd: Soft, appears nontender, protuberant Extremities: warm bilaterally, chronic lymphedema noted bilaterally lower extremity Neuro: Drowsy, easily arousable, following commands. Spontaneously moves extremities x 4. Assessment and Plan - Assessment and Plan Plan: Neurologic: EtOH use disorder fentanyl for sedation. Goal of RASS -2 Daily sedation vacation Monitor ammonia level Continue thiamine and folate Seizure precautions Respiratory: Acute hypoxic and hypercarbic respiratory failure PRVC ventilation Ventilator bundle Obtain O2 saturation greater than 92% Albuterol/ipratropium aerosols every 4 hours with albuterol aerosols every 2 hours as needed for dyspnea Continue CPAP trials as tolerated Cardiovascular: History of essential hypertension Maintain MAP greater than 65 Monitor CVP 09/27 echo- EF 40% small left pleural effusion Renal: Oliguria-resolved Maintain Sweet for adequate I &O Nephrology following-possible hepatorenal syndrome -- Strict I/Os spironolactone 25mg po daily. lasix drip now. FEN/GI: Upper GI bleed secondary to esophageal varices status post banding Decompensated liver cirrhosis Ascites Hyperammonemia GERD Anion gap metabolic acidosis-resolved Electrolyte derangement saline lock ivf. Continue pantoprazole 40 mg IV twice daily. Lactulose BID, continue rifaximin 550 twice daily 09/28- paracentesis by invasive radiology - 5L removed. 09/29-repeat EGD-revealed significant gastropathy, no active sites of bleeding increase tube feeds slowly. Heme/ID: Acute blood loss anemia Thrombocytopenia Coagulopathy Monitor CBC 10/01 Transfuse 2 u PRBC's Noted decreased liver synthetic function secondary to cirrhosis Hematology oncology ID following. Continue vancomycin and piperacillin/tazobactam per the recommendations Follow-up urine and blood cultures 09/28 sputum cultures- Staph Aureus 10/04 sputum culture: staph Endocrine: Glucose monitoring per ICU protocol. Low-dose regimen MsK; Chronic lymphedema -- SSI Prophylaxis: GI Prophylaxis Pantoprazole DVT Prophylaxis -- SCDs Hold pharmacological DVT prophylaxis in the setting of thrombocytopenia, and active GI bleed Lines: must keep sweet given recent hepato-renal syndrome. Consult and transfer to hospitalist service for further medical management.
[2017-10-11] MEDS: Senna/Docusate Sodium 8.6/50 MG Tablet PO SCH ×2 (14:34→22:34)
[2017-10-12] MEDS: Insulin NovoLOG Aspart Correctional Sugar Inj SQ SCH ×5 (07:41→20:55)
[2017-10-12 07:42] LABS: Hematocrit 30.9 % (39.0-51.0); Hemoglobin 10.3 gm/dL (13.0-17.0); Mean Corpuscular HGB Conc 33.4 % (32.0-36.0); Mean Corpuscular Hemoglobin 33.4 pg (27.0-34.0); Mean Platelet Volume 10.8 fL (7.0-11.0); Platelet Count 94 th/mm3 (150-450); Red Blood Count 3.09 mil/mm3 (4.50-5.90); Red Cell Distribution Width 23.8 % (11.6-17.2); White Blood Count 8.5 th/mm3 (4.0-11.0)
[2017-10-12 07:59] LABS: Calcium 8.3 mg/dL (8.5-10.1); Carbon Dioxide 32.9 meq/L (21.0-32.0); Potassium 3.5 meq/L (3.5-5.1)
[2017-10-12] MEDS: Calcium Carbonate 500 MG Tablet PO SCH ×2 (08:26→20:41)
[2017-10-12] MEDS: rifAXIMin 550 MG Tablet PO SCH ×2 (08:26→20:41)
[2017-10-12] MEDS: Multivitamin/Minerals Therapeutic Tablet PO SCH (08:26)
[2017-10-12] MEDS: Folic Acid 1 MG Tablet PO SCH (08:26)
[2017-10-12] MEDS: Potassium Chloride 25 MEQ Effervescent Tablet PO SCH ×2 (08:27→20:41)
[2017-10-12] MEDS: Potassium Chloride 25 MEQ Effervescent Tablet PO PRN (08:27)
[2017-10-12] MEDS: Pantoprazole Inj 40 MG Vial IV.PUSH SCH ×2 (08:27→20:41)
[2017-10-12] MEDS: Oral Hygiene Kit OROPHARYNG SCH ×4 (08:28→20:40)
--- NOTE | 2017-10-12 11:07 | P.PNID ---
Infectious Disease Brief Note Vital Signs - 24 hr Chart review documentation Vitals stable. WBC normal. Treated for Pneumonia long enough. Procalcitonin near normal. CXR can lag behind. Will dc antibiotics. Will sign off please call back if any change in clinical condition or questions. 10/11/17 11:30 10/11/17 12:00 10/11/17 12:30 Temperature Pulse Rate 125 H 122 H 116 H Respiratory Rate Blood Pressure 108/63 113/60 119/58 L Pulse Oximetry 100 100 100 10/11/17 13:00 10/11/17 13:30 10/11/17 14:00 Temperature Pulse Rate 116 H 114 H 110 H Respiratory Rate Blood Pressure 118/58 L 122/57 L 121/64 Pulse Oximetry 100 100 100 10/11/17 14:30 10/11/17 15:00 10/11/17 15:30 Temperature Pulse Rate 110 H 111 H 117 H Respiratory Rate Blood Pressure 126/69 120/66 115/68 Pulse Oximetry 100 100 100 10/11/17 16:00 10/11/17 16:30 10/11/17 17:00 Temperature 99.4 F Pulse Rate 117 H 119 H 119 H Respiratory Rate 28 H Blood Pressure 115/69 109/66 108/64 Pulse Oximetry 100 100 100 10/11/17 17:30 10/11/17 18:00 10/11/17 20:00 Temperature 98 F Pulse Rate 111 H 109 H 106 H Respiratory Rate 16 Blood Pressure 103/63 110/59 L 119/67 Pulse Oximetry 100 100 100 10/11/17 21:00 10/11/17 21:30 10/11/17 22:00 Temperature Pulse Rate 106 H 107 H 107 H Respiratory Rate Blood Pressure 119/67 120/62 127/66 Pulse Oximetry 100 100 100 10/11/17 22:30 10/11/17 23:00 10/11/17 23:30 Temperature Pulse Rate 106 H 108 H 107 H Respiratory Rate Blood Pressure 119/65 114/62 114/65 Pulse Oximetry 100 100 100 10/11/17 23:52 10/12/17 00:00 10/12/17 00:30 Temperature 98.2 F Pulse Rate 104 H 108 H Respiratory Rate 14 Blood Pressure 121/70 117/65 Pulse Oximetry 100 100 100 10/12/17 01:00 10/12/17 01:30 10/12/17 02:00 Temperature Pulse Rate 112 H 113 H 111 H Respiratory Rate Blood Pressure 116/64 115/63 119/64 Pulse Oximetry 100 100 100 10/12/17 02:30 10/12/17 03:00 10/12/17 03:30 Temperature Pulse Rate 113 H 113 H 113 H Respiratory Rate Blood Pressure 114/62 123/65 111/66 Pulse Oximetry 100 100 100 10/12/17 04:00 10/12/17 04:30 10/12/17 05:00 Temperature 99 F Pulse Rate 113 H 109 H 109 H Respiratory Rate Blood Pressure 117/69 133/67 135/68 Pulse Oximetry 100 100 96 10/12/17 05:30 10/12/17 06:00 10/12/17 06:30 Temperature Pulse Rate 109 H 110 H 110 H Respiratory Rate Blood Pressure 123/71 129/70 129/67 Pulse Oximetry 97 97 98 10/12/17 07:00 10/12/17 07:30 10/12/17 08:00 Temperature 100.6 F H Pulse Rate 107 H 113 H 120 H Respiratory Rate 32 H Blood Pressure 128/69 133/68 114/64 Pulse Oximetry 99 97 95 10/12/17 08:26 10/12/17 08:30 10/12/17 09:00 Temperature Pulse Rate 118 H 119 H Respiratory Rate Blood Pressure 109/65 111/65 Pulse Oximetry 96 97 97 Laboratory Results - last 24 hr 10/11/17 10/11/17 10/11/17 07:29 12:18 17:39 WBC RBC Hgb Hct MCV MCH MCHC RDW Plt Count MPV Sodium Potassium Chloride Carbon Dioxide Anion Gap BUN Creatinine Estimated GFR POC Glucose 189 H 210 H Random Glucose Calcium Procalcitonin 0.9 10/11/17 10/11/17 10/12/17 23:43 23:44 06:15 WBC RBC Hgb Hct MCV MCH MCHC RDW Plt Count MPV Sodium Potassium Chloride Carbon Dioxide Anion Gap BUN Creatinine Estimated GFR POC Glucose 243 H 242 H 209 H Random Glucose Calcium Procalcitonin 10/12/17 10/12/17 10/12/17 06:45 06:45 07:29 WBC 8.5 RBC 3.09 L Hgb 10.3 L Hct 30.9 L MCV 100.0 MCH 33.4 MCHC 33.4 RDW 23.8 H Plt Count 94 L MPV 10.8 Sodium 148 H Potassium 3.5 Chloride 110 H Carbon Dioxide 32.9 H Anion Gap 5 BUN 20 H Creatinine 1.12 Estimated GFR 81 L POC Glucose 179 H Random Glucose 223 H Calcium 8.3 L Procalcitonin
--- NOTE | 2017-10-12 11:47 | P.PNPAL ---
Reason for Visit Reason for visit: a. To assist with evaluation and management of symptoms including:shortness of breath, nausea/vomiting b. To assist medical decision maker(s) with: better understanding of current medical conditions; weighing benefits/burdens of medical treatment options; making medical treatment decisions. Subjective Subjective/Interval History: Follow-up medically necessary for symptom management and further clarification of goals. Patient seen and examined in his room on MICU. Patient is lethargic today, speech not clear- he is softly mumbling some incomprehensible words. Patient keeping his eyes closed during conversation. Appears to node his head appropriately. Patient nodding his head for "yes" when asked if he was in pain. Patient is able to follow simple commands with all 4 extremities. Patient has not been able to cough up his own secretions. Bedside RN had to nasotracheally suction patient today. Speech therapy has been evaluating patient for a swallowing. Patient continues to fail swallow evaluation and remains with a nasogastric tube for tube feedings. No report of nausea and vomiting. Speech therapy recommending NPO for now. Patient also remains with a wound bag to right abdomen on previous paracentesis site draining ascitic fluid. Laboratory workup today revealing WBC 8.5, hemoglobin 10.3, hematocrit 30.9, platelet count 94, sodium 148, potassium 3.5, BUNs/creatinine 20/1.12, random glucose 223, calcium 8.3. Chest x-ray on 10/11/17 revealed persistent bilateral lower lung zone airspace consolidation and patchy mixed interstitial and alveolar opacities bilaterally and cardiomegaly with pulmonary edema pattern. Infectious disease and hematology following. Telephone conversation with patient's sister Sabrina Farrell who is patient's designated healthcare surrogate. Updated here on patient's current medical status. Expressed concern to patient's sister that patient appears more lethargic today and has been failing swallowing evaluation. Explained to her that if patient continues to fail swallow evaluation and remains lethargic, he may need PEG placement in the near future. Patient's sister stated that if patient gets to a point where he needs a PEG tube she would like him to have it placed but would not want him to have "major" interventions done. Broached hospice subject with her and she did not comment on that at this time. She requested to be updated on patient's status and notified of any changes, for him to be able to make informed decisions. Case discussed with bedside RN. Family/Friend Interactions: Telephone conversation with the patient's sister Sabrina Farrell. See interval note above. Advance Directives Living Will: Never completed Health Care Surrogate: Copy in medical record Durable Power of Communications Professional: Never completed Advance Directives Date on File: 10/10/17 (HCS completed after patient verbally consented and was witnessed by SENIOR ENGINEERING TECHNICIAN and bedside RN. ) Health Care Surrogate Name and Number: HCS: Bud Campos [phone] Alt. HCS: Rosi Boone [phone] Objective Vital Signs: Vital Signs 10/11/17 11:30 10/11/17 12:00 10/11/17 12:30 Temperature Pulse Rate 125 H 122 H 116 H Respiratory Rate Blood Pressure 108/63 113/60 119/58 L Pulse Oximetry 100 100 100 10/11/17 13:00 10/11/17 13:30 10/11/17 14:00 Temperature Pulse Rate 116 H 114 H 110 H Respiratory Rate Blood Pressure 118/58 L 122/57 L 121/64 Pulse Oximetry 100 100 100 10/11/17 14:30 10/11/17 15:00 10/11/17 15:30 Temperature Pulse Rate 110 H 111 H 117 H Respiratory Rate Blood Pressure 126/69 120/66 115/68 Pulse Oximetry 100 100 100 10/11/17 16:00 10/11/17 16:30 10/11/17 17:00 Temperature 99.4 F Pulse Rate 117 H 119 H 119 H Respiratory Rate 28 H Blood Pressure 115/69 109/66 108/64 Pulse Oximetry 100 100 100 10/11/17 17:30 10/11/17 18:00 10/11/17 20:00 Temperature 98 F Pulse Rate 111 H 109 H 106 H Respiratory Rate 16 Blood Pressure 103/63 110/59 L 119/67 Pulse Oximetry 100 100 100 10/11/17 21:00 10/11/17 21:30 10/11/17 22:00 Temperature Pulse Rate 106 H 107 H 107 H Respiratory Rate Blood Pressure 119/67 120/62 127/66 Pulse Oximetry 100 100 100 10/11/17 22:30 10/11/17 23:00 10/11/17 23:30 Temperature Pulse Rate 106 H 108 H 107 H Respiratory Rate Blood Pressure 119/65 114/62 114/65 Pulse Oximetry 100 100 100 10/11/17 23:52 10/12/17 00:00 10/12/17 00:30 Temperature 98.2 F Pulse Rate 104 H 108 H Respiratory Rate 14 Blood Pressure 121/70 117/65 Pulse Oximetry 100 100 100 10/12/17 01:00 10/12/17 01:30 10/12/17 02:00 Temperature Pulse Rate 112 H 113 H 111 H Respiratory Rate Blood Pressure 116/64 115/63 119/64 Pulse Oximetry 100 100 100 10/12/17 02:30 10/12/17 03:00 10/12/17 03:30 Temperature Pulse Rate 113 H 113 H 113 H Respiratory Rate Blood Pressure 114/62 123/65 111/66 Pulse Oximetry 100 100 100 10/12/17 04:00 10/12/17 04:30 10/12/17 05:00 Temperature 99 F Pulse Rate 113 H 109 H 109 H Respiratory Rate Blood Pressure 117/69 133/67 135/68 Pulse Oximetry 100 100 96 10/12/17 05:30 10/12/17 06:00 10/12/17 06:30 Temperature Pulse Rate 109 H 110 H 110 H Respiratory Rate Blood Pressure 123/71 129/70 129/67 Pulse Oximetry 97 97 98 10/12/17 07:00 10/12/17 07:30 10/12/17 08:00 Temperature 100.6 F H Pulse Rate 107 H 113 H 120 H Respiratory Rate 32 H Blood Pressure 128/69 133/68 114/64 Pulse Oximetry 99 97 95 10/12/17 08:26 10/12/17 08:30 10/12/17 09:00 Temperature Pulse Rate 118 H 119 H Respiratory Rate Blood Pressure 109/65 111/65 Pulse Oximetry 96 97 97 Intake & Output 10/11/17 10/12/17 10/12/17 18:59 06:59 18:59 Intake Total 958 / 958 470 / 470 Output Total 450 / 450 470 / 470 Balance 508 / 508 0 / 0 Weight 98.8 kg Intake: IV 100 / 100 Rocephin Inj 1,000 MG In NS Inj 100 / 100 100 ML @ 200 mls/hr IV.SIG Q24H [facility] Rx#:[id number] Oral 0 / 0 Tube Feeding 355 / 355 410 / 410 Water Bolus Amount 503 / 503 60 / 60 Output: Urine 50 / 50 50 / 50 Stool 0 / 0 Pleural Fluid Urine Amount (Catheter) 400 / 400 Indwelling Urethral Catheter 400 / 400 Wound Drainage 400 / 400 Right Abdomen 400 / 400 Other: Date of Last Bowel Movement 10/11/17 10/11/17 # Bowel Movements 1 # Incontinent Bowel Movements 3 2 Physical Exam: CONSTITUTIONAL/GENERAL: This is a chronically ill looking patient, lethargic in no acute distress TUBES/LINES/DRAINS: NG tube, PIV, FC, wound bag to previous paracentesis site SKIN: Scleral Icterus, hx of lymphedema to BLE. Skin scaly, with tree bark appearance and discolored to bilateral lower extremities EYES: Sclera slightly icterus. Fundi not examined. ENT: Hearing grossly normal. No nasal bleeding or purulent drainage. Moist oral mucosa. CARDIOVASCULAR:S1, S2 normal, no murmurs, gallops, or rubs. No JVD. Peripheral pulses symmetric. RESPIRATORY/CHEST: Symmetric, unlabored respirations. Diminished breath sounds. GASTROINTESTINAL: Abdomen soft, non-tender, distended. active bowel sounds x4.TF infusing via NGT. Wound bag to previous paracentesis site. GENITOURINARY: No bladder distension. Mendieta catheter in place. MUSCULOSKELETAL: Extremities without clubbing, cyanosis, or edema. Lymphedema to BLE worse on R leg. Edema to NEUROLOGICAL: Lethargic, oriented to self, place and partly situation PSYCHIATRIC: Calm. Diagnostic Tests Laboratory: Laboratory Results - last 72 hr 10/09/17 10/09/17 10/09/17 11:54 15:33 16:27 WBC RBC Hgb Hct MCV MCH MCHC RDW Plt Count MPV Sodium Potassium 3.6 Chloride Carbon Dioxide Anion Gap BUN Creatinine Estimated GFR POC Glucose 151 H 170 H Random Glucose Calcium Procalcitonin Random Vancomycin 10/09/17 10/09/17 10/10/17 20:06 23:55 04:11 WBC RBC Hgb Hct MCV MCH MCHC RDW Plt Count MPV Sodium Potassium Chloride Carbon Dioxide Anion Gap BUN Creatinine Estimated GFR POC Glucose 186 H 188 H 174 H Random Glucose Calcium Procalcitonin Random Vancomycin 10/10/17 10/10/17 10/10/17 05:20 05:20 09:00 WBC 6.7 RBC 2.71 L Hgb 9.2 L Hct 27.3 L MCV 100.9 H MCH 34.1 H MCHC 33.8 RDW 23.3 H Plt Count 68 L MPV 10.5 Sodium 148 H Potassium 3.3 L Chloride 112 H Carbon Dioxide 28.7 Anion Gap 7 BUN 16 Creatinine 1.12 Estimated GFR 81 L POC Glucose 177 H Random Glucose 167 H Calcium 8.5 Procalcitonin Random Vancomycin 12.7 10/10/17 10/10/17 10/10/17 11:34 16:33 21:01 WBC RBC Hgb Hct MCV MCH MCHC RDW Plt Count MPV Sodium Potassium Chloride Carbon Dioxide Anion Gap BUN Creatinine Estimated GFR POC Glucose 178 H 179 H 188 H Random Glucose Calcium Procalcitonin Random Vancomycin 10/11/17 10/11/17 10/11/17 02:05 07:29 07:29 WBC 8.7 RBC 3.21 L Hgb 10.7 L Hct 32.3 L MCV 100.6 H MCH 33.2 MCHC 33.0 RDW 23.5 H Plt Count 93 L D MPV 10.7 Sodium 147 H Potassium 3.5 Chloride 108 H Carbon Dioxide 30.3 Anion Gap 9 BUN 15 Creatinine 1.19 Estimated GFR 75 L POC Glucose 176 H Random Glucose 211 H Calcium 8.6 Procalcitonin Random Vancomycin 10/11/17 10/11/17 10/11/17 07:29 09:02 12:18 WBC RBC Hgb Hct MCV MCH MCHC RDW Plt Count MPV Sodium Potassium Chloride Carbon Dioxide Anion Gap BUN Creatinine Estimated GFR POC Glucose 202 H 189 H Random Glucose Calcium Procalcitonin 0.9 Random Vancomycin 10/11/17 10/11/17 10/11/17 17:39 23:43 23:44 WBC RBC Hgb Hct MCV MCH MCHC RDW Plt Count MPV Sodium Potassium Chloride Carbon Dioxide Anion Gap BUN Creatinine Estimated GFR POC Glucose 210 H 243 H 242 H Random Glucose Calcium Procalcitonin Random Vancomycin 10/12/17 10/12/17 10/12/17 06:15 06:45 06:45 WBC 8.5 RBC 3.09 L Hgb 10.3 L Hct 30.9 L MCV 100.0 MCH 33.4 MCHC 33.4 RDW 23.8 H Plt Count 94 L MPV 10.8 Sodium 148 H Potassium 3.5 Chloride 110 H Carbon Dioxide 32.9 H Anion Gap 5 BUN 20 H Creatinine 1.12 Estimated GFR 81 L POC Glucose 209 H Random Glucose 223 H Calcium 8.3 L Procalcitonin Random Vancomycin 10/12/17 07:29 WBC RBC Hgb Hct MCV MCH MCHC RDW Plt Count MPV Sodium Potassium Chloride Carbon Dioxide Anion Gap BUN Creatinine Estimated GFR POC Glucose 179 H Random Glucose Calcium Procalcitonin Random Vancomycin Result Diagrams: 10/12/17 06:45 10/12/17 06:45 Imaging: Chest X-Ray 10/11/17 05:00 CONCLUSION: 1. No significant interval change. 2. Cardiomegaly with pulmonary edema pattern. 3. Stable bibasilar airspace disease, right greater than left. Procedures: 09/25/17-intubation 09/25/17-EGD with esophageal varices banding 09/26/17-left IJ central line placement 09/28/1799-[id number] abdominal paracentesis 10/09/17- Self extubated Assessment and Plan - Disease Oriented Problem List (1) Sepsis (2) Pneumonia (3) Hypertension (4) Acute renal failure (5) Hypothyroidism (6) Acute respiratory failure (7) Upper GI bleed (8) Lymphedema of both lower extremities - Symptom Scale (1) Shortness of breath 0-10 Scale: Unable to quantify (2) Nausea and vomiting 0-10 Scale: Unable to quantify Pertinent Non-Medical Issues: Psychosocial: Patient was born and raised in [place]. He moved to [place] in 1985. Patient has a college degree. 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 Patient never and never had children. Spiritual: Patient is Che[employer]-sister requested phonograph mechanic visit Legal: Never completed advanced directives Ethical issues impacting care: None identified at this time Important Contacts: Sister- Bud Bennett-[phone] cell/ [phone] Mother- Alexandre Alexis Uncle- Paolo [phone] (lives with patient`s mother) Prognosis: Mr. Ramirez is a 62 years old male with a past medical history significant for chronic lymphedema to bilateral lower extremities, EtOH abuse, pneumonia, heart murmur, diet controlled diabetes mellitus type 2, hypothyroidism, umbilical hernia, GERD and anxiety. Patient was brought to the ER on 09/25/17 by EMS with complaints of hematemesis, and increase in abdominal girth. Clinical course complicated with acute respiratory failure, sepsis and recurrent ascites. Given ongoing multiple comorbidities patient remains at risk for further complications, deterioration and decline. Code Status: No Code DNR Plan: PLAN: Legal decision maker: Patient is very lethargic and not able to participate in medical decision at this time. Patient`s sister Sabrina Farrell is his [facility] Care Surrogate and his alternate HCS is his uncle Paolo Aranda. Goals: Aggressive short of no code Telephone conversation with patient's sister Sabrina Farrell who is patient's designated healthcare surrogate. Updated here on patient's current medical status. Expressed concern to patient's sister that patient appears more lethargic today and has been failing swallowing evaluation. Explained to her that if patient continues to fail swallow evaluation and remains lethargic, he may need PEG placement in the near future. Patient's sister stated that if patient gets to a point where he needs a PEG tube she would like him to have it placed but would not want him to have "major" interventions done. Broached hospice subject with her and she did not comment on that at this time. She requested to be updated on patient's status and notified of any changes, for him to be able to make informed decisions. CODE STATUS: No code DNR SYMPTOMS: * Shortness of breath: Patient presented with complaints of hematemesis. Patient intubated for EGD. Patient his pneumonia. He also had ascites and is status post 2 ultrasound-guided paracentesis. Patient self extubated. Remains on O2 2L NC. Chest X Ray not showing improvement. Patient is lethargic today- unable to cough up his own secretions. Bedside RN had to nasotracheally suction patient today. * Nausea and vomiting: Patient came in complaining of hematemesis. Underwent EGD and was noted to have esophageal varices which were banded. NG tube. Tolerating TF. No reports of vomiting. Continue monitoring tube feed residuals. * Pain: Patient is at risk for pain, from chronic bilateral lower extremity lymphedema and has undergone paracentesis x2 and being bedbound. Continue to monitor for signs of pain. Palliative care will continue to follow the patient during hospital course as condition evolves, to assist patient/decision-maker with understanding of their medical conditions, weighing benefits/burdens of treatment options, for clarification of goals of treatment. Additionally will assist with any symptoms of palliative concern Attestation Attestation: To help prompt me to consider important information that might be impacting today's encounter and assessment, information from prior notes written by myself or my colleagues may have been "brought forward" into today's note. My signature on this note, however, is an attestation that I personally performed the exam, history, and/or decision-making noted today, and, unless otherwise indicated, the interactions with patient, family, and staff as well as the review of records all occurred today. I also attest that the listed assessment and stated plan reflect my best clinical judgment today based on the combination of historical information, prior notes, and today's exam/ interactions. When time spent is documented, it refers only to time spent today by the signer, or if indicated, combined time spent today by collaborating physician/nurse practitioner.
[2017-10-12] MEDS: Senna/Docusate Sodium 8.6/50 MG Tablet PO SCH ×2 (12:06→20:41)
--- NOTE | 2017-10-12 16:08 | P.PN ---
Subjective Interval history: seen with staff nurse at bedside openedd eyes to call of his name, stated his name softly gripped when hands help denies any pain moves his toes when asked to on tube feedings Physical Exam Vital signs: Vital Signs 10/11/17 16:30 10/11/17 17:00 10/11/17 17:30 Temperature Pulse Rate 119 H 119 H 111 H Respiratory Rate Blood Pressure 109/66 108/64 103/63 Pulse Oximetry 100 100 100 10/11/17 18:00 10/11/17 20:00 10/11/17 21:00 Temperature 98 F Pulse Rate 109 H 106 H 106 H Respiratory Rate 16 Blood Pressure 110/59 L 119/67 119/67 Pulse Oximetry 100 100 100 10/11/17 21:30 10/11/17 22:00 10/11/17 22:30 Temperature Pulse Rate 107 H 107 H 106 H Respiratory Rate Blood Pressure 120/62 127/66 119/65 Pulse Oximetry 100 100 100 10/11/17 23:00 10/11/17 23:30 10/11/17 23:52 Temperature Pulse Rate 108 H 107 H Respiratory Rate Blood Pressure 114/62 114/65 Pulse Oximetry 100 100 100 10/12/17 00:00 10/12/17 00:30 10/12/17 01:00 Temperature 98.2 F Pulse Rate 104 H 108 H 112 H Respiratory Rate 14 Blood Pressure 121/70 117/65 116/64 Pulse Oximetry 100 100 100 10/12/17 01:30 10/12/17 02:00 10/12/17 02:30 Temperature Pulse Rate 113 H 111 H 113 H Respiratory Rate Blood Pressure 115/63 119/64 114/62 Pulse Oximetry 100 100 100 10/12/17 03:00 10/12/17 03:30 10/12/17 04:00 Temperature 99 F Pulse Rate 113 H 113 H 113 H Respiratory Rate Blood Pressure 123/65 111/66 117/69 Pulse Oximetry 100 100 100 10/12/17 04:30 10/12/17 05:00 10/12/17 05:30 Temperature Pulse Rate 109 H 109 H 109 H Respiratory Rate Blood Pressure 133/67 135/68 123/71 Pulse Oximetry 100 96 97 10/12/17 06:00 10/12/17 06:30 10/12/17 07:00 Temperature Pulse Rate 110 H 110 H 107 H Respiratory Rate Blood Pressure 129/70 129/67 128/69 Pulse Oximetry 97 98 99 10/12/17 07:30 10/12/17 08:00 10/12/17 08:26 Temperature 100.6 F H Pulse Rate 113 H 120 H Respiratory Rate 32 H Blood Pressure 133/68 114/64 Pulse Oximetry 97 95 96 10/12/17 08:30 10/12/17 09:00 10/12/17 09:30 Temperature Pulse Rate 118 H 119 H 113 H Respiratory Rate Blood Pressure 109/65 111/65 112/68 Pulse Oximetry 97 97 98 10/12/17 10:00 10/12/17 10:30 10/12/17 11:00 Temperature Pulse Rate 112 H 115 H 112 H Respiratory Rate Blood Pressure 113/67 123/60 126/74 Pulse Oximetry 99 98 97 10/12/17 11:39 10/12/17 12:00 Temperature 99.7 F H Pulse Rate 113 H 110 H Respiratory Rate 32 H Blood Pressure 119/82 117/59 L Pulse Oximetry 100 100 Intake & Output 10/11/17 10/12/17 10/12/17 18:59 06:59 18:59 Intake Total 958 / 958 470 / 470 Output Total 450 / 450 470 / 470 Balance 508 / 508 0 / 0 Weight 98.8 kg Intake: IV 100 / 100 Rocephin Inj 1,000 MG In NS Inj 100 / 100 100 ML @ 200 mls/hr IV.SIG Q24H [facility] Rx#:[id number] Oral 0 / 0 Tube Feeding 355 / 355 410 / 410 Water Bolus Amount 503 / 503 60 / 60 Output: Urine 50 / 50 50 / 50 Stool 0 / 0 Pleural Fluid 10 / 10 Urine Amount (Catheter) 400 / 400 Indwelling Urethral Catheter 400 / 400 Wound Drainage 400 / 400 10 / 10 Right Abdomen 400 / 400 10 10 Other: Date of Last Bowel Movement 10/11/17 10/11/17 10/12/17 # Bowel Movements 1 # Incontinent Bowel Movements 3 2 Narrative: drowsy, attempts to talk- stated his name, ff some commands on 02 NC anciteric decrease breath sounds regula rhtyhm, some PVCs abdomen- flabby, soft, - right lower quadrant area- previous paracentesis site- draining extremtiies ++ edema dry scaly skin motor- moves all- generalized weakness - Urinary Catheter Management Indwelling Urethral Catheter Cath placed during this visit: no Results - Labs CBC & Chem 7: 10/12/17 06:45 10/12/17 06:45 Laboratory Results - last 24 hr 10/11/17 10/11/17 10/11/17 17:39 23:43 23:44 WBC RBC Hgb Hct MCV MCH MCHC RDW Plt Count MPV Sodium Potassium Chloride Carbon Dioxide Anion Gap BUN Creatinine Estimated GFR POC Glucose 210 H 243 H 242 H Random Glucose Calcium 10/12/17 10/12/17 10/12/17 06:15 06:45 06:45 WBC 8.5 RBC 3.09 L Hgb 10.3 L Hct 30.9 L MCV 100.0 MCH 33.4 MCHC 33.4 RDW 23.8 H Plt Count 94 L MPV 10.8 Sodium 148 H Potassium 3.5 Chloride 110 H Carbon Dioxide 32.9 H Anion Gap 5 BUN 20 H Creatinine 1.12 Estimated GFR 81 L POC Glucose 209 H Random Glucose 223 H Calcium 8.3 L 10/12/17 10/12/17 07:29 11:56 WBC RBC Hgb Hct MCV MCH MCHC RDW Plt Count MPV Sodium Potassium Chloride Carbon Dioxide Anion Gap BUN Creatinine Estimated GFR POC Glucose 179 H 210 H Random Glucose Calcium Assessment and Plan - Plan 62 years old male EtOH use disorder Daily sedation vacation Monitor ammonia level Continue thiamine and folate Seizure precautions Acute hypoxic and hypercarbic respiratory failure on - O2 saturation greater than 92% Albuterol/ipratropium aerosols every 4 hours with albuterol aerosols every 2 hours as needed for dyspnea History of essential hypertension Maintain MAP greater than 65 Monitor CVP 09/27 echo- EF 40% small left pleural effusion Oliguria-resolved Maintain Sweet for adequate I &O Nephrology following-possible hepatorenal syndrome -- Strict I/Os spironolactone 25mg po daily. off Lasix drip Upper GI bleed secondary to esophageal varices status post banding Decompensated liver cirrhosis Ascites Hyperammonemia GERD Anion gap metabolic acidosis-resolved Electrolyte derangement saline lock ivf. Continue pantoprazole 40 mg IV twice daily. Lactulose BID, continue rifaximin 550 twice daily 09/28- paracentesis by invasive radiology - 5L removed. 09/29-repeat EGD-revealed significant gastropathy, no active sites of bleeding increase tube feeds slowly. plan for eventual PEG Acute blood loss anemia Thrombocytopenia Coagulopathy Monitor CBC 10/01 Transfuse 2 u PRBC's Noted decreased liver synthetic function secondary to cirrhosis Hematology oncology ID following. Continue vancomycin and piperacillin/tazobactam per the recommendations Follow-up urine and blood cultures 09/28 sputum cultures- Staph Aureus 10/04 sputum culture: staph Endocrine: Glucose monitoring per ICU protocol. Low-dose regimen MsK; Chronic lymphedema -- SSI Prophylaxis: GI Prophylaxis Pantoprazole DVT Prophylaxis -- SCDs Hold pharmacological DVT prophylaxis in the setting of thrombocytopenia, and active GI bleed Lines: must keep sweet given recent hepato-renal syndrome. PT daily - ff
[2017-10-13] MEDS: Insulin NovoLOG Aspart Correctional Sugar Inj SQ SCH ×8 (04:00→21:13)
[2017-10-13] MEDS: Oral Hygiene Kit OROPHARYNG SCH ×5 (06:03→15:12)
[2017-10-13 06:55] LABS: Hematocrit 29.1 % (39.0-51.0); Hemoglobin 9.8 gm/dL (13.0-17.0); Mean Corpuscular HGB Conc 33.8 % (32.0-36.0); Mean Corpuscular Volume 100.5 fL (80.0-100.0); Mean Platelet Volume 10.9 fL (7.0-11.0); Platelet Count 97 th/mm3 (150-450); Red Blood Count 2.89 mil/mm3 (4.50-5.90); Red Cell Distribution Width 23.6 % (11.6-17.2); White Blood Count 9.3 th/mm3 (4.0-11.0)
[2017-10-13 07:04] LABS: Calcium 8.7 mg/dL (8.5-10.1); Carbon Dioxide 30.4 meq/L (21.0-32.0); Potassium 4.2 meq/L (3.5-5.1)
[2017-10-13] MEDS: Folic Acid 1 MG Tablet PO SCH (08:59)
[2017-10-13] MEDS: Pantoprazole Inj 40 MG Vial IV.PUSH SCH ×2 (08:59→21:15)
[2017-10-13] MEDS: rifAXIMin 550 MG Tablet PO SCH ×2 (09:00→21:15)
[2017-10-13] MEDS: Senna/Docusate Sodium 8.6/50 MG Tablet PO SCH ×2 (09:00→21:15)
[2017-10-13] MEDS: Calcium Carbonate 500 MG Tablet PO SCH ×2 (09:00→21:15)
[2017-10-13] MEDS: Potassium Chloride 25 MEQ Effervescent Tablet PO SCH ×2 (09:00→21:15)
[2017-10-13] MEDS: Multivitamin/Minerals Therapeutic Tablet PO SCH (09:00)
--- NOTE | 2017-10-13 09:14 | P.DIET ---
Nutritional Evaluation Type of nutrition evaluation: follow-up Nutrition consult regarding: Tube Feeding Screening comments: MDC TF Objective - Diagnosis GI Bleed - Objective Body Weight Used for Calculations: IBW (75.5kg) Energy Needs - Lower Range (kCal/kg): 28 Energy Needs - Upper Range (kCal/kg): 33 Lower Limit kCal/kg (kCals): 2,114 Upper Limit kCal/kg (kCals): 2,491 Lower Limit Protein Factor (Grams per Kg): 1.2 Upper Limit Protein Factor (Grams per Kg): 1.5 Lower Protein Needs (Protein): 91 Upper Protein Needs (Protein): 113 Dietitian Reviewed in Medical Record: Curent medications, Intake & Output, Labs , Tube feeding Diet Order: TF only Objective Comments: Pt's nutritional needs based on 75.5kg PMH: GERC, PNA, Hypothyroidism, Bilateral LE lymphedema, Anxiety, noncompliance to medical therapy Meds inculde: Folic Acid, Thiamine, Theragran, Lactulose, Xifaxan Labs include: Hgb 9.8, Hct 29.1, Na 145, Glu 236, POC Glu 229, 235, 268 +3 BM's Assessment Assessment: Pt remains at nutritional risk r/t current clinical status. Pt self-extubated 10/09 but remains NPO per speech. Pt's current TF of NutriHep is running at 40 ml/ hr and pt is tolerating it well. Pt remains on Lactulose/Xifaxan, ammonia WNL. Pt reassessed at this time. To best meet his nutritional needs, recommend changing TF to Glucerna 1.5 (due to elevated glucose levels) with a goal rate of 60 ml/hr. This will provide 2160 kcals 119 gms protein and 1093 mls free water. Will continue to monitor TF, clinical course. Recommendations: Pt reassessed and no longer needs NutriHep TF. Recommend changing TF to Glucerna 1.5 with goal rate of 60 ml/hr (due to elevated glucose levels) Dietitian following Dietitian to Monitor: Lab values, Liver enzymes, Glucose level, Intake & Output , Tube feeding tolerance, Weight change, Medical course
--- NOTE | 2017-10-13 13:22 | P.PN ---
Subjective Interval history: more lethargic today- needs vigorous stimulation- to have him open his eyes Physical Exam Vital signs: Vital Signs 10/12/17 14:00 10/12/17 15:00 10/12/17 16:00 Temperature 99.2 F Pulse Rate 109 H 109 H 111 H Respiratory Rate 32 H Blood Pressure 117/63 115/60 125/64 Pulse Oximetry 100 100 10/12/17 17:00 10/12/17 18:00 10/12/17 20:00 Temperature 99.1 F Pulse Rate 111 H 118 H 110 H Respiratory Rate 18 Blood Pressure 120/61 109/58 L 122/67 Pulse Oximetry 100 100 10/13/17 00:00 10/13/17 04:00 10/13/17 08:00 Temperature 99 F 98.5 F 98.3 F Pulse Rate 107 H 97 H 99 H Respiratory Rate 19 18 Blood Pressure 109/63 123/69 126/66 Pulse Oximetry 100 98 10/13/17 09:00 10/13/17 12:00 Temperature Pulse Rate 101 H 105 H Respiratory Rate Blood Pressure 124/64 Pulse Oximetry 93 L Intake & Output 10/12/17 10/13/17 10/13/17 18:59 06:59 18:59 Intake Total 842 / 842 676 / 676 Output Total 750 / 750 310 / 310 Balance 92 / 92 366 / 366 Weight 96.5 kg Intake: Oral 0 / 0 Tube Feeding 442 / 442 276 / 276 Water Bolus Amount 400 / 400 400 / 400 Output: Urine 750 / 750 Stool 0 / 0 Pleural Fluid 10 / 10 Urine Amount (Catheter) 300 / 300 Indwelling Urethral Catheter 300 / 300 Wound Drainage 0 / 0 0 / 0 Right Abdomen 0 / 0 0 / 0 Other: Date of Last Bowel Movement 10/12/17 10/12/17 10/13/17 # Bowel Movements 3 3 # Incontinent Bowel Movements 2 Narrative: lethargic on 02 NC + icteric decrease breath sounds, + coarse sounds- cleared with suctioning regular rhtyhm, abdomen- flabby, soft, - right lower quadrant area- previous paracentesis site- + ascites extremtiies ++ edema dry scaly skin motor- moves all- generalized weakness - Urinary Catheter Management Indwelling Urethral Catheter Cath placed during this visit: no Results - Labs CBC & Chem 7: 10/14/17 04:30 10/14/17 04:30 Laboratory Results - last 24 hr 10/12/17 10/12/17 10/13/17 17:07 20:18 01:57 WBC RBC Hgb Hct MCV MCH MCHC RDW Plt Count MPV Sodium Potassium Chloride Carbon Dioxide Anion Gap BUN Creatinine Estimated GFR POC Glucose 257 H 237 H 229 H Random Glucose Calcium 10/13/17 10/13/17 10/13/17 05:51 05:51 05:59 WBC 9.3 RBC 2.89 L Hgb 9.8 L Hct 29.1 L MCV 100.5 H MCH 34.0 MCHC 33.8 RDW 23.6 H Plt Count 97 L MPV 10.9 Sodium 149 H Potassium 4.2 Chloride 112 H Carbon Dioxide 30.4 Anion Gap 7 BUN 25 H Creatinine 1.21 Estimated GFR 74 L POC Glucose 235 H Random Glucose 236 H Calcium 8.7 10/13/17 10/13/17 08:08 12:00 WBC RBC Hgb Hct MCV MCH MCHC RDW Plt Count MPV Sodium Potassium Chloride Carbon Dioxide Anion Gap BUN Creatinine Estimated GFR POC Glucose 268 H 232 H Random Glucose Calcium Assessment and Plan - Plan 62 years old male EtOH use disorder Daily sedation vacation Monitor ammonia level Continue thiamine and folate Seizure precautions Acute hypoxic and hypercarbic respiratory failure More lethargic - MS on NC- O2 saturation greater than 92% Albuterol/ipratropium aerosols every 4 hours with albuterol aerosols every 2 hours as needed for dyspnea stat ABG- BiPAP if with C02 retention History of essential hypertension Maintain MAP greater than 65 Monitor CVP 09/27 echo- EF 40% small left pleural effusion Oliguria-resolved Maintain Sweet for adequate I &O Nephrology following-possible hepatorenal syndrome -- Strict I/Os spironolactone 25mg po daily. off Lasix drip Upper GI bleed secondary to esophageal varices status post banding Decompensated liver cirrhosis Ascites Hyperammonemia GERD Anion gap metabolic acidosis-resolved Electrolyte derangement saline lock ivf. Continue pantoprazole 40 mg IV twice daily. Lactulose BID, continue rifaximin 550 twice daily 09/28- paracentesis by invasive radiology - 5L removed. 09/29-repeat EGD-revealed significant gastropathy, no active sites of bleeding increase tube feeds slowly. plan for eventual PEG Acute blood loss anemia Thrombocytopenia Coagulopathy Monitor CBC 10/01 Transfuse 2 u PRBC's Noted decreased liver synthetic function secondary to cirrhosis Hematology oncology ID following. Continue vancomycin and piperacillin/tazobactam per the recommendations Follow-up urine and blood cultures 09/28 sputum cultures- Staph Aureus 10/04 sputum culture: staph Endocrine: Glucose monitoring per ICU protocol. Low-dose regimen MsK; Chronic lymphedema -- SSI Prophylaxis: GI Prophylaxis Pantoprazole DVT Prophylaxis -- SCDs Hold pharmacological DVT prophylaxis in the setting of thrombocytopenia, and active GI bleed Lines: must keep sweet given recent hepato-renal syndrome. PT daily - ff
[2017-10-13 13:51] LABS: ABG Base Excess 6.1 mmol/L (-2-2); ABG PCO2 40 mmHg (38-42); ABG PO2 69 mmHG (61-120)
[2017-10-14] MEDS: Insulin NovoLOG Aspart Correctional Sugar Inj SQ SCH ×6 (00:56→21:49)
[2017-10-14] MEDS: Oral Hygiene Kit OROPHARYNG SCH ×4 (00:57→18:27)
[2017-10-14 05:56] LABS: Hematocrit 28.7 % (39.0-51.0); Hemoglobin 9.4 gm/dL (13.0-17.0); Mean Corpuscular HGB Conc 32.9 % (32.0-36.0); Mean Corpuscular Hemoglobin 33.7 pg (27.0-34.0); Mean Corpuscular Volume 102.4 fL (80.0-100.0); Mean Platelet Volume 11.4 fL (7.0-11.0); Platelet Count 109 th/mm3 (150-450); Red Cell Distribution Width 23.9 % (11.6-17.2); White Blood Count 8.9 th/mm3 (4.0-11.0)
[2017-10-14 06:25] LABS: Calcium 8.4 mg/dL (8.5-10.1); Carbon Dioxide 31.3 meq/L (21.0-32.0); Potassium 3.8 meq/L (3.5-5.1)
[2017-10-14] MEDS: Potassium Chloride 25 MEQ Effervescent Tablet PO SCH ×2 (09:00→21:50)
[2017-10-14] MEDS: Pantoprazole Inj 40 MG Vial IV.PUSH SCH ×2 (09:03→21:50)
[2017-10-14] MEDS: Folic Acid 1 MG Tablet PO SCH (09:03)
[2017-10-14] MEDS: Calcium Carbonate 500 MG Tablet PO SCH ×2 (09:04→21:50)
[2017-10-14] MEDS: Multivitamin/Minerals Therapeutic Tablet PO SCH (09:04)
[2017-10-14] MEDS: rifAXIMin 550 MG Tablet PO SCH ×2 (09:04→21:51)
[2017-10-14] MEDS: Senna/Docusate Sodium 8.6/50 MG Tablet PO SCH ×2 (09:04→21:50)
--- NOTE | 2017-10-14 11:20 | P.PN ---
Subjective Interval history: lethargic sl;ightly opened eyes to call of his name toelrating tube feedings telemetry this am- 5 beats of WCT Physical Exam Vital signs: Vital Signs 10/13/17 12:00 10/13/17 16:00 10/13/17 20:00 Temperature 100.2 F H 99.2 F Pulse Rate 105 H 105 H 108 H Blood Pressure 124/64 112/58 L 115/63 Pulse Oximetry 93 L 95 95 10/13/17 20:03 10/14/17 00:00 10/14/17 04:00 Temperature 99.2 F 99.5 F Pulse Rate 104 H 106 H Blood Pressure 113/64 152/73 H Pulse Oximetry 96 95 87 L 10/14/17 08:56 Temperature Pulse Rate Blood Pressure Pulse Oximetry 93 L Intake & Output 10/13/17 10/14/17 10/14/17 18:59 06:59 18:59 Intake Total 815 / 815 851 / 851 Output Total 1200 / 1200 1510 / 1510 Balance -385 / -385 -659 / -659 Weight 96.5 kg Intake: Oral 0 / 0 Tube Feeding 365 / 365 451 / 451 Water Bolus Amount 450 / 450 400 / 400 Output: Urine 1200 / 1200 1200 / 1200 Stool 0 / 0 Pleural Fluid 10 / 10 Urine Amount (Catheter) 300 / 300 Indwelling Urethral Catheter 300 / 300 Wound Drainage 0 / 0 0 / 0 Right Abdomen 0 / 0 0 / 0 Other: Date of Last Bowel Movement 10/13/17 10/14/17 # Bowel Movements 2 2 # Incontinent Bowel Movements 2 Narrative: lethargic on 02 NC + icteric decrease breath sounds, + coarse sounds- needs frequent suctioning regular rhtyhm, abdomen- flabby, soft, - right lower quadrant area- previous paracentesis site- + ascites extremtiies ++ edema dry scaly skin motor- moves all- generalized weakness - Urinary Catheter Management Indwelling Urethral Catheter Cath placed during this visit: no Results - Labs CBC & Chem 7: 10/14/17 04:30 10/14/17 04:30 Laboratory Results - last 24 hr 10/13/17 10/13/17 10/13/17 05:51 12:00 13:37 WBC RBC Hgb Hct MCV MCH MCHC RDW Plt Count MPV Puncture Site Right radial Patient Temperature 98.6 O2 Saturation 92 ABG pH 7.48 H ABG pCO2 40 ABG pO2 69 ABG HCO3 30 H ABG O2 Content 10.8 L ABG Base Excess 6.1 H ABG Methemoglobin 1.0 Olaf Test Present Hemoglobin 8.3 L Carboxyhemoglobin 2.0 O2 Delivery Device Nasal cannula Liter Flow 2.00 Inspired O2 21 Critical Value No Sodium Potassium Chloride Carbon Dioxide Anion Gap BUN Creatinine Estimated GFR POC Glucose 232 H Random Glucose Calcium B-Natriuretic Peptide 438 H 10/13/17 10/13/17 10/14/17 15:38 20:58 00:48 WBC RBC Hgb Hct MCV MCH MCHC RDW Plt Count MPV Puncture Site Patient Temperature O2 Saturation ABG pH ABG pCO2 ABG pO2 ABG HCO3 ABG O2 Content ABG Base Excess ABG Methemoglobin Olaf Test Hemoglobin Carboxyhemoglobin O2 Delivery Device Liter Flow Inspired O2 Critical Value Sodium Potassium Chloride Carbon Dioxide Anion Gap BUN Creatinine Estimated GFR POC Glucose 190 H 185 H 262 H Random Glucose Calcium B-Natriuretic Peptide 10/14/17 10/14/17 10/14/17 04:06 04:30 04:30 WBC 8.9 RBC 2.80 L Hgb 9.4 L Hct 28.7 L MCV 102.4 H MCH 33.7 MCHC 32.9 RDW 23.9 H Plt Count 109 L MPV 11.4 H Puncture Site Patient Temperature O2 Saturation ABG pH ABG pCO2 ABG pO2 ABG HCO3 ABG O2 Content ABG Base Excess ABG Methemoglobin Olaf Test Hemoglobin Carboxyhemoglobin O2 Delivery Device Liter Flow Inspired O2 Critical Value Sodium 148 H Potassium 3.8 Chloride 111 H Carbon Dioxide 31.3 Anion Gap 6 BUN 28 H Creatinine 1.25 Estimated GFR 71 L POC Glucose 219 H Random Glucose 210 H Calcium 8.4 L B-Natriuretic Peptide Assessment and Plan - Plan 62 years old male EtOH use disorder Daily sedation vacation Monitor ammonia level Continue thiamine and folate Seizure precautions Acute hypoxic and hypercarbic respiratory failure More lethargic - MS on NC- O2 saturation greater than 92% Albuterol/ipratropium aerosols every 4 hours with albuterol aerosols every 2 hours as needed for dyspnea stat ABG- BiPAP if with C02 retention History of essential hypertension epsiode of NSVT- 5 beats Cardiomyopathy Maintain MAP greater than 65 Monitor CVP 09/27 echo- EF 40% small left pleural effusion K good- check Mg level start Coreg 3.125 mg po bid- review ECho- EF- 40-45 % Oliguria-resolved Maintain Sweet for adequate I &O Nephrology following-possible hepatorenal syndrome -- Strict I/Os spironolactone 25mg po daily. off Lasix drip Upper GI bleed secondary to esophageal varices status post banding Decompensated liver cirrhosis Ascites Hyperammonemia GERD Anion gap metabolic acidosis-resolved Electrolyte derangement saline lock ivf. Continue pantoprazole 40 mg IV twice daily. Lactulose BID, continue rifaximin 550 twice daily 09/28- paracentesis by invasive radiology - 5L removed. 09/29-repeat EGD-revealed significant gastropathy, no active sites of bleeding increase tube feeds slowly. plan for eventual PEG may need another paracentesis Acute blood loss anemia Thrombocytopenia Coagulopathy Monitor CBC 10/01 Transfuse 2 u PRBC's Noted decreased liver synthetic function secondary to cirrhosis Hematology oncology ID following. Continue vancomycin and piperacillin/tazobactam per the recommendations Follow-up urine and blood cultures 09/28 sputum cultures- Staph Aureus 10/04 sputum culture: staph Endocrine: Glucose monitoring per ICU protocol. Low-dose regimen MsK; Chronic lymphedema -- SSI Prophylaxis: GI Prophylaxis Pantoprazole DVT Prophylaxis -- SCDs Hold pharmacological DVT prophylaxis in the setting of thrombocytopenia, and active GI bleed Lines: must keep sweet given recent hepato-renal syndrome. PT daily - ff - will call palliative care- to determine goals and touch base- may need repeat paracentesis and ? timing for PEG
[2017-10-14 12:18] LABS: ABG Base Excess 5.7 mmol/L (-2-2); ABG PCO2 39 mmHg (38-42); ABG PO2 160 mmHG (61-120)
--- NOTE | 2017-10-14 18:08 | P.PNONC ---
Subjective Interval history: Resting in bed in no distress. Objective Vital Signs/Intake & Output: Vital Signs 10/13/17 19:00 10/13/17 20:00 10/13/17 20:03 Temperature 99.2 F Pulse Rate 105 H 108 H Blood Pressure 112/67 115/63 Pulse Oximetry 95 95 96 10/13/17 21:00 10/13/17 22:00 10/13/17 23:00 Temperature Pulse Rate 107 H 108 H 105 H Blood Pressure 116/70 108/65 108/63 Pulse Oximetry 94 L 95 95 10/14/17 00:00 10/14/17 01:00 10/14/17 01:01 Temperature 99.2 F Pulse Rate 104 H 104 H 102 H Blood Pressure 113/64 134/82 Pulse Oximetry 95 95 10/14/17 02:00 10/14/17 03:00 10/14/17 04:00 Temperature 99.5 F Pulse Rate 106 H 105 H 106 H Blood Pressure 111/67 120/68 152/73 H Pulse Oximetry 94 L 93 L 87 L 10/14/17 05:00 10/14/17 06:00 10/14/17 07:00 Temperature Pulse Rate 106 H 103 H 102 H Blood Pressure 116/67 122/66 124/66 Pulse Oximetry 88 L 92 L 94 L 10/14/17 08:00 10/14/17 08:56 10/14/17 09:00 Temperature Pulse Rate 104 H 104 H Blood Pressure 119/68 118/69 Pulse Oximetry 93 L 93 L 93 L 10/14/17 10:00 10/14/17 11:00 10/14/17 12:00 Temperature Pulse Rate 101 H 100 H 98 H Blood Pressure 147/75 H 121/63 121/66 Pulse Oximetry 95 93 L 95 10/14/17 13:00 10/14/17 14:00 Temperature Pulse Rate 99 H 99 H Blood Pressure 123/65 115/66 Pulse Oximetry 94 L 93 L Intake & Output 10/13/17 10/14/17 10/14/17 18:59 06:59 18:59 Intake Total 815 / 815 851 / 851 Output Total 1200 / 1200 1510 / 1510 Balance -385 / -385 -659 / -659 Weight 96.5 kg Intake: Oral 0 / 0 Tube Feeding 365 / 365 451 / 451 Water Bolus Amount 450 / 450 400 / 400 Output: Urine 1200 / 1200 1200 / 1200 Stool 0 / 0 Pleural Fluid 10 / 10 Urine Amount (Catheter) 300 / 300 Indwelling Urethral Catheter 300 / 300 Wound Drainage 0 / 0 0 / 0 Right Abdomen 0 / 0 0 / 0 Other: Date of Last Bowel Movement 10/13/17 10/14/17 10/14/17 # Bowel Movements 2 2 # Incontinent Bowel Movements 2 Result Diagrams: 10/14/17 04:30 10/14/17 04:30 Laboratory Results: Laboratory Results - last 24 hr 10/13/17 10/14/17 10/14/17 20:58 00:48 04:06 WBC RBC Hgb Hct MCV MCH MCHC RDW Plt Count MPV Puncture Site Patient Temperature O2 Saturation ABG pH ABG pCO2 ABG pO2 ABG HCO3 ABG O2 Content ABG Base Excess ABG Methemoglobin Olaf Test Hemoglobin Carboxyhemoglobin O2 Delivery Device Liter Flow Critical Value Sodium Potassium Chloride Carbon Dioxide Anion Gap BUN Creatinine Estimated GFR POC Glucose 185 H 262 H 219 H Random Glucose Calcium Magnesium 10/14/17 10/14/17 10/14/17 04:30 04:30 04:30 WBC 8.9 RBC 2.80 L Hgb 9.4 L Hct 28.7 L MCV 102.4 H MCH 33.7 MCHC 32.9 RDW 23.9 H Plt Count 109 L MPV 11.4 H Puncture Site Patient Temperature O2 Saturation ABG pH ABG pCO2 ABG pO2 ABG HCO3 ABG O2 Content ABG Base Excess ABG Methemoglobin Olaf Test Hemoglobin Carboxyhemoglobin O2 Delivery Device Liter Flow Critical Value Sodium 148 H Potassium 3.8 Chloride 111 H Carbon Dioxide 31.3 Anion Gap 6 BUN 28 H Creatinine 1.25 Estimated GFR 71 L POC Glucose Random Glucose 210 H Calcium 8.4 L Magnesium 2.3 10/14/17 10/14/17 12:00 13:31 WBC RBC Hgb Hct MCV MCH MCHC RDW Plt Count MPV Puncture Site Right radial Patient Temperature 98.6 O2 Saturation 97 ABG pH 7.49 H ABG pCO2 39 ABG pO2 160 H ABG HCO3 29 H ABG O2 Content 12.2 ABG Base Excess 5.7 H ABG Methemoglobin 1.1 Olaf Test Present Hemoglobin 8.7 L Carboxyhemoglobin 1.5 O2 Delivery Device Sm Liter Flow 6.00 Critical Value No Sodium Potassium Chloride Carbon Dioxide Anion Gap BUN Creatinine Estimated GFR POC Glucose 260 H Random Glucose Calcium Magnesium Medications: Active Medications Generic Name Dose Route Start Last Admin Trade Name Freq PRN Reason Stop Dose Admin Carvedilol 3.125 mg 10/14/17 12:00 10/14/17 13:36 Coreg NG/OG 3.125 mg BID JANE Administration Folic Acid 1 mg 10/02/17 09:00 10/14/17 09:03 Folic Acid PO 1 mg DAILY JANE Administration Furosemide 40 mg 10/09/17 18:00 10/14/17 09:00 Lasix Inj IV.PUSH 40 mg BID@0900,1800 JANE Administration Haloperidol Lactate 1 mg 10/02/17 01:00 10/09/17 00:45 Haldol Inj IV.PUSH 1 mg Q15M PRN Administration for severe agitation Potassium Chloride 20 meq in 100 mls @ 50 mls/hr 10/02/17 00:01 10/09/17 10: 45 Kcl 20 Meq Premix Inj IV.SIG Infused UNSCH PRN Infusion ELECTROLYTE PROTOCOL Potassium Chloride 40 meq in 100 mls @ 25 mls/hr 10/02/17 00:01 10/05/17 10: 40 Kcl 40 Meq Premix Inj IV.SIG Infused UNSCH PRN Infusion ELECTROLYTE PROTOCOL Dexmedetomidine HCl 1,000 mcg/ 260 mls @ 5.93 mls/hr 10/02/17 01:00 10/09/17 03:36 Sodium Chloride IV.SIG 0 mcg/kg/hr TITRATE PRN 0 mls/hr SEDATION Infusion Protocol 0.2 MCG/KG/HR Insulin Aspart 0 unit 10/13/17 16:00 10/14/17 13:35 Novolog Insulin Suppl Scale Inj SQ Not Given Q4HR [facility] Protocol Lactulose 30 ml 10/02/17 01:00 10/04/17 20:39 Lactulose Liq PO 30 ml DAILY PRN Administration SEVERE CONSITIPATION Lactulose 30 ml 10/02/17 09:00 10/14/17 09:00 Lactulose Liq PO 30 ml BID JANE Administration Multivitamins/Minerals 1 tab 10/02/17 09:00 10/14/17 09:04 Theragran-M PO 1 tab DAILY JANE Administration Pantoprazole Sodium 40 mg 10/03/17 21:00 10/14/17 09:03 Protonix Inj IV.PUSH 40 mg Q12H JANE Administration Potassium Bicarb/Potassium Chloride 50 meq 10/02/17 00:01 10/12/17 08:27 K-Lyte PO 50 meq UNSCH PRN Administration ELECTROLYTE REPLACEMENT Potassium Bicarb/Potassium Chloride 25 meq 10/02/17 09:00 10/14/17 09:00 K-Lyte PO 25 meq Q12HR JANE Administration Rifaximin 550 mg 10/02/17 09:00 10/14/17 09:04 Xifaxan PO 550 mg BID JANE Administration Senna/Docusate Sodium 1 tab 10/02/17 09:00 10/14/17 09:04 Bri-Colace PO 1 tab BID JANE Administration Sterile Water 0 ml 10/06/17 18:00 10/14/17 13:34 Free Water G-TUBE 200 ml Q6HR JANE Administration Thiamine HCl 100 mg 10/02/17 09:00 10/14/17 09:03 Vitamin B1 PO 100 mg DAILY JANE Administration Objective Remarks: GENERAL: Well-nourished, well-developed patient. SKIN: Warm and dry. HEAD: Normocephalic. EYES: No injection or drainage. RESPIRATORY: No accessory muscle use. GASTROINTESTINAL: protuberant abdomen. EXTREMITIES: No cyanosis, or edema. MUSCULOSKELETAL: Adequate muscle tone. NEUROLOGICAL: No obvious focal deficit. Awake, alert, and oriented x3. PSYCHIATRIC: Appropriate mood and affect; insight and judgment normal. Assessment/Plan - Plan Pancytopenia. Normal labs include folate, B12, viral hepatitis studies. Contributing factors include ETOH abuse causing direct bone marrow suppressions , medications, critical illness. Continue to follow counts, currently improving to baseline. If does not improve once critical illness resolved will consider bone marrow biopsy. Anemia: component of acute blood loss s/p transfusion of PRBC. Coagulopathy: due to known liver cirrhosis. Elevated ferritin: acute phase reactant; liver disease. hemochromatosis negative
[2017-10-14] MEDS ORDERED: Pharmacy Ordered Lab Info OTHER ONE (23:45)
[2017-10-15] MEDS: Insulin NovoLOG Aspart Correctional Sugar Inj SQ SCH ×6 (00:40→21:57)
[2017-10-15] MEDS: Oral Hygiene Kit OROPHARYNG SCH ×4 (00:40→15:08)
--- NOTE | 2017-10-15 08:28 | P.PN ---
Subjective Interval history: patient is more awake and alert this am gave us 2 thumbs up sign ff commands, moved hands and toes on commands and spontaneously tolerating tube feedings staff nurse did bedside NG suctioning- lots of secretions obtained telemetry- sinus with occasional PVCs Physical Exam Vital signs: Vital Signs 10/14/17 08:56 10/14/17 09:00 10/14/17 10:00 Temperature Pulse Rate 104 H 101 H Blood Pressure 118/69 147/75 H Pulse Oximetry 93 L 93 L 95 10/14/17 11:00 10/14/17 12:00 10/14/17 13:00 Temperature Pulse Rate 100 H 98 H 99 H Blood Pressure 121/63 121/66 123/65 Pulse Oximetry 93 L 95 94 L 10/14/17 14:00 10/14/17 15:00 10/14/17 16:00 Temperature Pulse Rate 99 H 101 H 104 H Blood Pressure 115/66 128/68 120/68 Pulse Oximetry 93 L 94 L 94 L 10/14/17 17:00 10/14/17 18:00 10/14/17 19:00 Temperature Pulse Rate 101 H 101 H 100 H Blood Pressure 128/72 123/71 127/68 Pulse Oximetry 93 L 93 L 95 10/14/17 20:00 10/14/17 20:53 10/15/17 00:00 Temperature 98.1 F 97.8 F Pulse Rate 100 H 104 H Blood Pressure 111/69 122/68 Pulse Oximetry 100 100 100 10/15/17 04:00 Temperature 99.5 F Pulse Rate 100 H Blood Pressure 111/66 Pulse Oximetry 100 Intake & Output 10/14/17 10/15/17 10/15/17 18:59 06:59 18:59 Intake Total 933 / 933 986 / 986 Output Total 160 / 160 825 / 825 Balance 773 / 773 161 / 161 Weight 93.2 kg Intake: Oral 0 / 0 0 / 0 Tube Feeding 533 / 533 386 / 386 Water Bolus Amount 400 / 400 600 / 600 Output: Urine 150 / 150 800 / 800 Stool 0 / 0 Pleural Fluid 10 / 10 0 / 0 Urine Amount (Catheter) 0 / 0 Indwelling Urethral Catheter 0 / 0 Wound Drainage 0 / 0 25 / 25 Right Abdomen 0 / 0 25 Other: # Voids 3 2 Date of Last Bowel Movement 10/14/17 10/15/17 # Bowel Movements 2 2 # Incontinent Bowel Movements 2 2 Narrative: more awake and alert, interactive on NC + icteric + NGT decrease breath sounds, + coarse sounds- needs frequent suctioning regular rhtyhm, abdomen- flabby, soft, + ascites, right lower quadrant area- previous paracentesis site-- bag in place- draining extremtities ++ edema dry scaly skin motor- moves all- generalized weakness - Urinary Catheter Management Indwelling Urethral Catheter Cath placed during this visit: no Results - Labs CBC & Chem 7: 10/14/17 04:30 10/16/17 05:00 Laboratory Results - last 24 hr 10/14/17 10/14/17 10/14/17 04:30 12:00 13:31 Puncture Site Right radial Patient Temperature 98.6 O2 Saturation 97 ABG pH 7.49 H ABG pCO2 39 ABG pO2 160 H ABG HCO3 29 H ABG O2 Content 12.2 ABG Base Excess 5.7 H ABG Methemoglobin 1.1 Olaf Test Present Hemoglobin 8.7 L Carboxyhemoglobin 1.5 O2 Delivery Device Sm Liter Flow 6.00 Critical Value No POC Glucose 260 H Magnesium 2.3 10/14/17 10/14/17 10/15/17 18:59 19:33 00:15 Puncture Site Patient Temperature O2 Saturation ABG pH ABG pCO2 ABG pO2 ABG HCO3 ABG O2 Content ABG Base Excess ABG Methemoglobin Olaf Test Hemoglobin Carboxyhemoglobin O2 Delivery Device Liter Flow Critical Value POC Glucose 233 H 277 H 188 H Magnesium 10/15/17 10/15/17 05:25 08:06 Puncture Site Patient Temperature O2 Saturation ABG pH ABG pCO2 ABG pO2 ABG HCO3 ABG O2 Content ABG Base Excess ABG Methemoglobin Olaf Test Hemoglobin Carboxyhemoglobin O2 Delivery Device Liter Flow Critical Value POC Glucose 244 H 219 H Magnesium Assessment and Plan - Plan 62 years old male EtOH use disorder Daily sedation vacation Monitor ammonia level Continue thiamine and folate Seizure precautions Acute hypoxic and hypercarbic respiratory failure MS- definitelty more awake and alert today on NC- O2 saturation greater than 92% Albuterol/ipratropium aerosols every 4 hours with albuterol aerosols every 2 hours as needed for dyspnea stat ABG- BiPAP if with C02 retention needs frequetn suctioning- d/w nurse and RT History of essential hypertension epsiode of NSVT- 5 beats 10/14 Cardiomyopathy Maintain MAP greater than 65 Monitor CVP 09/27 echo- EF 40% small left pleural effusion K good- check Mg level start Coreg 3.125 mg po bid- review ECho- EF- 40-45 % 10/14- now telemetry- sinus with occasional PVC ff BMP Oliguria-resolved Maintain Sweet for adequate I &O Nephrology following-possible hepatorenal syndrome -- Strict I/Os spironolactone 25mg po daily. off Lasix drip Upper GI bleed secondary to esophageal varices status post banding Decompensated liver cirrhosis Ascites Hyperammonemia GERD Anion gap metabolic acidosis-resolved Electrolyte derangement saline lock ivf. Continue pantoprazole 40 mg IV twice daily. Lactulose BID, continue rifaximin 550 twice daily 09/28- paracentesis by invasive radiology - 5L removed.- paracentesis site- draining spontaneously 09/29-repeat EGD-revealed significant gastropathy, no active sites of bleeding increase tube feeds slowly.- currently at 40 cc/hr ? plan for eventual PEG- monitor MS Acute blood loss anemia Thrombocytopenia Coagulopathy Monitor CBC 10/01 Transfuse 2 u PRBC's Noted decreased liver synthetic function secondary to cirrhosis Hematology oncology ID following. Continue vancomycin and piperacillin/tazobactam per the recommendations Follow-up urine and blood cultures 09/28 sputum cultures- Staph Aureus 10/04 sputum culture: staph Endocrine: Glucose monitoring per ICU protocol. Low-dose regimen MsK; Chronic lymphedema -- SSI Prophylaxis: GI Prophylaxis Pantoprazole DVT Prophylaxis -- SCDs Hold pharmacological DVT prophylaxis in the setting of thrombocytopenia, and active GI bleed Lines: must keep sweet given recent hepato-renal syndrome. PT daily - ff - will call palliative care- to determine goals and touch base- - ? PEG candidate
[2017-10-15] MEDS: Pantoprazole Inj 40 MG Vial IV.PUSH SCH ×2 (08:43→21:55)
[2017-10-15] MEDS: Multivitamin/Minerals Therapeutic Tablet PO SCH (08:44)
[2017-10-15] MEDS: Potassium Chloride 25 MEQ Effervescent Tablet PO SCH ×2 (08:44→21:57)
[2017-10-15] MEDS: Calcium Carbonate 500 MG Tablet PO SCH ×2 (08:44→21:57)
[2017-10-15] MEDS: Folic Acid 1 MG Tablet PO SCH (08:44)
[2017-10-15] MEDS: rifAXIMin 550 MG Tablet PO SCH ×2 (08:44→21:57)
[2017-10-15] MEDS: Senna/Docusate Sodium 8.6/50 MG Tablet PO SCH ×2 (08:44→21:57)
[2017-10-16] MEDS: Oral Hygiene Kit OROPHARYNG SCH ×4 (01:00→16:26)
[2017-10-16] MEDS: Insulin NovoLOG Aspart Correctional Sugar Inj SQ SCH ×6 (01:00→20:50)
[2017-10-16 06:53] LABS: Albumin 1.7 g/dL (3.4-5.0); Anion Gap 8 meq/L (5-15); Aspartate Aminotransferase 75 U/L (15-37); Blood Urea Nitrogen 30 mg/dL (7-18); Calcium 8.5 mg/dL (8.5-10.1); Carbon Dioxide 29.9 meq/L (21.0-32.0); Chloride 109 meq/L (98-107); Glomerular Filtration Rate 77 mL/min (>89); Glucose,Random 190 mg/dL (74-106); Potassium 3.6 meq/L (3.5-5.1); Sodium 147 meq/L (136-145)
[2017-10-16 06:55] LABS: Alanine Aminotransferase 28 U/L (12-78)
[2017-10-16 06:57] LABS: Alkaline Phosphatase 127 U/L (45-117); Total Protein 8.6 g/dL (6.4-8.2)
[2017-10-16] MEDS: Pantoprazole Inj 40 MG Vial IV.PUSH SCH ×2 (08:17→20:52)
[2017-10-16] MEDS: Potassium Chloride 25 MEQ Effervescent Tablet PO SCH ×2 (08:18→20:51)
[2017-10-16] MEDS: Multivitamin/Minerals Therapeutic Tablet PO SCH (08:18)
[2017-10-16] MEDS: Folic Acid 1 MG Tablet PO SCH (08:18)
[2017-10-16] MEDS: Senna/Docusate Sodium 8.6/50 MG Tablet PO SCH ×2 (08:18→20:52)
[2017-10-16] MEDS: rifAXIMin 550 MG Tablet PO SCH ×2 (08:18→20:52)
[2017-10-16] MEDS: Calcium Carbonate 500 MG Tablet PO SCH ×2 (08:18→20:52)
--- NOTE | 2017-10-16 18:25 | P.PN ---
Subjective Interval history: patient status quo- tolerating tube feedings opens eyes to call of name ff commands- gave me 2 thumbs up sign Physical Exam Vital signs: Vital Signs 10/15/17 19:00 10/15/17 19:15 10/15/17 20:00 Temperature 99.3 F Pulse Rate 96 H 96 H Respiratory Rate 20 Blood Pressure 118/70 118/68 Pulse Oximetry 94 L 99 100 10/15/17 21:00 10/15/17 22:00 10/15/17 23:00 Temperature Pulse Rate 96 H 92 H 93 H Respiratory Rate Blood Pressure 119/71 123/72 105/65 Pulse Oximetry 100 100 100 10/16/17 00:00 10/16/17 01:00 10/16/17 02:00 Temperature Pulse Rate 91 H 90 89 Respiratory Rate Blood Pressure 116/67 109/71 114/68 Pulse Oximetry 100 100 100 10/16/17 03:00 10/16/17 04:00 10/16/17 05:00 Temperature 98 F Pulse Rate 85 83 85 Respiratory Rate 19 Blood Pressure 110/55 L 116/60 127/67 Pulse Oximetry 100 100 100 10/16/17 06:00 10/16/17 08:00 10/16/17 10:00 Temperature 98.0 F Pulse Rate 91 H 87 87 Respiratory Rate 16 Blood Pressure 116/69 120/66 Pulse Oximetry 99 98 10/16/17 12:00 10/16/17 14:00 10/16/17 16:00 Temperature 98 F 98.2 F Pulse Rate 92 H 91 H 87 Respiratory Rate 16 16 Blood Pressure 104/56 L 107/55 L Pulse Oximetry 96 97 Intake & Output 10/15/17 10/16/17 10/16/17 18:59 06:59 18:59 Intake Total 903 / 903 780 / 780 0 / 0 Output Total 1350 / 1350 825 / 825 Balance -447 / -447 -45 / -45 0 / 0 Weight 91.5 kg Intake: IV 0 / 0 Precedex Inj 1,000 MCG In NS 0 / 0 Inj 250 ML @ 0.2 MCG/KG/HR 5.93 mls/hr IV.SIG TITRATE PRN Rx#: [id number] Tube Feeding 503 / 503 380 / 380 Water Bolus Amount 400 / 400 400 / 400 Output: Urine 1350 / 1350 825 / 825 Other: Date of Last Bowel Movement 10/15/17 10/16/17 10/16/17 # Bowel Movements 0 Narrative: more awake and alert, stated his name on NC + icteric + NGT decrease breath sounds, no rales . no wheezes regular rhtyhm, abdomen- flabby, soft, + ascites, right lower quadrant area- previous paracentesis site-- bag in place- draining extremtities ++ edema dry scaly skin motor- moves all- generalized weakness - Urinary Catheter Management Indwelling Urethral Catheter Cath placed during this visit: no Results - Labs CBC & Chem 7: 10/14/17 04:30 10/16/17 05:00 Laboratory Results - last 24 hr 10/15/17 10/16/17 10/16/17 20:30 00:56 04:03 Sodium Potassium Chloride Carbon Dioxide Anion Gap BUN Creatinine Estimated GFR POC Glucose 261 H 226 H 200 H Random Glucose Calcium Total Bilirubin AST ALT Alkaline Phosphatase Total Protein Albumin 10/16/17 10/16/17 10/16/17 05:00 08:12 11:44 Sodium 147 H Potassium 3.6 Chloride 109 H Carbon Dioxide 29.9 Anion Gap 8 BUN 30 H Creatinine 1.17 Estimated GFR 77 L POC Glucose 233 H 293 H Random Glucose 190 H Calcium 8.5 Total Bilirubin 12.5 H AST 75 H ALT 28 Alkaline Phosphatase 127 H Total Protein 8.6 H Albumin 1.7 L 10/16/17 16:15 Sodium Potassium Chloride Carbon Dioxide Anion Gap BUN Creatinine Estimated GFR POC Glucose 228 H Random Glucose Calcium Total Bilirubin AST ALT Alkaline Phosphatase Total Protein Albumin Assessment and Plan - Plan 62 years old male EtOH use disorder Daily sedation vacation Monitor ammonia level Continue thiamine and folate Seizure precautions Acute hypoxic and hypercarbic respiratory failure MS- definitelty more awake and alert today on NC- O2 saturation greater than 92% Albuterol/ipratropium aerosols every 4 hours with albuterol aerosols every 2 hours as needed for dyspnea stat ABG- BiPAP if with C02 retention needs frequetn suctioning- d/w nurse and RT History of essential hypertension epsiode of NSVT- 5 beats 10/14 Cardiomyopathy Maintain MAP greater than 65 Monitor CVP 09/27 echo- EF 40% small left pleural effusion K good- check Mg level start Coreg 3.125 mg po bid- review ECho- EF- 40-45 % 10/14- now telemetry- sinus with occasional PVC ff BMP Oliguria-resolved Maintain Sweet for adequate I &O Nephrology following-possible hepatorenal syndrome -- Strict I/Os spironolactone 25mg po daily. off Lasix drip Upper GI bleed secondary to esophageal varices status post banding Decompensated liver cirrhosis Ascites Hyperammonemia GERD Anion gap metabolic acidosis-resolved Electrolyte derangement saline lock ivf. Continue pantoprazole 40 mg IV twice daily. Lactulose BID, continue rifaximin 550 twice daily 09/28- paracentesis by invasive radiology - 5L removed.- paracentesis site- draining spontaneously 09/29-repeat EGD-revealed significant gastropathy, no active sites of bleeding increase tube feeds slowly.- currently at 40 cc/hr ? plan for eventual PEG- monitor MS Acute blood loss anemia Thrombocytopenia Coagulopathy Monitor CBC 10/01 Transfuse 2 u PRBC's Noted decreased liver synthetic function secondary to cirrhosis Hematology oncology ID following. Continue vancomycin and piperacillin/tazobactam per the recommendations Follow-up urine and blood cultures 09/28 sputum cultures- Staph Aureus 10/04 sputum culture: staph Endocrine: Glucose monitoring per ICU protocol. Low-dose regimen MsK; Chronic lymphedema -- SSI GI Prophylaxis Pantoprazole DVT Prophylaxis -- SCDs Hold pharmacological DVT prophylaxis in the setting of thrombocytopenia, and active GI bleed Lines: must keep sweet given recent hepato-renal syndrome. PT daily - ff - consulted palliative care- to determine goals and touch base- - ? PEG candidate
[2017-10-17] MEDS: Oral Hygiene Kit OROPHARYNG SCH ×4 (02:07→23:44)
[2017-10-17] MEDS: Insulin NovoLOG Aspart Correctional Sugar Inj SQ SCH ×6 (02:07→23:44)
[2017-10-17] MEDS: Folic Acid 1 MG Tablet PO SCH (08:48)
[2017-10-17] MEDS: Multivitamin/Minerals Therapeutic Tablet PO SCH (08:48)
[2017-10-17] MEDS: rifAXIMin 550 MG Tablet PO SCH ×2 (08:48→20:35)
[2017-10-17] MEDS: Senna/Docusate Sodium 8.6/50 MG Tablet PO SCH ×2 (08:48→20:35)
[2017-10-17] MEDS: Calcium Carbonate 500 MG Tablet PO SCH ×2 (08:49→20:35)
[2017-10-17] MEDS: Potassium Chloride 25 MEQ Effervescent Tablet PO SCH ×2 (08:49→20:34)
[2017-10-17] MEDS: Pantoprazole Inj 40 MG Vial IV.PUSH SCH ×2 (08:49→20:35)
--- NOTE | 2017-10-17 09:48 | P.PN ---
Physical Exam Vital signs: Vital Signs 10/16/17 10:00 10/16/17 11:00 10/16/17 12:00 Temperature 98 F Pulse Rate 92 H 91 H 90 Respiratory Rate 16 Blood Pressure 104/67 101/59 L 93/59 L Pulse Oximetry 100 100 10/16/17 13:00 10/16/17 14:00 10/16/17 15:00 Temperature Pulse Rate 89 93 H 91 H Respiratory Rate Blood Pressure 104/58 L 87/55 L 90/59 L Pulse Oximetry 100 100 100 10/16/17 16:00 10/16/17 17:00 10/16/17 18:00 Temperature 98.2 F Pulse Rate 87 86 87 Respiratory Rate 16 Blood Pressure 107/55 L 107/55 L 100/57 L Pulse Oximetry 100 100 100 10/16/17 19:00 10/16/17 20:00 10/16/17 21:00 Temperature 98.1 F Pulse Rate 84 84 86 Respiratory Rate 26 H Blood Pressure 111/58 L 104/61 98/53 L Pulse Oximetry 100 100 100 10/16/17 22:00 10/16/17 23:00 10/17/17 00:00 Temperature 97.9 F Pulse Rate 86 81 79 Respiratory Rate 25 H Blood Pressure 99/57 L 109/59 L 115/57 L Pulse Oximetry 100 100 100 10/17/17 01:00 10/17/17 02:00 10/17/17 04:00 Temperature 97.9 F Pulse Rate 82 172 H 82 Respiratory Rate 26 H Blood Pressure 99/59 L 98/54 L 105/62 Pulse Oximetry 100 100 100 10/17/17 06:00 10/17/17 08:30 Temperature Pulse Rate 85 Respiratory Rate Blood Pressure Pulse Oximetry 100 Intake & Output 10/16/17 10/17/17 10/17/17 18:59 06:59 18:59 Intake Total 509 / 509 887 / 887 Output Total 800 / 800 700 / 700 Balance -291 / -291 187 / 187 Weight 93.5 kg Intake: IV 0 / 0 Precedex Inj 1,000 MCG In NS 0 / 0 Inj 250 ML @ 0.2 MCG/KG/HR 5.93 mls/hr IV.SIG TITRATE PRN Rx#: [id number] Oral 0 / 0 Tube Feeding 509 / 509 487 / 487 Water Bolus Amount 400 / 400 Output: Urine 800 / 800 700 / 700 Other: Date of Last Bowel Movement 10/16/17 10/17/17 # Bowel Movements 1 3 # Incontinent Bowel Movements 3 Narrative: Subjective Interval history: Patient in nad. No fever or chills. Denies chest pain or sob Feels very tired Jaundiced Did not vomit/ Physical Exam GENERAL: 62 yo male, in bed awake and alert, appears chronically ill. SKIN: Jaundiced. Dry scaly skin. HEAD: Normocephalic. EYES: + icterus. NECK: NGT . Supple, trachea midline. CARDIOVASCULAR: Regular rate and rhythm without murmurs, gallops, or rubs. RESPIRATORY: Breath sounds decreased bilaterally. No accessory muscle use. GASTROINTESTINAL: Abdomen soft, + ascites, mild pain at the right lower quadrant , bag in place. MUSCULOSKELETAL: 2+ edema. BACK: Nontender without obvious deformity. No CVA tenderness. NEURO: moves all extremities. Follows some commands. Very weak hand conductor sleeping car. Assessment and Plan 62 years old male with EtOH use disorder Daily sedation vacation Monitor ammonia level Continue thiamine and folate Seizure precautions Acute hypoxic and hypercarbic respiratory failure MS- definitelty more awake and alert today on NC- O2 saturation greater than 92% Albuterol/ipratropium aerosols every 4 hours with albuterol aerosols every 2 hours as needed for dyspnea stat ABG- BiPAP if with C02 retention needs frequetn suctioning- d/w nurse and RT History of essential hypertension epsiode of NSVT- 5 beats 10/14 Cardiomyopathy Maintain MAP greater than 65 Monitor CVP 09/27 echo- EF 40% small left pleural effusion K good- check Mg level start Coreg 3.125 mg po bid- review ECho- EF- 40-45 % 10/14- now telemetry- sinus with occasional PVC ff BMP Oliguria-resolved Maintain Sweet for adequate I &O Nephrology following-possible hepatorenal syndrome -- Strict I/Os spironolactone 25mg po daily. off Lasix drip Upper GI bleed secondary to esophageal varices status post banding Decompensated liver cirrhosis Ascites Hyperammonemia GERD Anion gap metabolic acidosis-resolved Electrolyte derangement saline lock ivf. Continue pantoprazole 40 mg IV twice daily. Lactulose BID, continue rifaximin 550 twice daily 09/28- paracentesis by invasive radiology - 5L removed.- paracentesis site- draining spontaneously 09/29-repeat EGD-revealed significant gastropathy, no active sites of bleeding increase tube feeds slowly.- currently at 40 cc/hr ? plan for eventual PEG- monitor MS Acute blood loss anemia Thrombocytopenia Coagulopathy Severe protein calorie malnutrition . Will check prealbumin. Patient with very weak hand conductor sleeping car, muscle waisting. Shank Carrier consulted for tube feedings. Monitor CBC 10/01 Transfuse 2 u PRBC's Noted decreased liver synthetic function secondary to cirrhosis Hematology oncology ID following. Continue vancomycin and piperacillin/tazobactam per the recommendations Follow-up urine and blood cultures 09/28 sputum cultures- Staph Aureus 10/04 sputum culture: staph Endocrine: Glucose monitoring per ICU protocol. Low-dose regimen MsK; Chronic lymphedema -- SSI GI Prophylaxis Pantoprazole DVT Prophylaxis -- SCDs Hold pharmacological DVT prophylaxis in the setting of thrombocytopenia, and active GI bleed Lines: must keep sweet given recent hepato-renal syndrome. PT daily - ff - consulted palliative care- to determine goals and touch base- - ? PEG candidate Discussed with the patient, nurse. - Urinary Catheter Management Indwelling Urethral Catheter Cath placed during this visit: no Results - Labs CBC & Chem 7: 10/14/17 04:30 10/16/17 05:00 Laboratory Results - last 24 hr 10/16/17 10/16/17 10/16/17 11:44 16:15 19:40 POC Glucose 293 H 228 H 270 H 10/17/17 10/17/17 10/17/17 01:27 04:13 04:16 POC Glucose 292 H 323 H 270 H 10/17/17 08:11 POC Glucose 207 H
[2017-10-18] MEDS: Insulin NovoLOG Aspart Correctional Sugar Inj SQ SCH ×6 (04:15→20:25)
[2017-10-18] MEDS: Oral Hygiene Kit OROPHARYNG SCH ×4 (04:16→18:36)
[2017-10-18 07:54] LABS: Baso # (Auto) 0.1 th/mm3 (0.0-0.2); Baso % (Auto) 0.7 % (0.0-2.0); Eos # (Auto) 0.5 th/mm3 (0.0-0.4); Eos % (Auto) 5.8 % (0.0-4.0); Hematocrit 24.7 % (39.0-51.0); Hemoglobin 8.2 gm/dL (13.0-17.0); Lymph # (Auto) 1.7 th/mm3 (1.0-4.8); Lymph % (Auto) 20.1 % (9.0-44.0); Mean Corpuscular HGB Conc 33.3 % (32.0-36.0); Mean Corpuscular Hemoglobin 34.2 pg (27.0-34.0); Mean Corpuscular Volume 102.7 fL (80.0-100.0); Mean Platelet Volume 11.6 fL (7.0-11.0); Mono # (Auto) 0.9 th/mm3 (0.0-0.9); Mono % (Auto) 11.4 % (0.0-8.0); Neut # (Auto) 5.1 th/mm3 (1.8-7.7); Platelet Count 99 th/mm3 (150-450); White Blood Count 8.2 th/mm3 (4.0-11.0)
[2017-10-18 08:15] LABS: Blood Urea Nitrogen 33 mg/dL (7-18); Calcium 8.1 mg/dL (8.5-10.1); Carbon Dioxide 30.9 meq/L (21.0-32.0); Glomerular Filtration Rate 66 mL/min (>89); Glucose,Random 194 mg/dL (74-106); Magnesium 2.3 mg/dL (1.5-2.5)
[2017-10-18 08:35] LABS: Anion Gap 5 meq/L (5-15); Chloride 114 meq/L (98-107); Potassium 3.6 meq/L (3.5-5.1); Sodium 150 meq/L (136-145)
[2017-10-18] MEDS: Folic Acid 1 MG Tablet PO SCH (09:40)
[2017-10-18] MEDS: Pantoprazole Inj 40 MG Vial IV.PUSH SCH ×2 (09:40→20:27)
[2017-10-18] MEDS: rifAXIMin 550 MG Tablet PO SCH ×2 (09:40→20:27)
[2017-10-18] MEDS: Multivitamin/Minerals Therapeutic Tablet PO SCH (09:40)
[2017-10-18] MEDS: Calcium Carbonate 500 MG Tablet PO SCH ×2 (09:41→20:26)
[2017-10-18] MEDS: Potassium Chloride 25 MEQ Effervescent Tablet PO SCH ×2 (09:41→20:26)
--- NOTE | 2017-10-18 10:18 | P.PN ---
Physical Exam Vital signs: Vital Signs 10/17/17 12:00 10/17/17 14:00 10/17/17 16:00 Temperature 98.3 F 97.6 F Pulse Rate 83 88 86 Respiratory Rate 18 18 Blood Pressure 99/54 L 102/63 Pulse Oximetry 98 10/17/17 18:00 10/17/17 20:00 10/17/17 22:00 Temperature 97.9 F Pulse Rate 86 88 85 Respiratory Rate 18 Blood Pressure 97/56 L Pulse Oximetry 98 10/18/17 00:00 10/18/17 00:30 10/18/17 02:00 Temperature 98.3 F Pulse Rate 81 85 Respiratory Rate 22 Blood Pressure 100/56 L Pulse Oximetry 98 96 10/18/17 04:00 10/18/17 06:00 Temperature 98.6 F Pulse Rate 81 85 Respiratory Rate 20 Blood Pressure 101/57 L Pulse Oximetry 98 Intake & Output 10/17/17 10/18/17 10/18/17 18:59 06:59 18:59 Intake Total 900 / 900 888 / 888 Output Total 350 / 350 500 / 500 Balance 550 / 550 388 / 388 Weight 91.6 kg Intake: Tube Feeding 500 / 500 428 / 428 Tube Irrigant 60 / 60 Water Bolus Amount 400 / 400 400 / 400 Output: Urine 350 / 350 500 / 500 Other: # Voids 3 # Urine Diapers 3 Date of Last Bowel Movement 10/17/17 10/17/17 # Bowel Movements 1 Narrative: Subjective Interval history: Patient is more awake and alert, confused. No fever or chills. Denies chest pain or sob Feels very tired Jaundiced Did not vomit. Not eating much. No vomiting. Physical Exam GENERAL: 62 yo male, appears chronically ill, more awake and alert. SKIN: Jaundiced. Dry scaly skin. EYES: + icterus. NECK: NGT . Supple, trachea midline. CARDIOVASCULAR: Regular rate and rhythm without murmurs, gallops, or rubs. RESPIRATORY: Breath sounds decreased bilaterally. No accessory muscle use. GASTROINTESTINAL: Abdomen soft, + ascites, mild pain at the right lower quadrant , bag in place. MUSCULOSKELETAL: 2+ edema. BACK: Nontender without obvious deformity. No CVA tenderness. NEURO: moves all extremities. Follows some commands. Very weak hand vamp seamer. Assessment and Plan 62 years old male with EtOH use disorder Daily sedation vacation Monitor ammonia level Continue thiamine and folate Seizure precautions Acute hypoxic and hypercarbic respiratory failure MS- definitelty more awake and alert today on NC- O2 saturation greater than 92% Albuterol/ipratropium aerosols every 4 hours with albuterol aerosols every 2 hours as needed for dyspnea stat ABG- BiPAP if with C02 retention needs frequetn suctioning- d/w nurse and RT History of essential hypertension epsiode of NSVT- 5 beats 10/14 Cardiomyopathy Maintain MAP greater than 65 Monitor CVP 09/27 echo- EF 40% small left pleural effusion K good- check Mg level start Coreg 3.125 mg po bid- review ECho- EF- 40-45 % 10/14- now telemetry- sinus with occasional PVC ff BMP Oliguria-resolved Maintain Sweet for adequate I &O Nephrology following-possible hepatorenal syndrome -- Strict I/Os spironolactone 25mg po daily. off Lasix drip Upper GI bleed secondary to esophageal varices status post banding Decompensated liver cirrhosis Ascites Hyperammonemia GERD Anion gap metabolic acidosis-resolved Electrolyte derangement saline lock ivf. Continue pantoprazole 40 mg IV twice daily. Lactulose BID, continue rifaximin 550 twice daily 09/28- paracentesis by invasive radiology - 5L removed.- paracentesis site- draining spontaneously 09/29-repeat EGD-revealed significant gastropathy, no active sites of bleeding increase tube feeds slowly.- currently at 40 cc/hr ? plan for eventual PEG- monitor MS Acute blood loss anemia Thrombocytopenia Coagulopathy Severe protein calorie malnutrition . Will check prealbumin. Patient with very weak hand vamp seamer, muscle waisting. [employer] consulted for tube feedings. Monitor CBC 10/01 Transfuse 2 u PRBC's Noted decreased liver synthetic function secondary to cirrhosis Hematology oncology ID following. Continue vancomycin and piperacillin/tazobactam per the recommendations Follow-up urine and blood cultures 09/28 sputum cultures- Staph Aureus 10/04 sputum culture: staph Endocrine: Glucose monitoring per ICU protocol. Low-dose regimen MsK; Chronic lymphedema -- SSI GI Prophylaxis Pantoprazole DVT Prophylaxis -- SCDs Hold pharmacological DVT prophylaxis in the setting of thrombocytopenia, and active GI bleed Lines: must keep sweet given recent hepato-renal syndrome. PT daily - ff - consulted palliative care- to determine goals and touch base- - ? PEG candidate Discussed with the patient, nurse. Transfer out of ICU - Urinary Catheter Management Indwelling Urethral Catheter Cath placed during this visit: no Results - Labs CBC & Chem 7: 10/18/17 06:43 10/18/17 06:43 Laboratory Results - last 24 hr 10/17/17 10/17/17 10/17/17 11:39 17:02 20:13 WBC RBC Hgb Hct MCV MCH MCHC RDW Plt Count MPV Prelim Diff (Auto) Neut % (Auto) Lymph % (Auto) [place] % (Auto) Eos % (Auto) Baso % (Auto) Neut # (Auto) Lymph # (Auto) [place] # (Auto) Eos # (Auto) Baso # (Auto) WBC Differential Diff Scan Differential Comment Sodium Potassium Chloride Carbon Dioxide Anion Gap BUN Creatinine Estimated GFR POC Glucose 222 H 241 H 219 H Random Glucose Calcium Phosphorus Magnesium Prealbumin 10/17/17 10/18/17 10/18/17 23:38 03:40 06:43 WBC 8.2 RBC 2.40 L Hgb 8.2 L Hct 24.7 L MCV 102.7 H MCH 34.2 H MCHC 33.3 RDW 24.0 H Plt Count 99 L MPV 11.6 H Prelim Diff (Auto) Slide review pending Neut % (Auto) 62.0 Lymph % (Auto) 20.1 [place] % (Auto) 11.4 H Eos % (Auto) 5.8 H Baso % (Auto) 0.7 Neut # (Auto) 5.1 Lymph # (Auto) 1.7 [place] # (Auto) 0.9 Eos # (Auto) 0.5 H Baso # (Auto) 0.1 WBC Differential . Diff Scan Auto diff confirmed Differential Comment . Sodium Potassium Chloride Carbon Dioxide Anion Gap BUN Creatinine Estimated GFR POC Glucose 189 H 195 H Random Glucose Calcium Phosphorus Magnesium Prealbumin 10/18/17 10/18/17 06:43 07:56 WBC RBC Hgb Hct MCV MCH MCHC RDW Plt Count MPV Prelim Diff (Auto) Neut % (Auto) Lymph % (Auto) [place] % (Auto) Eos % (Auto) Baso % (Auto) Neut # (Auto) Lymph # (Auto) [place] # (Auto) Eos # (Auto) Baso # (Auto) WBC Differential Diff Scan Differential Comment Sodium 150 H Potassium 3.6 Chloride 114 H Carbon Dioxide 30.9 Anion Gap 5 BUN 33 H Creatinine 1.33 H Estimated GFR 66 L POC Glucose 198 H Random Glucose 194 H Calcium 8.1 L Phosphorus 2.0 L Magnesium 2.3 Prealbumin Less than 3 L
[2017-10-18] MEDS: Senna/Docusate Sodium 8.6/50 MG Tablet PO SCH ×2 (13:21→20:26)
[2017-10-18] MEDS: Nystatin Liq 500,000 UNIT/5 ML UDC SWISH-SWAL SCH ×3 (13:22→20:26)
--- NOTE | 2017-10-18 17:58 | P.PNONC ---
Subjective Interval history: Resting comfortably in bed. Objective Vital Signs/Intake & Output: Vital Signs 10/17/17 18:00 10/17/17 20:00 10/17/17 22:00 Temperature 97.9 F Pulse Rate 86 88 85 Respiratory Rate 18 Blood Pressure 97/56 L Pulse Oximetry 98 10/18/17 00:00 10/18/17 00:30 10/18/17 02:00 Temperature 98.3 F Pulse Rate 81 85 Respiratory Rate 22 Blood Pressure 100/56 L Pulse Oximetry 98 96 10/18/17 04:00 10/18/17 06:00 10/18/17 08:00 Temperature 98.6 F 97.9 F Pulse Rate 81 85 80 Respiratory Rate 20 20 Blood Pressure 101/57 L 112/58 L Pulse Oximetry 98 99 10/18/17 10:00 10/18/17 12:00 10/18/17 14:00 Temperature 98.0 F Pulse Rate 79 81 83 Respiratory Rate 20 Blood Pressure 96/57 L Pulse Oximetry 99 Intake & Output 10/17/17 10/18/17 10/18/17 18:59 06:59 18:59 Intake Total 900 / 900 888 / 888 Output Total 350 / 350 500 / 500 Balance 550 / 550 388 / 388 Weight 91.6 kg Intake: Tube Feeding 500 / 500 428 / 428 Tube Irrigant 60 / 60 Water Bolus Amount 400 / 400 400 / 400 Output: Urine 350 / 350 500 / 500 Other: # Voids 3 # Urine Diapers 3 Date of Last Bowel Movement 10/17/17 10/17/17 10/18/17 # Bowel Movements 1 Result Diagrams: 10/18/17 06:43 10/18/17 06:43 Laboratory Results: Laboratory Results - last 24 hr 10/17/17 10/17/17 10/18/17 20:13 23:38 03:40 WBC RBC Hgb Hct MCV MCH MCHC RDW Plt Count MPV Prelim Diff (Auto) Neut % (Auto) Lymph % (Auto) [place] % (Auto) Eos % (Auto) Baso % (Auto) Neut # (Auto) Lymph # (Auto) [place] # (Auto) Eos # (Auto) Baso # (Auto) WBC Differential Diff Scan Differential Comment Sodium Potassium Chloride Carbon Dioxide Anion Gap BUN Creatinine Estimated GFR POC Glucose 219 H 189 H 195 H Random Glucose Calcium Phosphorus Magnesium Prealbumin 10/18/17 10/18/17 10/18/17 06:43 06:43 07:56 WBC 8.2 RBC 2.40 L Hgb 8.2 L Hct 24.7 L MCV 102.7 H MCH 34.2 H MCHC 33.3 RDW 24.0 H Plt Count 99 L MPV 11.6 H Prelim Diff (Auto) Slide review pending Neut % (Auto) 62.0 Lymph % (Auto) 20.1 [place] % (Auto) 11.4 H Eos % (Auto) 5.8 H Baso % (Auto) 0.7 Neut # (Auto) 5.1 Lymph # (Auto) 1.7 [place] # (Auto) 0.9 Eos # (Auto) 0.5 H Baso # (Auto) 0.1 WBC Differential . Diff Scan Auto diff confirmed Differential Comment . Sodium 150 H Potassium 3.6 Chloride 114 H Carbon Dioxide 30.9 Anion Gap 5 BUN 33 H Creatinine 1.33 H Estimated GFR 66 L POC Glucose 198 H Random Glucose 194 H Calcium 8.1 L Phosphorus 2.0 L Magnesium 2.3 Prealbumin Less than 3 L 10/18/17 10/18/17 12:42 17:07 WBC RBC Hgb Hct MCV MCH MCHC RDW Plt Count MPV Prelim Diff (Auto) Neut % (Auto) Lymph % (Auto) [place] % (Auto) Eos % (Auto) Baso % (Auto) Neut # (Auto) Lymph # (Auto) [place] # (Auto) Eos # (Auto) Baso # (Auto) WBC Differential Diff Scan Differential Comment Sodium Potassium Chloride Carbon Dioxide Anion Gap BUN Creatinine Estimated GFR POC Glucose 274 H 224 H Random Glucose Calcium Phosphorus Magnesium Prealbumin Medications: Active Medications Generic Name Dose Route Start Last Admin Trade Name Freq PRN Reason Stop Dose Admin Carvedilol 3.125 mg 10/14/17 12:00 10/18/17 09:40 Coreg NG/OG 3.125 mg BID JANE Administration Folic Acid 1 mg 10/02/17 09:00 10/18/17 09:40 Folic Acid PO 1 mg DAILY JANE Administration Furosemide 40 mg 10/09/17 18:00 10/18/17 09:44 Lasix Inj IV.PUSH 40 mg BID@0900,1800 JANE Administration Haloperidol Lactate 1 mg 10/02/17 01:00 10/09/17 00:45 Haldol Inj IV.PUSH 1 mg Q15M PRN Administration for severe agitation Potassium Chloride 20 meq in 100 mls @ 50 mls/hr 10/02/17 00:01 10/09/17 10: 45 Kcl 20 Meq Premix Inj IV.SIG Infused UNSCH PRN Infusion ELECTROLYTE PROTOCOL Potassium Chloride 40 meq in 100 mls @ 25 mls/hr 10/02/17 00:01 10/05/17 10: 40 Kcl 40 Meq Premix Inj IV.SIG Infused UNSCH PRN Infusion ELECTROLYTE PROTOCOL Dexmedetomidine HCl 1,000 mcg/ 260 mls @ 5.93 mls/hr 10/02/17 01:00 10/16/17 07:37 Sodium Chloride IV.SIG 0 mcg/kg/hr TITRATE PRN 0 mls/hr SEDATION Infusion Protocol 0.2 MCG/KG/HR Insulin Aspart 0 unit 10/13/17 16:00 10/18/17 12:00 Novolog Insulin Suppl Scale Inj SQ 5 unit Q4HR JANE Administration Protocol Lactulose 30 ml 10/02/17 01:00 10/04/17 20:39 Lactulose Liq PO 30 ml DAILY PRN Administration SEVERE CONSITIPATION Lactulose 30 ml 10/02/17 09:00 10/18/17 09:41 Lactulose Liq PO 30 ml BID JANE Administration Multivitamins/Minerals 1 tab 10/02/17 09:00 10/18/17 09:40 Theragran-M PO 1 tab DAILY JANE Administration Nystatin 5 ml 10/18/17 13:00 10/18/17 13:22 Mycostatin Liq SWISH-SWAL 10/25/17 12:59 5 ml QID JANE Administration Pantoprazole Sodium 40 mg 10/03/17 21:00 10/18/17 09:40 Protonix Inj IV.PUSH 40 mg Q12H JANE Administration Potassium Bicarb/Potassium Chloride 50 meq 10/02/17 00:01 10/12/17 08:27 K-Lyte PO 50 meq UNSCH PRN Administration ELECTROLYTE REPLACEMENT Potassium Bicarb/Potassium Chloride 25 meq 10/02/17 09:00 10/18/17 09:41 K-Lyte PO 25 meq Q12HR JANE Administration Rifaximin 550 mg 10/02/17 09:00 10/18/17 09:40 Xifaxan PO 550 mg BID JANE Administration Senna/Docusate Sodium 1 tab 10/02/17 09:00 10/18/17 13:21 Bri-Colace PO Not Given BID JANE Sterile Water 0 ml 10/06/17 18:00 10/18/17 13:22 Free Water G-TUBE 200 ml Q6HR JANE Administration Thiamine HCl 100 mg 10/02/17 09:00 10/18/17 09:41 Vitamin B1 PO 100 mg DAILY JANE Administration Objective Remarks: GENERAL: chronically ill appearing man in no distress SKIN: Warm and dry. HEAD: Normocephalic. EYES: No scleral icterus. No injection or drainage. LYMPHATIC: No adenopathy. RESPIRATORY: No accessory muscle use. GASTROINTESTINAL: Abdomen soft, non-tender, nondistended. EXTREMITIES: lower extretmieis with thickened skin MUSCULOSKELETAL: Adequate muscle tone. NEUROLOGICAL: No obvious focal deficit. Assessment/Plan - Plan Pancytopenia. Normal labs include folate, B12, viral hepatitis studies. Contributing factors include ETOH abuse causing direct bone marrow suppression, medications, critical illness. Counts have improved to baseline. Anemia: component of acute blood loss s/p transfusion of PRBC. Coagulopathy: due to known liver cirrhosis. Elevated ferritin: acute phase reactant; liver disease. hemochromatosis negative Thrombocytopenia: due to known liver cirrhosis. continue to monitor.
[2017-10-19] MEDS: Insulin NovoLOG Aspart Correctional Sugar Inj SQ SCH ×6 (00:05→22:35)
[2017-10-19] MEDS: Oral Hygiene Kit OROPHARYNG SCH ×4 (00:06→17:15)
[2017-10-19] MEDS: Nystatin Liq 500,000 UNIT/5 ML UDC SWISH-SWAL SCH ×4 (08:15→22:37)
[2017-10-19] MEDS: Multivitamin/Minerals Therapeutic Tablet PO SCH (08:15)
[2017-10-19] MEDS: rifAXIMin 550 MG Tablet PO SCH ×2 (08:15→22:38)
[2017-10-19] MEDS: Calcium Carbonate 500 MG Tablet PO SCH ×2 (08:15→22:36)
[2017-10-19] MEDS: Folic Acid 1 MG Tablet PO SCH (08:15)
[2017-10-19] MEDS: Potassium Chloride 25 MEQ Effervescent Tablet PO SCH ×2 (08:16→22:38)
[2017-10-19] MEDS: Pantoprazole Inj 40 MG Vial IV.PUSH SCH ×2 (08:16→22:37)
[2017-10-19] MEDS: Senna/Docusate Sodium 8.6/50 MG Tablet PO SCH ×2 (08:17→22:36)
[2017-10-19] MEDS ORDERED: Sod Chloride 0.9% Inj 2,000 ML IV.SIG ONE (11:45)
--- NOTE | 2017-10-19 11:48 | P.PN ---
Physical Exam Vital signs: Vital Signs 10/18/17 12:00 10/18/17 13:00 10/18/17 14:00 Temperature 98.0 F Pulse Rate 81 76 83 Respiratory Rate 20 Blood Pressure 96/57 L 105/55 L 109/62 Pulse Oximetry 99 10/18/17 15:00 10/18/17 16:00 10/18/17 17:00 Temperature 98.4 F Pulse Rate 85 80 89 Respiratory Rate 18 Blood Pressure 107/59 L 107/61 112/60 Pulse Oximetry 98 10/18/17 18:00 10/18/17 19:00 10/18/17 20:00 Temperature 98.1 F Pulse Rate 78 77 82 Respiratory Rate 20 Blood Pressure 99/60 L 104/56 L 112/71 Pulse Oximetry 99 10/18/17 21:00 10/18/17 22:00 10/18/17 23:00 Temperature Pulse Rate 77 80 77 Respiratory Rate Blood Pressure 111/56 L 90/50 L 91/53 L Pulse Oximetry 100 100 100 10/18/17 23:36 10/18/17 23:39 10/19/17 00:00 Temperature 98.2 F Pulse Rate 77 75 Respiratory Rate 20 Blood Pressure 91/53 L 98/53 L Pulse Oximetry 100 100 100 10/19/17 01:00 10/19/17 02:00 10/19/17 02:24 Temperature Pulse Rate 70 73 73 Respiratory Rate Blood Pressure 105/63 95/58 L 104/59 L Pulse Oximetry 96 100 100 10/19/17 03:00 10/19/17 04:00 10/19/17 05:00 Temperature 98.0 F Pulse Rate 73 69 75 Respiratory Rate 20 Blood Pressure 117/61 101/63 100/59 L Pulse Oximetry 97 98 99 10/19/17 06:00 10/19/17 07:00 10/19/17 08:00 Temperature 98 F Pulse Rate 73 73 73 Respiratory Rate Blood Pressure 101/58 L 99/58 L 115/61 Pulse Oximetry 100 100 100 10/19/17 09:00 10/19/17 10:00 Temperature Pulse Rate 76 73 Respiratory Rate Blood Pressure 130/60 107/65 Pulse Oximetry 100 100 Intake & Output 10/18/17 10/19/17 10/19/17 18:59 06:59 18:59 Intake Total 1065 / 1065 926 / 926 Output Total 1475 / 1475 1000 / 1000 Balance -410 / -410 -74 / -74 Weight 88 kg Intake: Oral 120 / 120 0 / 0 Tube Feeding 495 / 495 466 / 466 Tube Irrigant 50 / 50 60 / 60 Water Bolus Amount 400 / 400 400 / 400 Output: Urine 1450 / 1450 1000 / 1000 Stool 0 / 0 Pleural Fluid 0 / 0 Urine Amount (Catheter) 0 / 0 Indwelling Urethral Catheter 0 / 0 Wound Drainage 0 / 0 Right Abdomen 0 / 0 Other: Date of Last Bowel Movement 10/18/17 10/19/17 10/19/17 # Bowel Movements 3 # Incontinent Bowel Movements 3 1 Narrative: Subjective Interval history: Patient is more awake and alert, however still confused. He is eating better. Plan to remove the NG tube Dobbhoff. However he was noted with low blood pressure 2 L by nasal cannula. No other concerns. Feels very tired. She is jaundiced. No nausea vomiting able to eat. Denies any chest pain no shortness of breath. No fever or chills. Physical Exam GENERAL: 62 yo male, appears chronically ill, more awake and alert. SKIN: Jaundiced. Dry scaly skin. EYES: + icterus. NECK: NGT . Supple, trachea midline. CARDIOVASCULAR: Regular rate and rhythm without murmurs, gallops, or rubs. RESPIRATORY: Breath sounds decreased bilaterally. No accessory muscle use. GASTROINTESTINAL: Abdomen soft, + ascites, mild pain at the right lower quadrant , bag in place. MUSCULOSKELETAL: 2+ edema. BACK: Nontender without obvious deformity. No CVA tenderness. NEURO: moves all extremities. Follows some commands. 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 Assessment and Plan 62 years old male with EtOH use disorder Daily sedation vacation Monitor ammonia level Continue thiamine and folate Seizure precautions Acute hypoxic and hypercarbic respiratory failure MS- definitelty more awake and alert today on NC- O2 saturation greater than 92% Albuterol/ipratropium aerosols every 4 hours with albuterol aerosols every 2 hours as needed for dyspnea stat ABG- BiPAP if with C02 retention needs frequetn suctioning- d/w nurse and RT History of essential hypertension epsiode of NSVT- 5 beats 10/14 Cardiomyopathy Maintain MAP greater than 65 Monitor CVP 09/27 echo- EF 40% small left pleural effusion K good- check Mg level start Coreg 3.125 mg po bid- review ECho- EF- 40-45 % 10/14- now telemetry- sinus with occasional PVC ff BMP Oliguria-resolved Maintain Sweet for adequate I &O Nephrology following-possible hepatorenal syndrome -- Strict I/Os spironolactone 25mg po daily. off Lasix drip Upper GI bleed secondary to esophageal varices status post banding Decompensated liver cirrhosis Ascites Hyperammonemia GERD Anion gap metabolic acidosis-resolved Electrolyte derangement saline lock ivf. Continue pantoprazole 40 mg IV twice daily. Lactulose BID, continue rifaximin 550 twice daily 09/28- paracentesis by invasive radiology - 5L removed.- paracentesis site- draining spontaneously 09/29-repeat EGD-revealed significant gastropathy, no active sites of bleeding increase tube feeds slowly.- currently at 40 cc/hr ? plan for eventual PEG- monitor MS Acute blood loss anemia Thrombocytopenia Coagulopathy Severe protein calorie malnutrition . Will check prealbumin. 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 Auction Clerk consulted for tube feedings. Monitor CBC 10/01 Transfuse 2 u PRBC's Noted decreased liver synthetic function secondary to cirrhosis Hematology oncology ID following. Continue vancomycin and piperacillin/tazobactam per the recommendations Follow-up urine and blood cultures 09/28 sputum cultures- Staph Aureus 10/04 sputum culture: staph Endocrine: Glucose monitoring per ICU protocol. Low-dose regimen MsK; Chronic lymphedema -- SSI GI Prophylaxis Pantoprazole DVT Prophylaxis -- SCDs Hold pharmacological DVT prophylaxis in the setting of thrombocytopenia, and active GI bleed Lines: must keep sweet given recent hepato-renal syndrome. PT daily - ff - consulted palliative care- to determine goals and touch base- - ? PEG candidate Discussed with the patient, nurse. Transfer out of ICU - Urinary Catheter Management Indwelling Urethral Catheter Cath placed during this visit: no Results - Labs CBC & Chem 7: 10/18/17 06:43 10/18/17 06:43 Laboratory Results - last 24 hr 10/18/17 10/18/17 10/18/17 12:42 17:07 20:08 POC Glucose 274 H 224 H 223 H 10/18/17 10/19/17 10/19/17 23:29 03:48 08:03 POC Glucose 167 H 194 H 231 H
--- NOTE | 2017-10-19 14:31 | P.PNPAL ---
Reason for Visit Reason for visit: a. To assist with evaluation and management of symptoms including:shortness of breath, dysphagia b. To assist medical decision maker(s) with: better understanding of current medical conditions; weighing benefits/burdens of medical treatment options; making medical treatment decisions. Subjective Subjective/Interval History: Follow-up medically necessary for symptom management. Patient seen and examined in his room on MICU. Patient is in bed, awake, oriented to self, place, partly situation with some confusion. Patient`s face showing temporal wasting and also noticeable muscle wasting in his extremities. Patient continues to speak with a soft voice though today his speech is comprehensible. When asked how he was doing , patient states,"hanging in there and hoping to get better, I guess i need to pray ". Offered ophthalmologist visit and patient agreeable to visit. Patient continues to explain how [employer] (his former employer) did not treat him well and that now he has to live off of government money. Patient denies pain, only complaining of discomfort to his coccyx area. Patient is now on pured diet with honey consistency thickened liquids. Dobbhoff catheter discontinued today. Patient is currently on room air with O2 saturation in the mid to high 90s. Patient denies shortness of breath. Laboratory workup on 10/18/17 revealed WBC 8.2, hemoglobin 8.2, hematocrit 24.7, platelet count 99, no recent imaging. Physical and speech therapy following with patient. Per bedside nurse patient was hypotensive when he was transferred out of bed to a chair. Hematology oncology following. Case management following. Case discussed with Barking Machine Feeder Klever who will add patient to his list and visit with him. Telephone conversation with patient`s sister Bud Bennett. Updated her on patient`s current condition. Expressed concern that patient may have showed some signs of improvement but has many medical challenges he may be faced with in the near future. Patient`s sister also concerned about her brothers welfare. She requested that patient`s uncle be updated on patient`s status and she hopes that since he has the means to come and see patient as well as travel with patient`s mother, they would visit with patient and see him. Family/Friend Interactions: Telephone conversation with patient`s sister Sabrina Bud. Advance Directives Living Will: Never completed Health Care Surrogate: Copy in medical record Durable Power of Humane Officer: Never completed Advance Directives Date on File: 10/10/17 (HCS completed after patient verbally consented and was witnessed by BENEFITS SPECIALIST and bedside RN. ) Health Care Surrogate Name and Number: HCS: Bud Campos [phone] Alt. HCS: Rosi Boone [phone] Objective Vital Signs: Vital Signs 10/18/17 15:00 10/18/17 16:00 10/18/17 17:00 Temperature 98.4 F Pulse Rate 85 80 89 Respiratory Rate 18 Blood Pressure 107/59 L 107/61 112/60 Pulse Oximetry 98 10/18/17 18:00 10/18/17 19:00 10/18/17 20:00 Temperature 98.1 F Pulse Rate 78 77 82 Respiratory Rate 20 Blood Pressure 99/60 L 104/56 L 112/71 Pulse Oximetry 99 10/18/17 21:00 10/18/17 22:00 10/18/17 23:00 Temperature Pulse Rate 77 80 77 Respiratory Rate Blood Pressure 111/56 L 90/50 L 91/53 L Pulse Oximetry 100 100 100 10/18/17 23:36 10/18/17 23:39 10/19/17 00:00 Temperature 98.2 F Pulse Rate 77 75 Respiratory Rate 20 Blood Pressure 91/53 L 98/53 L Pulse Oximetry 100 100 100 10/19/17 01:00 10/19/17 02:00 10/19/17 02:24 Temperature Pulse Rate 70 73 73 Respiratory Rate Blood Pressure 105/63 95/58 L 104/59 L Pulse Oximetry 96 100 100 10/19/17 03:00 10/19/17 04:00 10/19/17 05:00 Temperature 98.0 F Pulse Rate 73 69 75 Respiratory Rate 20 Blood Pressure 117/61 101/63 100/59 L Pulse Oximetry 97 98 99 10/19/17 06:00 10/19/17 07:00 10/19/17 08:00 Temperature 98 F Pulse Rate 73 73 73 Respiratory Rate Blood Pressure 101/58 L 99/58 L 115/61 Pulse Oximetry 100 100 100 10/19/17 09:00 10/19/17 10:00 10/19/17 10:51 Temperature Pulse Rate 76 73 82 Respiratory Rate Blood Pressure 130/60 107/65 85/51 L Pulse Oximetry 100 100 100 10/19/17 11:00 10/19/17 11:19 10/19/17 11:38 Temperature Pulse Rate 83 87 79 Respiratory Rate Blood Pressure 75/44 L 80/51 L 110/57 L Pulse Oximetry 100 100 100 10/19/17 11:40 10/19/17 12:00 10/19/17 12:03 Temperature 98.0 F Pulse Rate 79 75 73 Respiratory Rate Blood Pressure 98/59 L 97/63 L 110/60 Pulse Oximetry 97 98 100 10/19/17 12:27 10/19/17 12:40 Temperature Pulse Rate 74 76 Respiratory Rate Blood Pressure 98/57 L 104/57 L Pulse Oximetry 100 100 Intake & Output 10/18/17 10/19/17 10/19/17 18:59 06:59 18:59 Intake Total 1065 / 1065 926 / 926 Output Total 1475 / 1475 1000 / 1000 Balance -410 / -410 -74 / -74 Weight 88 kg Intake: Oral 120 / 120 0 / 0 Tube Feeding 495 / 495 466 / 466 Tube Irrigant 50 / 50 60 / 60 Water Bolus Amount 400 / 400 400 / 400 Output: Urine 1450 / 1450 1000 / 1000 Stool 0 / 0 Pleural Fluid 0 / 0 Urine Amount (Catheter) 0 / 0 Indwelling Urethral Catheter 0 / 0 Wound Drainage 25 / 25 0 / 0 Right Abdomen 25 / 25 0 / 0 Other: Date of Last Bowel Movement 10/18/17 10/19/17 10/19/17 # Bowel Movements 3 # Incontinent Bowel Movements 3 1 Physical Exam: CONSTITUTIONAL/GENERAL: This is a chronically ill looking patient, lethargic in no acute distress TUBES/LINES/DRAINS: NG tube, PIV, FC, wound bag to previous paracentesis site SKIN:hx of lymphedema to BLE. Skin scaly, with tree bark appearance and discolored to bilateral lower extremities EYES: Sclera icterus. Fundi not examined. ENT: Hearing grossly normal. No nasal bleeding or purulent drainage. Moist oral mucosa. CARDIOVASCULAR:S1, S2 normal, no murmurs, gallops, or rubs. No JVD. Peripheral pulses symmetric. RESPIRATORY/CHEST: Symmetric, unlabored respirations. Diminished breath sounds. GASTROINTESTINAL: Abdomen soft, distended. active bowel sounds x4. Wound bag to previous paracentesis site, not much drainage noted. GENITOURINARY: No bladder distension. MUSCULOSKELETAL: Extremities without clubbing, cyanosis, or edema. Lymphedema to BLE worse on R leg. NEUROLOGICAL: Lethargic, oriented to self, place and partly situation with some confusion PSYCHIATRIC: Calm. Diagnostic Tests Laboratory: Laboratory Results - last 72 hr 10/16/17 10/16/17 10/17/17 16:15 19:40 01:27 WBC RBC Hgb Hct MCV MCH MCHC RDW Plt Count MPV Prelim Diff (Auto) Neut % (Auto) Lymph % (Auto) Garland % (Auto) Eos % (Auto) Baso % (Auto) Neut # (Auto) Lymph # (Auto) Garland # (Auto) Eos # (Auto) Baso # (Auto) WBC Differential Diff Scan Differential Comment Sodium Potassium Chloride Carbon Dioxide Anion Gap BUN Creatinine Estimated GFR POC Glucose 228 H 270 H 292 H Random Glucose Calcium Phosphorus Magnesium Prealbumin 10/17/17 10/17/17 10/17/17 04:13 04:16 08:11 WBC RBC Hgb Hct MCV MCH MCHC RDW Plt Count MPV Prelim Diff (Auto) Neut % (Auto) Lymph % (Auto) Garland % (Auto) Eos % (Auto) Baso % (Auto) Neut # (Auto) Lymph # (Auto) Gar[place] # (Auto) Eos # (Auto) Baso # (Auto) WBC Differential Diff Scan Differential Comment Sodium Potassium Chloride Carbon Dioxide Anion Gap BUN Creatinine Estimated GFR POC Glucose 323 H 270 H 207 H Random Glucose Calcium Phosphorus Magnesium Prealbumin 10/17/17 10/17/17 10/17/17 11:39 17:02 20:13 WBC RBC Hgb Hct MCV MCH MCHC RDW Plt Count MPV Prelim Diff (Auto) Neut % (Auto) Lymph % (Auto) Garland % (Auto) Eos % (Auto) Baso % (Auto) Neut # (Auto) Lymph # (Auto) Garland # (Auto) Eos # (Auto) Baso # (Auto) WBC Differential Diff Scan Differential Comment Sodium Potassium Chloride Carbon Dioxide Anion Gap BUN Creatinine Estimated GFR POC Glucose 222 H 241 H 219 H Random Glucose Calcium Phosphorus Magnesium Prealbumin 10/17/17 10/18/17 10/18/17 23:38 03:40 06:43 WBC 8.2 RBC 2.40 L Hgb 8.2 L Hct 24.7 L MCV 102.7 H MCH 34.2 H MCHC 33.3 RDW 24.0 H Plt Count 99 L MPV 11.6 H Prelim Diff (Auto) Slide review pending Neut % (Auto) 62.0 Lymph % (Auto) 20.1 Garland % (Auto) 11.4 H Eos % (Auto) 5.8 H Baso % (Auto) 0.7 Neut # (Auto) 5.1 Lymph # (Auto) 1.7 Garland # (Auto) 0.9 Eos # (Auto) 0.5 H Baso # (Auto) 0.1 WBC Differential . Diff Scan Auto diff confirmed Differential Comment . Sodium Potassium Chloride Carbon Dioxide Anion Gap BUN Creatinine Estimated GFR POC Glucose 189 H 195 H Random Glucose Calcium Phosphorus Magnesium Prealbumin 10/18/17 10/18/17 10/18/17 06:43 07:56 12:42 WBC RBC Hgb Hct MCV MCH MCHC RDW Plt Count MPV Prelim Diff (Auto) Neut % (Auto) Lymph % (Auto) Garland % (Auto) Eos % (Auto) Baso % (Auto) Neut # (Auto) Lymph # (Auto) Garland # (Auto) Eos # (Auto) Baso # (Auto) WBC Differential Diff Scan Differential Comment Sodium 150 H Potassium 3.6 Chloride 114 H Carbon Dioxide 30.9 Anion Gap 5 BUN 33 H Creatinine 1.33 H Estimated GFR 66 L POC Glucose 198 H 274 H Random Glucose 194 H Calcium 8.1 L Phosphorus 2.0 L Magnesium 2.3 Prealbumin Less than 3 L 10/18/17 10/18/17 10/18/17 17:07 20:08 23:29 WBC RBC Hgb Hct MCV MCH MCHC RDW Plt Count MPV Prelim Diff (Auto) Neut % (Auto) Lymph % (Auto) Garland % (Auto) Eos % (Auto) Baso % (Auto) Neut # (Auto) Lymph # (Auto) Garland # (Auto) Eos # (Auto) Baso # (Auto) WBC Differential Diff Scan Differential Comment Sodium Potassium Chloride Carbon Dioxide Anion Gap BUN Creatinine Estimated GFR POC Glucose 224 H 223 H 167 H Random Glucose Calcium Phosphorus Magnesium Prealbumin 10/19/17 10/19/17 10/19/17 03:48 08:03 12:05 WBC RBC Hgb Hct MCV MCH MCHC RDW Plt Count MPV Prelim Diff (Auto) Neut % (Auto) Lymph % (Auto) Garland % (Auto) Eos % (Auto) Baso % (Auto) Neut # (Auto) Lymph # (Auto) Garland # (Auto) Eos # (Auto) Baso # (Auto) WBC Differential Diff Scan Differential Comment Sodium Potassium Chloride Carbon Dioxide Anion Gap BUN Creatinine Estimated GFR POC Glucose 194 H 231 H 162 H Random Glucose Calcium Phosphorus Magnesium Prealbumin Result Diagrams: 10/31/17 07:36 10/29/17 05:34 Imaging: Chest X-Ray 10/11/17 05:00 CONCLUSION: 1. No significant interval change. 2. Cardiomegaly with pulmonary edema pattern. 3. Stable bibasilar airspace disease, right greater than left. Procedures: 09/25/17-intubation 09/25/17-EGD with esophageal varices banding 09/26/17-left IJ central line placement 09/28/1742-[id number] abdominal paracentesis 10/09/17- Self extubated Assessment and Plan - Symptom Scale (2) Dysphagia 0-10 Scale: Unable to quantify Comment: Pt has been failing swallow eval s/p self extubation. Now on puree diet and honey thickened fluids (3) Pain Comment: Patient has chronic lymphedema. Reports that he usually has pain to his BLE Pertinent Non-Medical Issues: Psychosocial: Patient was born and raised in [place]. He moved to [place] in 1985. Patient has a college degree. 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 Patient never and never had children. Spiritual: Patient is Restorationist-sister requested ophthalmologist visit Legal: Never completed advanced directives Ethical issues impacting care: None identified at this time Important Contacts: Sister- Bud Bennett-[phone] cell/ [phone] Mother- Alexandre Alexis Uncle- Rosi BooneMdVmiwtbh-[phone] (lives with patient`s mother) Prognosis: Mr. Ramirez is a 62 years old male with a past medical history significant for chronic lymphedema to bilateral lower extremities, EtOH abuse, pneumonia, heart murmur, diet controlled diabetes mellitus type 2, hypothyroidism, umbilical hernia, GERD and anxiety. Patient was brought to the ER on 09/25/17 by EMS with complaints of hematemesis, and increase in abdominal girth. Clinical course complicated with acute respiratory failure, sepsis and recurrent ascites. Given ongoing multiple comorbidities patient remains at risk for further complications, deterioration and decline. Code Status: No Code DNR Plan: PLAN: Legal decision maker: Patient is partially oriented and has periods of confusion. Recommending any medical decision to be done in collaboration with patient`s sister Sabrina Farrell who is his [facility] Care Surrogate. Patient`s alternate HCS is his uncle Paolo Aranda. Goals: Aggressive short of no code CODE STATUS: No code DNR SYMPTOMS: * Shortness of breath: Patient presented with complaints of hematemesis. Patient intubated for EGD. Patient his pneumonia. He also had ascites and is status post 2 ultrasound-guided paracentesis. Patient self extubated. Patient is currently on RA with O2 sats in the mid to high 90s. * Nausea and vomiting: Patient came in complaining of hematemesis. Underwent EGD and was noted to have esophageal varices which were banded. No reports of vomiting. Resolved. * Dysphagia: Patient has had an NGT. Speech therapy following. Passed swallow eval. Patient is now on puree diet and honey thickened fluids. Continue to monitor for aspiration signs. * Pain: Patient is at risk for pain, from chronic bilateral lower extremity lymphedema and has undergone paracentesis x2 and being bedbound. Currently denies pain. Continue to monitor for signs of pain. Palliative care will continue to follow the patient during hospital course as condition evolves, to assist patient/decision-maker with understanding of their medical conditions, weighing benefits/burdens of treatment options, for clarification of goals of treatment. Additionally will assist with any symptoms of palliative concern Attestation Collaborating MD Comments: Chart reviewed. Case discussed with palliative care nurse practitioner. Above EMBEDDED SOFTWARE ARCHITECT note reviewed and I concur. .
[2017-10-20] MEDS: Insulin NovoLOG Aspart Correctional Sugar Inj SQ SCH ×5 (05:38→17:16)
[2017-10-20 07:30] LABS: Calcium 7.6 mg/dL (8.5-10.1); Magnesium 2.2 mg/dL (1.5-2.5); Phosphorus 3.7 mg/dL (2.5-4.9); Potassium 3.5 meq/L (3.5-5.1)
[2017-10-20] MEDS: Folic Acid 1 MG Tablet PO SCH (08:07)
[2017-10-20] MEDS: Potassium Chloride 25 MEQ Effervescent Tablet PO SCH ×2 (08:07→21:39)
[2017-10-20] MEDS: Nystatin Liq 500,000 UNIT/5 ML UDC SWISH-SWAL SCH ×4 (08:07→21:39)
[2017-10-20] MEDS: Calcium Carbonate 500 MG Tablet PO SCH ×2 (08:08→21:39)
[2017-10-20] MEDS: Senna/Docusate Sodium 8.6/50 MG Tablet PO SCH ×2 (08:08→21:40)
[2017-10-20] MEDS: rifAXIMin 550 MG Tablet PO SCH ×2 (08:08→21:39)
[2017-10-20] MEDS: Pantoprazole Inj 40 MG Vial IV.PUSH SCH ×2 (08:08→21:40)
[2017-10-20] MEDS: Multivitamin/Minerals Therapeutic Tablet PO SCH (08:08)
[2017-10-20] MEDS: Oral Hygiene Kit OROPHARYNG SCH ×3 (11:08→16:11)
--- NOTE | 2017-10-20 11:58 | P.PNIM ---
Subjective Interval history: Patient reports he is feeling okay today. Not eating much due to low appetite. Abdomen is still distended but no significant pain. Physical Exam Vital signs: Vital Signs 10/19/17 12:00 10/19/17 12:03 10/19/17 12:27 Temperature 98.0 F Pulse Rate 75 73 74 Respiratory Rate Blood Pressure 97/63 L 110/60 98/57 L Pulse Oximetry 98 100 100 10/19/17 12:40 10/19/17 13:00 10/19/17 13:20 Temperature Pulse Rate 76 77 78 Respiratory Rate Blood Pressure 104/57 L 111/58 L 103/64 Pulse Oximetry 100 100 100 10/19/17 13:40 10/19/17 14:00 10/19/17 14:20 Temperature Pulse Rate 80 72 74 Respiratory Rate Blood Pressure 100/58 L 112/59 L 104/56 L Pulse Oximetry 100 100 100 10/19/17 14:40 10/19/17 15:00 10/19/17 15:20 Temperature Pulse Rate 75 74 73 Respiratory Rate Blood Pressure 108/56 L 123/62 97/55 L Pulse Oximetry 100 96 100 10/19/17 15:40 10/19/17 16:00 10/19/17 18:00 Temperature 97.7 F Pulse Rate 74 75 75 Respiratory Rate Blood Pressure 100/56 L 94/59 L Pulse Oximetry 100 100 10/19/17 20:00 10/19/17 21:43 10/19/17 22:45 Temperature 97.9 F 97.4 F L 97.4 F L Pulse Rate 70 74 74 Respiratory Rate 20 20 20 Blood Pressure 104/57 L 102/63 102/63 Pulse Oximetry 99 98 98 10/20/17 00:00 10/20/17 04:00 10/20/17 07:55 Temperature 97.4 F L 97.4 F L 97.3 F L Pulse Rate 72 70 72 Respiratory Rate 20 20 16 Blood Pressure 93/54 L 101/59 L 99/54 L Pulse Oximetry 97 99 95 Intake & Output 10/19/17 10/20/17 10/20/17 18:59 06:59 18:59 Intake Total 926 / 926 120 / 120 Output Total 1000 / 1000 1150 / 1150 Balance -74 / -74 -1030 / -1030 Weight 86.5 kg Intake: Oral 0 / 0 120 / 120 Tube Feeding 466 / 466 Tube Irrigant 60 / 60 Water Bolus Amount 400 / 400 Output: Urine 1000 / 1000 1150 / 1150 Stool 0 / 0 Pleural Fluid 0 / 0 Urine Amount (Catheter) 0 / 0 Indwelling Urethral Catheter 0 / 0 Wound Drainage 0 / 0 Right Abdomen 0 / 0 Other: # Voids 3 # Urine Diapers 3 Date of Last Bowel Movement 10/19/17 10/20/17 # Bowel Movements 3 # Incontinent Bowel Movements 1 2 Narrative: GENERAL: 62 yo male, appears chronically ill SKIN: Jaundiced. Dry scaly skin. EYES: + icterus. NECK: NGT . Supple, trachea midline. CARDIOVASCULAR: Regular rate and rhythm without murmurs, gallops, or rubs. RESPIRATORY: Breath sounds decreased bilaterally. No accessory muscle use. GASTROINTESTINAL: Abdomen soft, + ascites. No significant tenderness. NEURO: Generalized weakness - Urinary Catheter Management Indwelling Urethral Catheter Cath placed during this visit: no Results - Labs CBC & Chem 7: 10/18/17 06:43 10/20/17 06:30 Laboratory Results - last 24 hr 10/19/17 10/19/17 10/19/17 12:05 16:18 22:34 Sodium Potassium Chloride Carbon Dioxide Anion Gap BUN Creatinine Estimated GFR POC Glucose 162 H 259 H 127 H Random Glucose Calcium Phosphorus Magnesium 10/20/17 10/20/17 10/20/17 01:20 05:47 06:30 Sodium 146 H Potassium 3.5 Chloride 111 H Carbon Dioxide 30.0 Anion Gap 5 BUN 33 H Creatinine 1.28 Estimated GFR 69 L POC Glucose 134 H 154 H Random Glucose 148 H Calcium 7.6 L Phosphorus 3.7 D Magnesium 2.2 10/20/17 10/20/17 07:29 11:55 Sodium Potassium Chloride Carbon Dioxide Anion Gap BUN Creatinine Estimated GFR POC Glucose 158 H 134 H Random Glucose Calcium Phosphorus Magnesium Assessment and Plan - Plan 62 years old male with alcohol related liver cirrhosis, GI bleeding status post esophageal varices banding, status post respiratory failure: Upper GI bleed secondary to esophageal varices status post banding Alcoholic liver cirrhosis Ascites Hyperammonemia GERD Continue Protonix Lactulose BID, continue rifaximin 550 twice daily 09/28- paracentesis by invasive radiology - 5L removed.- paracentesis site- draining spontaneously 09/29-repeat EGD-revealed significant gastropathy, no active sites of bleeding May need PEG if oral intake not improved. Acute hypoxic and hypercarbic respiratory failure MS- definitely more awake and alert on - O2 saturation greater than 92% Albuterol/ipratropium aerosols every 4 hours with albuterol aerosols every 2 hours as needed for dyspnea epsiode of NSVT- 5 beats 10/14 Cardiomyopathy Maintain MAP greater than 65 Monitor CVP 09/27 echo- EF 40% small left pleural effusion Continue Coreg 3.125 mg po bid- review ECho- EF- 40-45 % 10/14- now telemetry- sinus with occasional PVC Oliguria-resolved Maintain Mendieta for adequate I &O Nephrology following-possible hepatorenal syndrome -- Strict I/Os spironolactone 25mg po daily. Status post Lasix drip Acute blood loss anemia Thrombocytopenia Coagulopathy Monitor CBC 10/01 Transfuse 2 u PRBC's Noted decreased liver synthetic function secondary to cirrhosis Hematology oncology ID following. Continue vancomycin and piperacillin/tazobactam per the recommendations Follow-up urine and blood cultures 09/28 sputum cultures- Staph Aureus 10/04 sputum culture: staph Chronic lymphedema Severe protein calorie malnutrition -Dietitian following. Palliative care following to help establish goals of care. May need PEG. Discharge Planning: Need placement.
--- NOTE | 2017-10-20 17:07 | P.DIET ---
Nutritional Evaluation Type of nutrition evaluation: follow-up Nutrition consult regarding: Tube Feeding Screening comments: MDC TF Subjective Subjective Comments: Pt sitting in bedside chair. Pt speaks softly. Lunch tray in room w/ approximately 90% po intake. Objective - Diagnosis GI Bleed - Indications of Malnutrition Classification: Chronic disease or injury-related Malnutrition Characteristics: Fluid accumulation, Diminshed functional status - Objective Body Weight Used for Calculations: IBW (75.5kg) Energy Needs - Lower Range (kCal/kg): 28 Energy Needs - Upper Range (kCal/kg): 33 Lower Limit kCal/kg (kCals): 2,114 Upper Limit kCal/kg (kCals): 2,491 Lower Limit Protein Factor (Grams per Kg): 1.2 Upper Limit Protein Factor (Grams per Kg): 1.5 Lower Protein Needs (Protein): 91 Upper Protein Needs (Protein): 113 Dietitian Reviewed in Medical Record: Current diet, Curent medications, Intake & Output, Labs, Medical history, Tube feeding Diet Order: 1800ADA Pureed Liquids Honey Thickened Oral Diet Intake Amount: Good 75-90% Speech Therapy Recommendations: Yes (Pureed HTL) Objective Comments: Pt's nutritional needs based on 75.5kg PMH: DM, HTN, GERD, PNA, Hypothyroidism, Bilateral LE lymphedema, Anxiety, noncompliance to medical therapy Meds Inculde: Folic Acid, Thiamine, Theragran M, Lactulose, Xifaxan, Coreg, Lasix, Haldol, Novolog Labs include: Na 146, Accucheck 134, 154, 158, 134 +3 BM's Assessment Assessment: Pt is at nutritional risk r/t dysphagia w/need for TF'ing. Diet advanced per ST. Pt tolerating Pureed diet w/adequate po intake 50% or greater for meals. Monitor need for an oral nutritional supplement. Labs reviewed. Wt changes noted. Dietitian following. Recommendations: 1.Monitor need for an oral nutritional supplement 2.Dietitian following Dietitian to Monitor: Lab values, Liver enzymes, Glucose level, Intake & Output , Weight change, PO Intake, Diet advancement, Medical course
[2017-10-21] MEDS: Oral Hygiene Kit OROPHARYNG SCH ×4 (00:10→18:02)
[2017-10-21] MEDS: Insulin NovoLOG Aspart Correctional Sugar Inj SQ SCH ×6 (02:09→18:01)
[2017-10-21] MEDS: Folic Acid 1 MG Tablet PO SCH (08:19)
[2017-10-21] MEDS: Multivitamin/Minerals Therapeutic Tablet PO SCH (08:19)
[2017-10-21] MEDS: Potassium Chloride 25 MEQ Effervescent Tablet PO SCH (08:23)
[2017-10-21] MEDS: Calcium Carbonate 500 MG Tablet PO SCH (08:29)
[2017-10-21] MEDS: Senna/Docusate Sodium 8.6/50 MG Tablet PO SCH (08:29)
[2017-10-21] MEDS: Nystatin Liq 500,000 UNIT/5 ML UDC SWISH-SWAL SCH ×3 (08:29→18:01)
[2017-10-21] MEDS: Pantoprazole Inj 40 MG Vial IV.PUSH SCH ×2 (08:29→21:00)
[2017-10-21] MEDS: rifAXIMin 550 MG Tablet PO SCH (08:29)
--- NOTE | 2017-10-21 13:17 | P.PNPAL ---
Reason for Visit Reason for visit: a. To assist with evaluation and management of symptoms including: dysphagia, physical deconditioning b. To assist medical decision maker(s) with: better understanding of current medical conditions; weighing benefits/burdens of medical treatment options; making medical treatment decisions. Subjective Subjective/Interval History: Follow-up medically necessary for symptom management and clarification of goals. She and is now on a medical floor. Seen and examined in his room. Patient is sitting up on a recliner chair dozing off. Arouses when approached. Patient is lethargic, oriented to self, place and situation. Patient denies pain, shortness of breath, and he is endorsing fatigue. Patient states that I am ready to go to bed. He has been sitting up for approximately 2 hours. Explained to patient importance of sitting up and he states that he understands and he definitely wants to get better. Patient endorsing decreased appetite and states that he seems to eat more when he is sitting up right in a chair. Encouraged patient to get out of bed for meals if that is what he takes for him to eat more. No recent lab work or imaging. Vital signs stable, patient is afebrile with systolic blood pressure ranging in the low 100s. Patient asked if his eyes were jaundiced and he said, "I wish i could see them. This means i will be checking out". Elaborated and mentioned that he knows that it is not a good sign and in his case he knows it is from drinking to much alcohol. Encouraged patient to request to walk to the bathroom when a physical therapist is working with him. Patient concerned about fatigue and mentioned that he may need help when he leaves the hospital. Discussed about need for rehabilitation after he is medically discharged. Patient stated that he has been to [facility] before and he liked it there. Patient signed [facility] DNR today. Patient states that he wants to continue with aggressive treatment short of no code and hopes to get better. Physical and speech therapy, press writer following with patient. Case management following. Call placed to patient`s uncle Asa for an update. No answer. Voice message left Family/Friend Interactions: Family at bedside. Patient states that he has been speaking to his sister over the phone. Advance Directives Living Will: Never completed Health Care Surrogate: Copy in medical record Durable Power of Dye Beck Reel Operator: Never completed Advance Directives Date on File: 10/10/17 (HCS completed after patient verbally consented and was witnessed by OSD CLERK and bedside RN. ) Health Care Surrogate Name and Number: HCS: Bud Campos [phone] Alt. HCS: Rosi Boone [phone] Objective Vital Signs: Vital Signs 10/20/17 16:00 10/20/17 19:46 10/20/17 20:00 Temperature 97.4 F L 97.4 F L Pulse Rate 73 71 71 Respiratory Rate 16 19 Blood Pressure 111/56 L 112/56 L Pulse Oximetry 99 100 10/20/17 23:41 10/21/17 00:00 10/21/17 03:46 Temperature 97.2 F L Pulse Rate 69 68 70 Respiratory Rate 17 Blood Pressure 105/55 L Pulse Oximetry 98 10/21/17 04:00 10/21/17 08:00 Temperature 97.1 F L 97.7 F Pulse Rate 67 68 Respiratory Rate 17 16 Blood Pressure 100/52 L 113/56 L Pulse Oximetry 98 95 Intake & Output 10/20/17 10/21/17 10/21/17 18:59 06:59 18:59 Intake Total 240 / 240 Output Total 300 / 300 Balance -60 / -60 Intake: Oral 240 / 240 Output: Urine 300 / 300 Other: Date of Last Bowel Movement 10/20/17 10/20/17 Physical Exam: CONSTITUTIONAL/GENERAL: This is a chronically ill looking patient, appears older than his stated age. lethargic in no acute distress TUBES/LINES/DRAINS: PIV SKIN:hx of lymphedema to BLE. Skin scaly, with tree bark appearance with cream on and discolored to bilateral lower extremities EYES: Sclera icterus. Fundi not examined. ENT: Hearing grossly normal. No nasal bleeding or purulent drainage. Moist oral mucosa. CARDIOVASCULAR:S1, S2 normal, no murmurs, gallops, or rubs. No JVD. Peripheral pulses symmetric. RESPIRATORY/CHEST: Symmetric, unlabored respirations. Diminished breath sounds. GASTROINTESTINAL: Abdomen soft, distended. active bowel sounds x4. Wound bag to previous paracentesis site, not much drainage noted. MUSCULOSKELETAL: Extremities without clubbing, cyanosis, or edema. Lymphedema to BLE worse on R leg. NEUROLOGICAL: Alert, oriented to self, place and situation. PSYCHIATRIC: Calm. No confusion Diagnostic Tests Laboratory: Laboratory Results - last 72 hr 10/18/17 10/18/17 10/18/17 12:42 17:07 20:08 Sodium Potassium Chloride Carbon Dioxide Anion Gap BUN Creatinine Estimated GFR POC Glucose 274 H 224 H 223 H Random Glucose Calcium Phosphorus Magnesium 10/18/17 10/19/17 10/19/17 23:29 03:48 08:03 Sodium Potassium Chloride Carbon Dioxide Anion Gap BUN Creatinine Estimated GFR POC Glucose 167 H 194 H 231 H Random Glucose Calcium Phosphorus Magnesium 10/19/17 10/19/17 10/19/17 12:05 16:18 22:34 Sodium Potassium Chloride Carbon Dioxide Anion Gap BUN Creatinine Estimated GFR POC Glucose 162 H 259 H 127 H Random Glucose Calcium Phosphorus Magnesium 10/20/17 10/20/17 10/20/17 01:20 05:47 06:30 Sodium 146 H Potassium 3.5 Chloride 111 H Carbon Dioxide 30.0 Anion Gap 5 BUN 33 H Creatinine 1.28 Estimated GFR 69 L POC Glucose 134 H 154 H Random Glucose 148 H Calcium 7.6 L Phosphorus 3.7 D Magnesium 2.2 10/20/17 10/20/17 10/20/17 07:29 11:55 16:40 Sodium Potassium Chloride Carbon Dioxide Anion Gap BUN Creatinine Estimated GFR POC Glucose 158 H 134 H 175 H Random Glucose Calcium Phosphorus Magnesium 10/20/17 10/21/17 10/21/17 22:00 05:02 07:29 Sodium Potassium Chloride Carbon Dioxide Anion Gap BUN Creatinine Estimated GFR POC Glucose 142 H 133 H 127 H Random Glucose Calcium Phosphorus Magnesium 10/21/17 11:40 Sodium Potassium Chloride Carbon Dioxide Anion Gap BUN Creatinine Estimated GFR POC Glucose 161 H Random Glucose Calcium Phosphorus Magnesium Result Diagrams: 10/31/17 07:36 10/29/17 05:34 Imaging: Chest X-Ray 10/11/17 05:00 CONCLUSION: 1. No significant interval change. 2. Cardiomegaly with pulmonary edema pattern. 3. Stable bibasilar airspace disease, right greater than left. Procedures: 09/25/17-intubation 09/25/17-EGD with esophageal varices banding 09/26/17-left IJ central line placement 09/28/1718-[id number] abdominal paracentesis 10/09/17- Self extubated Assessment and Plan - Symptom Scale (1) Shortness of breath 0-10 Scale: Unable to quantify (2) Dysphagia 0-10 Scale: Unable to quantify Comment: Pt has been failing swallow eval s/p self extubation. Now on puree diet and honey thickened fluids (3) Pain Comment: Patient has chronic lymphedema. Reports that he usually has pain to his BLE (4) Physical deconditioning 0-10 Scale: Unable to quantify Comment: Progressive. Prolonged hospitalization. Pertinent Non-Medical Issues: Psychosocial: Patient was born and raised in [place]. He moved to [place] in 1985. Patient has a college degree. 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 Patient never and never had children. Spiritual: Patient is Sabianist-sister requested freight inspector visit Legal: Never completed advanced directives Ethical issues impacting care: None identified at this time Important Contacts: Sister- Bud Bennett-[phone] cell/ [phone] Mother- Alexandre Alexis Uncle- Rosi BooneVeHxoaofw-[phone] (lives with patient`s mother) Prognosis: Mr. Ramirez is a 62 years old male with a past medical history significant for chronic lymphedema to bilateral lower extremities, EtOH abuse, pneumonia, heart murmur, diet controlled diabetes mellitus type 2, hypothyroidism, umbilical hernia, GERD and anxiety. Patient was brought to the ER on 09/25/17 by EMS with complaints of hematemesis, and increase in abdominal girth. Clinical course complicated with acute respiratory failure, sepsis and recurrent ascites. Given ongoing multiple comorbidities patient remains at risk for further complications, deterioration and decline. Code Status: No Code DNR Plan: PLAN: Legal decision maker: Patient is partially oriented and has periods of confusion. Recommending any medical decision to be done in collaboration with patient`s sister Sabrina Farrell who is his [facility] Care Surrogate. Patient`s alternate HCS is his uncle Paolo Aranda. Goals: Patient signed [facility] DNR today. Patient states that he wants to continue with aggressive treatment short of no code and hopes to get better. Patient is looking forward to be discharged to a [facility] facility for rehabilitation preferably [facility]. CODE STATUS: No code DNR/ DNI SYMPTOMS: * Shortness of breath: Patient presented with complaints of hematemesis. Patient intubated for EGD- self extubated. Had Pneumonia. status post 2 ultrasound-guided paracentesis for ascites. Resolved. * Nausea and vomiting: Patient came in complaining of hematemesis. Underwent EGD and was noted to have esophageal varices which were banded. No reports of vomiting. Resolved. * Dysphagia: Patient has had an NGT. Speech therapy and dietitian following. Remains on puree diet and honey thickened fluids. Patient endorsing decreased appetite though he thinks he can eat much better sitting up. Continue to monitor for aspiration signs. Recommending OOB for meals. * Pain: Patient is at risk for pain, from chronic bilateral lower extremity lymphedema and has undergone paracentesis x2 and being bedbound. Denies pain. Continue to monitor for signs of pain. * Physical deconditioning: Progressive. Most likely due to prolonged hospitalization and disease process. Patient is lost significant amount of weight and is showing muscle wasting to all 4 extremities including temporal muscle wasting. Dietitian and physical therapy following. Patient endorsing fatigue today. PT recommending physical therapy at rehab. Continue PT and recommending OOB meals. Palliative care will continue to follow the patient during hospital course as condition evolves, to assist patient/decision-maker with understanding of their medical conditions, weighing benefits/burdens of treatment options, for clarification of goals of treatment. Additionally will assist with any symptoms of palliative concern Attestation Collaborating MD Comments: Chart reviewed. Case discussed with palliative care OSD CLERK. Above OSD CLERK note reviewed and I concur. .
--- NOTE | 2017-10-21 15:33 | P.PNIM ---
Subjective Interval history: Patient reports he is doing ok today. He eat breakfast. Physical Exam Vital signs: Vital Signs 10/20/17 16:00 10/20/17 19:46 10/20/17 20:00 Temperature 97.4 F L 97.4 F L Pulse Rate 73 71 71 Respiratory Rate 16 19 Blood Pressure 111/56 L 112/56 L Pulse Oximetry 99 100 10/20/17 23:41 10/21/17 00:00 10/21/17 03:46 Temperature 97.2 F L Pulse Rate 69 68 70 Respiratory Rate 17 Blood Pressure 105/55 L Pulse Oximetry 98 10/21/17 04:00 10/21/17 08:00 10/21/17 12:00 Temperature 97.1 F L 97.7 F 97.4 F L Pulse Rate 67 68 75 Respiratory Rate 17 16 18 Blood Pressure 100/52 L 113/56 L 100/56 L Pulse Oximetry 98 95 99 Intake & Output 10/20/17 10/21/17 10/21/17 18:59 06:59 18:59 Intake Total 240 / 240 Output Total 300 / 300 Balance -60 / -60 Intake: Oral 240 / 240 Output: Urine 300 / 300 Other: Date of Last Bowel Movement 10/20/17 10/20/17 Narrative: GENERAL: 62 yo male, appears chronically ill SKIN: Jaundiced. Dry scaly skin. EYES: + icterus. NECK: NGT . Supple, trachea midline. CARDIOVASCULAR: Regular rate and rhythm without murmurs, gallops, or rubs. RESPIRATORY: Breath sounds decreased bilaterally. No accessory muscle use. GASTROINTESTINAL: Abdomen soft, + ascites. No significant tenderness. NEURO: Generalized weakness - Urinary Catheter Management Indwelling Urethral Catheter Cath placed during this visit: no Results - Labs CBC & Chem 7: 10/18/17 06:43 10/20/17 06:30 Laboratory Results - last 24 hr 10/20/17 10/20/17 10/21/17 16:40 22:00 05:02 POC Glucose 175 H 142 H 133 H 10/21/17 10/21/17 07:29 11:40 POC Glucose 127 H 161 H Assessment and Plan - Plan 62 years old male with alcohol related liver cirrhosis, GI bleeding status post esophageal varices banding, status post respiratory failure: Upper GI bleed secondary to esophageal varices status post banding Alcoholic liver cirrhosis Ascites Hyperammonemia GERD Continue Protonix Lactulose BID, continue rifaximin 550 twice daily 09/28- paracentesis by invasive radiology - 5L removed.- paracentesis site- draining spontaneously 09/29-repeat EGD-revealed significant gastropathy, no active sites of bleeding Oral intake improving. Continue Lasix. Change to oral. Acute hypoxic and hypercarbic respiratory failure MS- definitely more awake and alert on - O2 saturation greater than 92% Albuterol/ipratropium aerosols every 4 hours with albuterol aerosols every 2 hours as needed for dyspnea epsiode of NSVT- 5 beats 10/14 Cardiomyopathy Maintain MAP greater than 65 Monitor CVP 09/27 echo- EF 40% small left pleural effusion Continue Coreg 3.125 mg po bid- review ECho- EF- 40-45 % 10/14- now telemetry- sinus with occasional PVC Oliguria On Lasix as above spironolactone 25mg po daily. On hold due to low BP Status post Lasix drip Acute blood loss anemia Thrombocytopenia Coagulopathy Monitor CBC 10/01 Transfuse 2 u PRBC's Noted decreased liver synthetic function secondary to cirrhosis Hematology oncology Pneumonia: - Completed treatment for pneumonia under the guidance of ID. Severe protein calorie malnutrition -Dietitian following. Continue to encourage PO intake. Discharge Planning: Need placement.
[2017-10-22] MEDS: Nystatin Liq 500,000 UNIT/5 ML UDC SWISH-SWAL SCH ×5 (00:20→20:44)
[2017-10-22] MEDS: Calcium Carbonate 500 MG Tablet PO SCH ×3 (00:20→20:44)
[2017-10-22] MEDS: rifAXIMin 550 MG Tablet PO SCH ×3 (00:20→20:44)
[2017-10-22] MEDS: Senna/Docusate Sodium 8.6/50 MG Tablet PO SCH ×3 (00:20→20:44)
[2017-10-22] MEDS: Oral Hygiene Kit OROPHARYNG SCH ×4 (00:21→15:01)
[2017-10-22] MEDS: Insulin NovoLOG Aspart Correctional Sugar Inj SQ SCH ×8 (00:50→20:54)
[2017-10-22 08:12] LABS: Hematocrit 24.7 % (39.0-51.0); Hemoglobin 8.4 gm/dL (13.0-17.0); Mean Corpuscular HGB Conc 34.1 % (32.0-36.0); Mean Corpuscular Hemoglobin 34.5 pg (27.0-34.0); Mean Corpuscular Volume 101.2 fL (80.0-100.0); Mean Platelet Volume 11.1 fL (7.0-11.0); Platelet Count 73 th/mm3 (150-450); Red Blood Count 2.44 mil/mm3 (4.50-5.90); Red Cell Distribution Width 23.3 % (11.6-17.2); White Blood Count 7.8 th/mm3 (4.0-11.0)
[2017-10-22 08:40] LABS: Albumin 1.7 g/dL (3.4-5.0); Calcium 7.9 mg/dL (8.5-10.1); Carbon Dioxide 26.7 meq/L (21.0-32.0); Potassium 3.4 meq/L (3.5-5.1)
[2017-10-22 08:43] LABS: Total Protein 8.3 g/dL (6.4-8.2)
[2017-10-22] MEDS: Multivitamin/Minerals Therapeutic Tablet PO SCH (09:22)
[2017-10-22] MEDS: Furosemide 40 MG Tablet PO SCH ×2 (09:23→17:07)
[2017-10-22] MEDS: Folic Acid 1 MG Tablet PO SCH (09:23)
[2017-10-22] MEDS: Pantoprazole Inj 40 MG Vial IV.PUSH SCH ×2 (09:24→20:44)
--- NOTE | 2017-10-22 14:32 | P.PNIM ---
Subjective Interval history: Patient reports he is feeling okay today. He had 100% of his breakfast. Physical Exam Vital signs: Vital Signs 10/21/17 16:00 10/21/17 19:46 10/21/17 20:00 Temperature 97.3 F L 97.9 F Pulse Rate 70 73 70 Respiratory Rate 18 15 Blood Pressure 99/55 L 115/58 L Pulse Oximetry 100 98 10/21/17 23:48 10/22/17 00:00 10/22/17 04:00 Temperature 97.9 F 97.7 F Pulse Rate 71 72 75 Respiratory Rate 15 15 Blood Pressure 120/59 L 125/57 L Pulse Oximetry 99 97 10/22/17 08:00 10/22/17 12:00 Temperature 97.9 F 97.5 F L Pulse Rate 70 72 Respiratory Rate 18 20 Blood Pressure 102/56 L 116/59 L Pulse Oximetry 98 99 Intake & Output 10/21/17 10/22/17 10/22/17 18:59 06:59 18:59 Intake Total 350 / 350 240 / 240 Output Total 1700 / 1700 Balance 350 / 350 -1460 / -1460 Weight 95.6 kg Intake: Oral 350 / 350 240 / 240 Output: Urine 1700 / 1700 Other: Date of Last Bowel Movement 10/20/17 10/20/17 10/20/17 Narrative: GENERAL: 62 yo male, appears chronically ill SKIN: Jaundiced. Dry scaly skin. EYES: + icterus. NECK: NGT . Supple, trachea midline. CARDIOVASCULAR: Regular rate and rhythm without murmurs, gallops, or rubs. RESPIRATORY: Breath sounds decreased bilaterally. No accessory muscle use. GASTROINTESTINAL: Abdomen soft, + ascites. No significant tenderness. NEURO: Generalized weakness - Urinary Catheter Management Indwelling Urethral Catheter Cath placed during this visit: no Results - Labs CBC & Chem 7: 10/22/17 04:27 10/22/17 04:27 Laboratory Results - last 24 hr 10/21/17 10/22/17 10/22/17 17:52 00:30 04:27 WBC 7.8 RBC 2.44 L Hgb 8.4 L Hct 24.7 L MCV 101.2 H MCH 34.5 H MCHC 34.1 RDW 23.3 H Plt Count 73 L MPV 11.1 H Sodium Potassium Chloride Carbon Dioxide Anion Gap BUN Creatinine Estimated GFR POC Glucose 160 H 177 H Random Glucose Calcium Total Bilirubin Direct Bilirubin Indirect Bilirubin AST ALT Alkaline Phosphatase Total Protein Albumin 10/22/17 10/22/17 10/22/17 04:27 05:23 07:26 WBC RBC Hgb Hct MCV MCH MCHC RDW Plt Count MPV Sodium 139 Potassium 3.4 L Chloride 103 D Carbon Dioxide 26.7 Anion Gap 9 BUN 29 H Creatinine 1.26 Estimated GFR 70 L POC Glucose 144 H 127 H Random Glucose 130 H Calcium 7.9 L Total Bilirubin 12.2 H Direct Bilirubin 8.7 H Indirect Bilirubin 3.5 H AST 85 H ALT 33 Alkaline Phosphatase 135 H Total Protein 8.3 H Albumin 1.7 L 10/22/17 11:23 WBC RBC Hgb Hct MCV MCH MCHC RDW Plt Count MPV Sodium Potassium Chloride Carbon Dioxide Anion Gap BUN Creatinine Estimated GFR POC Glucose 139 H Random Glucose Calcium Total Bilirubin Direct Bilirubin Indirect Bilirubin AST ALT Alkaline Phosphatase Total Protein Albumin Assessment and Plan - Plan 62 years old male with alcohol related liver cirrhosis, GI bleeding status post esophageal varices banding, status post respiratory failure: Upper GI bleed secondary to esophageal varices status post banding Alcoholic liver cirrhosis Ascites Hyperammonemia GERD Continue Protonix Lactulose BID, continue rifaximin 550 twice daily 09/28- paracentesis by invasive radiology - 5L removed.- paracentesis site- draining spontaneously 09/29-repeat EGD-revealed significant gastropathy, no active sites of bleeding Oral intake improving. Continue Lasix. Blood pressure too low for spironolactone at this point. May need repeat paracentesis on Tuesday. Continue to monitor Acute hypoxic and hypercarbic respiratory failure MS- definitely more awake and alert on NC- O2 saturation greater than 92% Albuterol/ipratropium aerosols every 4 hours with albuterol aerosols every 2 hours as needed for dyspnea epsiode of NSVT- 5 beats 10/14 Cardiomyopathy Maintain MAP greater than 65 Monitor CVP 09/27 echo- EF 40% small left pleural effusion Continue Coreg 3.125 mg po bid- review ECho- EF- 40-45 % 10/14- now telemetry- sinus with occasional PVC Oliguria: Resolved On Lasix as above Acute blood loss anemia Thrombocytopenia Coagulopathy Monitor CBC 10/01 Transfuse 2 u PRBC's Noted decreased liver synthetic function secondary to cirrhosis Hematology oncology Pneumonia: - Completed treatment for pneumonia under the guidance of ID. Severe protein calorie malnutrition -Dietitian following. Continue to encourage PO intake. Discharge Planning: Possible discharge to SNF on Tuesday. Patient has liver failure and will need close outpatient follow-up. High risk for decompensation from liver failure.
[2017-10-23] MEDS: Insulin NovoLOG Aspart Correctional Sugar Inj SQ SCH ×6 (04:13→20:49)
[2017-10-23] MEDS: Oral Hygiene Kit OROPHARYNG SCH ×3 (04:14→15:15)
[2017-10-23] MEDS: Folic Acid 1 MG Tablet PO SCH (08:36)
[2017-10-23] MEDS: Furosemide 40 MG Tablet PO SCH ×2 (08:36→16:59)
[2017-10-23] MEDS: Calcium Carbonate 500 MG Tablet PO SCH ×2 (08:36→20:49)
[2017-10-23] MEDS: Nystatin Liq 500,000 UNIT/5 ML UDC SWISH-SWAL SCH ×4 (08:36→20:49)
[2017-10-23] MEDS: rifAXIMin 550 MG Tablet PO SCH ×2 (08:37→20:49)
[2017-10-23] MEDS: Senna/Docusate Sodium 8.6/50 MG Tablet PO SCH ×2 (08:37→20:49)
[2017-10-23] MEDS: Pantoprazole Inj 40 MG Vial IV.PUSH SCH ×2 (08:37→20:49)
[2017-10-23] MEDS: Multivitamin/Minerals Therapeutic Tablet PO SCH (08:37)
--- NOTE | 2017-10-23 15:51 | P.PNIM ---
Subjective Interval history: Patient reports he is feeling okay. Eating well. Abdomen distended but he denies pain. Physical Exam Vital signs: Vital Signs 10/22/17 17:26 10/22/17 20:00 10/23/17 00:00 Temperature 97.9 F 97.8 F Pulse Rate 73 69 Respiratory Rate 17 17 Blood Pressure 108/63 105/58 L Pulse Oximetry 98 97 97 10/23/17 08:00 10/23/17 12:00 Temperature 97.9 F 97.8 F Pulse Rate 72 73 Respiratory Rate 16 16 Blood Pressure 107/59 L 112/58 L Pulse Oximetry 99 97 Intake & Output 10/22/17 10/23/17 10/23/17 18:59 06:59 18:59 Intake Total 640 / 640 Output Total 750 / 750 600 / 600 Balance -110 / -110 -600 / -600 Intake: Oral 640 / 640 Output: Urine 750 / 750 600 / 600 Other: Date of Last Bowel Movement 10/20/17 10/23/17 # Bowel Movements 1 1 Narrative: GENERAL: 62 yo male, appears chronically ill SKIN: Jaundiced. Dry scaly skin. EYES: + icterus. NECK: NGT . Supple, trachea midline. CARDIOVASCULAR: Regular rate and rhythm without murmurs, gallops, or rubs. RESPIRATORY: Breath sounds decreased bilaterally. No accessory muscle use. GASTROINTESTINAL: Abdomen distended, obvious ascites. No significant tenderness. NEURO: Generalized weakness - Urinary Catheter Management Indwelling Urethral Catheter Cath placed during this visit: no Results - Labs CBC & Chem 7: 10/22/17 04:27 10/22/17 04:27 Laboratory Results - last 24 hr 10/22/17 10/22/17 10/23/17 15:34 20:53 00:48 POC Glucose 162 H 185 H 150 H 10/23/17 10/23/17 10/23/17 04:11 07:14 11:10 POC Glucose 154 H 118 H 132 H 10/23/17 15:13 POC Glucose 154 H Assessment and Plan - Plan 62 years old male with alcohol related liver cirrhosis, GI bleeding status post esophageal varices banding, status post respiratory failure: Upper GI bleed secondary to esophageal varices status post banding Alcoholic liver cirrhosis Ascites Hyperammonemia GERD Continue Protonix Lactulose BID, continue rifaximin 550 twice daily 09/28- paracentesis by invasive radiology - 5L removed.- paracentesis site- drained spontaneously 09/29-repeat EGD-revealed significant gastropathy, no active sites of bleeding Oral intake improving. Continue Lasix. Blood pressure too low for spironolactone at this point. Plan for repeat paracentesis tomorrow. Acute hypoxic and hypercarbic respiratory failure MS- definitely more awake and alert on - O2 saturation greater than 92% Albuterol/ipratropium aerosols every 4 hours with albuterol aerosols every 2 hours as needed for dyspnea epsiode of NSVT- 5 beats 10/14 Cardiomyopathy Maintain MAP greater than 65 Monitor CVP 09/27 echo- EF 40% small left pleural effusion Continue Coreg 3.125 mg po bid- review ECho- EF- 40-45 % 10/14- now telemetry- sinus with occasional PVC Oliguria: Resolved On Lasix as above Acute blood loss anemia Thrombocytopenia Coagulopathy Monitor CBC 10/01 Transfuse 2 u PRBC's Noted decreased liver synthetic function secondary to cirrhosis Hematology oncology Pneumonia: - Completed treatment for pneumonia under the guidance of ID. Severe protein calorie malnutrition -Dietitian following. Continue to encourage PO intake. Discharge Planning: Possible discharge to SNF tomorrow. Patient has liver failure and will need close outpatient follow-up. High risk for decompensation from liver failure.
[2017-10-24 07:20] LABS: INR 2.2 Ratio; Prothrombin Time 21.8 sec (9.8-11.6)
[2017-10-24 07:21] LABS: Hematocrit 24.5 % (39.0-51.0); Hemoglobin 8.5 gm/dL (13.0-17.0); Mean Corpuscular HGB Conc 34.6 % (32.0-36.0); Mean Corpuscular Hemoglobin 34.9 pg (27.0-34.0); Mean Corpuscular Volume 101.1 fL (80.0-100.0); Mean Platelet Volume 11.7 fL (7.0-11.0); Platelet Count 71 th/mm3 (150-450); Red Blood Count 2.42 mil/mm3 (4.50-5.90); Red Cell Distribution Width 23.2 % (11.6-17.2); White Blood Count 9.1 th/mm3 (4.0-11.0)
[2017-10-24] MEDS: Oral Hygiene Kit OROPHARYNG SCH ×3 (07:49→15:02)
[2017-10-24] MEDS: Insulin NovoLOG Aspart Correctional Sugar Inj SQ SCH ×5 (07:49→21:11)
[2017-10-24] MEDS: Pantoprazole Inj 40 MG Vial IV.PUSH SCH ×2 (07:59→21:10)
[2017-10-24] MEDS: Multivitamin/Minerals Therapeutic Tablet PO SCH (08:00)
[2017-10-24] MEDS: Nystatin Liq 500,000 UNIT/5 ML UDC SWISH-SWAL SCH ×4 (08:00→21:10)
[2017-10-24] MEDS: Senna/Docusate Sodium 8.6/50 MG Tablet PO SCH ×2 (08:00→21:10)
[2017-10-24] MEDS: rifAXIMin 550 MG Tablet PO SCH ×2 (08:01→21:10)
[2017-10-24] MEDS: Furosemide 40 MG Tablet PO SCH ×2 (08:01→17:32)
[2017-10-24] MEDS: Calcium Carbonate 500 MG Tablet PO SCH ×2 (08:02→21:10)
[2017-10-24] MEDS: Folic Acid 1 MG Tablet PO SCH (08:02)
[2017-10-24 08:09] LABS: Alanine Aminotransferase 31 U/L (12-78); Albumin 1.6 g/dL (3.4-5.0); Alkaline Phosphatase 146 U/L (45-117); Anion Gap 8 meq/L (5-15); Aspartate Aminotransferase 78 U/L (15-37); Blood Urea Nitrogen 17 mg/dL (7-18); Calcium 7.7 mg/dL (8.5-10.1); Chloride 101 meq/L (98-107); Glomerular Filtration Rate Greater Than 89 mL/min (>89); Glucose,Random 107 mg/dL (74-106); Potassium 3.2 meq/L (3.5-5.1); Sodium 136 meq/L (136-145); Total Protein 8.2 g/dL (6.4-8.2)
[2017-10-24] MEDS: Phytonadione 5 MG/SWFI 5 ML Oral Syringe PO SCH (12:14)
--- NOTE | 2017-10-24 12:56 | P.PNIM ---
Subjective Interval history: Patient reports he is feeling okay. He is eating okay. INR 2.2, unable to have paracentesis. Physical Exam Vital signs: Vital Signs 10/23/17 16:00 10/23/17 18:27 10/23/17 20:00 Temperature 97.8 F 97.7 F Pulse Rate 73 77 Respiratory Rate 16 18 Blood Pressure 111/59 L 102/57 L Pulse Oximetry 96 96 98 10/23/17 21:50 10/24/17 00:00 10/24/17 04:00 Temperature 97.8 F 97.8 F Pulse Rate 82 66 69 Respiratory Rate 20 18 Blood Pressure 107/59 L 95/57 L Pulse Oximetry 98 98 10/24/17 04:24 Temperature Pulse Rate 69 Respiratory Rate Blood Pressure Pulse Oximetry Intake & Output 10/23/17 10/24/17 10/24/17 18:59 06:59 18:59 Intake Total 720 / 720 Output Total 900 / 900 300 / 300 Balance -180 / -180 -300 / -300 Intake: Oral 720 / 720 Output: Urine 900 / 900 300 / 300 Other: # Voids 3 Date of Last Bowel Movement 10/23/17 10/24/17 # Bowel Movements 1 1 Narrative: GENERAL: 62 yo male, appears chronically ill SKIN: Jaundiced. Dry scaly skin. EYES: + icterus. NECK: NGT . Supple, trachea midline. CARDIOVASCULAR: Regular rate and rhythm without murmurs, gallops, or rubs. RESPIRATORY: Breath sounds decreased bilaterally. No accessory muscle use. GASTROINTESTINAL: Abdomen distended, obvious ascites. No significant tenderness. NEURO: Generalized weakness - Urinary Catheter Management Indwelling Urethral Catheter Cath placed during this visit: no Results - Labs CBC & Chem 7: 10/24/17 05:49 10/24/17 05:49 Laboratory Results - last 24 hr 10/23/17 10/23/17 10/24/17 15:13 20:28 01:10 WBC RBC Hgb Hct MCV MCH MCHC RDW Plt Count MPV PT INR Sodium Potassium Chloride Carbon Dioxide Anion Gap BUN Creatinine Estimated GFR POC Glucose 154 H 160 H 146 H Random Glucose Calcium Total Bilirubin Direct Bilirubin Indirect Bilirubin AST ALT Alkaline Phosphatase Total Protein Albumin 10/24/17 10/24/17 10/24/17 05:33 05:49 05:49 WBC 9.1 RBC 2.42 L Hgb 8.5 L Hct 24.5 L MCV 101.1 H MCH 34.9 H MCHC 34.6 RDW 23.2 H Plt Count 71 L MPV 11.7 H PT 21.8 H INR 2.2 Sodium Potassium Chloride Carbon Dioxide Anion Gap BUN Creatinine Estimated GFR POC Glucose 123 H Random Glucose Calcium Total Bilirubin Direct Bilirubin Indirect Bilirubin AST ALT Alkaline Phosphatase Total Protein Albumin 10/24/17 10/24/17 10/24/17 05:49 07:30 11:23 WBC RBC Hgb Hct MCV MCH MCHC RDW Plt Count MPV PT INR Sodium 136 Potassium 3.2 L Chloride 101 Carbon Dioxide 27.0 Anion Gap 8 BUN 17 Creatinine 1.02 Estimated GFR Greater than 89 POC Glucose 117 H 154 H Random Glucose 107 H Calcium 7.7 L Total Bilirubin 11.5 H Direct Bilirubin 8.3 H Indirect Bilirubin 3.2 H AST 78 H ALT 31 Alkaline Phosphatase 146 H Total Protein 8.2 Albumin 1.6 L Assessment and Plan - Plan 62 years old male with alcohol related liver cirrhosis, GI bleeding status post esophageal varices banding, status post respiratory failure: Upper GI bleed secondary to esophageal varices status post banding Alcoholic liver cirrhosis Ascites Hyperammonemia GERD Continue Protonix Lactulose BID, continue rifaximin 550 twice daily 09/28- paracentesis by invasive radiology - 5L removed.- paracentesis site- drained spontaneously 09/29-repeat EGD-revealed significant gastropathy, no active sites of bleeding Oral intake improving. Continue Lasix. Blood pressure too low for spironolactone at this point. Plan for repeat paracentesis however INR is too high. Vitamin K ordered and follow-up INR in a.m. Acute hypoxic and hypercarbic respiratory failure MS- definitely more awake and alert on - O2 saturation greater than 92% Albuterol/ipratropium aerosols every 4 hours with albuterol aerosols every 2 hours as needed for dyspnea epsiode of NSVT- 5 beats 10/14 Cardiomyopathy Maintain MAP greater than 65 Monitor CVP 09/27 echo- EF 40% small left pleural effusion Continue Coreg 3.125 mg po bid- review ECho- EF- 40-45 % 10/14- now telemetry- sinus with occasional PVC Oliguria: Resolved On Lasix as above Acute blood loss anemia Thrombocytopenia Coagulopathy Monitor CBC 10/01 Transfuse 2 u PRBC's Noted decreased liver synthetic function secondary to cirrhosis Hematology oncology followed Vitamin K ordered. Follow-up INR in a.m. Pneumonia: - Completed treatment for pneumonia under the guidance of ID. Severe protein calorie malnutrition -Dietitian following. Continue to encourage PO intake. -P.o. intake have improved. Discharge Planning: Need paracentesis prior to discharge. INR 2 high for paracentesis. Patient given vitamin K. Repeat INR in a.m. if able to have paracentesis tomorrow, may be discharged to SNF afterwards. Patient has liver failure and will need close outpatient follow-up. High risk for decompensation from liver failure.
[2017-10-25] MEDS: Insulin NovoLOG Aspart Correctional Sugar Inj SQ SCH ×6 (00:03→20:37)
[2017-10-25] MEDS: Oral Hygiene Kit OROPHARYNG SCH ×5 (00:03→23:48)
[2017-10-25] MEDS: Folic Acid 1 MG Tablet PO SCH (09:11)
[2017-10-25] MEDS: Calcium Carbonate 500 MG Tablet PO SCH ×2 (09:11→20:37)
[2017-10-25] MEDS: rifAXIMin 550 MG Tablet PO SCH ×2 (09:11→20:37)
[2017-10-25] MEDS: Senna/Docusate Sodium 8.6/50 MG Tablet PO SCH ×2 (09:11→20:37)
[2017-10-25] MEDS: Nystatin Liq 500,000 UNIT/5 ML UDC SWISH-SWAL SCH (09:12)
[2017-10-25] MEDS: Multivitamin/Minerals Therapeutic Tablet PO SCH (09:12)
[2017-10-25] MEDS: Pantoprazole Inj 40 MG Vial IV.PUSH SCH ×2 (09:13→20:37)
[2017-10-25] MEDS: Phytonadione 5 MG/SWFI 5 ML Oral Syringe PO SCH ×2 (09:13→13:24)
[2017-10-25] MEDS: Furosemide 40 MG Tablet PO SCH ×2 (09:19→17:38)
[2017-10-25 10:08] LABS: INR 2.2 Ratio; Prothrombin Time 22.5 sec (9.8-11.6)
--- NOTE | 2017-10-25 10:28 | P.PNIM ---
Subjective Interval history: INR still elevated, unable to get paracentesis. Patient reports abdominal bloating is a little bit worse but denies significant discomfort. Physical Exam Vital signs: Vital Signs 10/24/17 12:00 10/24/17 16:00 10/24/17 20:00 Temperature 97.8 F 97.1 F L 98.2 F Pulse Rate 75 77 83 Respiratory Rate 16 16 18 Blood Pressure 108/61 103/56 L 100/58 L Pulse Oximetry 98 98 98 10/24/17 22:00 10/25/17 00:00 10/25/17 04:00 Temperature 98.1 F 98.0 F Pulse Rate 80 91 H 79 Respiratory Rate 18 18 Blood Pressure 105/56 L 108/59 L Pulse Oximetry 98 98 10/25/17 08:00 Temperature 98.0 F Pulse Rate 75 Respiratory Rate 17 Blood Pressure 108/58 L Pulse Oximetry 97 Intake & Output 10/24/17 10/25/17 10/25/17 18:59 06:59 18:59 Intake Total 460 / 460 Output Total 850 / 850 600 / 600 Balance -390 / -390 -600 / -600 Intake: Oral 460 / 460 Output: Urine 850 / 850 600 / 600 Other: Date of Last Bowel Movement 10/24/17 # Bowel Movements 1 1 Narrative: GENERAL: 62 yo male, appears chronically ill SKIN: Jaundiced. Dry scaly skin. EYES: + icterus. NECK: NGT . Supple, trachea midline. CARDIOVASCULAR: Regular rate and rhythm without murmurs, gallops, or rubs. RESPIRATORY: Breath sounds decreased bilaterally. No accessory muscle use. GASTROINTESTINAL: Abdomen distended, obvious ascites. No significant tenderness. NEURO: Generalized weakness - Urinary Catheter Management Indwelling Urethral Catheter Cath placed during this visit: no Results - Labs CBC & Chem 7: 10/24/17 05:49 10/24/17 05:49 Laboratory Results - last 24 hr 10/24/17 10/24/17 10/24/17 11:23 16:09 21:08 PT INR POC Glucose 154 H 159 H 142 H 10/25/17 10/25/17 10/25/17 04:20 08:31 09:18 PT 22.5 H INR 2.2 POC Glucose 128 H 130 H Assessment and Plan - Plan 62 years old male with alcohol related liver cirrhosis, GI bleeding status post esophageal varices banding, status post respiratory failure: Upper GI bleed secondary to esophageal varices status post banding Alcoholic liver cirrhosis Ascites Hyperammonemia GERD Continue Protonix Lactulose BID, continue rifaximin 550 twice daily 09/28- paracentesis by invasive radiology - 5L removed.- paracentesis site- drained spontaneously 09/29-repeat EGD-revealed significant gastropathy, no active sites of bleeding Oral intake improving. Continue Lasix. Blood pressure too low for spironolactone at this point. Plan for repeat paracentesis however INR is still too high. Increase vitamin K to 10 mg daily, follow-up INR Acute hypoxic and hypercarbic respiratory failure MS- definitely more awake and alert on - O2 saturation greater than 92% Albuterol/ipratropium aerosols every 4 hours with albuterol aerosols every 2 hours as needed for dyspnea epsiode of NSVT- 5 beats 10/14 Cardiomyopathy Maintain MAP greater than 65 Monitor CVP 09/27 echo- EF 40% small left pleural effusion Continue Coreg 3.125 mg po bid- review ECho- EF- 40-45 % 10/14- now telemetry- sinus with occasional PVC Oliguria: Resolved On Lasix as above Acute blood loss anemia Thrombocytopenia Coagulopathy Monitor CBC 10/01 Transfuse 2 u PRBC's Noted decreased liver synthetic function secondary to cirrhosis Hematology oncology followed Vitamin K ordered. Follow-up INR in a.m. Pneumonia: - Completed treatment for pneumonia under the guidance of ID. Severe protein calorie malnutrition -Dietitian following. Continue to encourage PO intake. -P.o. intake have improved. Discharge Planning: Need paracentesis prior to discharge. INR too high for paracentesis. Patient given increased dose of vitamin K. Once he is able to have paracentesis, may be discharged to SNF afterwards. Patient has liver failure and will need close outpatient follow-up. High risk for decompensation from liver failure. He will most likely need repeat paracentesis within a week or 2.
[2017-10-25 15:42] LABS: INR 2.2 Ratio; Prothrombin Time 22.7 sec (9.8-11.6)
[2017-10-26] MEDS: Insulin NovoLOG Aspart Correctional Sugar Inj SQ SCH ×6 (00:37→21:48)
[2017-10-26] MEDS: Oral Hygiene Kit OROPHARYNG SCH ×3 (05:10→16:28)
[2017-10-26] MEDS: Pantoprazole Inj 40 MG Vial IV.PUSH SCH ×2 (08:55→21:53)
[2017-10-26] MEDS: Furosemide 40 MG Tablet PO SCH ×2 (08:55→17:08)
[2017-10-26] MEDS: Multivitamin/Minerals Therapeutic Tablet PO SCH (08:56)
[2017-10-26] MEDS: Folic Acid 1 MG Tablet PO SCH (08:56)
[2017-10-26] MEDS: Senna/Docusate Sodium 8.6/50 MG Tablet PO SCH ×2 (08:56→21:48)
[2017-10-26] MEDS: rifAXIMin 550 MG Tablet PO SCH ×2 (08:56→21:48)
[2017-10-26] MEDS: Calcium Carbonate 500 MG Tablet PO SCH ×2 (08:56→21:48)
[2017-10-26] MEDS: Phytonadione 5 MG/SWFI 5 ML Oral Syringe PO SCH (09:00)
--- NOTE | 2017-10-26 10:38 | P.PNPAL ---
Reason for Visit Reason for visit: a. To assist with evaluation and management of symptoms including: dysphagia, physical deconditioning b. To assist medical decision maker(s) with: better understanding of current medical conditions; weighing benefits/burdens of medical treatment options; making medical treatment decisions. Subjective Subjective/Interval History: Follow-up medically necessary for clarification of goals. Patient seen and examined in his room. Patient is sitting up in a recliner chair. He is alert, oriented to self, place and situation. Patient endorsing discomfort due to abdominal distention. Ultrasound of abdomen was just completed by audiovisual lead technician. Plan is to take patient to radiology for paracentesis today. Patient denies shortness of breath. Patient endorsing fair appetite. He remains on pured diet and thickened fluids. Patient consumed 75% of his breakfast today. Speech therapy continues to follow with patient. Physical therapy continues to follow with patient, recommending PT at rehab Interim course: * Laboratory workup on 10/24/17 revealed WBC 9.1, hemoglobin 8.5, hematocrit 24.5 , platelet count 271, sodium 136, potassium 3.2, BUN/creatinine 17/1.02, random glucose 107, total bilirubin 11.5, AST 78, ALT 31, total protein 8.2, albumin 1.6, INR 2.2, APTT 21.8. * Laboratory workup today revealing PT 22.7, INR 2.2 * Patient received doses of vitamin K to correct INR before paracentesis * No recent imaging Patient appears to be able to weigh benefits and disadvantages of treatments. Patient seems to have a fair understanding of his medical condition. Patient is scheduled to go for paracentesis today and will most likely require paracentesis in 2-3 weeks. He remains at high risk for further complications and deterioration in the near future. Case management working with patient for possible [facility] to a jail facility. Introduced hospice philosophy and benefits to patient today. Expressed concern regarding complications that patient will most likely be faced in the near future. Patient understands that he has liver failure and the disease will most continue to progress as well as other comorbidities. Patient would like comfort care through hospice services. Patient also concerned about his living situation after he leaves rehabilitation. Patient requested that his sister be informed of his decision to transition to comfort care through hospice services before hospice consult is placed. Telephone position with patient`s sister who is patient's healthcare surrogate, Sabrina Farrell. Updated her on patient's current medical condition is well is discussion with patient regarding hospice. Patient's sister agrees with patient 's decision to transition to comfort care with hospice services. She understands that patient will continue to decompensate from liver failure. She does not want him to continue to suffer and would prefer that he is kept comfortable. Family/Friend Interactions: Telephone conversation with patient's Sister Sabrina Farrell Advance Directives Living Will: Never completed Health Care Surrogate: Copy in medical record Durable Power of Lamination Technician: Never completed Advance Directives Date on File: 10/10/17 (HCS completed after patient verbally consented and was witnessed by SENIOR ARCHITECT and bedside RN. ) Health Care Surrogate Name and Number: HCS: Bud Campos [phone] Alt. HCS: Paolo Rosi [phone] Significant change in goals:: Patient would like to transition to hospice services though he wants his sister to be called first and informed of his decision before placing the consult. Objective Vital Signs: Vital Signs 10/25/17 11:04 10/25/17 12:00 10/25/17 16:00 Temperature 97.9 F 97.8 F Pulse Rate 77 79 Respiratory Rate 18 17 Blood Pressure 111/55 L 103/59 L Pulse Oximetry 98 98 99 10/25/17 18:18 10/25/17 20:00 10/26/17 00:00 Temperature 98.5 F 98.0 F Pulse Rate 76 72 Respiratory Rate 18 18 Blood Pressure 109/62 110/59 L Pulse Oximetry 99 99 99 10/26/17 04:00 10/26/17 08:00 Temperature 98.0 F 98.1 F Pulse Rate 75 79 Respiratory Rate 18 19 Blood Pressure 100/57 L 99/57 L Pulse Oximetry 98 98 Intake & Output 10/25/17 10/26/17 10/26/17 18:59 06:59 18:59 Intake Total 560 / 560 Output Total 350 / 350 500 / 500 Balance 210 / 210 -500 / -500 Intake: Oral 560 / 560 Output: Urine 350 / 350 500 / 500 Other: # Voids 1 Date of Last Bowel Movement 10/25/17 # Bowel Movements 1 Physical Exam: CONSTITUTIONAL/GENERAL: This is a chronically ill looking patient, appears older than his stated age. lethargic in no acute distress TUBES/LINES/DRAINS: PIV SKIN:hx of lymphedema to BLE. Skin scaly, with tree bark appearance with cream on and discolored to bilateral lower extremities EYES: Sclera icterus. Fundi not examined. ENT: Hearing grossly normal. No nasal bleeding or purulent drainage. Moist oral mucosa. CARDIOVASCULAR:Regular heart sounds and rhythm, no murmurs, gallops, or rubs. No JVD. Peripheral pulses symmetric. RESPIRATORY/CHEST: Symmetric, unlabored respirations. Diminished breath sounds. GASTROINTESTINAL: Abdomen soft, distended. hypoactive bowel sounds x4. MUSCULOSKELETAL: Extremities without clubbing, cyanosis, or edema. Lymphedema to BLE worse on R leg. NEUROLOGICAL: Alert, oriented to self, place and situation. Follows commands with all 4 extremities PSYCHIATRIC: Calm. No confusion Diagnostic Tests Laboratory: Laboratory Results - last 72 hr 10/23/17 10/23/17 10/23/17 11:10 15:13 20:28 WBC RBC Hgb Hct MCV MCH MCHC RDW Plt Count MPV PT INR Sodium Potassium Chloride Carbon Dioxide Anion Gap BUN Creatinine Estimated GFR POC Glucose 132 H 154 H 160 H Random Glucose Calcium Total Bilirubin Direct Bilirubin Indirect Bilirubin AST ALT Alkaline Phosphatase Total Protein Albumin 10/24/17 10/24/17 10/24/17 01:10 05:33 05:49 WBC 9.1 RBC 2.42 L Hgb 8.5 L Hct 24.5 L MCV 101.1 H MCH 34.9 H MCHC 34.6 RDW 23.2 H Plt Count 71 L MPV 11.7 H PT INR Sodium Potassium Chloride Carbon Dioxide Anion Gap BUN Creatinine Estimated GFR POC Glucose 146 H 123 H Random Glucose Calcium Total Bilirubin Direct Bilirubin Indirect Bilirubin AST ALT Alkaline Phosphatase Total Protein Albumin 10/24/17 10/24/17 10/24/17 05:49 05:49 07:30 WBC RBC Hgb Hct MCV MCH MCHC RDW Plt Count MPV PT 21.8 H INR 2.2 Sodium 136 Potassium 3.2 L Chloride 101 Carbon Dioxide 27.0 Anion Gap 8 BUN 17 Creatinine 1.02 Estimated GFR Greater than 89 POC Glucose 117 H Random Glucose 107 H Calcium 7.7 L Total Bilirubin 11.5 H Direct Bilirubin 8.3 H Indirect Bilirubin 3.2 H AST 78 H ALT 31 Alkaline Phosphatase 146 H Total Protein 8.2 Albumin 1.6 L 10/24/17 10/24/17 10/24/17 11:23 16:09 21:08 WBC RBC Hgb Hct MCV MCH MCHC RDW Plt Count MPV PT INR Sodium Potassium Chloride Carbon Dioxide Anion Gap BUN Creatinine Estimated GFR POC Glucose 154 H 159 H 142 H Random Glucose Calcium Total Bilirubin Direct Bilirubin Indirect Bilirubin AST ALT Alkaline Phosphatase Total Protein Albumin 10/25/17 10/25/17 10/25/17 04:20 08:31 09:18 WBC RBC Hgb Hct MCV MCH MCHC RDW Plt Count MPV PT 22.5 H INR 2.2 Sodium Potassium Chloride Carbon Dioxide Anion Gap BUN Creatinine Estimated GFR POC Glucose 128 H 130 H Random Glucose Calcium Total Bilirubin Direct Bilirubin Indirect Bilirubin AST ALT Alkaline Phosphatase Total Protein Albumin 10/25/17 10/25/17 10/25/17 12:29 15:05 17:09 WBC RBC Hgb Hct MCV MCH MCHC RDW Plt Count MPV PT 22.7 H INR 2.2 Sodium Potassium Chloride Carbon Dioxide Anion Gap BUN Creatinine Estimated GFR POC Glucose 149 H 185 H Random Glucose Calcium Total Bilirubin Direct Bilirubin Indirect Bilirubin AST ALT Alkaline Phosphatase Total Protein Albumin 10/25/17 10/26/17 10/26/17 20:32 00:36 07:48 WBC RBC Hgb Hct MCV MCH MCHC RDW Plt Count MPV PT INR Sodium Potassium Chloride Carbon Dioxide Anion Gap BUN Creatinine Estimated GFR POC Glucose 156 H 131 H 129 H Random Glucose Calcium Total Bilirubin Direct Bilirubin Indirect Bilirubin AST ALT Alkaline Phosphatase Total Protein Albumin Result Diagrams: 10/24/17 05:49 10/24/17 05:49 Imaging: Chest X-Ray 10/11/17 05:00 CONCLUSION: 1. No significant interval change. 2. Cardiomegaly with pulmonary edema pattern. 3. Stable bibasilar airspace disease, right greater than left. Procedures: 09/25/17-intubation 09/25/17-EGD with esophageal varices banding 09/26/17-left IJ central line placement 09/28/[id number] abdominal paracentesis 10/09/17- Self extubated Assessment and Plan - Disease Oriented Problem List (1) Sepsis (2) Pneumonia (3) Hypertension (4) Acute renal failure (5) Hypothyroidism (6) Acute respiratory failure (7) Upper GI bleed (8) Lymphedema of both lower extremities - Symptom Scale (1) Shortness of breath 0-10 Scale: Unable to quantify (2) Dysphagia 0-10 Scale: Unable to quantify Comment: Pt has been failing swallow eval s/p self extubation. Now on puree diet and honey thickened fluids (3) Pain 0-10 Scale: Unable to quantify Comment: Patient has chronic lymphedema. Reports that he usually has pain to his BLE (4) Physical deconditioning 0-10 Scale: Unable to quantify Comment: Progressive. Prolonged hospitalization. Pertinent Non-Medical Issues: Psychosocial: Patient was born and raised in [place]. He moved to [place] in 1985. Patient has a college degree. 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 Patient never and never had children. Spiritual: Patient is Mosque-sister requested agriculture teacher visit Legal: Never completed advanced directives Ethical issues impacting care: None identified at this time Important Contacts: Sister- Sabrina Wakksxti-[phone] cell/ [phone] Mother- Alexandre Alexis Uncle- Rosi BooneMmHlucibe-[phone] (lives with patient`s mother) Prognosis: Mr. Ramirez is a 62 years old male with a past medical history significant for chronic lymphedema to bilateral lower extremities, EtOH abuse, pneumonia, heart murmur, diet controlled diabetes mellitus type 2, hypothyroidism, umbilical hernia, GERD and anxiety. Patient was brought to the ER on 09/25/17 by EMS with complaints of hematemesis, and increase in abdominal girth. Clinical course complicated with acute respiratory failure, sepsis and recurrent ascites. Given ongoing multiple comorbidities patient remains at risk for further complications, deterioration and decline. Code Status: No Code DNR Plan: PLAN: Legal decision maker: Patient is partially oriented and has periods of confusion. Recommending any medical decision to be done in collaboration with patient`s sister Sabrina Farrell who is his [facility] Care Surrogate. Patient`s alternate HCS is his uncle Paolo Aranda. Goals: Patient would like to transition to comfort care through hospice services. Telephone position with patient`s sister who is patient's healthcare surrogate, Sabrina Farrell. Updated her on patient's current medical condition is well is discussion with patient regarding hospice. Patient's sister agrees with patient's decision to transition to comfort care with hospice services. She understands that patient will continue to decompensate from liver failure. She does not want him to continue to suffer and would prefer that he is kept comfortable. CODE STATUS: No code DNR/ DNI SYMPTOMS: * Dysphagia: Patient has had an NGT. Speech therapy and dietitian following. Remains on puree diet and honey thickened fluids. Patient endorsing decreased appetite though he thinks he can eat much better sitting up. Continue to monitor for aspiration signs. Recommending OOB for meals. * Pain: Patient is at risk for pain, from chronic bilateral lower extremity lymphedema and has undergone paracentesis x2 and being bedbound. Denies pain. Continue to monitor for signs of pain. * Physical deconditioning: Progressive. Most likely due to prolonged hospitalization and disease process. Patient is lost significant amount of weight and is showing muscle wasting to all 4 extremities including temporal muscle wasting. Dietitian and physical therapy following. Patient endorsing fatigue today. PT recommending physical therapy at rehab. Continue PT and recommending OOB meals. Palliative care will continue to follow the patient during hospital course as condition evolves, to assist patient/decision-maker with understanding of their medical conditions, weighing benefits/burdens of treatment options, for clarification of goals of treatment. Additionally will assist with any symptoms of palliative concern Attestation Attestation: To help prompt me to consider important information that might be impacting today's encounter and assessment, information from prior notes written by myself or my colleagues may have been "brought forward" into today's note. My signature on this note, however, is an attestation that I personally performed the exam, history, and/or decision-making noted today, and, unless otherwise indicated, the interactions with patient, family, and staff as well as the review of records all occurred today. I also attest that the listed assessment and stated plan reflect my best clinical judgment today based on the combination of historical information, prior notes, and today's exam/ interactions. When time spent is documented, it refers only to time spent today by the signer, or if indicated, combined time spent today by collaborating physician/nurse practitioner.
--- NOTE | 2017-10-26 11:23 | P.PNIM ---
Subjective Interval history: Patient is worried about his belongings. Otherwise he has no other complaints. Abdomen still firm. Discomfort is about the same. INR pending this morning. Physical Exam Vital signs: Vital Signs 10/25/17 12:00 10/25/17 16:00 10/25/17 18:18 Temperature 97.9 F 97.8 F Pulse Rate 77 79 Respiratory Rate 18 17 Blood Pressure 111/55 L 103/59 L Pulse Oximetry 98 99 99 10/25/17 20:00 10/26/17 00:00 10/26/17 04:00 Temperature 98.5 F 98.0 F 98.0 F Pulse Rate 76 72 75 Respiratory Rate 18 18 18 Blood Pressure 109/62 110/59 L 100/57 L Pulse Oximetry 99 99 98 10/26/17 08:00 Temperature 98.1 F Pulse Rate 79 Respiratory Rate 19 Blood Pressure 99/57 L Pulse Oximetry 98 Intake & Output 10/25/17 10/26/17 10/26/17 18:59 06:59 18:59 Intake Total 560 / 560 Output Total 350 / 350 500 / 500 Balance 210 / 210 -500 / -500 Intake: Oral 560 / 560 Output: Urine 350 / 350 500 / 500 Other: # Voids 1 Date of Last Bowel Movement 10/25/17 # Bowel Movements 1 Narrative: GENERAL: 62 yo male, appears chronically ill SKIN: Jaundiced. Dry scaly skin. EYES: + icterus. NECK: NGT . Supple, trachea midline. CARDIOVASCULAR: Regular rate and rhythm without murmurs, gallops, or rubs. RESPIRATORY: Breath sounds decreased bilaterally. No accessory muscle use. GASTROINTESTINAL: Abdomen distended, obvious ascites. No significant tenderness. NEURO: Generalized weakness - Urinary Catheter Management Indwelling Urethral Catheter Cath placed during this visit: no Results - Labs CBC & Chem 7: 10/24/17 05:49 10/24/17 05:49 Laboratory Results - last 24 hr 10/25/17 10/25/17 10/25/17 12:29 15:05 17:09 PT 22.7 H INR 2.2 POC Glucose 149 H 185 H 10/25/17 10/26/17 10/26/17 20:32 00:36 07:48 PT INR POC Glucose 156 H 131 H 129 H Assessment and Plan - Plan 62 years old male with alcohol related liver cirrhosis, GI bleeding status post esophageal varices banding, status post respiratory failure: Upper GI bleed secondary to esophageal varices status post banding Alcoholic liver cirrhosis Ascites Hyperammonemia GERD Continue Protonix Lactulose BID, continue rifaximin 550 twice daily 09/28- paracentesis by invasive radiology - 5L removed.- paracentesis site- drained spontaneously 09/29-repeat EGD-revealed significant gastropathy, no active sites of bleeding Oral intake improving. Continue Lasix. Blood pressure too low for spironolactone at this point. Plan for repeat paracentesis however INR has been too high. Increased vitamin K to 10 mg daily, follow-up INR today. Plan to discuss with interventional radiologist. Acute hypoxic and hypercarbic respiratory failure MS- definitely more awake and alert on - O2 saturation greater than 92% Albuterol/ipratropium aerosols every 4 hours with albuterol aerosols every 2 hours as needed for dyspnea epsiode of NSVT- 5 beats 10/14 Cardiomyopathy Maintain MAP greater than 65 Monitor CVP 09/27 echo- EF 40% small left pleural effusion Continue Coreg 3.125 mg po bid- review ECho- EF- 40-45 % 10/14- now telemetry- sinus with occasional PVC Oliguria: Resolved On Lasix as above Acute blood loss anemia Thrombocytopenia Coagulopathy Monitor CBC 10/01 Transfuse 2 u PRBC's Noted decreased liver synthetic function secondary to cirrhosis Hematology oncology followed Vitamin K ordered. Follow-up INR Pneumonia: - Completed treatment for pneumonia under the guidance of ID. Severe protein calorie malnutrition -Dietitian following. Continue to encourage PO intake. -P.o. intake have improved. Discharge Planning: Need paracentesis prior to discharge. INR too high for paracentesis. Patient given increased dose of vitamin K. Once he is able to have paracentesis, may be discharged to SNF afterwards. Patient has liver failure and will need close outpatient follow-up. High risk for decompensation from liver failure. He will most likely need repeat paracentesis within a week or 2.
--- NOTE | 2017-10-26 12:06 | US ---
EXAM DATE: 10/26/2017 11:57 AM EDT AGE/SEX: 62 years / Male INDICATIONS: Ascites. CLINICAL DATA: This is the patient's subsequent encounter. Patient reports that signs and symptoms h ave been present for 3 days and indicates a pain score of 0/10. MEDICAL/SURGICAL HISTORY: . Hypothyroidism. Seizures. Heart murmur. HTN. Pneumonia. Hemoptysis. GERD. UTI. Diabetes. Lymphedema. . Tonsillectomy. [place] teeth extraction. COMPARISON: . FLUID: Total volume of 5200 cc of clear, yellow fluid was removed. Fluid was discarded. Paracentesis was the rapeutic only. . . TECHNIQUE: Ultrasound guidance for abdominal paracentesis. Paracentesis. The risks, benefits, and alternatives to ultrasound guided paracentesis were explained to the patient in detail including the risk of bleeding and infection. Written and verbal informed consent was obt ained. With the patient on the ultrasound table, ultrasound imaging was used to select the most appropriate approach for paracentesis. Overlying skin was prepped and draped in the usual sterile fashion and wi th a local anesthetic, a dermatotomy was made with an 11 blade scalpel. A 6 [place] [id number] ca theter was introduced into the peritoneal cavity and fluid was collected. The patient tolerated the procedure well and left the ultrasound suite in stable condition. FINDINGS: After obtaining consent, an ultrasound-guided paracentesis was performed as described above. CONCLUSION: 1. Successful ultrasound-guided paracentesis. Electronically signed by: Nba Marie MD 10/26/2017 12:05 PM EDT
[2017-10-26] MEDS ORDERED: Albumin Human 25% Inj 150 ML IV.SIG ONE (12:46)
[2017-10-26 13:08] LABS: Prothrombin Time 20.7 sec (9.8-11.6)
--- NOTE | 2017-10-26 18:41 | P.DIET ---
Nutritional Evaluation Type of nutrition evaluation: follow-up Nutrition consult regarding: Tube Feeding Subjective Subjective Comments: Pt visited at bedside. Pt speaks softly. Pt says he is "not so good" w/his meals. Pt receptive to Glucerna Shakes. Objective - Diagnosis GI Bleed - Indications of Malnutrition Classification: Chronic disease or injury-related Malnutrition Characteristics: Fluid accumulation, Diminshed functional status - Objective Body Weight Used for Calculations: IBW (75.5kg) Energy Needs - Lower Range (kCal/kg): 28 Energy Needs - Upper Range (kCal/kg): 33 Lower Limit kCal/kg (kCals): 2,114 Upper Limit kCal/kg (kCals): 2,491 Lower Limit Protein Factor (Grams per Kg): 1.2 Upper Limit Protein Factor (Grams per Kg): 1.5 Lower Protein Needs (Protein): 91 Upper Protein Needs (Protein): 113 Dietitian Reviewed in Medical Record: Current diet, Curent medications, Intake & Output, Labs, Medical history Diet Order: 1800ADA Pureed Liquids Honey Thickened Oral Diet Intake Amount: Fair 50-75% Speech Therapy Recommendations: Yes (Pureed ) Objective Comments: Pt's nutritional needs based on 75.5kg PMH: DM, HTN, GERD, PNA, Hypothyroidism, Bilateral LE lymphedema, Anxiety, noncompliance to medical therapy Meds Inculde: Folic Acid, Thiamine, Theragran M, Lactulose, Xifaxan, Coreg, Lasix, Haldol, Novolog Labs include: Accucheck 129, 174 +1BM's, UOP 1450ml Assessment Assessment: Pt is at nutritional risk r/t dysphagia w/previous need for TF'ing. Diet advanced per ST . Pt tolerating Pureed diet w/variable po intake for meals. Send Glucerna Shakes w/meals for added nutrition(220 kcal and 10g Protein per serving). Labs reviewed. Wt changes noted. Dietitian following. Recommendations: 1.Send Glucerna Shakes w/meals for added nutrition 2.Dietitian following Dietitian to Monitor: Lab values, Liver enzymes, Glucose level, Intake & Output , Weight change, PO Intake, Diet advancement, Medical course
[2017-10-27] MEDS: Insulin NovoLOG Aspart Correctional Sugar Inj SQ SCH ×7 (00:05→23:59)
[2017-10-27] MEDS: Oral Hygiene Kit OROPHARYNG SCH ×5 (00:06→23:59)
[2017-10-27] MEDS: Senna/Docusate Sodium 8.6/50 MG Tablet PO SCH ×2 (08:46→20:20)
[2017-10-27] MEDS: Multivitamin/Minerals Therapeutic Tablet PO SCH (08:46)
[2017-10-27] MEDS: Folic Acid 1 MG Tablet PO SCH (08:46)
[2017-10-27] MEDS: Phytonadione 5 MG/SWFI 5 ML Oral Syringe PO SCH (08:46)
[2017-10-27] MEDS: rifAXIMin 550 MG Tablet PO SCH ×2 (08:46→20:20)
[2017-10-27] MEDS: Calcium Carbonate 500 MG Tablet PO SCH ×2 (08:46→20:20)
[2017-10-27] MEDS: Furosemide 40 MG Tablet PO SCH ×2 (08:47→17:49)
[2017-10-27] MEDS: Pantoprazole Inj 40 MG Vial IV.PUSH SCH ×2 (08:47→20:20)
--- NOTE | 2017-10-27 14:23 | P.PNPAL ---
Reason for Visit Reason for visit: a. To assist with evaluation and management of symptoms including: dysphagia, physical deconditioning b. To assist medical decision maker(s) with: better understanding of current medical conditions; weighing benefits/burdens of medical treatment options; making medical treatment decisions. Subjective Subjective/Interval History: Follow-up medically necessary for clarification of goals. Patient is sitting up in a recliner in his room. Patient states, "I feel lousy today". Patient denies pain, shortness of breath. Patient states that he is concerned because he cannot find some of his belongings, cards-including social security card and food stamp card. Patient is unable to remember if he brought them in with him to the hospital. He has all his belongings spread out . Speech therapy following. Patient's diet has been advanced to pure diet with thin liquids. Dietitian also following. Patient underwent paracentesis yesterday and 5.2 L of fluid was removed. Patient met with hospice yesterday and consents were signed. Case management assisting with placement. Readdressed CODE STATUS with patient since termite control technician Kim reported yesterday that patient had told her that he changed his mind regarding DNR status. Patient stated today that he would not want to be resuscitated or connected to a "breathing machine" knowing his medical condition. Patient elected DNR. Patient understands that he will need assistance when he is discharged from the hospital and is most likely unable to safely care for himself. Patient is amenable to discharging to a facility. Case discussed with case management and bedside RN Ginny Zhao. Notified bedside RN that patient is looking for some of his belongings. Family/Friend Interactions: No family at bedside. Advance Directives Living Will: Never completed Health Care Surrogate: Copy in medical record Durable Power of Coal Hauler Operator: Never completed Advance Directives Date on File: 10/10/17 (HCS completed after patient verbally consented and was witnessed by COUNTY AGENT and bedside RN. ) Health Care Surrogate Name and Number: [facility]: Bud Campos [phone] Alt. [facility]: Rosi Boone [phone] Objective Vital Signs: Vital Signs 10/26/17 16:00 10/26/17 20:00 10/27/17 00:00 Temperature 97.7 F 97.4 F L 97.5 F L Pulse Rate 76 73 74 Respiratory Rate 19 22 20 Blood Pressure 87/50 L 100/51 L 94/56 L Pulse Oximetry 99 98 99 10/27/17 04:00 10/27/17 08:00 10/27/17 12:00 Temperature 97.5 F L 97.4 F L 97.7 F Pulse Rate 72 75 81 Respiratory Rate 20 16 16 Blood Pressure 99/56 L 94/52 L 106/54 L Pulse Oximetry 99 97 99 Intake & Output 10/26/17 10/27/17 10/27/17 18:59 06:59 18:59 Intake Total 630 / 630 Output Total 200 / 200 400 / 400 Balance 430 / 430 -400 / -400 Weight 89.9 kg Intake: IV 150 / 150 Flexbumin 25% Inj 150 ML @ 60 150 / 150 mls/hr IV.SIG ONCE ONE Rx#: [id number] Oral 480 / 480 Output: Urine 200 / 200 400 / 400 Other: Date of Last Bowel Movement 10/25/17 10/26/17 Physical Exam: CONSTITUTIONAL/GENERAL: This is a chronically ill looking patient, appears older than his stated age. lethargic in no acute distress TUBES/LINES/DRAINS: PIV SKIN:hx of lymphedema to BLE. Skin scaly, with tree bark appearance with cream on and discolored to bilateral lower extremities EYES: Sclera icterus. Fundi not examined. ENT: Hearing grossly normal. No nasal bleeding or purulent drainage. Moist oral mucosa. CARDIOVASCULAR:Regular heart sounds and rhythm, no murmurs, gallops, or rubs. No JVD. Peripheral pulses symmetric. RESPIRATORY/CHEST: Symmetric, unlabored respirations. Diminished breath sounds. GASTROINTESTINAL: Abdomen soft, distended. hypoactive bowel sounds x4. MUSCULOSKELETAL: Extremities without clubbing, cyanosis, or edema. Lymphedema to BLE worse on R leg. NEUROLOGICAL: Alert, oriented to self, place and situation. Follows commands with all 4 extremities PSYCHIATRIC: Calm. No confusion Diagnostic Tests Laboratory: Laboratory Results - last 72 hr 10/24/17 10/24/17 10/25/17 16:09 21:08 04:20 PT INR POC Glucose 159 H 142 H 128 H 10/25/17 10/25/17 10/25/17 08:31 09:18 12:29 PT 22.5 H INR 2.2 POC Glucose 130 H 149 H 10/25/17 10/25/17 10/25/17 15:05 17:09 20:32 PT 22.7 H INR 2.2 POC Glucose 185 H 156 H 10/26/17 10/26/17 10/26/17 00:36 07:48 12:34 PT INR POC Glucose 131 H 129 H 164 H 10/26/17 10/26/17 10/26/17 12:35 16:40 21:39 PT 20.7 H INR 2.0 POC Glucose 174 H 172 H 10/27/17 10/27/17 10/27/17 00:00 05:43 07:46 PT INR POC Glucose 182 H 126 H 111 H 10/27/17 11:02 PT INR POC Glucose 133 H Result Diagrams: 10/24/17 05:49 10/24/17 05:49 Imaging: Chest X-Ray 10/11/17 05:00 CONCLUSION: 1. No significant interval change. 2. Cardiomegaly with pulmonary edema pattern. 3. Stable bibasilar airspace disease, right greater than left. Paracentesis Ultrasound 10/26/17 00:00 CONCLUSION: 1. Successful ultrasound-guided paracentesis. Procedures: 09/25/17-intubation 09/25/17-EGD with esophageal varices banding 09/26/17-left IJ central line placement 09/28/1711-zdlpakszgu-revsta abdominal paracentesis 10/04/1753-gudpdctkcv-msbbpo abdominal paracentesis-1.6 L removed 10/09/17- Self extubated 10/26/17-ultrasound guided abdominal paracentesis-5.2 L removed Assessment and Plan - Disease Oriented Problem List (1) Sepsis (2) Pneumonia (3) Hypertension (4) Acute renal failure (5) Hypothyroidism (6) Acute respiratory failure (7) Upper GI bleed (8) Lymphedema of both lower extremities - Symptom Scale (1) Shortness of breath 0-10 Scale: Unable to quantify (2) Dysphagia 0-10 Scale: Unable to quantify Comment: Pt has been failing swallow eval s/p self extubation. Now on puree diet and honey thickened fluids (3) Pain Comment: Patient has chronic lymphedema. Reports that he usually has pain to his BLE (4) Physical deconditioning 0-10 Scale: Unable to quantify Comment: Progressive. Prolonged hospitalization. Pertinent Non-Medical Issues: Psychosocial: Patient was born and raised in [place]. He moved to [place] in 1985. Patient has a college degree. 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 Patient never and never had children. Spiritual: Patient is Latter-Day-sister requested medical record coder visit Legal: Never completed advanced directives Ethical issues impacting care: None identified at this time Important Contacts: Sister- Bud Bennett-[phone] cell/ [phone] Mother- Alexandre Alexis Uncle- Rosi BoonePmAdsovrt-[phone] (lives with patient`s mother) Prognosis: Mr. Ramirez is a 62 years old male with a past medical history significant for chronic lymphedema to bilateral lower extremities, EtOH abuse, pneumonia, heart murmur, diet controlled diabetes mellitus type 2, hypothyroidism, umbilical hernia, GERD and anxiety. Patient was brought to the ER on 09/25/17 by EMS with complaints of hematemesis, and increase in abdominal girth. Clinical course complicated with acute respiratory failure, sepsis and recurrent ascites. Given ongoing multiple comorbidities patient remains at risk for further complications, deterioration and decline. Code Status: No Code DNR Plan: PLAN: Legal decision maker: Patient is partially oriented and has periods of confusion. Recommending any medical decision to be done in collaboration with patient`s sister Sabrina Farrell who is his [facility] Care Surrogate. Patient`s alternate HCS is his uncle Paolo Aranda. Goals: Patient would like to transition to comfort care through hospice services. Patient met with [facility] yesterday and consents were signed. CODE STATUS: No code DNR/ DNI- Patient has a signed [facility] DNR on his chart Readdressed CODE STATUS with patient since termite control technician Kim reported yesterday that patient had told her that he changed his mind regarding DNR status. Patient stated today that he would not want to be resuscitated or connected to a "breathing machine" knowing his medical condition. Patient elected DNR. Patient understands that he will need assistance when he is discharged from the hospital and is most likely unable to safely care for himself. Patient is amenable to discharging to a facility. Case management assisting with placement. SYMPTOMS: * Dysphagia: Patient has had an NGT. Speech therapy and dietitian following. Diet advanced to puree diet and thin fluids. Patient endorsing decreased appetite though he thinks he can eat much better sitting up. Continue to monitor for aspiration signs. * Pain: Patient is at risk for pain, from chronic bilateral lower extremity lymphedema and has undergone paracentesis x2 and being bedbound. Denies pain. Continue to monitor for signs of pain. * Physical deconditioning: Progressive. Most likely due to prolonged hospitalization and disease process. Patient is lost significant amount of weight and is showing muscle wasting to all 4 extremities including temporal muscle wasting. Dietitian and physical therapy following. Patient endorsing fatigue today. PT recommending physical therapy at rehab. Continue PT and recommending OOB meals. Palliative care will continue to follow the patient during hospital course as condition evolves, to assist patient/decision-maker with understanding of their medical conditions, weighing benefits/burdens of treatment options, for clarification of goals of treatment. Additionally will assist with any symptoms of palliative concern Attestation Attestation: To help prompt me to consider important information that might be impacting today's encounter and assessment, information from prior notes written by myself or my colleagues may have been "brought forward" into today's note. My signature on this note, however, is an attestation that I personally performed the exam, history, and/or decision-making noted today, and, unless otherwise indicated, the interactions with patient, family, and staff as well as the review of records all occurred today. I also attest that the listed assessment and stated plan reflect my best clinical judgment today based on the combination of historical information, prior notes, and today's exam/ interactions. When time spent is documented, it refers only to time spent today by the signer, or if indicated, combined time spent today by collaborating physician/nurse practitioner.
--- NOTE | 2017-10-27 16:21 | P.PNIM ---
Subjective Interval history: Patient reports he is feeling very tired. He has met with hospice and he will be followed at the nursing facility once discharged. Physical Exam Vital signs: Vital Signs 10/26/17 20:00 10/27/17 00:00 10/27/17 04:00 Temperature 97.4 F L 97.5 F L 97.5 F L Pulse Rate 73 74 72 Respiratory Rate 22 20 20 Blood Pressure 100/51 L 94/56 L 99/56 L Pulse Oximetry 98 99 99 10/27/17 08:00 10/27/17 12:00 Temperature 97.4 F L 97.7 F Pulse Rate 75 81 Respiratory Rate 16 16 Blood Pressure 94/52 L 106/54 L Pulse Oximetry 97 99 Intake & Output 10/26/17 10/27/17 10/27/17 18:59 06:59 18:59 Intake Total 630 / 630 Output Total 200 / 200 400 / 400 Balance 430 / 430 -400 / -400 Weight 89.9 kg Intake: IV 150 / 150 Flexbumin 25% Inj 150 ML @ 60 150 / 150 mls/hr IV.SIG ONCE ONE Rx#: [id number] Oral 480 / 480 Output: Urine 200 / 200 400 / 400 Other: Date of Last Bowel Movement 10/25/17 10/26/17 Narrative: GENERAL: 62 yo male, appears chronically ill SKIN: Jaundiced. Dry scaly skin. EYES: + icterus. NECK: NGT . Supple, trachea midline. CARDIOVASCULAR: Regular rate and rhythm without murmurs, gallops, or rubs. RESPIRATORY: Breath sounds decreased bilaterally. No accessory muscle use. GASTROINTESTINAL: Abdomen distended but much less ascites compared to yesterday. No significant tenderness. NEURO: Generalized weakness - Urinary Catheter Management Indwelling Urethral Catheter Cath placed during this visit: no Results - Labs CBC & Chem 7: 10/24/17 05:49 10/24/17 05:49 Laboratory Results - last 24 hr 10/26/17 10/26/17 10/27/17 16:40 21:39 00:00 POC Glucose 174 H 172 H 182 H 10/27/17 10/27/17 10/27/17 05:43 07:46 11:02 POC Glucose 126 H 111 H 133 H Assessment and Plan - Plan 62 years old male with alcohol related liver cirrhosis, GI bleeding status post esophageal varices banding, status post respiratory failure: Upper GI bleed secondary to esophageal varices status post banding Alcoholic liver cirrhosis Ascites Hyperammonemia GERD Continue Protonix Lactulose BID, continue rifaximin 550 twice daily 09/28- paracentesis by invasive radiology - 5L removed.- paracentesis site- drained spontaneously 09/29-repeat EGD-revealed significant gastropathy, no active sites of bleeding Oral intake improving. Continue Lasix. Blood pressure too low for spironolactone at this point. Repeat paracentesis on 10/26/18. 5 L removed. Given end-stage liver failure and poor prognosis, he is likely to reaccumulate the fluid within 1-2 weeks. The next time he gets a repeat paracentesis, I recommend placing a drain for palliative therapy. This can be done by interventional radiology Acute hypoxic and hypercarbic respiratory failure MS- definitely more awake and alert on NC- O2 saturation greater than 92% Albuterol/ipratropium aerosols every 4 hours with albuterol aerosols every 2 hours as needed for dyspnea epsiode of NSVT- 5 beats 10/14 Cardiomyopathy Maintain MAP greater than 65 Monitor CVP 09/27 echo- EF 40% small left pleural effusion Continue Coreg 3.125 mg po bid- review ECho- EF- 40-45 % 10/14- now telemetry- sinus with occasional PVC Oliguria: Resolved On Lasix as above Acute blood loss anemia Thrombocytopenia Coagulopathy Monitor CBC 10/01 Transfuse 2 u PRBC's Noted decreased liver synthetic function secondary to cirrhosis Hematology oncology followed Vitamin K ordered. Pneumonia: - Completed treatment for pneumonia under the guidance of ID. Severe protein calorie malnutrition -Dietitian following. Continue to encourage PO intake. -P.o. intake have improved. Discharge Planning: Discharge to SNF with hospice once arrangements are made. He will most likely need repeat therapeutic paracentesis within a week or 2.
[2017-10-27] MEDS ORDERED: Albumin Human 25% Inj 50 ML IV.SIG ONE (23:19)
[2017-10-28 05:03] LABS: Hemoglobin 7.3 gm/dL (13.0-17.0); Mean Corpuscular HGB Conc 35.7 % (32.0-36.0); Mean Corpuscular Hemoglobin 35.8 pg (27.0-34.0); Mean Corpuscular Volume 100.3 fL (80.0-100.0); Mean Platelet Volume 10.5 fL (7.0-11.0); Platelet Count 72 th/mm3 (150-450); Red Blood Count 2.03 mil/mm3 (4.50-5.90); Red Cell Distribution Width 23.2 % (11.6-17.2)
[2017-10-28 05:09] LABS: Hematocrit 20.4 % (39.0-51.0)
[2017-10-28 05:16] LABS: INR 2.1 Ratio; Prothrombin Time 21.4 sec (9.8-11.6)
[2017-10-28 05:26] LABS: Albumin 1.6 g/dL (3.4-5.0); Calcium 7.6 mg/dL (8.5-10.1); Carbon Dioxide 25.1 meq/L (21.0-32.0); Potassium 3.3 meq/L (3.5-5.1)
[2017-10-28 05:29] LABS: Total Protein 7.7 g/dL (6.4-8.2)
[2017-10-28] MEDS ORDERED: Sodium Chlor 0.9% Inj 250 ML IV.SIG SCH (06:00)
[2017-10-28] MEDS: Insulin NovoLOG Aspart Correctional Sugar Inj SQ SCH ×6 (08:00→20:44)
[2017-10-28] MEDS: Pantoprazole Inj 40 MG Vial IV.PUSH SCH ×2 (08:36→20:44)
[2017-10-28] MEDS: Phytonadione 5 MG/SWFI 5 ML Oral Syringe PO SCH (08:37)
[2017-10-28] MEDS: Folic Acid 1 MG Tablet PO SCH (08:39)
[2017-10-28] MEDS: Calcium Carbonate 500 MG Tablet PO SCH ×2 (08:40→20:43)
[2017-10-28] MEDS: Senna/Docusate Sodium 8.6/50 MG Tablet PO SCH ×2 (08:40→20:43)
[2017-10-28] MEDS: Multivitamin/Minerals Therapeutic Tablet PO SCH (08:41)
[2017-10-28] MEDS: rifAXIMin 550 MG Tablet PO SCH ×2 (08:41→20:43)
[2017-10-28] MEDS ORDERED: Potassium Chloride 25 MEQ Effervescent Tablet PO ONE (11:22)
[2017-10-28] MEDS: Furosemide 40 MG Tablet PO SCH ×2 (12:12→17:10)
--- NOTE | 2017-10-28 16:28 | P.PNIM ---
Subjective Interval history: The patient states that he wants an address of his own. He was interested in hospice services. He states that he cannot eat because he is too nauseous. He did sit up in the chair earlier. He says his last drink was maybe 5 weeks ago. Discussed with nursing. Physical Exam Vital signs: Vital Signs 10/27/17 20:00 10/28/17 00:00 10/28/17 01:12 Temperature 97.5 F L 98.0 F Pulse Rate 66 72 Respiratory Rate 18 14 Blood Pressure 100/56 L 89/50 L 97/54 L Pulse Oximetry 98 98 10/28/17 04:00 10/28/17 08:00 10/28/17 11:28 Temperature 98.4 F 98.3 F 97.9 F Pulse Rate 78 75 71 Respiratory Rate 16 16 18 Blood Pressure 90/54 L 92/55 L Pulse Oximetry 99 98 10/28/17 11:40 10/28/17 12:00 Temperature 97.8 F 97.8 F Pulse Rate 68 Respiratory Rate 18 18 Blood Pressure 96/51 L Pulse Oximetry 98 Intake & Output 10/27/17 10/28/17 10/28/17 18:59 06:59 18:59 Intake Total 800 / 800 0 / 0 Output Total 300 / 300 Balance 500 / 500 0 / 0 Intake: Oral 800 / 800 Intake (Blood Product) Amt 0 / 0 Rbc As-3 Leukoreduced Unit 0 / 0 [id number] Output: Urine 300 / 300 Other: # Voids 3 Date of Last Bowel Movement 10/27/17 # Bowel Movements 1 1 Narrative: GENERAL: Appears chronically ill SKIN: Jaundiced. Dry scaly skin. EYES: + icterus. NECK: NGT . Supple, trachea midline. CARDIOVASCULAR: Regular rate and rhythm without murmurs, gallops, or rubs. RESPIRATORY: Breath sounds decreased bilaterally. No accessory muscle use. GASTROINTESTINAL: Abdomen distended. No significant tenderness. NEURO: Generalized weakness PSYCH: Mood and affect appropriate. - Urinary Catheter Management Indwelling Urethral Catheter Cath placed during this visit: no Results - Labs CBC & Chem 7: 10/28/17 03:48 10/28/17 03:48 Laboratory Results - last 24 hr 10/27/17 10/27/17 10/27/17 17:41 20:19 23:57 WBC RBC Hgb Hct MCV MCH MCHC RDW Plt Count MPV PT INR Sodium Potassium Chloride Carbon Dioxide Anion Gap BUN Creatinine Estimated GFR POC Glucose 144 H 156 H 172 H Random Glucose Calcium Total Bilirubin Direct Bilirubin Indirect Bilirubin AST ALT Alkaline Phosphatase Total Protein Albumin Blood Type Blood Type Recheck Antibody Screen MTS Gel Crossmatch 10/28/17 10/28/17 10/28/17 03:48 03:48 03:48 WBC 9.0 RBC 2.03 L Hgb 7.3 L Hct 20.4 L* MCV 100.3 H MCH 35.8 H MCHC 35.7 RDW 23.2 H Plt Count 72 L MPV 10.5 PT 21.4 H INR 2.1 Sodium 133 L Potassium 3.3 L Chloride 97 L Carbon Dioxide 25.1 Anion Gap 11 BUN 20 H Creatinine 1.47 H Estimated GFR 59 L POC Glucose Random Glucose 146 H Calcium 7.6 L Total Bilirubin 12.2 H Direct Bilirubin 9.1 H Indirect Bilirubin 3.1 H AST 65 H ALT 22 Alkaline Phosphatase 160 H Total Protein 7.7 Albumin 1.6 L Blood Type Blood Type Recheck Antibody Screen MTS Gel Crossmatch 10/28/17 10/28/17 10/28/17 06:21 06:21 07:29 WBC RBC Hgb Hct MCV MCH MCHC RDW Plt Count MPV PT INR Sodium Potassium Chloride Carbon Dioxide Anion Gap BUN Creatinine Estimated GFR POC Glucose 195 H Random Glucose Calcium Total Bilirubin Direct Bilirubin Indirect Bilirubin AST ALT Alkaline Phosphatase Total Protein Albumin Blood Type O Positive Cancelled Blood Type Recheck Not needed Cancelled Antibody Screen Negative Cancelled MTS Gel Crossmatch See Detail 10/28/17 12:13 WBC RBC Hgb Hct MCV MCH MCHC RDW Plt Count MPV PT INR Sodium Potassium Chloride Carbon Dioxide Anion Gap BUN Creatinine Estimated GFR POC Glucose 235 H Random Glucose Calcium Total Bilirubin Direct Bilirubin Indirect Bilirubin AST ALT Alkaline Phosphatase Total Protein Albumin Blood Type Blood Type Recheck Antibody Screen MTS Gel Crossmatch Assessment and Plan - Plan 62 years old male with alcohol related liver cirrhosis, GI bleeding status post esophageal varices banding, status post respiratory failure: Upper GI bleed secondary to esophageal varices status post banding Alcoholic liver cirrhosis Ascites Hyperammonemia GERD Continue Protonix Lactulose BID, continue rifaximin 550 twice daily 09/28- paracentesis by invasive radiology - 5L removed.- paracentesis site- drained spontaneously 09/29-repeat EGD-revealed significant gastropathy, no active sites of bleeding Oral intake improving. Continue Lasix. Blood pressure too low for spironolactone at this point. Repeat paracentesis on 10/26/18. 5 L removed. Given end-stage liver failure and poor prognosis, he is likely to reaccumulate the fluid within 1-2 weeks. - case management assistance appreciated. Goal to discharge to SNF with hospice following. Acute hypoxic and hypercarbic respiratory failure MS- definitely more awake and alert on - O2 saturation greater than 92% Albuterol/ipratropium aerosols every 4 hours with albuterol aerosols every 2 hours as needed for dyspnea Epsiode of NSVT- 5 beats 10/14 Cardiomyopathy Maintain MAP greater than 65 Monitor CVP 09/27 echo- EF 40% small left pleural effusion Continue Coreg 3.125 mg po bid- review ECho- EF- 40-45 % 10/14- now telemetry- sinus with occasional PVC Oliguria: Resolved On Lasix as above Acute blood loss anemia Thrombocytopenia Coagulopathy Monitor CBC 10/01 Transfuse 2 u PRBC's Noted decreased liver synthetic function secondary to cirrhosis Hematology oncology followed Vitamin K ordered. - transfuse 1 unit 10/28 and monitor. Pneumonia: - Completed treatment for pneumonia under the guidance of ID. Severe protein calorie malnutrition -Dietitian following. Continue to encourage PO intake. -P.o. intake have improved. - add Zofran with meals. Discharge Planning: Discharge to SNF with hospice once arrangements are made. He will most likely need repeat therapeutic paracentesis within a week or 2.
[2017-10-28] MEDS: Oral Hygiene Kit OROPHARYNG SCH (19:31)
[2017-10-29] MEDS: Oral Hygiene Kit OROPHARYNG SCH ×5 (00:30→23:11)
[2017-10-29] MEDS: Insulin NovoLOG Aspart Correctional Sugar Inj SQ SCH ×6 (00:31→21:14)
[2017-10-29 08:19] LABS: Hemoglobin 8.8 gm/dL (13.0-17.0); Mean Corpuscular HGB Conc 35.1 % (32.0-36.0); Mean Corpuscular Hemoglobin 34.5 pg (27.0-34.0); Mean Corpuscular Volume 98.2 fL (80.0-100.0); Mean Platelet Volume 10.8 fL (7.0-11.0); Platelet Count 82 th/mm3 (150-450); Red Blood Count 2.54 mil/mm3 (4.50-5.90); Red Cell Distribution Width 23.5 % (11.6-17.2)
[2017-10-29 08:41] LABS: Calcium 7.6 mg/dL (8.5-10.1); Potassium 3.6 meq/L (3.5-5.1)
[2017-10-29] MEDS: rifAXIMin 550 MG Tablet PO SCH ×2 (09:07→21:14)
[2017-10-29] MEDS: Calcium Carbonate 500 MG Tablet PO SCH ×2 (09:07→21:14)
[2017-10-29] MEDS: Pantoprazole Inj 40 MG Vial IV.PUSH SCH ×2 (09:07→21:14)
[2017-10-29] MEDS: Multivitamin/Minerals Therapeutic Tablet PO SCH (09:07)
[2017-10-29] MEDS: Folic Acid 1 MG Tablet PO SCH (09:08)
[2017-10-29] MEDS: Senna/Docusate Sodium 8.6/50 MG Tablet PO SCH ×2 (09:08→21:14)
[2017-10-29] MEDS: Phytonadione 5 MG/SWFI 5 ML Oral Syringe PO SCH (09:18)
[2017-10-29] MEDS: Furosemide 40 MG Tablet PO SCH ×2 (12:32→17:34)
--- NOTE | 2017-10-29 13:00 | P.PNIM ---
Subjective Interval history: The patient stated that he was experiencing some back pain. He requested aspirin. He said that he lost some of his belongings including social security card and food stamps. He was asking if we can track them down for him. Physical Exam Vital signs: Vital Signs 10/28/17 17:52 10/28/17 20:00 10/29/17 00:00 Temperature 97.6 F 98.9 F 98.2 F Pulse Rate 76 77 76 Respiratory Rate 18 16 18 Blood Pressure 98/53 L 97/55 L 98/56 L Pulse Oximetry 98 98 97 10/29/17 04:00 10/29/17 08:00 Temperature 98.4 F 97.4 F L Pulse Rate 77 74 Respiratory Rate 18 18 Blood Pressure 102/59 L 92/51 L Pulse Oximetry 97 94 L Intake & Output 10/28/17 10/29/17 10/29/17 18:59 06:59 18:59 Intake Total 0 / 0 640 / 640 Output Total 925 / 925 Balance 0 / 0 -285 / -285 Weight 87.1 kg Intake: Oral 640 / 640 Intake (Blood Product) Amt 0 / 0 Rbc As-3 Leukoreduced Unit 0 / 0 [id number] Output: Urine 925 / 925 Other: Date of Last Bowel Movement 10/28/17 # Bowel Movements 2 Narrative: GENERAL: Appears chronically ill SKIN: Jaundiced. Dry scaly skin. EYES: + icterus. NECK: NGT . Supple, trachea midline. CARDIOVASCULAR: Regular rate and rhythm without murmurs, gallops, or rubs. RESPIRATORY: Breath sounds decreased bilaterally. No accessory muscle use. GASTROINTESTINAL: Abdomen distended. No significant tenderness. NEURO: Generalized weakness PSYCH: Mood and affect appropriate. - Urinary Catheter Management Indwelling Urethral Catheter Cath placed during this visit: no Results - Labs CBC & Chem 7: 10/29/17 05:34 10/29/17 05:34 Laboratory Results - last 24 hr 10/28/17 10/28/17 10/29/17 16:55 20:36 00:23 WBC RBC Hgb Hct MCV MCH MCHC RDW Plt Count MPV Sodium Potassium Chloride Carbon Dioxide Anion Gap BUN Creatinine Estimated GFR POC Glucose 150 H 155 H 166 H Random Glucose Calcium 10/29/17 10/29/17 10/29/17 05:34 05:34 07:31 WBC 9.0 RBC 2.54 L Hgb 8.8 L Hct 25.0 L MCV 98.2 MCH 34.5 H MCHC 35.1 RDW 23.5 H Plt Count 82 L MPV 10.8 Sodium 133 L Potassium 3.6 Chloride 98 Carbon Dioxide 28.0 Anion Gap 7 BUN 18 Creatinine 1.55 H Estimated GFR 55 L POC Glucose 147 H Random Glucose 144 H Calcium 7.6 L 10/29/17 12:05 WBC RBC Hgb Hct MCV MCH MCHC RDW Plt Count MPV Sodium Potassium Chloride Carbon Dioxide Anion Gap BUN Creatinine Estimated GFR POC Glucose 198 H Random Glucose Calcium Assessment and Plan - Plan 62 years old male with alcohol related liver cirrhosis, GI bleeding status post esophageal varices banding, status post respiratory failure: Upper GI bleed secondary to esophageal varices status post banding Alcoholic liver cirrhosis Ascites Hyperammonemia GERD Continue Protonix Lactulose BID, continue rifaximin 550 twice daily 09/28- paracentesis by invasive radiology - 5L removed.- paracentesis site- drained spontaneously 09/29-repeat EGD-revealed significant gastropathy, no active sites of bleeding Oral intake improving. Continue Lasix. Blood pressure too low for spironolactone at this point. Repeat paracentesis on 10/26/17. 5 L removed. Given end-stage liver failure and poor prognosis, he is likely to reaccumulate the fluid within 1-2 weeks. - case management assistance appreciated. Goal to discharge to SNF with hospice following. - tramadol as needed for pain. Acute hypoxic and hypercarbic respiratory failure MS- definitely more awake and alert on - O2 saturation greater than 92% Albuterol/ipratropium aerosols every 4 hours with albuterol aerosols every 2 hours as needed for dyspnea Epsiode of NSVT- 5 beats 10/14 Cardiomyopathy Maintain MAP greater than 65 Monitor CVP 09/27 echo- EF 40% small left pleural effusion Continue Coreg 3.125 mg po bid- review ECho- EF- 40-45 % 10/14- now telemetry- sinus with occasional PVC Oliguria: Resolved On Lasix as above Acute blood loss anemia Thrombocytopenia Coagulopathy Monitor CBC 10/01 Transfuse 2 u PRBC's Noted decreased liver synthetic function secondary to cirrhosis Hematology oncology followed Vitamin K ordered. - transfuse 1 unit 10/28 and monitor. Stable. Pneumonia: - Completed treatment for pneumonia under the guidance of ID. Severe protein calorie malnutrition -Dietitian following. Continue to encourage PO intake. -P.o. intake have improved. - add Zofran with meals. Discharge Planning: Discharge to SNF with hospice once arrangements are made. He will most likely need repeat therapeutic paracentesis within a week or 2.
[2017-10-30] MEDS: Insulin NovoLOG Aspart Correctional Sugar Inj SQ SCH ×5 (00:09→21:37)
[2017-10-30] MEDS: Oral Hygiene Kit OROPHARYNG SCH ×2 (04:09→16:01)
[2017-10-30] MEDS: Phytonadione 5 MG/SWFI 5 ML Oral Syringe PO SCH (08:53)
[2017-10-30] MEDS: rifAXIMin 550 MG Tablet PO SCH ×2 (08:53→21:33)
[2017-10-30] MEDS: Folic Acid 1 MG Tablet PO SCH (08:54)
[2017-10-30] MEDS: Calcium Carbonate 500 MG Tablet PO SCH ×2 (08:54→21:34)
[2017-10-30] MEDS: Multivitamin/Minerals Therapeutic Tablet PO SCH (08:54)
[2017-10-30] MEDS: Senna/Docusate Sodium 8.6/50 MG Tablet PO SCH (08:54)
[2017-10-30] MEDS: Pantoprazole Inj 40 MG Vial IV.PUSH SCH ×2 (08:55→21:33)
--- NOTE | 2017-10-30 11:25 | P.PNIM ---
Subjective Interval history: The patient is upset that he lost his apartment. He says that he does not have any abdominal pain. He says the tramadol has been helping. He had no acute complaints. Physical Exam Vital signs: Vital Signs 10/29/17 12:00 10/29/17 15:17 10/29/17 16:00 Temperature 98.2 F 98.1 F Pulse Rate 76 74 79 Respiratory Rate 18 18 Blood Pressure 112/56 L 115/54 L Pulse Oximetry 100 99 10/29/17 20:00 10/30/17 00:00 10/30/17 04:00 Temperature 98.1 F 98.0 F 96.8 F L Pulse Rate 74 75 75 Respiratory Rate 18 18 18 Blood Pressure 104/57 L 103/58 L 99/57 L Pulse Oximetry 97 97 98 10/30/17 08:00 Temperature 98.3 F Pulse Rate 76 Respiratory Rate 16 Blood Pressure 101/57 L Pulse Oximetry 99 Intake & Output 10/29/17 10/30/17 10/30/17 18:59 06:59 18:59 Intake Total 900 / 900 Output Total 500 / 500 750 / 750 Balance 400 / 400 -750 / -750 Intake: Oral 900 / 900 Output: Urine 500 / 500 750 / 750 Other: # Bowel Movements 0 2 Narrative: GENERAL: Appears chronically ill SKIN: Jaundiced. Dry scaly skin. EYES: + icterus. NECK: NGT . Supple, trachea midline. CARDIOVASCULAR: Regular rate and rhythm without murmurs, gallops, or rubs. RESPIRATORY: Breath sounds decreased bilaterally. No accessory muscle use. GASTROINTESTINAL: Abdomen distended. No significant tenderness. NEURO: Generalized weakness PSYCH: Mood and affect appropriate. - Urinary Catheter Management Indwelling Urethral Catheter Cath placed during this visit: no Results - Labs CBC & Chem 7: 10/29/17 05:34 10/29/17 05:34 Laboratory Results - last 24 hr 10/29/17 10/29/17 10/29/17 12:05 16:49 19:21 POC Glucose 198 H 185 H 153 H 10/30/17 07:14 POC Glucose 162 H Assessment and Plan - Plan 62 years old male with alcohol related liver cirrhosis, GI bleeding status post esophageal varices banding, status post respiratory failure: Upper GI bleed secondary to esophageal varices status post banding Alcoholic liver cirrhosis Ascites Hyperammonemia GERD Continue Protonix Lactulose BID, continue rifaximin 550 twice daily 09/28- paracentesis by invasive radiology - 5L removed.- paracentesis site- drained spontaneously 09/29-repeat EGD-revealed significant gastropathy, no active sites of bleeding Oral intake improving. Continue Lasix. Blood pressure too low for spironolactone at this point. Repeat paracentesis on 10/26/18. 5 L removed. Given end-stage liver failure and poor prognosis, he is likely to reaccumulate the fluid within 1-2 weeks. Abdomen is currently soft. - case management assistance appreciated. Goal to discharge to SNF with hospice following. - tramadol as needed for pain. Acute hypoxic and hypercarbic respiratory failure Resolved. - nebs as needed. Epsiode of NSVT- 5 beats 10/14 Cardiomyopathy Maintain MAP greater than 65 Monitor CVP 09/27 echo- EF 40% small left pleural effusion Continue Coreg 3.125 mg po bid- review ECho- EF- 40-45 % 10/14 Acute blood loss anemia Thrombocytopenia Coagulopathy Monitor CBC 10/01 Transfused 2 u PRBC's Noted decreased liver synthetic function secondary to cirrhosis Hematology oncology followed Vitamin K ordered. - transfused 1 unit 10/28 and monitor. Stable. Pneumonia: - Completed treatment for pneumonia under the guidance of ID. Severe protein calorie malnutrition -Dietitian following. Continue to encourage PO intake. -P.o. intake have improved. - add Zofran with meals. Discharge Planning: Discharge to SNF with hospice once arrangements are made. He will most likely need repeat therapeutic paracentesis within a week or 2.
[2017-10-30] MEDS: Furosemide 40 MG Tablet PO SCH (12:24)
[2017-10-31] MEDS: Insulin NovoLOG Aspart Correctional Sugar Inj SQ SCH ×7 (04:07→20:10)
[2017-10-31] MEDS: Oral Hygiene Kit OROPHARYNG SCH ×5 (04:09→17:40)
[2017-10-31] MEDS: Furosemide 40 MG Tablet PO SCH ×3 (07:29→17:58)
[2017-10-31] MEDS: Senna/Docusate Sodium 8.6/50 MG Tablet PO SCH ×3 (07:29→20:10)
[2017-10-31] MEDS: Multivitamin/Minerals Therapeutic Tablet PO SCH (08:35)
[2017-10-31] MEDS: rifAXIMin 550 MG Tablet PO SCH ×2 (08:35→20:10)
[2017-10-31] MEDS: Calcium Carbonate 500 MG Tablet PO SCH ×2 (08:35→20:10)
[2017-10-31] MEDS: Folic Acid 1 MG Tablet PO SCH (08:35)
[2017-10-31] MEDS: Phytonadione 5 MG/SWFI 5 ML Oral Syringe PO SCH (08:36)
[2017-10-31] MEDS: Pantoprazole Inj 40 MG Vial IV.PUSH SCH ×2 (08:38→20:10)
[2017-10-31 09:52] LABS: Hematocrit 25.9 % (39.0-51.0); Hemoglobin 9.1 gm/dL (13.0-17.0); Mean Corpuscular HGB Conc 35.2 % (32.0-36.0); Mean Corpuscular Hemoglobin 35.2 pg (27.0-34.0); Mean Platelet Volume 10.1 fL (7.0-11.0); Platelet Count 74 th/mm3 (150-450); Red Blood Count 2.59 mil/mm3 (4.50-5.90); Red Cell Distribution Width 22.4 % (11.6-17.2)
--- NOTE | 2017-10-31 13:22 | P.PNIM ---
Subjective Interval history: The patient said his pain was controlled. He was trying to eat some lunch. He understood that he would be having a drain placed to help with his ascites. Discussed with case management. Physical Exam Vital signs: Vital Signs 10/30/17 16:00 10/30/17 20:00 10/31/17 00:00 Temperature 97.4 F L 97.9 F 97.7 F Pulse Rate 71 71 77 Respiratory Rate 17 18 18 Blood Pressure 103/58 L 108/56 L 102/55 L Pulse Oximetry 99 95 98 10/31/17 04:00 10/31/17 08:00 10/31/17 12:00 Temperature 97.9 F 97.6 F 97.8 F Pulse Rate 72 68 72 Respiratory Rate 18 17 17 Blood Pressure 106/56 L 97/56 L 105/51 L Pulse Oximetry 100 99 99 Intake & Output 10/30/17 10/31/17 10/31/17 18:59 06:59 18:59 Intake Total 800 / 800 Output Total 800 / 800 750 / 750 Balance 0 / 0 -750 / -750 Weight 91.7 kg Intake: Oral 800 / 800 Output: Urine 800 / 800 750 / 750 Other: # Voids 2 # Incontinent Voids 2 Date of Last Bowel Movement 10/31/17 # Bowel Movements 1 1 Narrative: GENERAL: Appears chronically ill SKIN: Jaundiced. Dry scaly skin. EYES: + icterus. NECK: NGT . Supple, trachea midline. CARDIOVASCULAR: Regular rate and rhythm without murmurs, gallops, or rubs. RESPIRATORY: Breath sounds decreased bilaterally. No accessory muscle use. GASTROINTESTINAL: Abdomen distended. No significant tenderness. NEURO: Generalized weakness PSYCH: Mood and affect appropriate. - Urinary Catheter Management Indwelling Urethral Catheter Cath placed during this visit: no Results - Labs CBC & Chem 7: 10/31/17 07:36 10/29/17 05:34 Laboratory Results - last 24 hr 10/30/17 10/30/17 10/31/17 16:00 19:45 04:01 WBC RBC Hgb Hct MCV MCH MCHC RDW Plt Count MPV POC Glucose 174 H 134 H 163 H 10/31/17 10/31/17 10/31/17 07:36 07:49 11:55 WBC 9.0 RBC 2.59 L Hgb 9.1 L Hct 25.9 L MCV 100.0 MCH 35.2 H MCHC 35.2 RDW 22.4 H Plt Count 74 L MPV 10.1 POC Glucose 149 H 178 H Assessment and Plan - Plan 62 years old male with alcohol related liver cirrhosis, GI bleeding status post esophageal varices banding, status post respiratory failure: Upper GI bleed secondary to esophageal varices status post banding Alcoholic liver cirrhosis Ascites Hyperammonemia GERD Continue Protonix Lactulose BID, continue rifaximin 550 twice daily 09/28- paracentesis by invasive radiology - 5L removed.- paracentesis site- drained spontaneously 09/29-repeat EGD-revealed significant gastropathy, no active sites of bleeding Oral intake improving. Continue Lasix. Blood pressure too low for spironolactone at this point. Repeat paracentesis on 10/26/. 5 L removed. Given end-stage liver failure and poor prognosis, he is likely to reaccumulate the fluid within 1-2 weeks. Abdomen is currently soft. - consult placed to IR for peritoneal catheter placement. - case management assistance appreciated. Goal to discharge to SNF with hospice following. - tramadol as needed for pain. Acute hypoxic and hypercarbic respiratory failure Resolved. - nebs as needed. Epsiode of NSVT- 5 beats 10/14 Cardiomyopathy Maintain MAP greater than 65 Monitor CVP 09/27 echo- EF 40% small left pleural effusion Continue Coreg 3.125 mg po bid- review Echo- EF- 40-45 % 10/14 Acute blood loss anemia Thrombocytopenia Coagulopathy Monitor CBC 10/01 Transfused 2 u PRBC's Noted decreased liver synthetic function secondary to cirrhosis Hematology oncology followed Vitamin K ordered. - transfused 1 unit 10/28 and monitor. Stable. Pneumonia: - Completed treatment for pneumonia under the guidance of ID. Severe protein calorie malnutrition -Dietitian following. Continue to encourage PO intake. -P.o. intake have improved. - add Zofran with meals. Discharge Planning: Discharge to SNF with hospice once arrangements are made.
[2017-10-31 15:55] LABS: INR 2.2 Ratio
[2017-11-01] MEDS: Insulin NovoLOG Aspart Correctional Sugar Inj SQ SCH ×6 (00:01→21:48)
[2017-11-01] MEDS: Oral Hygiene Kit OROPHARYNG SCH ×4 (00:02→17:18)
[2017-11-01 05:23] LABS: Prothrombin Time 20.2 sec (9.8-11.6)
[2017-11-01] MEDS: Pantoprazole Inj 40 MG Vial IV.PUSH SCH ×2 (08:14→21:48)
[2017-11-01] MEDS: Phytonadione 5 MG/SWFI 5 ML Oral Syringe PO SCH (08:18)
[2017-11-01] MEDS: rifAXIMin 550 MG Tablet PO SCH ×2 (08:20→21:48)
[2017-11-01] MEDS: Senna/Docusate Sodium 8.6/50 MG Tablet PO SCH ×2 (08:20→21:48)
[2017-11-01] MEDS: Calcium Carbonate 500 MG Tablet PO SCH ×2 (08:20→21:48)
[2017-11-01] MEDS: Multivitamin/Minerals Therapeutic Tablet PO SCH (08:20)
[2017-11-01] MEDS: Furosemide 40 MG Tablet PO SCH ×2 (08:21→18:17)
[2017-11-01] MEDS: Folic Acid 1 MG Tablet PO SCH (08:21)
[2017-11-01] MEDS ORDERED: Vancomycin Inj 1 GM/200 ML PIGGYBACK IV.SIG SCH (14:00)
[2017-11-01] MEDS ORDERED: ceFAZolin 2 GM Premix Inj 2 GM/50 ML PIGGYBACK IV.SIG SCH (14:00)
--- NOTE | 2017-11-01 14:44 | P.PNIM ---
Subjective Interval history: The patient was nervous about the procedure today. He said that he was getting blood products. He was agreeable with the procedure if he thought it was going to help. Discussed with nursing. Physical Exam Vital signs: Vital Signs 10/31/17 16:00 10/31/17 20:00 10/31/17 23:59 Temperature 97.7 F 98.0 F Pulse Rate 75 73 79 Respiratory Rate 17 16 Blood Pressure 104/58 L 105/57 L Pulse Oximetry 99 96 11/01/17 00:34 11/01/17 04:00 11/01/17 04:38 Temperature 98.0 F 98.2 F Pulse Rate 70 77 74 Respiratory Rate 17 17 Blood Pressure 113/56 L 110/62 Pulse Oximetry 97 95 11/01/17 08:00 11/01/17 12:00 11/01/17 14:15 Temperature 97.7 F 97.7 F 97.9 F Pulse Rate 69 71 71 Respiratory Rate 16 17 14 Blood Pressure 101/56 L 104/55 L 156/90 H Pulse Oximetry 100 99 99 Intake & Output 10/31/17 11/01/17 11/01/17 18:59 06:59 18:59 Intake Total 1194 / 1194 480 / 480 400 / 400 Output Total 500 / 500 Balance 1194 / 1194 -20 / -20 400 / 400 Weight 90 kg Intake: Oral 1194 / 1194 480 / 480 Intake (Blood Product) Amt 400 / 400 Plasma Thawed 5 Day Cp2d Unit 0 / 0 [id number] Rbc As-3 Leukoreduced Unit 400 / 400 [id number] Output: Urine 500 / 500 Other: # Voids 3 Date of Last Bowel Movement 10/31/17 10/31/17 # Bowel Movements 3 1 Narrative: GENERAL: Appears chronically ill SKIN: Jaundiced. Dry scaly skin. EYES: + icterus. NECK: NGT . Supple, trachea midline. CARDIOVASCULAR: Regular rate and rhythm without murmurs, gallops, or rubs. RESPIRATORY: Breath sounds decreased bilaterally. No accessory muscle use. GASTROINTESTINAL: Abdomen distended. No significant tenderness. NEURO: Generalized weakness PSYCH: Mood and affect appropriate. - Urinary Catheter Management Indwelling Urethral Catheter Cath placed during this visit: no Results - Labs CBC & Chem 7: 10/31/17 07:36 10/29/17 05:34 Laboratory Results - last 24 hr 10/28/17 10/31/17 10/31/17 06:21 15:19 17:20 PT 22.0 H INR 2.2 POC Glucose 180 H Blood Type Blood Type Recheck Antibody Screen MTS Gel Crossmatch See Detail Blood Bank Comment 10/31/17 10/31/17 11/01/17 19:55 23:57 03:51 PT INR POC Glucose 180 H 155 H 148 H Blood Type Blood Type Recheck Antibody Screen MTS Gel Crossmatch Blood Bank Comment 11/01/17 11/01/17 11/01/17 04:27 07:26 09:30 PT 20.2 H INR 2.0 POC Glucose 162 H Blood Type Blood Type Recheck Antibody Screen MTS Gel Crossmatch Blood Bank Comment 11/01/17 12:22 PT INR POC Glucose Blood Type O Positive Blood Type Recheck Not needed Antibody Screen Negative MTS Gel Crossmatch Blood Bank Comment Assessment and Plan - Plan 62 years old male with alcohol related liver cirrhosis, GI bleeding status post esophageal varices banding, status post respiratory failure: Upper GI bleed secondary to esophageal varices status post banding Alcoholic liver cirrhosis Ascites Hyperammonemia GERD Continue Protonix Lactulose BID, continue rifaximin 550 twice daily 09/28- paracentesis by invasive radiology - 5L removed.- paracentesis site- drained spontaneously 09/29-repeat EGD-revealed significant gastropathy, no active sites of bleeding Oral intake improving. Continue Lasix. Blood pressure too low for spironolactone at this point. Repeat paracentesis on 10/26/. 5 L removed. Given end-stage liver failure and poor prognosis, he is likely to reaccumulate the fluid within 1-2 weeks. Abdomen is currently soft. -consult placed to IR for peritoneal catheter placement. Scheduled for 11/01. Received FFP prior to the procedure. -case management assistance appreciated. Goal to discharge to SNF with hospice following. -tramadol as needed for pain. Acute hypoxic and hypercarbic respiratory failure Resolved. -nebs as needed. Epsiode of NSVT- 5 beats 10/14 Cardiomyopathy Maintain MAP greater than 65 Monitor CVP 09/27 echo- EF 40% small left pleural effusion Continue Coreg 3.125 mg po bid- review Echo- EF- 40-45 % 10/14 Acute blood loss anemia Thrombocytopenia Coagulopathy Monitor CBC 10/01 Transfused 2 u PRBC's Noted decreased liver synthetic function secondary to cirrhosis Hematology oncology followed Vitamin K ordered. -transfused 1 unit 10/28 and monitor. Stable. Pneumonia -Completed treatment for pneumonia under the guidance of ID. Severe protein calorie malnutrition -Dietitian following. Continue to encourage PO intake. -P.o. intake have improved. -add Zofran with meals. Discharge Planning: Discharge to SNF with hospice once arrangements are made.
[2017-11-01] MEDS ORDERED: fentaNYL Citrate Inj 250 MCG/5 ML Ampul ONE (15:37)
--- NOTE | 2017-11-01 17:30 | P.RAD ---
Post Procedure Progress Note - Pre Procedure Diagnosis (1) Ascites - Post Procedure Diagnosis (1) Ascites - Procedure Information Procedure Date: 11/01/17 Supervising Radiologist: Morteza Keenan MD Estimated blood loss (mL): 5 Anesthesia: Local, Conscious Sedation - Plan of Activity Patient to Unit: Nursing Unit Patient Condition: Poor Additional Comments: ASPIRA drain placed in the right abdomen. Full dictated report to follow See PACS Report for procedural detail/treatment.
[2017-11-02] MEDS: Oral Hygiene Kit OROPHARYNG SCH ×4 (00:15→17:36)
[2017-11-02] MEDS: Insulin NovoLOG Aspart Correctional Sugar Inj SQ SCH ×4 (01:12→13:29)
[2017-11-02] MEDS: Multivitamin/Minerals Therapeutic Tablet PO SCH (09:26)
[2017-11-02] MEDS: Phytonadione 5 MG/SWFI 5 ML Oral Syringe PO SCH (09:27)
[2017-11-02] MEDS: rifAXIMin 550 MG Tablet PO SCH (09:27)
[2017-11-02] MEDS: Senna/Docusate Sodium 8.6/50 MG Tablet PO SCH (09:27)
[2017-11-02] MEDS: Calcium Carbonate 500 MG Tablet PO SCH (09:27)
[2017-11-02] MEDS: Folic Acid 1 MG Tablet PO SCH (09:27)
[2017-11-02] MEDS: Pantoprazole Inj 40 MG Vial IV.PUSH SCH (09:28)
[2017-11-02] MEDS: Furosemide 40 MG Tablet PO SCH (09:34)
--- NOTE | 2017-11-02 15:42 | P.DS ---
Date of admission: 09/25/17 13:53 Primary care physician: Larry Castillo III, MD Brief History from admission: This is a 63-year-old male who was brought in by EMS to the emergency room because of hematemesis about an hour prior to arrival. Reported at least 4 episodes of vomiting bright red blood amounting to about a gallon. Reportedly he was nauseous but denied dizziness, syncope, chest pain, shortness of breath and abdominal pain. He takes aspirin on a daily basis but no NSAIDs. No history of GI bleed. He has noted increasing abdominal girth. Has chronic bilateral lower extremity lymphedema denies history of heart failure or chronic kidney disease. In the emergency department, patient was noted to be tachycardic and received half a liter of IV fluid bolus. He was also started on Sandostatin and Protonix drip. Patient was evaluated by GI Dr. Crocker who performed EGD in the OR. Patient was intubated for endoscopy. He was found to have variceal bleeding underwent banding of esophageal varices. Following procedure patient was transferred to PACU. Critical care consult was requested by Dr. Crocker as patient was left intubated on mechanical ventilation. He was getting his second unit of PRBCs when I evaluated patient in PACU. DS: Medications - Discharge Medications Prescriptions: pantoprazole [Protonix] 40 mg PO DAILY #30 tab tramadol [Ultram] 50 mg PO Q6H PRN #12 tab PRN Reason: pain 3-10 DS: Summary Hospital Course: In the emergency department, patient was noted to be tachycardic and received half a liter of IV fluid bolus. He was also started on Sandostatin and Protonix drips. Patient was evaluated by GI who performed EGD in the OR. Patient was intubated for endoscopy. He was found to have variceal bleeding and underwent banding of esophageal varices. He was left intubated following the procedure and critical care was consulted. He received red cells and platelets. He was given albumin/ Lasix. Paracentesis was performed by via invasive radiology. The patient underwent repeat EGD which revealed esophagitis. The patient was transitioned to Precedex infusion for ventilator weaning processes. Echo- EF- 40-45 %. He was started on tube feeds. He self- extubated. He was continued on lactulose BID and rifaximin 550 twice daily. Consult placed to IR for peritoneal catheter placement. He received FFP prior to the procedure. Hematology was consulted. The pt was started on vitamin K for his persistent coagulopathy. He completed treatment for pneumonia under the guidance of infectious disease. Dietitian was following. We started Zofran with meals. He worked with PT. Hospice evaluated the patient and will follow him at the shelter facility. - Time Spent with Patient Total time spent providing and/or coordinating discharge services: Greater than 30 minutes Exam Vital signs: Vital Signs 11/01/17 15:30 11/01/17 16:00 11/01/17 16:06 Temperature 98.2 F 97.6 F Pulse Rate 75 71 73 Respiratory Rate 18 17 16 Blood Pressure 156/88 H 100/57 L 114/60 Pulse Oximetry 98 98 99 11/01/17 17:05 11/01/17 17:20 11/01/17 17:49 Temperature 97.6 F Pulse Rate 71 70 72 Respiratory Rate 20 20 20 Blood Pressure 110/68 101/59 L 105/59 L Pulse Oximetry 94 L 93 L 94 L 11/01/17 20:00 11/02/17 00:00 11/02/17 04:00 Temperature 97.7 F 98.7 F 98.5 F Pulse Rate 76 76 78 Respiratory Rate 20 20 18 Blood Pressure 105/55 L 100/57 L 102/55 L Pulse Oximetry 99 97 97 11/02/17 08:00 11/02/17 12:00 Temperature 98.0 F 98.0 F Pulse Rate 77 76 Respiratory Rate 18 18 Blood Pressure 100/55 L 113/59 L Pulse Oximetry 99 98 Intake & Output 11/01/17 11/02/17 11/02/17 18:59 06:59 18:59 Intake Total 1508 / 1508 320 / 320 Output Total 300 / 300 Balance 1508 / 1508 20 / 20 Weight 89.3 kg Intake: IV 250 / 250 Vancomycin Inj 1 gm In 200 ml @ 200 / 200 200 mls/hr IV.SIG MANAGER FRAUD JANE Rx#:[id number] Ancef 2 GM Premix Inj 2 gm In 50 / 50 50 ml @ 100 mls/hr IV.SIG MANAGER FRAUD JANE Rx#:[id number] Oral 240 / 240 320 / 320 Other 309 / 309 Plasma Thawed 5 Day Cp2d Unit 309 / 309 [id number] Intake (Blood Product) Amt 709 / 709 Plasma Thawed 5 Day Cp2d Unit 309 / 309 [id number] Plasma Thawed 5 Day Cp2d Unit 0 / 0 [id number] Rbc As-3 Leukoreduced Unit 400 / 400 [id number] Output: Urine 300 / 300 Other: # Voids 2 1 Date of Last Bowel Movement 10/31/17 10/31/17 # Bowel Movements 2 1 Narrative: GENERAL: Appears chronically ill SKIN: Jaundiced. Dry scaly skin. EYES: + icterus. NECK: NGT . Supple, trachea midline. CARDIOVASCULAR: Regular rate and rhythm without murmurs, gallops, or rubs. RESPIRATORY: Breath sounds decreased bilaterally. No accessory muscle use. GASTROINTESTINAL: Abdomen distended. No significant tenderness. Drain in place. NEURO: Generalized weakness PSYCH: Mood and affect appropriate. Results Procedures completed during hospitalization: As per hospital course Labs on day of discharge: Labs from last 24 hours 11/02/17 11/02/17 11/02/17 11:29 08:49 05:42 POC Glucose 177 H 179 H 183 H Blood Bank Comment 11/02/17 11/01/17 11/01/17 01:10 20:11 09:30 POC Glucose 185 H 157 H Blood Bank Comment - Impressions ITS Impressions Chest X-Ray 10/11/17 05:00 CONCLUSION: 1. No significant interval change. 2. Cardiomegaly with pulmonary edema pattern. 3. Stable bibasilar airspace disease, right greater than left. Paracentesis Ultrasound 10/26/17 00:00 CONCLUSION: 1. Successful ultrasound-guided paracentesis. Discharge Plan - Discharge Disposition Patient Disposition: Discharge to SNF - Discharge Condition Condition: Stable - Discharge Order Discharge Orders: Discharge Order (Routine); Ordered 11/02/17 Ordered By: Gino Bass - Discharge Details Anticipated Discharge Date: 11/02/17 - Physicians Team Primary Care Provider: Larry Castillo III Attending Provider: Gino Bass Other Providers: Liz Crocker MD ; Gill Edmondson MD ; Natalie Traore MD ; Morgan Strange MD ; Shyanne Strange MD ; Araceli Hudson ; Sarah Stratton MD ; Lori Viola,[place] ; [facility],[place] ; [facility],[place] - Rxs /Orders / Referrals /Forms Prescriptions: New carvedilol [Coreg] 3.125 mg Tablet 3.125 mg NG/OG BID RF: 0 furosemide 40 mg Tablet 40 mg PO BID@0900,1800 RF: 0 lactulose 20 gram/30 mL Solution 30 ml PO BID RF: 0 ondansetron 4 mg Tablet,Disintegrating 4 mg PO TIDAC RF: 0 pantoprazole [Protonix] 40 mg Tablet,Delayed Release (Dr/Ec) 40 mg PO DAILY Qty: 30 RF: 0 phytonadione (vitamin K1) [Vitamin K1] 10 mg/mL Solution 5 mg PO DAILY RF: 0 rifaximin [Xifaxan] 550 mg Tablet 550 mg PO BID RF: 0 thiamine HCl (vitamin B1) 100 mg Tablet 100 mg PO DAILY RF: 0 tramadol [Ultram] 50 mg Tablet 50 mg PO Q6H PRN (Reason: pain 3-10) Qty: 12 RF: 0 Continue ergocalciferol (vitamin D2) 50,000 unit Capsule 50,000 unit PO QWEEK levothyroxine 50 mcg Tablet 50 mcg PO DAILY multivitamin [Multiple Vitamins] Tablet 1 tab PO DAILY potassium chloride 20 mEq Tablet Extended Release 20 meq PO DAILY sertraline 50 mg Tablet 50 mg PO DAILY Discontinued amlodipine 10 mg Tablet 10 mg PO DAILY aspirin [Al Aspirin] 325 mg Tablet 325 mg PO DAILY famotidine 20 mg Tablet 20 mg PO BID furosemide 20 mg Tablet 20 mg PO DAILY isosorbide mononitrate 30 mg Tablet Extended Release 24 Hr 30 mg PO DAILY Referrals: Liz Crocker MD [Physician] - See Instructions (Two weeks) Larry Castillo III, MD [Primary Care Provider] - See Instructions (1 week) - Discharge Instructions Patient Printed Instructions: Gastrointestinal Bleeding (DC)
--- NOTE | 2017-11-02 17:03 | IR ---
EXAM DATE: 11/01/2017 7:04 PM EDT AGE/SEX: 62 years / Male INDICATIONS: Patient presents with ascites in need of tunneled peritoneal catheter placement. CLINICAL DATA: This is the patient's initial encounter. Patient reports that signs and symptoms have been present for 1 month and indicates a pain score of 3/10. MEDICAL/SURGICAL HISTORY: . Lymphedema, Diabetes Mellitus type II, GERD, Heart murmur, HTN, Hyp othyroidism, Pneumonia, Umbilical hernia. Tonsillectomy. COMPARISON: No prior exams available for comparison. FLUORO TIME (min): 1.1 IMAGE SERIES: 2 ACCESS SITE: SEDATION TIME (min): 30 MEDICATION(S): 2.5mg midazolam (Versed) IV 125mcg fentanyl (Sublimaze) IV DEVICE(S): Right 15.5 Aspira Catheter . . PROCEDURE : 1. 2. Conscious sedation with continuous EKG and Oximetry monitoring. The risks, benefits and alternatives to the procedure were explained and verbal and written consent w as obtained. The site was prepped in sterile fashion. Full sterile technique was used, including ca p, mask, sterile gloves and gown and a large sterile sheet. Hand hygiene and 2% chlorhexidine and Be tadine was utilized per protocol for cutaneous antisepsis with appropriate dry time for site. The sk in and subcutaneous tissues were infiltrated with local anesthetic solution. A suitable site in the right flank was selected. The skin was anesthetized with 20 cc of lidocaine. T he peritoneal cavity was entered with a Bradley blunt needle. An 0.035 wire was advanced into the per itoneum. The ASPIRA drainage catheter was advanced into the peritoneal cavity via peel-away sheath. T he catheter was tunneled across the right abdominal wall without difficulty. The entrance site in the peritoneal cavity was closed with 2 Vicryl sutures. There was immediate return of approximately 2 L of ascites from the abdomen. The patient tolerated procedure well. Conscious sedation was performed with the prescribed dosages and duration as above in the presence of an independent trained radiology nurse to assist in the monitoring of the patient. EKG and oximetry remained stable throughout the procedure. CONCLUSION: 1. Uncomplicated ASPIRA drainage catheter placement into the peritoneal cavity. The patient tolerate d the procedure well. Electronically signed by: Morteza Keenan MD 11/02/2017 5:01 PM EDT
--- NOTE | 2017-11-02 17:06 | P.DIET ---
Nutritional Evaluation Type of nutrition evaluation: follow-up Nutrition consult regarding: Tube Feeding Screening comments: MDC TF Subjective Oral Diet Tolerance Assessment Indicates: Swallowing problems, Chewing problems Subjective Comments: PO intake 75% for meals today, a time of this entry Objective - Diagnosis GI Bleed - Indications of Malnutrition Classification: Chronic disease or injury-related Malnutrition Characteristics: Fluid accumulation, Diminshed functional status - Objective Body Weight Used for Calculations: IBW (75.5kg) Energy Needs - Lower Range (kCal/kg): 28 Energy Needs - Upper Range (kCal/kg): 33 Lower Limit kCal/kg (kCals): 2,114 Upper Limit kCal/kg (kCals): 2,491 Lower Limit Protein Factor (Grams per Kg): 1.2 Upper Limit Protein Factor (Grams per Kg): 1.5 Lower Protein Needs (Protein): 91 Upper Protein Needs (Protein): 113 Dietitian Reviewed in Medical Record: Current diet, Curent medications, Intake & Output, Labs Diet Order: 1800ADA Pureed Liquids Honey Thickened Oral Diet Intake Amount: Fair 50-75% Speech Therapy Recommendations: Yes (Soft) Objective Comments: Pt's nutritional needs based on 75.5kg PMH: DM, HTN, GERD, PNA, Hypothyroidism, Bilateral LE lymphedema, Anxiety, noncompliance to medical therapy Meds Inculde: Folic Acid, Thiamine, Theragran M, Lactulose, Xifaxan, Coreg, Lasix, Haldol, Novolog, Zofran Labs include: Accucheck 185, 183, 179, 177 +1BM, -UOP 300ml Feeding - Current PO Supplement Current Supplement: Glucerna Shake Current Frequency of Supplement: Three times a day Current kCals Provided by Supplement: 220 Current Protein Provided by Supplement: 10 Assessment Assessment: Pt continues to be at nutritional risk r/t dysphagia w/previous need for TF' ing. Diet advanced per ST. Pt tolerating Soft diet w/improved po intake 50% or greater for most meals. Continue Glucerna Shakes w/meals for added nutrition. Labs reviewed. Wt changes noted. Dietitian following. Recommendations: 1.Continue Glucerna Shakes w/meals for added nutrition 2.Dietitian following Dietitian to Monitor: Lab values, Liver enzymes, Glucose level, Supplement acceptance, Intake & Output, Weight change, PO Intake, Medical course
--- NOTE | 2017-11-02 17:13 | P.PNPAL ---
Patient briefly seen in his room. Patient has been medically discharged and bedside RN and director hospice operations Liz are currently in the room preparing patient for discharge to [facility] with hospice services. Patient underwent insertion of an ASPIRA drain (peritoneal catheter) to right abdomen by interventional radiology on 11/01/17. Telephone call to patient`s sister, Sabrina Farrell [phone] and updated her that patient will be transferred to [facility]. Provided her with the address and telephone number for [facility].
== END 2017-11-02 17:53 ==
LOC: HIMC 13:53 → N07 10-19 16:36
PROVIDERS: ADMIT Hospitalist; ATTEND Hospitalist

== ENCOUNTER 2017-12-11 01:13 | Inpatient (IN) ==
--- NOTE | 2017-12-11 01:40 | ED ---
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 for evaluation because his peritoneal drain had been accidentally cut by the nurse at the longterm. Patient denies any physical complaints. Apparently his peritoneal fluid is drained every other day. No abdominal pain. No dyspnea. Related Data Home Medications Medication Instructions Recorded Confirmed multivitamin [Multiple Vitamins] 1 tab PO DAILY 10/01/17 12/11/17 potassium chloride 20 meq PO DAILY 10/01/17 12/11/17 sertraline 50 mg PO DAILY 10/01/17 12/11/17 ascorbic acid (vitamin C) 500 mg PO DAILY 12/11/17 12/11/17 bisacodyl [Dulcolax (bisacodyl)] 10 mg MD DAILY PRN 12/11/17 12/11/17 calcium carbonate [Tums Ultra] 400 mg PO Q4-6H PRN 12/11/17 12/11/17 cholecalciferol (vitamin D3) 5,000 unit PO DAILY 12/11/17 12/11/17 [Vitamin D3] empty container [Enema Bottle] 12/11/17 12/11/17 lactulose 30 g PO BID 12/11/17 12/11/17 levothyroxine [Levoxyl] 50 mcg PO DAILY 12/11/17 12/11/17 magnesium citrate [Citroma] 296 ml PO DAILY PRN 12/11/17 12/11/17 morphine concentrate 0.25 mg/kg PO Q3HR PRN 12/11/17 12/11/17 morphine concentrate 0.5 mg/kg PO Q3HR PRN 12/11/17 12/11/17 omeprazole 20 mg PO DAILY 12/11/17 12/11/17 spironolactone 25 mg PO BID 12/11/17 12/11/17 Previous Rx's Medication Instructions Recorded thiamine HCl (vitamin B1) 100 mg PO DAILY tab 10/27/17 ondansetron 4 mg PO TIDAC tab 11/02/17 Allergies Allergy/AdvReac Type Severity Reaction Status Date / Time No Known Allergies Allergy Unverified 12/11/17 01:27 Review of Systems ROS: all other systems reviewed are negative [facility] Medical History Medical History Lymphedema of both lower extremities (Chronic) Alcoholic cirrhosis of liver with ascites (Acute) Anxiety (Acute) Depression (Acute) Gastrointestinal hemorrhage (Acute) GERD (gastroesophageal reflux disease) (Acute) Heart murmur (Acute) Hypertension (Acute) Hypothyroidism (Acute) Pneumonia (Acute) Umbilical hernia (Acute) Surgical History Surgical History Hx of tonsillectomy (Acute) Social History Social History Substance History: No History of Abuse Second Hand Smoke Exposure: No Smoking Status: Never smoker How Often Do You Have a Drink Containing Alcohol: Monthly or less Recent Travel in [facility] within the Last 8 Weeks: No Recent Out of Country Travel within the Last 8 Weeks: No Immunization History Tetanus Immunization: Unsure Hx Influenza Vaccine This Season: No Exam Narrative Exam Narrative: GENERAL: Well-developed, awake, alert, no apparent distress. SKIN: Focused skin assessment warm/dry. HEAD: Atraumatic. Normocephalic. EYES: Pupils equal and round. No scleral icterus. No injection or drainage. ENT: No nasal bleeding or discharge. Mucous membranes pink and dry. NECK: Trachea midline. No JVD. CARDIOVASCULAR: Regular rate and rhythm. No murmur appreciated. RESPIRATORY: No accessory muscle use. Clear to auscultation. Breath sounds equal bilaterally. GASTROINTESTINAL: Abdomen soft, non-tender, distended with fluid wave. Peritoneal drain in right lower quadrant which appears to be in place, however the tube has been cut. MUSCULOSKELETAL: No obvious deformities. No clubbing. No cyanosis. No edema. NEUROLOGICAL: Awake and alert. No obvious cranial nerve deficits. Motor grossly within normal limits. Normal speech. PSYCHIATRIC: Appropriate mood and affect; insight and judgment normal. Course Initial Documented Vital Signs Temperature 98.4 F 12/11/17 01:27 Pulse Rate 70 12/11/17 01:27 Respiratory Rate 18 12/11/17 01:27 Blood Pressure 111/56 L 12/11/17 01:27 Pulse Oximetry 100 12/11/17 01:27 Last Documented Vital Signs Temperature 98.4 F 12/11/17 01:27 Pulse Rate 70 12/11/17 01:27 Respiratory Rate 18 12/11/17 01:27 Blood Pressure 111/56 L 12/11/17 01:27 Pulse Oximetry 100 12/11/17 01:27 Medical Decision Making MDM Narrative Medical decision making narrative: Vital signs reviewed. Labs are remarkable for potassium of 6.6 with acute worsening renal function with a creatinine of 3.5. The patient has chronic anemia and his hemoglobin is 8.2 today. He also has chronic thrombocytopenia with platelets in the 70s. Patient was written for a liter of normal saline IV, an amp of D50, IV insulin, and Kayexalate. He will be admitted for further treatment and evaluation of hyperkalemia, GUANACO, peritoneal drain complication Case discussed with Dr. Oleary's nurse practitioner Ninoska who will admit the patient to their service. Medical Screen Exam Complete: Yes Emergency Medical Condition: Yes Differential Diagnosis Differential Diagnosis: Peritoneal drain complication Lab Data Result diagrams: 12/11/17 02:00 12/11/17 02:00 Lab Results 12/11/17 12/11/17 12/11/17 Range/Units 02:00 02:00 02:00 WBC 6.7 (4.0-11.0) th/mm3 RBC 2.39 L (4.50-5.90) mil/mm3 Hgb 8.2 L (13.0-17.0) gm/dL Hct 23.7 L (39.0-51.0) % MCV 99.3 (80.0-100.0) fL MCH 34.5 H (27.0-34.0) pg MCHC 34.7 (32.0-36.0) % RDW 18.8 H (11.6-17.2) % Plt Count 75 L (150-450) th/mm3 MPV 8.5 (7.0-11.0) fL Prelim Diff (Auto) Slide review pending Neut % (Auto) 59.0 (16.0-70.0) % Lymph % (Auto) 22.9 (9.0-44.0) % [place] % (Auto) 14.7 H (0.0-8.0) % Eos % (Auto) 2.5 (0.0-4.0) % Baso % (Auto) 0.9 (0.0-2.0) % Neut # (Auto) 3.9 (1.8-7.7) th/mm3 Lymph # (Auto) 1.5 (1.0-4.8) th/mm3 [place] # (Auto) 1.0 H (0.0-0.9) th/mm3 Eos # (Auto) 0.2 (0.0-0.4) th/mm3 Baso # (Auto) 0.1 (0.0-0.2) th/mm3 Differential Comment . PT 16.6 H (9.8-11.6) sec INR 1.6 Ratio APTT 36.2 H (24.3-30.1) sec Sodium 140 (136-145) meq/L Potassium 6.6 H* (3.5-5.1) meq/L Chloride 111 H (98-107) meq/L Carbon Dioxide 22.2 (21.0-32.0) meq/L Anion Gap 7 (5-15) meq/L BUN 67 H (7-18) mg/dL Creatinine 3.68 H (0.60-1.30) mg/dL Estimated GFR 20 L (>89) mL/min Random Glucose 102 (74-106) mg/dL Calcium 8.5 (8.5-10.1) mg/dL Total Bilirubin 4.6 H (0.2-1.0) mg/dL AST 61 H (15-37) U/L ALT 20 (12-78) U/L Alkaline Phosphatase 136 H (45-117) U/L Total Protein 9.3 H (6.4-8.2) g/dL Albumin 1.3 L (3.4-5.0) g/dL Discharge Plan Discharge Disposition Patient Disposition: 30 Still Patient Discharge Condition Condition: Stable Discharge Details Diagnosis: Hyperkalemia, Acute kidney injury Physicians Team ED Provider: Alex Gordon Primary Care Provider: Larry Castillo III Attending Provider: Rowena Herrera Status ED Status: Admitted Patient
[2017-12-11 02:13] LABS: Baso # (Auto) 0.1 th/mm3 (0.0-0.2); Baso % (Auto) 0.9 % (0.0-2.0); Eos # (Auto) 0.2 th/mm3 (0.0-0.4); Eos % (Auto) 2.5 % (0.0-4.0); Hematocrit 23.7 % (39.0-51.0); Hemoglobin 8.2 gm/dL (13.0-17.0); Lymph # (Auto) 1.5 th/mm3 (1.0-4.8); Lymph % (Auto) 22.9 % (9.0-44.0); Mean Corpuscular HGB Conc 34.7 % (32.0-36.0); Mean Corpuscular Hemoglobin 34.5 pg (27.0-34.0); Mean Corpuscular Volume 99.3 fL (80.0-100.0); Mean Platelet Volume 8.5 fL (7.0-11.0); Mono % (Auto) 14.7 % (0.0-8.0); Neut # (Auto) 3.9 th/mm3 (1.8-7.7); Platelet Count 75 th/mm3 (150-450); Red Blood Count 2.39 mil/mm3 (4.50-5.90); Red Cell Distribution Width 18.8 % (11.6-17.2); White Blood Count 6.7 th/mm3 (4.0-11.0)
[2017-12-11 02:18] LABS: Activated Partial Thrombo Time 36.2 sec (24.3-30.1); INR 1.6 Ratio; Prothrombin Time 16.6 sec (9.8-11.6)
[2017-12-11 02:28] LABS: Alanine Aminotransferase 20 U/L (12-78); Albumin 1.3 g/dL (3.4-5.0); Alkaline Phosphatase 136 U/L (45-117); Anion Gap 7 meq/L (5-15); Aspartate Aminotransferase 61 U/L (15-37); Blood Urea Nitrogen 67 mg/dL (7-18); Calcium 8.5 mg/dL (8.5-10.1); Carbon Dioxide 22.2 meq/L (21.0-32.0); Chloride 111 meq/L (98-107); Glomerular Filtration Rate 20 mL/min (>89); Glucose,Random 102 mg/dL (74-106); Sodium 140 meq/L (136-145); Total Protein 9.3 g/dL (6.4-8.2)
[2017-12-11 02:30] LABS: Potassium 6.6 meq/L (3.5-5.1)
[2017-12-11] MEDS ORDERED: Dextrose 50% in Water 50 ML Vial IV.PUSH ONE (02:34)
[2017-12-11] MEDS ORDERED: Sodium Polystyrene Sulfonate/Sorbitol Liq 15 GM/60 ML UDC PO ONE (02:34)
[2017-12-11] MEDS: Sod Chloride 0.9% Inj 1,000 ML IV.SIG SCH ×2 (02:49→17:17)
[2017-12-11] MEDS ORDERED: Acetaminophen 325 MG Tablet PO PRN (02:57)
[2017-12-11] MEDS ORDERED: Bisacodyl 10 MG Supp RECTAL PRN ×2 (02:57→03:16)
[2017-12-11] MEDS: Sod Chloride 0.9% Inj 1,000 ML IV.CONT SCH ×3 (03:18→17:33)
[2017-12-11 03:19] LABS: Rouleaux Present
[2017-12-11 03:20] LABS: Target Cells 1+
[2017-12-11 03:21] LABS: Platelet Morphology Normal (Normal)
[2017-12-11] MEDS ORDERED: Spironolactone 25 MG Tablet PO SCH (09:00)
[2017-12-11] MEDS ORDERED: Pantoprazole Sodium 20 MG DR Tablet PO SCH (09:00)
[2017-12-11] MEDS ORDERED: Sertraline 50 MG Tablet PO SCH (09:00)
[2017-12-11] MEDS ORDERED: Levothyroxine 50 MCG Tablet PO SCH (09:00)
[2017-12-11] MEDS ORDERED: Senna/Docusate Sodium 8.6/50 MG Tablet PO SCH (09:00)
--- NOTE | 2017-12-11 12:21 | ECG ---
Date Performed: 12/11/2017 Time Performed: 02:53:16 PTAGE: 62 years EKG: Sinus rhythm POSSIBLE LEFT ATRIAL ENLARGEMENT BORDERLINE LEFT AXIS DEVIATION POSSIBLE LEFT VENTRICULAR HYPERTROPH Y ABNORMAL ECG Nonspecific ST segment changes Compared to PREVIOUS TRACING ST changes are somewhat more prominent PREVIOUS TRACIN09/27/2017 14. 12 DOCTOR: Isaiah Farrell Interpretating Date/Time 12/11/2017 12:20:04
[2017-12-11] MEDS ORDERED: MORPHINE PO PRN ×2 (12:31)
--- NOTE | 2017-12-11 12:33 | P.HPFP ---
History of Present Illness Service: Family Medicine Primary Care Physician: Hector Martin DO Chief Complaint: PD Catheter Cut History of Present Illness: Patient was sent from SNF this AM after nurse accidentally cut patient's PD cath during a dressing change. Her has ESLD and requires intermittent draining of ascites. He is on [facility]. - Diagnosis (1) End stage liver disease Inpatient Certification: I certify that the inpatient services were ordered in accordance with Medicare regulations governing the order. This includes certification that hospital inpatient services are reasonable and necessary and in the case of services not specified as inpatient-only under 42 CFR 419.22(n), that they are appropriately provided as inpatient services in accordance to with the 2-midnight benchmark under 43 CFR 412.3(e) Estimated Total Length of Stay (Days): 2 Plans for Post Hospital Care: SNF (Resides at [facility] [address]) Review of Systems Constitutional: Reports anorexia, Reports weight loss Eyes: Denies blind spots, Denies blurry vision, Denies bulging eyes, Denies change in vision, Denies double vision, Denies discharge, Denies dry eyes, Denies floaters, Denies irritation, Denies itchy eyes, Denies loss of vision, Denies pain, Denies requires corrective lenses, Denies sensitivity to light, Denies other Ears, Nose, Mouth, and Throat: Reports bad breath Cardiovascular: Denies chest pain, Denies chest pain at rest, Denies chest pain with activity, Denies excessive sweating, Denies fainting, Denies fast heart rate, Denies foot swelling, Denies generalized swelling, Denies irregular heart rhythm, Denies leg pain with activity, Denies leg sores, Denies leg swelling, Denies lightheadedness, Denies radiating jaw, neck or arm pain, Denies rapid, pounding, or irregular heartbeat, Denies shortness of breath, Denies shortness of breath with activity, Denies shortness of breath when lying down, Denies shortness of breath causing sudden awakening, Denies slow heart rate, Denies other Respiratory: Denies change in phlegm color, Denies chest congestion, Denies cough, Denies coughing up blood, Denies excessive phlegm production, Denies pain on inspiration, Denies pain with cough, Denies shortness of breath, Denies shortness of breath with activity, Denies snoring, Denies stridor, Denies wheezing, Denies other Gastrointestinal: Reports bloating Genitourinary: Denies blood in semen, Denies blood in urine, Denies decreased urination, Denies difficulty urinating, Denies difficulty with ejaculations, Denies erectile dysfunction, Denies genital lesions, Denies genital pain, Denies painful urination, Denies side pain, Denies frequent nighttime urination , Denies painful ejaculations, Denies penile discharge, Denies scrotal swelling , Denies testicle lump, Denies testicle pain, Denies urinary frequency, Denies urinary hesitancy, Denies urinary incontinence, Denies urinary urgency, Denies other Musculoskeletal: Reports abnormal walking, Reports decreased muscle mass, Reports muscle weakness Skin/Breast: Reports itching, Reports unusual bruising Neurologic: Reports abnormal speech, Reports memory loss, Reports unsteadiness Psychiatric: Reports confusion, Reports difficulty concentrating Endocrine: Denies cold intolerance, Denies excessive sweating, Denies flushing, Denies heat intolerance, Denies increased hunger, Denies increased thirst, Denies increased urination, Denies rapid, pounding, or irregular heartbeat, Denies other Hematologic/Lymphatic: Reports easy bruising PMFSH - History History Provided By: Patient, Medical Record - Medical / Surgical Hx Neg / Unobtainable Medical Problems Denied: Unable to Obtain Surgical History: Unable to Obtain - Medical History Medical History: Medical History (Last Reviewed 12/11/17 @ 12:22 by Arthur Chappell) Lymphedema of both lower extremities (Chronic) Alcoholic cirrhosis of liver with ascites Anxiety Depression Gastrointestinal hemorrhage GERD (gastroesophageal reflux disease) Heart murmur Hypertension Hypothyroidism Pneumonia Umbilical hernia - Surgical History Surgical History: Surgical History (Last Reviewed 12/11/17 @ 12:22 by Arthur Chappell) Hx of tonsillectomy - Family History Family History: Family History (Last Reviewed 12/11/17 @ 12:22 by Arthur Chappell) Mother Dementia Hypertension Father Metastatic primary lung cancer - Social History I have reviewed the patient's Social History: Yes - Tobacco History Second Hand Smoke Exposure: No Tobacco Use In Past 30 Days: No Smoking Status: Never smoker - Alcohol History How Often Do You Have a Drink Containing Alcohol: 2 to 3 times a week - Substance Use History Substance History: No History of Abuse, Past History - Travel History History of Recent Travel: No Recent Travel in the [place] Within the Last 8 Weeks: No Recent Travel Out of the Country Within the Last 8 Weeks: No - Immunization History Tetanus Immunization: <5 Years Hx Influenza Vaccine This Season: Yes Medications and Allergies Active Medications: Active Medications Bisacodyl (Dulcolax Supp) 10 mg RECTAL DAILY PRN PRN Reason: SEVERE CONSITIPATION Sodium Chloride (Ns Inj) 1,000 mls @ 0 mls/hr IV.SIG BOLUS JANE Last Infusion: 12/11/17 03:41 Dose: Infused Sodium Chloride (Ns Inj) 1,000 mls @ 100 mls/hr IV.CONT .Q10H JANE Last Admin: 12/11/17 05:59 Dose: 100 mls/hr Sodium Chloride (Ns Flush) 2 ml IV.FLUSH PRN PRN PRN Reason: FLUSH AFTER USING IV ACCESS Allergies Allergy/AdvReac Type Severity Reaction Status Date / Time No Known Allergies Allergy Unverified 12/11/17 01:27 Home Medications Medication Instructions Recorded Confirmed Type multivitamin [Multiple Vitamins] 1 tab PO DAILY 10/01/17 12/11/17 History potassium chloride 20 meq PO DAILY 10/01/17 12/11/17 History sertraline 50 mg PO DAILY 10/01/17 12/11/17 History ascorbic acid (vitamin C) 500 mg PO DAILY 12/11/17 12/11/17 History bisacodyl [Dulcolax (bisacodyl)] 10 mg MN DAILY PRN 12/11/17 12/11/17 History calcium carbonate [Tums Ultra] 400 mg PO Q4-6H PRN 12/11/17 12/11/17 History cholecalciferol (vitamin D3) 5,000 unit PO DAILY 12/11/17 12/11/17 History [Vitamin D3] empty container [Enema Bottle] 12/11/17 12/11/17 History lactulose 30 g PO BID 12/11/17 12/11/17 History levothyroxine [Levoxyl] 50 mcg PO DAILY 12/11/17 12/11/17 History magnesium citrate [Citroma] 296 ml PO DAILY PRN 12/11/17 12/11/17 History morphine concentrate 0.25 mg/kg PO Q3HR PRN 12/11/17 12/11/17 History morphine concentrate 0.5 mg/kg PO Q3HR PRN 12/11/17 12/11/17 History omeprazole 20 mg PO DAILY 12/11/17 12/11/17 History spironolactone 25 mg PO BID 12/11/17 12/11/17 History Exam Vital signs: Vital Signs 12/11/17 01:27 12/11/17 03:00 12/11/17 05:30 Temperature 98.4 F 98.0 F Pulse Rate 70 78 68 Respiratory Rate 18 18 18 Blood Pressure 111/56 L 112/56 L 108/59 L Pulse Oximetry 100 100 96 12/11/17 08:00 Temperature 98.4 F Pulse Rate 75 Respiratory Rate 18 Blood Pressure 113/59 L Pulse Oximetry 100 Intake & Output 12/10/17 12/11/17 12/11/17 18:59 06:59 18:59 Intake Total 1000 / 1000 Balance 1000 / 1000 Weight 77.1 kg Intake: IV 1000 / 1000 NS Inj 1,000 ML @ Wide Open IV. 1000 / 1000 SIG BOLUS JANE Rx#:[id number] Oral 0 / 0 Other: # Urine Diapers 1 # Incontinent Bowel Movements 1 Weight On Admission 77.111 kg - Constitutional cachectic, chronically ill appearing, disheveled - Routine HEENT Exam Head: Present: normocephalic Eye: Present: normal accommodation ENT: Absent: dentition normal - Routine Neck Exam Present: supple, full ROM - Routine Respiratory Exam Present: CTA bilaterally - Routine Cardiovascular Exam Present: RRR, S1, S2, murmur - Routine Abdominal Exam Present: distended, firm, organomegaly, hernia. Absent: tenderness, rebound, guarding Comments: Cut PD cath in the RLQ without peritoneal signs - Routine Extremities Exam Absent: cyanosis - Routine Skin Exam Present: intact - Routine Neurological Exam Present: alert, moving all extremities, asterixis Results - Labs Result diagrams: 12/11/17 02:00 12/11/17 02:00 Abnormal lab results 12/11/17 12/11/17 12/11/17 Range/Units 02:00 02:00 02:00 RBC 2.39 L (4.50-5.90) mil/mm3 Hgb 8.2 L (13.0-17.0) gm/dL Hct 23.7 L (39.0-51.0) % MCH 34.5 H (27.0-34.0) pg RDW 18.8 H (11.6-17.2) % Plt Count 75 L (150-450) th/mm3 [place] % (Auto) 14.7 H (0.0-8.0) % [place] # (Auto) 1.0 H (0.0-0.9) th/mm3 Platelet Estimate Low L (Normal) Target Cells 1+ H (None) Rouleaux Present H (None) PT 16.6 H (9.8-11.6) sec APTT 36.2 H (24.3-30.1) sec Potassium 6.6 H* (3.5-5.1) meq/L Chloride 111 H (98-107) meq/L BUN 67 H (7-18) mg/dL Creatinine 3.68 H (0.60-1.30) mg/dL Estimated GFR 20 L (>89) mL/min Total Bilirubin 4.6 H (0.2-1.0) mg/dL AST 61 H (15-37) U/L Alkaline Phosphatase 136 H (45-117) U/L Total Protein 9.3 H (6.4-8.2) g/dL Albumin 1.3 L (3.4-5.0) g/dL Short CBC 12/11/17 Range/Units 02:00 WBC 6.7 (4.0-11.0) th/mm3 Hgb 8.2 L (13.0-17.0) gm/dL Hct 23.7 L (39.0-51.0) % Plt Count 75 L (150-450) th/mm3 BMP 12/11/17 02:00 Sodium 140 Potassium 6.6 H* Chloride 111 H Carbon Dioxide 22.2 BUN 67 H Creatinine 3.68 H Calcium 8.5 Liver Function 12/11/17 Range/Units 02:00 Total Bilirubin 4.6 H (0.2-1.0) mg/dL AST 61 H (15-37) U/L ALT 20 (12-78) U/L Alkaline Phosphatase 136 H (45-117) U/L Albumin 1.3 L (3.4-5.0) g/dL Caprini VTE Risk Assessment Caprini VTE Risk Assessment: No/Low Risk (score <= 1) (Is on Hospice and intervention is limited.) VTE Pharmacological Exception Reason: End Stage Liver Disease VTE Mechanical Exception: Patient refusal Caprini Risk Assessment Model: Point Value = 1 Point Value = 2 Point Value = 3 Point Value = 5 Age 41-60 Minor surgery BMI > 25 kg/m2 Swollen legs Varicose veins or History of unexplained or recurrent spontaneous Oral contraceptives or hormone replacement Sepsis (< 1 month) Serious lung disease, including pneumonia (< 1 month) Abnormal pulmonary function Acute myocardial infarction Congestive heart failure (< 1 month) History of inflammatory bowel disease Medical patient at bed rest Age 61-74 Arthroscopic surgery Major open surgery (> 45 min) Laparoscopic surgery (> 45 min) Malignancy Confined to bed (> 72 hours) Immobilizing plaster cast Central venous access Age >= 75 History of VTE Family history of VTE Factor V Leiden Prothrombin [id number] Lupus anticoagulant Anticardiolipin antibodies Elevated serum homocysteine Heparin-induced thrombocytopenia Other congenital or acquired thrombophilia Stroke (< 1 month) Elective arthroplasty Hip, pelvis, or leg fracture Acute spinal cord injury (< 1 month) Prophylaxis Regimen: Total Risk Factor Score Risk Level Prophylaxis Regimen 0-1 Low Early ambulation 2 Moderate Order ONE of the following: *Sequential Compression Device (SCD) *Heparin 5000 units SQ BID 3-4 Higher Order ONE of the following medications: *Heparin 5000 units SQ TID *Enoxaparin/Lovenox 40 mg SQ daily (WT < 150 kg, CrCl > 30 mL/min) *Enoxaparin/Lovenox 30 mg SQ daily (WT < 150 kg, CrCl > 10-29 mL/min) *Enoxaparin/Lovenox 30 mg SQ BID (WT < 150 kg, CrCl > 30 mL/min) AND/OR *Sequential Compression Device (SCD) 5 or more Highest Order ONE of the following medications: *Heparin 5000 units SQ TID (Preferred with Epidurals) *Enoxaparin/Lovenox 40 mg SQ daily (WT < 150 kg, CrCl > 30 mL/min) *Enoxaparin/Lovenox 30 mg SQ daily (WT < 150 kg, CrCl > 10-29 mL/min) *Enoxaparin/Lovenox 30 mg SQ BID (WT < 150 kg, CrCl > 30 mL/min) AND *Sequential Compression Device (SCD) Assessment and Plan - Assessment (1) End stage liver disease Code(s): K72.90 - Hepatic failure, unspecified without coma Status: Chronic - Assessment and Plan He will need PD catheter replaced and resume home meds and intermittent drainage of ascites. He remains On [facility]. Discussed Condition With: [facility]. Discharge Planning: Back to SNF after PD cath replaced. H&P: Quality - VTE Deep Vein Thrombosis/Pulmonary Embolism Present on Admission: No
[2017-12-11] MEDS ORDERED: Morphine Sulfate Inj 2 MG/ML Vial IV.PUSH PRN (13:40)
[2017-12-11 13:59] LABS: Baso # (Auto) 0.1 th/mm3 (0.0-0.2); Eos # (Auto) 0.1 th/mm3 (0.0-0.4); Eos % (Auto) 2.7 % (0.0-4.0); Hematocrit 22.1 % (39.0-51.0); Hemoglobin 7.7 gm/dL (13.0-17.0); Lymph # (Auto) 1.2 th/mm3 (1.0-4.8); Lymph % (Auto) 22.2 % (9.0-44.0); Mean Corpuscular HGB Conc 34.6 % (32.0-36.0); Mean Corpuscular Hemoglobin 34.6 pg (27.0-34.0); Mean Corpuscular Volume 100.1 fL (80.0-100.0); Mono # (Auto) 0.7 th/mm3 (0.0-0.9); Mono % (Auto) 12.6 % (0.0-8.0); Neut # (Auto) 3.2 th/mm3 (1.8-7.7); Neut % (Auto) 61.5 % (16.0-70.0); Platelet Count 80 th/mm3 (150-450); Red Blood Count 2.21 mil/mm3 (4.50-5.90); Red Cell Distribution Width 19.1 % (11.6-17.2); White Blood Count 5.2 th/mm3 (4.0-11.0)
[2017-12-11 14:35] LABS: Rouleaux Present
[2017-12-11 14:38] LABS: Potassium 5.8 meq/L (3.5-5.1)
[2017-12-12] MEDS: Sod Chloride 0.9% Inj 1,000 ML IV.SIG SCH (03:29)
[2017-12-12] MEDS: Sod Chloride 0.9% Inj 1,000 ML IV.CONT SCH ×4 (03:31→21:14)
--- NOTE | 2017-12-12 12:20 | P.RAD ---
Post Procedure Progress Note - Pre Procedure Diagnosis (1) Need for management of chest tube - Post Procedure Diagnosis (1) Need for management of chest tube - Procedure Information Procedure Date: 12/12/17 Supervising Radiologist: Laith Andrade Jr, MD Proceduralist/Assist: Beth Anthony Anesthesia: Other - Plan of Activity Patient to Unit: ROPU Patient Condition: Good Additional Comments: Tunneled chest tube with fractured external component. Was able to repair catheter without replacing the entire catheter. Pt states he is draining every other day without difficulty. Says tube is working fine. See PACS Report for procedural detail/treatment.
--- NOTE | 2017-12-12 15:19 | IR ---
EXAM DATE: 12/12/2017 12:27 PM EDT AGE/SEX: 62 years / Male INDICATIONS: Patient presents with his Aspira drain cut in need of new valve. CLINICAL DATA: This is the patient's initial encounter. Patient reports that signs and symptoms have been present for 1 day and indicates a pain score of 0/10. MEDICAL/SURGICAL HISTORY: Cirrhosis. Gastroesophageal reflux disease. Hypertension. Lymphede ma bilateral LE, Anxiety, Depression, Heart murmur, Hypothyroidism, umbilical hernia Tonsillectomy. COMPARISON: No prior exams available for comparison. IMAGE SERIES: ACCESS SITE: DEVICE(S): Aspira Valve Repair Kit . . PROCEDURE : 1. Repair of an Aspira drainage catheter The risks, benefits and alternatives to the procedure were explained and verbal and written consent w as obtained. The site was prepped in sterile fashion. Full sterile technique was used, including ca p, mask, sterile gloves and gown and a large sterile sheet. Hand hygiene and 2% chlorhexidine and Be tadine was utilized per protocol for cutaneous antisepsis with appropriate dry time for site. The external portion of the catheter has been ligated. There was ample length of catheter from the de rmatotomy site to allow for repair of the catheter. A new valve was placed on the ligated catheter. T he patient informs me that the current catheter is draining very well and he is draining every other day. CONCLUSION: 1. Repair of an Aspira drainage catheter. Electronically signed by: Laith Andrade MD 12/12/2017 3:18 PM EDT
--- NOTE | 2017-12-12 16:33 | P.PNFP ---
Subjective Interval history: Seen this am, Denies any chest pain sob, Npo waiting on peritoneal drain to be placed. Results - Labs Result diagrams: 12/11/17 13:30 12/11/17 13:30 - Imaging Impressions Drainage Catheter Insertion 12/12/17 03:02 CONCLUSION: 1. Repair of an Aspira drainage catheter. Physical Exam Vital signs: Vital Signs 12/11/17 19:18 12/11/17 23:50 12/12/17 03:25 Temperature 97.8 F 98.4 F 98.5 F Pulse Rate 73 78 86 Respiratory Rate 18 18 18 Blood Pressure 118/59 L 108/55 L 107/56 L Pulse Oximetry 96 95 97 12/12/17 08:00 12/12/17 12:00 Temperature 98.1 F 98.2 F Pulse Rate 85 78 Respiratory Rate 18 18 Blood Pressure 111/55 L 102/58 L Pulse Oximetry 98 99 Intake & Output 12/11/17 12/12/17 12/12/17 18:59 06:59 18:59 Intake Total 1000 / 1000 1000 / 1000 Balance 1000 / 1000 1000 / 1000 Intake: IV 1000 / 1000 1000 / 1000 NS Inj 1,000 ML @ 100 mls/hr IV 1000 / 1000 1000 / 1000 .CONT .Q10H JANE Rx#:[id number] NS Inj 1,000 ML @ Wide Open IV. 0 / 0 SIG BOLUS JANE Rx#:[id number] Oral 0 / 0 0 / 0 Other: # Voids 3 275 Date of Last Bowel Movement 12/12/17 # Bowel Movements 1 1 - Constitutional no acute distress - Routine HEENT Exam Head: Present: hematoma Eye: Present: PERRL ENT: Present: mucous membranes dry - Routine Neck Exam Present: supple - Routine Respiratory Exam Present: CTA bilaterally - Routine Cardiovascular Exam Present: S1, S2 - Routine Abdominal Exam Present: soft, distended - Routine Skin Exam Present: dry, warm - Routine Neurological Exam Present: oriented X3 Assessment and Plan - Assessment (1) End stage liver disease Code(s): K72.90 - Hepatic failure, unspecified without coma Status: Chronic - Assessment and Plan He will need PD catheter repaired, He remains On [facility]. DC back to Snf in am.
[2017-12-12 17:23] LABS: Mean Corpuscular HGB Conc 34.4 % (32.0-36.0); Mean Corpuscular Hemoglobin 35.4 pg (27.0-34.0); Mean Corpuscular Volume 102.8 fL (80.0-100.0); Mean Platelet Volume 9.2 fL (7.0-11.0); Platelet Count 87 th/mm3 (150-450); Red Blood Count 1.96 mil/mm3 (4.50-5.90); Red Cell Distribution Width 20.2 % (11.6-17.2); White Blood Count 6.4 th/mm3 (4.0-11.0)
[2017-12-12 17:27] LABS: Hematocrit 20.2 % (39.0-51.0); Hemoglobin 6.9 gm/dL (13.0-17.0)
[2017-12-12 17:43] LABS: Calcium 8.2 mg/dL (8.5-10.1); Carbon Dioxide 19.5 meq/L (21.0-32.0); Potassium 5.7 meq/L (3.5-5.1)
[2017-12-13] MEDS: Sod Chloride 0.9% Inj 1,000 ML IV.CONT SCH ×2 (06:13→15:37)
[2017-12-13 09:59] LABS: Baso # (Auto) 0.1 th/mm3 (0.0-0.2); Eos # (Auto) 0.2 th/mm3 (0.0-0.4); Eos % (Auto) 2.7 % (0.0-4.0); Hematocrit 26.1 % (39.0-51.0); Lymph # (Auto) 1.5 th/mm3 (1.0-4.8); Lymph % (Auto) 25.5 % (9.0-44.0); Mean Corpuscular HGB Conc 34.7 % (32.0-36.0); Mean Corpuscular Hemoglobin 33.9 pg (27.0-34.0); Mean Corpuscular Volume 97.6 fL (80.0-100.0); Mean Platelet Volume 8.7 fL (7.0-11.0); Mono # (Auto) 0.7 th/mm3 (0.0-0.9); Mono % (Auto) 11.3 % (0.0-8.0); Neut # (Auto) 3.6 th/mm3 (1.8-7.7); Neut % (Auto) 59.5 % (16.0-70.0); Platelet Count 78 th/mm3 (150-450); Red Blood Count 2.67 mil/mm3 (4.50-5.90); Red Cell Distribution Width 19.4 % (11.6-17.2)
--- NOTE | 2017-12-13 10:42 | P.DS ---
Date of admission: 12/11/17 02:42 Primary care physician: Larry Castillo III, MD Anticipated date of discharge: 12/13/17 Brief History from admission: Patient was sent from SNF this AM after nurse accidentally cut patient's PD cath during a dressing change. Her has ESLD and requires intermittent draining of ascites. He is on [facility]. 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 Sent from [facility] for cut peritoneal drain. Sent to IR on 12/12/17, with drain repaired/ HGB on 12/12/17 6.9. He was transfused 1 unit with Hgb on day of dc 9.0. DC back to SNF under Hospice services with [facility] - Time Spent with Patient Total time spent providing and/or coordinating discharge services: 30 Less than 30 minutes - Quality: AMI Clinical Trial Participant: No - Quality: Stroke Symptom Onset Unknown: No - Quality: VTE Is this test being ordered to rule out VTE?: No Deep Vein Thrombosis/Pulmonary Embolism Present on Admission: No Exam Vital signs: Vital Signs 12/12/17 12:00 12/12/17 16:00 12/12/17 20:39 Temperature 98.2 F 98.3 F 97.9 F Pulse Rate 78 78 73 Respiratory Rate 18 18 18 Blood Pressure 102/58 L 103/55 L 126/59 L Pulse Oximetry 99 98 96 12/12/17 23:10 12/12/17 23:28 12/13/17 02:45 Temperature 98.2 F 98.1 F 98.2 F Pulse Rate 77 76 74 Respiratory Rate 16 16 16 Blood Pressure 105/57 L 107/57 L 108/56 L Pulse Oximetry 100 100 100 12/13/17 04:00 12/13/17 08:00 Temperature 98.2 F 98.1 F Pulse Rate 71 76 Respiratory Rate 17 18 Blood Pressure 113/61 108/57 L Pulse Oximetry 95 99 Intake & Output 12/12/17 12/13/17 12/13/17 18:59 06:59 18:59 Intake Total 1120 / 1120 Output Total 100 / 100 Balance 1020 / 1020 Weight 77.1 kg Intake: Oral 720 / 720 Intake (Blood Product) Amt 400 / 400 Rbc As-3 Leukoreduced Unit 400 / 400 [id number] Output: Urine 100 / 100 Other: # Voids 2 # Incontinent Voids 2 Date of Last Bowel Movement 12/12/17 12/12/17 # Incontinent Bowel Movements 1 - Constitutional no acute distress - Routine HEENT Exam Head: Present: normocephalic Eye: Present: PERRL ENT: Present: mucous membranes moist - Routine Respiratory Exam Present: CTA bilaterally - Routine Cardiovascular Exam Present: S1, S2 - Routine Abdominal Exam Present: soft, distended - Routine Skin Exam Present: dry, warm Results Procedures completed during hospitalization: Repair of peritoneal drain 12/12/17 Labs on day of discharge: Labs from last 24 hours 12/13/17 12/12/17 12/12/17 08:35 20:22 16:45 WBC 6.0 RBC 2.67 L Hgb 9.0 L D Hct 26.1 L MCV 97.6 D MCH 33.9 MCHC 34.7 RDW 19.4 H Plt Count 78 L MPV 8.7 Prelim Diff (Auto) Slide review pending Neut % (Auto) 59.5 Lymph % (Auto) 25.5 [place] % (Auto) 11.3 H Eos % (Auto) 2.7 Baso % (Auto) 1.0 Neut # (Auto) 3.6 Lymph # (Auto) 1.5 [place] # (Auto) 0.7 Eos # (Auto) 0.2 Baso # (Auto) 0.1 WBC Differential Pending Differential Comment . Sodium 146 H Potassium 5.7 H Chloride 118 H Carbon Dioxide 19.5 L Anion Gap 9 BUN 55 H Creatinine 3.28 H Estimated GFR 23 L Random Glucose 68 L Calcium 8.2 L Blood Type O Positive Antibody Screen Negative MTS Gel Crossmatch See Detail 12/12/17 16:45 WBC 6.4 RBC 1.96 L Hgb 6.9 L* Hct 20.2 L* MCV 102.8 H MCH 35.4 H MCHC 34.4 RDW 20.2 H Plt Count 87 L MPV 9.2 Prelim Diff (Auto) Neut % (Auto) Lymph % (Auto) [place] % (Auto) Eos % (Auto) Baso % (Auto) Neut # (Auto) Lymph # (Auto) [place] # (Auto) Eos # (Auto) Baso # (Auto) WBC Differential Differential Comment Sodium Potassium Chloride Carbon Dioxide Anion Gap BUN Creatinine Estimated GFR Random Glucose Calcium Blood Type Antibody Screen MTS Gel Crossmatch - Impressions ITS Impressions Drainage Catheter Insertion 12/12/17 03:02 CONCLUSION: 1. Repair of an Aspira drainage catheter. Discharge Plan - Discharge Disposition Patient Disposition: 03 Discharge to SNF - Discharge Condition Condition: Stable - Discharge Order Discharge Orders: Discharge Order (Routine); Ordered 12/13/17 Ordered By: Ninoska Velasquez - Discharge Details Anticipated Discharge Date: 12/13/17 Discharge Comment: Dc back to snf under hospice services - Physicians Team Primary Care Provider: Larry Castillo III Attending Provider: Hector Martin [facility]
== END 2017-12-13 17:26 | disposition hospice, inpatient (51) ==
LOC: NEPC 01:13 → NEDA 02:42 → N06 04:17
PROVIDERS: ADMIT Family Medicine; ATTEND Family Medicine